=== PATIENT | male | born 1950 | race Caucasian/White ===

== ENCOUNTER 2019-10-08 07:34 | Outpatient (CLI) | payer OTHER, MEDICARE, SELFPAY ==
--- NOTE | 2019-10-08 08:00 | NM_ITS ---
WS: [id number] NUCLEAR MEDICINE OCTREOTIDE SCAN HISTORY: ABDOMINAL MASS COMPARISON: CT abdomen 08/20/2019 Patient is injected with 6.5 mCi of indium-111 Pentetreotide. Anterior and posterior whole-body imaging is obtained at 4 and 24 hours. Abnormal uptake in the soft tissues of the mid abdomen. Just to the RIGHT of midline at the level of the lower pole RIGHT kidney is an area of intense uptake which persists on 4 and 24 hours imaging. Th is corresponds to the mass seen by CT in the central mesentery. There are additional persistent soft tissue foci of increased uptake. In the RIGHT axilla, RIGHT paraspinal region just above the liver wh ich may be infrahilar. Also just superior to the spleen. Suspect metastatic deposits. NM/NM octreoscan body >2d [id number] IMPRESSION: 1. Octreotide scan is positive for uptake in the mesenteric mass seen on recen t CT. 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 2. Additional foci of increased uptake are probably metastatic deposits in the RIGHT axilla, RIGHT paraspinal, just above the diaphragm and LEFT lower thora x, just above the spleen. These may be metastatic lesions in the lungs or lymph nodes. Recommend follow-up chest CT with IV contrast to further evaluate. No a bnormality was noted on the recent CT.
== END 2019-10-08 07:35 | disposition home or self-care (01) ==
LOC: RAD 07:39
PROVIDERS: Family Provider Family Medicine; PCP Family Medicine; Visit Provider Surgery
DX: R19.00 Intra-abdominal and pelvic swelling, mass and lump, unspecified site (principal)
CPT/HCPCS: 78804; A9570

== ENCOUNTER 2019-10-31 10:38 | Outpatient (CLI) | payer OTHER, SELFPAY ==
--- NOTE | 2019-10-31 11:34 | CT_ITS ---
WS: [id number] CT CHEST WITH INTRAVENOUS CONTRAST HISTORY: MESENTERIC MASS TECHNIQUE: Contiguous 5 mm axial imaging performed on the thorax. Coronal and sagittal reformats are submitted. All CT scans at [facility] use at least one of these dose optimization techniq ues: automated exposure control; mA and/or kV adjustment per patient size (includes targeted exams wh ere dose is matched to clinical indication); or iterative reconstruction. CONTRAST: Omnipaque 300; 95 mL IV. DLP: 941.91 mGycm COMPARISON: Octreotide scan 10/08/2019. Lungs and central airway: No pulmonary mass or nodule. There are a few tiny micronodules scattered th roughout the lungs and a few granulomata. No suspicious mass. No pneumonia. Linear scar or atelectasi s at the RIGHT lung base. Pleura: Normal. No pleural effusion. Heart and pericardium: Prior CABG. Mild enlargement of the LEFT heart chambers. [place] coronary artery calcifications. Mediastinum and stephanie: Small benign-appearing lymph nodes. Vessels: Mild atherosclerosis aorta. Pulmonary artery size is slightly enlarged. Chest wall and lower neck: There are a few small axillary lymph nodes. There is no corresponding abno rmality in the RIGHT axilla to suggest a metastatic lesion. Upper abdomen: Prior cholecystectomy. There are very vague nodules in the RIGHT lobe of liver of incr eased attenuation. The largest measuring 2.4 cm in the RIGHT lobe. Possible metastatic site or alice iomas. RIGHT adrenal nodule measures 1.9 cm. LEFT adrenal nodule measures 1.2 cm. There is an additio nal soft tissue nodule measuring 1.2 cm adjacent to the LEFT adrenal gland. This could be an addition al adrenal lesion or lymph node. Osseous structures: Increase in thoracic kyphosis. No osteoblastic or osteolytic bone disease. Healed rib fracture in the lateral RIGHT thorax. CT/CT chest w con* [id number] IMPRESSION: 1. No mass identified in the RIGHT axilla to correspond to the findings on the recent octreotide scan. 2. Bilateral adrenal nodules. Metastatic sites versus adenoma. 3. Very subtle hyperdense nodules in the RIGHT lobe of the liver. Poorly visua lized and not amenable for biopsy. 4. Prior cholecystectomy. 5. Prior CABG.
[2019-10-31 12:05] LABS: Blood Urea Nitrogen 12 mg/dL (8-23)
[2019-10-31] MEDS: iohexol 300 mg/mL 100 mL Btl IV (12:08)
== END 2019-10-31 10:39 | disposition home or self-care (01) ==
LOC: RADWPI 10:43
PROVIDERS: Family Provider Family Medicine; PCP Family Medicine; Visit Provider Surgery
DX: R19.00 Intra-abdominal and pelvic swelling, mass and lump, unspecified site (principal); K63.89 Other specified diseases of intestine; Z95.1 Presence of aortocoronary bypass graft
CPT/HCPCS: 71260; 82565; 84520; Q9967

== ENCOUNTER 2019-11-05 09:49 | Outpatient (CLI) | payer OTHER, SELFPAY ==
[2019-11-05 10:17] LABS: Basophils % 0.3 %; Eosinophils # 0.2 10^3/uL (0.0-0.8); Eosinophils % 2.7 %; Hematocrit 47.1 % (42.0-52.0); Hemoglobin 14.8 g/dL (11.7-16.6); Lymphocytes # 1.9 10^3/uL (0.8-4.8); Lymphocytes % 32.6 %; Mean Corpuscular HGB Conc 31.4 g/dL (30.0-36.0); Mean Corpuscular Hemoglobin 25.8 pg (28.0-34.0); Mean Corpuscular Volume 82.2 fL (80-94); Monocytes # 0.5 10^3/uL (0.2-0.9); Monocytes % 8.1 %; Neutrophils # 3.4 10^3/uL (1.8-7.7); Neutrophils % 56.1 %; Nucleated Red Blood Cells % 0 %; Platelet Count 146 10^3/cmm (130-400); Red Blood Count 5.73 10^6/uL (4.1-5.3); Red Cell Distribution Width 14.5 % (12.1-15.1)
[2019-11-05 10:30] LABS: Alanine Aminotransferase 33 U/L (0-41); Albumin Level 5.1 g/dL (3.5-5.2); Alkaline Phosphatase 105 IU/L (40-130); Anion Gap 16.7 (5-19); Aspartate Amino Transferase 26 U/L (0-40); Blood Urea Nitrogen 13 mg/dL (8-23); C Reactive Protein 0.3 mg/L (0.0-4.9); Calcium 10.6 mg/dL (8.5-10.5); Carbon Dioxide 27 mmol/L (22-29); Chloride 101 mmol/L (98-107); Globulin 2.7 g/dL (1.3-4.6); Glomerular Filtration Rate 95.8 mL/min (90-130); Glucose 96 mg/dL (65-115); Potassium 4.7 mmol/L (3.5-5.1); Sodium 140 mmol/L (136-145); Total Bilirubin 0.4 mg/dL (0.15-1.2); Total Protein 7.8 g/dL (6.6-8.7)
[2019-11-05 11:08] LABS: Erythrocyte Sedimentation Rate 8 mm/hr (0-10)
[2019-11-07 17:20] LABS: Chromogranin A 401 ng/mL (25-140)
== END 2019-11-05 09:50 | disposition home or self-care (01) ==
PROVIDERS: Family Provider Family Medicine; PCP Family Medicine; Visit Provider Surgery
DX: K63.89 Other specified diseases of intestine (principal); R19.00 Intra-abdominal and pelvic swelling, mass and lump, unspecified site
CPT/HCPCS: 36415; 80053; 83497; 85025; 85651; 86140; 86316

== ENCOUNTER 2019-11-06 14:11 | Inpatient (IN) | payer OTHER, SELFPAY ==
[2019-11-05 10:33] VITALS: BMI 25.0
[2019-11-06] VITALS (20 sets, daily range): BP systolic 104–161; BP diastolic 58–83; PULSE 54–75; RESP 16–27; TEMP 36.3–36.8; O2SAT 83–99
[2019-11-06] MEDS: heparin 5,000 unit/mL INJ 1 mL 2000 UNIT SUBCUT (09:52)
[2019-11-06] MEDS: sodium chloride 0.9% 1,000 ML 30 ML IV (09:54)
--- NOTE | 2019-11-06 10:15 | P.ANESASSM_ITS ---
Pre-Anesthetic Assessment Pre-Anesthetic Assessment: Height/Weight: Height 1.83 m Weight 83.915 kg Temp Pulse Resp BP Pulse Ox 97.7 F 60 18 130/78 96 11/06/19 09:36 11/06/19 09:36 11/06/19 09:36 11/06/19 09:36 11/06/19 09:36 Preop Diagnosis: Abdominal mass Proposed Procedure: Operation Date: 11/06/19 11:10 Proposed Procedures p Laparoscopy Diagnostic poss Laparotomy [id number] K63.89(Not Applicable) - Tito Bañuelos MD s Laparoscopic Colon Resection(Not Applicable) - Tito Bañuelos MD s poss Exploratory Laparotomy(Not Applicable) - Tito Bañuelos MD Familial anesthetic complications: Non trouble Was Beta Gautam taken within 24 hours: Yes Last intake: Intake Last Liquid Date 11/05/19 Last Liquid Time 17:00 Last Solid Date 11/05/19 Last Solid Time 17:00 Social: Social History: No alcohol and No tobacco Exam: Pre-Anes Outpt Exam: alert, oriented x 3, clear to auscultation bilaterally and regular rate & rhythm Airway: Cervical ROM: WNL MP: 3 Dentition: False Pulmonary: Pulmonary: None reported CV/HEM: CV/HEM: CAD and HTN Comments: CABG X4 - may 1998 stents 5 years ago : : None reported Hepatic: Hepatic: None reported GI: GI: None reported Metabolic: Metabolic: None reported Musc/skel: Musc/skel: None reported Neuropsych: Neuropsych: None reported Anesthetic Plan: ASA status: 3 Anesthesia: General Other: last took plavix on 10th Risk of > 500 ml blood loss (7ml/kg in children): Yes, adequate IV access and fluids planned Meds/Allergies Current Medications: Current Medications Generic Name Dose Route Start Last Admin Trade Name Freq PRN Reason Stop Dose Admin Sodium Chloride 1,000 mls @ 30 ml s/hr 11/06/19 09:30 11/06/19 09:54 Sodium Chloride 0.9% IV 11/07/19 09:29 30 mls/hr .Q24H POLLY Administration PFSH Anesthesia PFSH: Social History Smoking and tobacco status: never smoked Second hand smoke exposure: Yes Alcohol intake: never Desire information about alcohol rehabilitation?: No Adopted: No Caregiver/support person: Yes Lives independently: No Household members: spouse Housing: House Marital status: service: Yes status details: 2 years Current occupational status: retired Current occupational exposures/hazards: No Pets and animals: No History of recent travel: No Sexually active: No Current gender identity: Male Jackelyn/Shinto: Restoration Special jackelyn needs: No Agree to transfusion: No Financial difficulty paying for basics: Decline to Answer Data Anesthesia Cardiac Studies: No Data to Display
--- NOTE | 2019-11-06 11:08 | W.PM.OPSUD ---
Surgery/Procedure H&P Update DATE OF PROCEDURE: November 06, 2019 DATE H&P PERFORMED: 11/05/19 H&P UPDATE INFORMATION: I have reviewed H&P completed within last 30 days, I have examined patient prior to procedure and No changes to prior documentation PREOP DIAGNOSIS: Abdominal mass PRIMARY INDICATION FOR PROCEDURE: The same. PLANNED PROCEDURE: Operation Date: 11/06/19 11:10 Proposed Procedures p Laparoscopy Diagnostic poss Laparotomy [id number] K63.89(Not Applicable) - Tito Bañuelos MD s Laparoscopic Colon Resection(Not Applicable) - Tito Bañuelos MD s poss Exploratory Laparotomy(Not Applicable) - Tito Bañuelos MD
[2019-11-06] MEDS: lidocaine 2% INJ 20 mL INJECTION (12:02)
--- NOTE | 2019-11-06 13:11 | SUR.OPER ---
1230 - Pt's Gena updated on surgery progress and pt status via her cell phone. 1310 - Gena updated on surgery progress and pt status via her cell phone.
--- NOTE | 2019-11-06 14:17 | SUR.OPER ---
141Ignacia Avery updated on surgery progress and pt status via her cell phone.
--- NOTE | 2019-11-06 14:40 | PM.OP ---
Operative Report Date of procedure: November 06, 2019 Pre-op Diagnosis: Abdominal mass Post-op diagnosis: other (Retroperitoneal mesenteric mass fixated and irresectable, small bowel mass tethered to the mesenteric mass about a foot long and a foot from the ileocecal junction with sutures haleigh proximal) Post-op Findings: Small bowel mass with mesenteric lymphadenopathy fixated to the retroperitoneal region Procedure Done: Diagnostic laparoscopy converted to exploratory laparotomy Small bowel resection Peritoneal lavage Specimens removed/disposition: Small bowel segment resection about foot long including nearly obstructing small bowel mass Additional small bowel segment resected distal to the resected segment above. Staple line after resection anastomosis Multiple Bartolo-Cut needle biopsies 18-gauge from the mesenteric mass sent for permanent Surgeon: Tito Bañuelos Heater Tender: Surgical techGonzales Bradley Britney and Leta Circulating nurses Dana and Isabel Young Anesthesia: General (ramp and cargo supervisor is Christal and Blanquita) Estimated blood loss (mL): 100 IV fluids (mL): 2,600 Urine output (mL): 400 Complications: No immediate complications Condition: stable Disposition: observation Brief History: This is a pleasant 69 years old gentleman with history of chronic diarrhea, regional CT scan was done per [place] back in April 2019 that showed omental caking, followed by that the small bowel follow-through that was done showed normal findings in the repeat CT scan that was done in August 2019 showed no changes in the mesenteric mass, yet the patient continued to have symptoms and thus tumor markers were sent were normal, followed by that the case was discussed at the tumor board and octreotide scan was done that showed suspicious of right axillary lymphadenopathy and diaphragmatic nodules as well, that prompted the recommendation of CT scan of the chest that came back negative, at this point no biopsies were taken and still the diagnosis was unrevealing, knowing that the [place] CAT scan was suspicious for carcinoid versus desmoid versus fibrosis of the wall bowel mesentery. After thorough history physical examination and reviewing the chart and images with my personal interpretation and further discussions with Dr. Amos medical oncologist, I counseled the patient for diagnostic laparoscopy possible laparotomy and possible small bowel resection. Patient agreed to proceed and informed consent per chart Procedure: After identifying the patient in the holding area, was taken to the operating room, placed in supine position, intubated by anesthesia, prophylactic IV antibiotics were given per protocol. Hutson catheter was inserted by the circulating nurse revealing clear urine,time-out was done verifying the patient's name/date of /planned procedure and destination after the procedure, all were in agreement. Patient was appropriately secured to the table, all pressure points were padded Prep and drape of the abdomen was done under the usual sterile technique, a Yen trocar technique was used through an supra umbilical skin incision, two stay sutures were applied to the fascia, and safe entrance to the abdominal cavity was achieved, low flow followed by high flow of CO2 gas, started by 0 scope 10 mm, no injuries were detected, followed by that a 30? millimeter scope was inserted. A 5 mm trocar was inserted under direct vision in the right upper quadrant, followed by a right lower quadrant, and another two 5 mm trocars were inserted as a mirror image from the first 2 but on the left side, to enable running the small bowel, from each side of the operating table. Position of the patient was done in T Crain and reversed T Crain so I was able to inspect the whole abdominal cavity safely, intra-abdominal adhesions were appreciated towards the right side of the abdomen. There was no evidence of intra-abdominal ascites or peritoneal deposits or carcinomatosis or liver involvment, the rest of the bowel looked normal. First the patient was placed in T Crain, the omentum was lifted up, ligament of Treitz was identified, I was standing at the right side table, the bowel was then all the way to the proximal ileal loops, then I switched it and went to the other side of the table, the remaining of the bowel were again to the ileocecal junction, about a foot from the latter junction a small bowel segment looked congested and tethered to the mesentery and inadvertent enterotomy was created and I had to repair it by laparoscopic figure of eight 2-0 silk sutures, at this point since I found that the bowel is so tethered and I am not able to appreciate the mesenteric mass from the laparoscopic view I decided to convert the patient to open procedure, since I was not able to evaluate the mass appropriately to obtain biopsies.. Laparoscopic instruments were set aside, the midline laparotomy was done extended cephalad and caudad from the previously mentioned supraumbilical incision, incision extended all the way through the subcutaneous to the fascial layer and then the peritoneum there was no succus or bleeding, a self-retaining Magazine retractor was placed to assist in exposure. After conversion to open I was able to locate the tethered small bowel segment and the mesenteric mass was fixed to the retroperitoneal structures, at this point multiple Bartolo-Cut biopsies were obtained sent for permanent pathology, I was able to dissect about a foot long of the small bowel from the mesenteric mass, extensive desmoplastic reaction was appreciated at the root of the mesentery of that small bowel segment to the underlying mesenteric lymphadenopathy,some bleeding was appreciated from the raw area left behind which I managed to apply multiple [id number] sutures of silk to control the bleeding and a piece of Surgicel was applied. That bowel of loop mesentery was scarred down to the retroperitoneal mesenteric mass, the actual mesenteric mass was fixed to the retroperitoneum and It was Harvey[place] to attempt dissecting the mass for excision, so I elected to obtain the Bartolo-Cut biopsies and excised the segment of bowel being scarred down to the mass. I created windows in the mesentery, at least 5 cm of healthy segment of small bowel were taken as safety margin proximal and distal, a GI 55 mm blue load was fired ?2, healthy proximal and distal ends were obtained, the mesentery was taken down using LigaSure followed by 3-0 silk interrupted across mesenteric line for hemostasis without jeopardizing the blood supply. Additional segment distal to the resected part was removed as it looked dusky. At this point final look showed normal-looking viscera including the liver without evidence of metastatic disease or deposits or carcinomatosis or sub-diaphragmatic lesions. The healthy segments of the small bowel now were brought [id number], 3-0 silk stay sutures were applied at 2 points, proximal and distal, and enterotomies were created to allow the 2 limbs of BRENNON 55 blue load stapler to create a [id number]-[id number] functional anastomosis,enterotomy sites were were divided by using additional GI blue load,followed by closure of the mesenteric rent. Thorough irrigation was done with the normal warm saline, continued to have viable bowel, at this point closure was done with loop PDS and I elected to leave 3 sheets of Interceed to prevent potential adhesions, thorough irrigation was done of the skin and subcutaneous followed by skin alexis, and all the small incisions created for the laparoscopic procedure were closed as well by alexis as well. Count of instruments, needles and sponges were completed at the end of the procedure Patient was then extubated and transferred to the recovery area in stable condition I elected to leave the Hutson catheter postoperatively I was present for the whole entire procedure
[2019-11-06] MEDS: fentaNYL 50 mcg/mL INJ 2mL IVP ×2 (14:51→14:56)
[2019-11-06] MEDS: morphine 4 mg/mL SDV 1 mL 2 MG IVP ×5 (15:01→22:25)
--- NOTE | 2019-11-06 16:19 | SUR.PHASEI ---
1442 PT TO PACU SLEEPY BUT AWAKES AND MOANS, ORAL AIRWAY IN PLACE GOOD RESP NOTED 1450 ORAL AIRWAY OUT, SEE PAIN MEDS GIVEN PT RESTLESS, C/O OF ABD PAIN FACE SCALE USED 1530 PT SLEEPS IF NOT DISTURBED FAMILY UPDATED AND WILL WALK UP WITH PT, REPORT CALLED SEE EARLIER PAIN MEDS GIVEN, ABD SOFT WITH 5 SITES WITH TEGADER D/I NO BLEEDING NOTED TO DRESSING , SALAS TO DD YELLOW URINE NOTED STATLOCK TO LT THIGH.PT TO FLOOR PER CART 1545 PT MOVED TO BED WITH ASSIST OF 4 NURSES, WITH SLIDE BOARD, BP 104/60, HR 54, RESP 20 ON 3LNC, SATS 98%
[2019-11-06] MEDS: famotidine 20 mg/2 mL INJ IVP (16:26)
[2019-11-06] MEDS: lactated ringers 1,000 ML 100 ML IV (16:26)
--- NOTE | 2019-11-06 17:09 | PM.CONSULT ---
Providers/Reason For Consult Consulting Physican/Specialty*: Surgery Reason for Consult*: Medical management Attending Physician: Tito Bañuelos MD Primary Care Provider: Abdulaziz Catherine History of Present Illness History of Present Illness Manuel Rodriguez is a 69 year old male with a past medical history of CABG x3, CAD status post stenting x3, hypertension, GERD, history of pulmonary embolism, chronic diarrhea for which he was found to have omental caking on CT scan and a mesenteric mass status post small bowel resection by Dr. Bañuelos for a retroperitoneal mesenteric mass fixating in a resectable, small bowel mass tethered to mesenteric mass about a foot long and a foot from the ileocecal junction. Hospitalist team was consulted for medical management of patient's chronic medical problems. Currently patient was examined postoperatively, complaining of nausea and abdominal pain, patient was having a lot of pain while speaking, so most of the history was obtained from his . Patient's states that he has a history of CABG x3, CAD status post stenting x3, he held his Plavix 2 to 3 weeks prior to planned surgery, his blood pressures are well controlled as outpatient, no history of diabetes, no history of hyperlipidemia, no history of lung disease, no history of smoking. Patient's does state that many years ago he did have a pulmonary embolism status post embolectomy, she is not sure if he was put on blood thinners. No recent illness, no recent ER visits, no recent hospitalizations. In terms of work-up for the mesenteric mass, patient has had an octreotide scan that showed right axillary lymphadenopathy and diaphragmatic nodules, that prompted a CT of the chest which came back unremarkable. Patient has had tumor markers which have been unremarkable. Review of Systems Const: Denies: fever Card: Denies: chest pain Resp: Denies: shortness of breath GI: Reports: abdominal pain and nausea : Denies: flank pain Musc: Denies: neck pain or back pain Skin/Breast: Denies: rash Neuro: Denies: headache Endo: Reports: excessive thirst; Denies: excessive urination Meds/Allergies Home Medications and Allergies Home Medications Medication Instructions Recorded Confirmed Type amlodipine 10 mg tablet 10 mg PO DAILY 10/17/19 11/06/19 History atenolol 25 mg tablet 25 mg PO DAILY 10/17/19 11/06/19 History cholecalciferol (vitamin D3) 10,000 unit PO DAILY 10/17/19 11/06/19 History 10,000 unit capsule clopidogrel 75 mg tablet 75 mg PO DAILY 10/17/19 11/05/19 History garlic 1 mg capsule 1 mg PO DAILY 10/17/19 11/06/19 History lisinopril 40 mg tablet 20 mg PO DAILY 10/17/19 11/06/19 History omega-3 fatty acids 1,000 mg 1,000 mg PO DAILY 10/17/19 11/06/19 History capsule omeprazole 20 mg capsule,delayed 20 mg PO DAILY 10/17/19 11/06/19 History release Allergies Allergy/AdvReac Type Severity Reaction Status Date / Time Stwkkup-Rvc-Bma Reductase Allergy Unknown Verified 11/06/19 09:32 Inhibitor Current Medications Current Medications Generic Name Dose Route Start Last Admin Trade Name Freq PRN Reason Stop Dose Admin Famotidine 20 mg 11/06/19 15:56 11/06/19 16:26 Pepcid Inj IVP 20 mg Q12H POLLY Administration Lactated Ringer's 1,000 mls @ 100 mls/hr 11/06/19 15:56 11/06/19 16:26 Lactated Ringers IV 100 mls/hr .Q10H POLLY Administration Acetaminophen 1,000 mg in 100 mls @ 400 mls/hr 11/06/19 16:10 11/06/19 16:29 Ofirmev IV 400 mls/hr Q8H PRN Administration NEEDED FOR FEVER OR PAIN PFSH Acute PFSH: Social History Smoking and tobacco status: never smoked Second hand smoke exposure: Yes Alcohol intake: never Desire information about alcohol rehabilitation?: No Adopted: No Caregiver/support person: Yes Lives independently: No Household members: spouse Housing: House Marital status: service: Yes status details: 2 years Current occupational status: retired Current occupational exposures/hazards: No Pets and animals: No History of recent travel: No Sexually active: No Current gender identity: Male Jackelyn/Gnosticist: Latter Day Special jackelyn needs: No Agree to transfusion: No Financial difficulty paying for basics: Decline to Answer Vitals/I&O/Wt Last Vital Signs Temp 97.5 F L 11/06/19 15:54 Pulse 54 L 02/25/20 15:54 Resp 20 H 11/06/19 15:54 BP 104/60 11/06/19 15:54 Pulse Ox 98 11/06/19 15:54 11/06/19 11/06/19 11/06/19 06:59 14:59 22:59 Intake Total 1500 / 1500 250 / 1750 Output Total 1000 / 1000 Balance 500 / 500 250 / 750 Weight last 48 hrs Weight 83.915 kg Physical Exam Const: COMMON NORMALS: no apparent distress and oriented x3 GENERAL APPEARANCE: cooperative and comfortable HENMT: COMMON NORMALS: normocephalic HEAD & SCALP: normocephalic Eye: COMMON NORMALS: PERRL and EOMs intact bilaterally GENERAL EYE: normal appearance of both eyes PUPIL: Yes PERRL Neck/C-Spine: COMMON NORMALS: full ROM, no lymphadenopathy, no JVD and thyroid normal THYROID: thyroid normal Lymph: LYMPHATIC: no lymphadenopathy noted Resp: COMMON NORMALS: normal respiratory effort, no retractions, no use of accessory muscles and clear to auscultation bilaterally AUSCULTATION: clear to auscultation bilaterally Cardio: COMMON NORMALS: no JVD, regular rate, regular rhythm, S1 normal heart sound, S2 normal heart sound, no gallops, no clicks and no murmurs RATE: regular rate RHYTHM: regular rhythm HEART SOUNDS: S1 normal and S2 normal GI: COMMON NORMALS: soft to palpation INSPECTION: Yes normal to inspection AUSCULTATION: Yes absent bowel sounds PALPATION: Yes soft, Yes tender, No guarding and No rigid Extremity: COMMON NORMALS: normal to inspection, full ROM and no pedal edema Neuro: COMMON NORMALS: oriented x3, moves all extremities and no focal motor deficits Psych: COMMON NORMALS: mental status grossly normal, thought process normal and cooperative THOUGHT PROCESS: normal thought process Urinary Catheter Management^: Hutson: Cath Placed During This Visit: yes Urethral Indwelling: Yes Reason for Continuing Indwelling Catheter: Other Urinary Catheter Date of Insertion: 11/06/19 Urinary Catheter Time of Insertion: 11:40 A&P Assessment and plan (1) Mesenteric mass: -Pain control with morphine -Nausea control Zofran -Currently n.p.o., receiving LR at 100 cc an hour -Currently having some bradycardia heart rates in the 40s, asymptomatic, normal sinus rhythm, likely secondary to pain medication, will continue to monitor Status: Acute Code(s): K63.89 - Other specified diseases of intestine (2) Hypertension: -Normotensive, hold all blood pressure medications Status: Acute Code(s): I10 - Essential (primary) hypertension (3) CAD (coronary artery disease): No active chest pain Status: Acute Code(s): I25.10 - Atherosclerotic heart disease of [place] coronary artery without angina pectoris Coding Level of Care Code Acute Registered Nurse Cardiac Telemetry for Chg Fwd Diagnoses Mesenteric mass K63.89 Hypertension I10 CAD (coronary artery disease) I25.10
[2019-11-06] MEDS: ondansetron 2 mg/ML SDV 2 mL 4 MG IVP (17:23)
[2019-11-07] VITALS (11 sets, daily range): BP systolic 145–177; BP diastolic 66–87; PULSE 70–84; RESP 14–24; TEMP 36.5–37; O2SAT 93–98; BMI 25.7
[2019-11-07] MEDS: famotidine 20 mg/2 mL INJ IVP ×2 (03:18→15:57)
[2019-11-07 03:55] LABS: Hematocrit 42.6 % (42.0-52.0); Hemoglobin 13.7 g/dL (11.7-16.6)
[2019-11-07 04:14] LABS: Anion Gap 18.3 (5-19); Blood Urea Nitrogen 9 mg/dL (8-23); Calcium 9.4 mg/dL (8.5-10.5); Carbon Dioxide 21 mmol/L (22-29); Chloride 99 mmol/L (98-107); Glomerular Filtration Rate 133.6 mL/min (90-130); Glucose 156 mg/dL (65-115); Osmolality Calculated 277 mOsm/kg (285-295); Potassium 4.3 mmol/L (3.5-5.1); Sodium 134 mmol/L (136-145)
[2019-11-07 04:15] LABS: Magnesium 1.6 mg/dL (1.7-2.3)
[2019-11-07] MEDS: HYDROmorphone 1 mg/mL INJ 1 mL 0.2 MG IVP (04:51)
[2019-11-07] MEDS: lactated ringers 1,000 ML 100 ML IV (05:31)
--- NOTE | 2019-11-07 06:02 | P.PN_ITS ---
Subjective Subjective: Interval history: Patient overall is doing well yet his pain is not yet appropriately controlled except when he received Dilaudid as he gets hallucinations with morphine IV Good urine output Vitals/I&O/Wt Last Vital Signs Temp 97.9 F 11/07/19 04:39 Pulse 72 11/07/19 04:39 Resp 16 11/07/19 04:51 BP 167/87 11/07/19 04:39 Pulse Ox 98 11/07/19 04:39 11/06/19 11/06/19 11/07/19 14:59 22:59 06:59 Intake Total 1500 / 1500 400 / 1900 1000 / 2900 Output Total 1000 / 1000 1900 / 2900 Balance 500 / 500 400 / 900 -900 / 0 Weight last 48 hrs Weight 197 lb 5 oz Weight 185 lb Physical Exam Const: COMMON NORMALS: no apparent distress and oriented x3 GENERAL APPEARANCE: cooperative ORIENTATION/CONSCIOUSNESS: Yes awake, Yes oriented to person, Yes oriented to place and Yes oriented to time HENMT: COMMON NORMALS: normocephalic HEAD & SCALP: normocephalic Eye: COMMON NORMALS: PERRL and no scleral icterus PUPIL: Yes PERRL Lymph: LYMPHATIC: no lymphadenopathy noted Chest: COMMONS NORMALS: inspection of chest normal Resp: COMMON NORMALS: normal respiratory effort and clear to auscultation bilaterally AUSCULTATION: clear to auscultation bilaterally Cardio: COMMON NORMALS: S1 normal heart sound and S2 normal heart sound; negative for no murmurs HEART SOUNDS: S1 normal and S2 normal GI: COMMON NORMALS: soft to palpation; negative for no hepatosplenomegaly INSPECTION: Yes normal to inspection PALPATION: Yes soft, No firm, Yes tender (Except at the midline incision site), No guarding, No rigid and No no hepatosplenomegaly Neuro: COMMON NORMALS: oriented x3 SENSORIUM/ORIENTATION: Yes oriented to person, Yes oriented to place and Yes oriented to time Urinary Catheter Management^: Hutson: Cath Placed During This Visit: yes Urethral Indwelling: Yes Reason for Continuing Indwelling Catheter: Other Urinary Catheter Date of Insertion: 11/06/19 Urinary Catheter Time of Insertion: 11:40 Data : 11/07/19 02:55 11/07/19 02:55 A&P Assessment and plan (1) Status post laparotomy: We will continue n.p.o. till patient starts passing gas once that happens we will start the patient on clear liquid diet and switch to p.o. pain medication. Encourage ambulation Incentive spirometer every hour Continue SCDs Follow on final pathology We will switch to Dilaudid 0.5 mg IV every 2 hours as needed and DC morphine Continue IV for pain control DC Hutson catheter Repeat Labs in [place] AM I appreciate Dr. Franklin's input with regard to medical management of patient's medical comorbidities Status: Acute Code(s): Z98.890 - Other specified postprocedural states Attestations Medical Necessity Statement*: Observation status Time Spent in Patient Care: 16 - 35 minutes (>than 50% of time spent in counselling and/or direct pt care on unit) . Coding Level of Care Code Acute Certified Personal Trainer for Chg Fwd Exam Comprehensive Diagnoses Status post laparotomy Z98.890
--- NOTE | 2019-11-07 06:47 | PC.NURSE ---
Pt up this morning to ambulate - patient did very well with moderate pain getting up. Total distance 150ft around nurse station. Pain was rated an 8 after ambulation. currently no audible bowel sounds nor has the patient passed gas.
[2019-11-07] MEDS: HYDROmorphone 1 mg/mL INJ 1 mL 0.5 MG IVP ×3 (08:05→15:57)
[2019-11-07] MEDS: amlodipine 10 mg Tablet PO (09:43)
[2019-11-07] MEDS: atenolol 50 mg Tablet 25 MG PO (09:43)
[2019-11-07] MEDS: lisinopril 20 mg Tablet PO (09:43)
--- NOTE | 2019-11-07 11:13 | P.PN_ITS ---
Subjective Subjective: Interval history: Denies fevers, chills, nausea, vomiting, continues to have abdominal pain, Hutson catheter has been removed has not urinated since, not passing gas, has not stooled yet, continues to be n.p.o., did get up and walk around the nurses station Vitals/I&O/Wt Last Vital Signs Temp 98.2 F 11/07/19 11:06 Pulse 70 11/07/19 11:06 Resp 14 11/07/19 11:06 BP 177/85 11/07/19 11:06 Pulse Ox 93 11/07/19 11:06 11/06/19 11/07/19 11/07/19 22:59 06:59 14:59 Intake Total 400 / 1900 1100 / 3000 Output Total 1900 / 2900 Balance 400 / 900 -800 / 100 Weight last 48 hrs Weight 86.137 kg Weight 89.499 kg Physical Exam Const: COMMON NORMALS: no apparent distress and oriented x3 HENMT: COMMON NORMALS: normocephalic HEAD & SCALP: normocephalic Neck/C-Spine: COMMON NORMALS: no JVD Resp: COMMON NORMALS: normal respiratory effort, no retractions, no use of accessory muscles and clear to auscultation bilaterally AUSCULTATION: clear to auscultation bilaterally Cardio: COMMON NORMALS: no JVD, regular rate, regular rhythm, S1 normal heart sound and S2 normal heart sound RATE: regular rate RHYTHM: regular rhythm HEART SOUNDS: S1 normal and S2 normal GI: COMMON NORMALS: soft to palpation INSPECTION: Yes normal to inspection and Yes incision (Gauze in place) AUSCULTATION: Yes hypoactive bowel sounds PALPATION: Yes soft, Yes tender, No guarding and No rigid Extremity: COMMON NORMALS: normal capillary refill, no clubbing, cyanosis or edema, no calf tenderness and no pedal edema Neuro: COMMON NORMALS: oriented x3 Psych: COMMON NORMALS: mental status grossly normal Urinary Catheter Management^: Hutson: Cath Placed During This Visit: yes, but has since been removed by the nurse Urethral Indwelling: Yes Reason for Continuing Indwelling Catheter: Other Urinary Catheter Date of Insertion: 11/06/19 Urinary Catheter Time of Insertion: 11:40 Date Urinary Catheter Removed: 11/07/19 Time Urinary Catheter Discontinued: 06:00 Data : 11/07/19 02:55 11/07/19 02:55 A&P Assessment and plan (1) Mesenteric mass: -Pain control with morphine -Nausea control Zofran -Currently n.p.o., receiving LR at 100 cc an hour -Currently having some bradycardia heart rates in the 40s, asymptomatic, normal sinus rhythm, likely secondary to pain medication, will continue to monitor Status: Acute Code(s): K63.89 - Other specified diseases of intestine (2) Hypertension: -Continue home medications, labetalol as needed Status: Acute Code(s): I10 - Essential (primary) hypertension (3) CAD (coronary artery disease): No active chest pain Status: Acute Code(s): I25.10 - Atherosclerotic heart disease of [place] coronary artery without angina pectoris Attestations Medical Necessity Statement*: Patient requires continued hospitalization status post surgery Coding Level of Care Code Acute Analytic Programmer for [place] Fwd Diagnoses Mesenteric mass K63.89 Hypertension I10 CAD (coronary artery disease) I25.10
--- NOTE | 2019-11-07 12:38 | PC.CHAP ---
Pastoral Care Encounter/Spiritual Assessment Type of Contact [] Declined spinning mule tender visit [] Patient/Family/Request visit [] Outpatient visit [] Follow-up visit [] Physician referral [] Code/Alert [x] Routine visit [] Staff referral [] Actively dying [] Patient sleeping [] Family support [] [] Out of room [] Palliative care [] [] Receiving care in room [] Pre-surgical visit [] Trauma [] Long length of stay [] ICU visit [] Other: Relational/Emotional Strength [x] Patient feels connected with others/family/visitors/staff [] Distress [] Loneliness/isolation [] Abandonment Spirituality of Patient [x] Person of Jackelyn [x] Attends Pentecostalism of their Jackelyn [x] Believes in Prayer [x] Reads Bible or Zoroastrian materials [] There are Spiritual issues to be addressed Petroleum Products Sales Representative Interventions [x] Prayer [x] Active listening [x] Non-anxious presence [x] Spiritual/emotional support [] Crisis/trauma care [] Spiritual counseling [] Bereavement support [] Provided bereavement packet [] Provided Bible/devotional materials [] Provided toy/stuffed animal, coloring book to patient or family member [] Provided Communion [] Anointing/[place] [] Salvation [x] Completed spiritual assessment [] Other: Impact on Illness or Injury [] Angry [] Fearful [] Anxious [] Often cries [] Exhaustion [] Unable to work [] Unable to attend amish [] Unable to walk/stand [] Unable to read [] Unable to drive [] Unable to eat/drink [] Unable to sleep [] Unable to be with family [] Patient intubated [] Other: Summary patient has great attude Time spent with patient 2 visitors 2 visitors
[2019-11-07] MEDS: lactated ringers 1,000 ML 125 ML IV (17:47)
[2019-11-07] MEDS: HYDROmorphone 1 mg/mL INJ 1 mL 0.75 MG IVP (20:36)
--- NOTE | 2019-11-07 22:04 | PC.NURSE ---
no bowel sounds heard at this time yet. incision dressing has upper and lower drainage but appears dry and stiff at this time. Dr. Conn hadnt come down today I wa told to change his dressing for the first time yet.
[2019-11-08] VITALS (11 sets, daily range): BP systolic 122–165; BP diastolic 74–90; PULSE 69–74; RESP 16–21; TEMP 36.6–37.1; O2SAT 92–95
[2019-11-08] MEDS: HYDROmorphone 1 mg/mL INJ 1 mL 0.75 MG IVP ×4 (00:24→17:46)
--- NOTE | 2019-11-08 00:58 | PC.NURSE ---
hypoactive bowel sounds more on the right side. no gas passed at this time.
[2019-11-08] MEDS: lactated ringers 1,000 ML 125 ML IV ×3 (02:55→20:20)
[2019-11-08 03:54] LABS: Hematocrit 40.9 % (42.0-52.0); Hemoglobin 13.3 g/dL (11.7-16.6)
[2019-11-08 04:10] LABS: Magnesium 1.8 mg/dL (1.7-2.3); Phosphorus 2.4 mg/dL (2.5-4.5)
[2019-11-08 04:11] LABS: Anion Gap 13.4 (5-19); Blood Urea Nitrogen 9 mg/dL (8-23); Carbon Dioxide 29 mmol/L (22-29); Chloride 100 mmol/L (98-107); Glomerular Filtration Rate 111.8 mL/min (90-130); Glucose 117 mg/dL (65-115); Osmolality Calculated 283 mOsm/kg (285-295); Potassium 4.4 mmol/L (3.5-5.1); Sodium 138 mmol/L (136-145)
[2019-11-08] MEDS: famotidine 20 mg/2 mL INJ IVP ×2 (04:47→15:21)
--- NOTE | 2019-11-08 06:26 | PM.PN ---
Subjective Subjective: Interval history: Patient's pain is better under control Good urine output No acute events overnight and still did not pass gas but bowel sounds are active Vitals/I&O/Wt Last Vital Signs Temp 97.9 F 11/08/19 04:00 Pulse 73 11/08/19 04:00 Resp 17 11/08/19 04:47 BP 165/90 11/08/19 04:00 Pulse Ox 94 11/08/19 04:47 11/07/19 11/07/19 11/08/19 14:59 22:59 06:59 Intake Total 1200 / 1200 1000 / 2200 Output Total 1560 / 1560 1685 / 3245 Balance -360 / -360 -685 / -1045 Weight last 48 hrs Weight 194 lb Weight 189 lb 14.4 oz Weight 197 lb 5 oz Physical Exam Narrative: EXAM NARRATIVE: Patient is conscious alert oriented X3 BMI 26 Head and neck examination PERRLA no masses no cervical lymphadenopathy no jaundice Cardiac examination audible S1-S2 no murmurs no gallops no arrhythmias Chest is clear bilateral,abscence of Rhonchi or wheezes,no surgical emphysema Abdomen nontender except mildly at the incision site nondistended soft no organomegaly guarding or rigidity/no signs of peritonitis. Dressings taken off and skin alexis in place Extremities no cyanosis no clubbing no edema Urinary Catheter Management^: Hutson: Cath Placed During This Visit: yes, but has since been removed by the nurse Urethral Indwelling: Yes Reason for Continuing Indwelling Catheter: Other Urinary Catheter Date of Insertion: 11/06/19 Urinary Catheter Time of Insertion: 11:40 Date Urinary Catheter Removed: 11/07/19 Time Urinary Catheter Discontinued: 06:00 Data : 11/08/19 03:40 11/08/19 03:40 A&P Assessment and plan (1) Status post laparotomy: We will continue n.p.o. till patient starts passing gas once that happens we will start the patient on clear liquid diet and switch to p.o. pain medication. Encourage ambulation Incentive spirometer every hour Continue SCDs Follow on final pathology We will switch to Dilaudid 0.5 mg IV every 2 hours as needed and DC morphine Continue IV for pain control Stable H&H from my and we can start pharmacologic DVT prophylaxis in the form of heparin subcu I appreciate Dr. Franklin's input with regard to medical management of patient's medical comorbidities Status: Acute Code(s): Z98.890 - Other specified postprocedural states Attestations Medical Necessity Statement*: Medical necessity care is expected to cross 2 midnights Time Spent in Patient Care: 16 - 35 minutes (>than 50% of time spent in counselling and/or direct pt care on unit). Coding Level of Care Code Acute Frame And Scrap Crusher for Chg Fwd Diagnoses Status post laparotomy Z98.890
[2019-11-08] MEDS: heparin 5,000 unit/mL INJ 1 mL 5000 UNIT SUBCUT ×3 (09:31→22:28)
[2019-11-08] MEDS: atenolol 50 mg Tablet 25 MG PO (09:33)
[2019-11-08] MEDS: amlodipine 10 mg Tablet PO (09:33)
[2019-11-08] MEDS: lisinopril 20 mg Tablet PO ×2 (09:33→17:43)
--- NOTE | 2019-11-08 13:38 | P.PN_ITS ---
Subjective Subjective: Interval history: Patient states that he has not had a bowel movement, not passing gas, Hutson catheter was removed, is urinating, no fevers, no chills, no abdominal pain, patient did not get up out of bed and ambulate Vitals/I&O/Wt Last Vital Signs Temp 97.9 F 11/08/19 11:11 Pulse 74 11/08/19 11:11 Resp 18 11/08/19 11:11 BP 150/78 11/08/19 11:11 Pulse Ox 94 11/08/19 11:11 11/07/19 11/08/19 11/08/19 22:59 06:59 14:59 Intake Total 1200 / 1200 1000 / 2200 1000 / 1000 Output Total 1560 / 1560 1685 / 3245 600 / 600 Balance -360 / -360 -685 / -1045 400 / 400 Weight last 48 hrs Weight 87.997 kg Weight 86.137 kg Weight 89.499 kg Physical Exam Const: COMMON NORMALS: no apparent distress and oriented x3 GENERAL APPEARANCE: cooperative and comfortable HENMT: COMMON NORMALS: normocephalic HEAD & SCALP: normocephalic Neck/C-Spine: COMMON NORMALS: no JVD Lymph: LYMPHATIC: no lymphadenopathy noted Resp: COMMON NORMALS: normal respiratory effort, no retractions, no use of accessory muscles and clear to auscultation bilaterally AUSCULTATION: clear to auscultation bilaterally Cardio: COMMON NORMALS: no JVD, regular rate, regular rhythm, S1 normal heart sound, S2 normal heart sound, no gallops, no clicks and no murmurs RATE: regular rate RHYTHM: regular rhythm HEART SOUNDS: S1 normal and S2 normal GI: COMMON NORMALS: soft to palpation AUSCULTATION: Yes hypoactive bowel sounds and Yes absent bowel sounds PALPATION: Yes soft, Yes tender, No guarding and No rigid Neuro: COMMON NORMALS: oriented x3 Urinary Catheter Management^: Hutson: Cath Placed During This Visit: yes, but has since been removed by the nurse Urethral Indwelling: Yes Reason for Continuing Indwelling Catheter: Other Urinary Catheter Date of Insertion: 11/06/19 Urinary Catheter Time of Insertion: 11:40 Date Urinary Catheter Removed: 11/07/19 Time Urinary Catheter Discontinued: 06:00 Data : 11/08/19 03:40 11/08/19 03:40 A&P Assessment and plan (1) Mesenteric mass: -Pain control with morphine -Nausea control Zofran -Currently n.p.o., receiving LR at 100 cc an hour -Blood pressure medications were restarted due to hypertensive episodes Status: Acute Code(s): K63.89 - Other specified diseases of intestine (2) Hypertension: -Continue home medications, labetalol as needed Status: Acute Code(s): I10 - Essential (primary) hypertension (3) CAD (coronary artery disease): No active chest pain Status: Acute Code(s): I25.10 - Atherosclerotic heart disease of [place] coronary artery without angina pectoris Attestations Medical Necessity Statement*: She requires continued hospitalization postoperative Coding Level of Care Code Acute Battery Vent Plug Inserter for Brionna Cueva Diagnoses Mesenteric mass K63.89 Hypertension I10 CAD (coronary artery disease) I25.10
[2019-11-09] VITALS (8 sets, daily range): BP systolic 106–140; BP diastolic 65–85; PULSE 65–83; RESP 14–18; TEMP 36.6–36.9; O2SAT 91–97
[2019-11-09] MEDS: HYDROmorphone 1 mg/mL INJ 1 mL 0.75 MG IVP ×2 (02:58→15:12)
[2019-11-09] MEDS: famotidine 20 mg/2 mL INJ IVP ×2 (04:40→15:11)
--- NOTE | 2019-11-09 05:06 | PC.NURSE ---
pt tele running afib, pt reports he has a history of irr heart beat . Dr Jimenes made aware of change in tele no new orders.
[2019-11-09 06:15] LABS: Basophils % 0.4 %; Eosinophils # 0.1 10^3/uL (0.0-0.8); Hematocrit 40.1 % (42.0-52.0); Hemoglobin 12.9 g/dL (11.7-16.6); Lymphocytes % 21.6 %; Mean Corpuscular HGB Conc 32.2 g/dL (30.0-36.0); Mean Corpuscular Volume 84.1 fL (80-94); Mean Platelet Volume 12.6 fL (7.4-10.4); Monocytes # 0.9 10^3/uL (0.2-0.9); Monocytes % 9.8 %; Neutrophils # 6.1 10^3/uL (1.8-7.7); Neutrophils % 66.9 %; Nucleated Red Blood Cells % 0 %; Platelet Count 137 10^3/cmm (130-400); Red Blood Count 4.77 10^6/uL (4.1-5.3); Red Cell Distribution Width 14.1 % (12.1-15.1); White Blood Count 9.2 10^3/uL (4.0-10.0)
--- NOTE | 2019-11-09 06:29 | P.PN_ITS ---
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 pending final report Vitals/I&O/Wt Last Vital Signs Temp 98.5 F 11/09/19 03:19 Pulse 83 11/09/19 03:19 Resp 18 11/09/19 03:19 BP 129/75 11/09/19 03:19 Pulse Ox 91 11/09/19 03:19 11/08/19 11/08/19 11/09/19 14:59 22:59 06:59 Intake Total 1000 / 1000 995.833 / 1994.833 Output Total 1075 / 1075 400 / 1475 500 / 1974 Balance -75 / -75 595.833 / 520.833 -500 / .833 Weight last 48 hrs Weight 194 lb 5 oz Weight 194 lb Weight 194 lb Weight 189 lb 14.4 oz Physical Exam Narrative: EXAM NARRATIVE: Patient is conscious alert oriented X3 BMI 26.4 Head and neck examination PERRLA no masses no cervical lymphadenopathy no jaundice Cardiac examination audible S1-S2 no murmurs no gallops no arrhythmias Chest is clear bilateral,abscence of Rhonchi or wheezes,no surgical emphysema Abdomen nontender nondistended soft no organomegaly guarding or rigidity/no signs of peritonitis/incision is clean dry and intact and skin alexis in place Extremities no cyanosis no clubbing no edema Urinary Catheter Management^: Hutson: Cath Placed During This Visit: yes, but has since been removed by the nurse Urethral Indwelling: Yes Reason for Continuing Indwelling Catheter: Other Urinary Catheter Date of Insertion: 11/06/19 Urinary Catheter Time of Insertion: 11:40 Date Urinary Catheter Removed: 11/07/19 Time Urinary Catheter Discontinued: 06:00 Data : 11/09/19 05:30 11/08/19 03:40 A&P Assessment and plan (1) Status post laparotomy: We will continue n.p.o. till patient starts passing gas once that happens we will start the patient on clear liquid diet and switch to p.o. pain medication. Encourage ambulation Incentive spirometer every hour Continue SCDs Discussion with the patient about the preliminary results of the pathology and pending final report, will discuss further at the tumor board plan of care with regard to modes of treatment. Continue IV for pain control Stable H&H from my and we can start pharmacologic DVT prophylaxis in the form of heparin subcu I appreciate Dr. Franklin's input with regard to medical management of patient's medical comorbidities Status: Acute Code(s): Z98.890 - Other specified postprocedural states Attestations Medical Necessity Statement*: Medical necessity care is expected to cross 2 midnights Time Spent in Patient Care: 16 - 35 minutes (>than 50% of time spent in counselling and/or direct pt care on unit) . Coding Level of Care Code Acute Sustainability Project Coordinator for Chg Fwd Diagnoses Status post laparotomy Z98.890
[2019-11-09 06:37] LABS: Alanine Aminotransferase 12 U/L (0-41); Albumin Level 3.5 g/dL (3.5-5.2); Alkaline Phosphatase 64 IU/L (40-130); Anion Gap 15.5 (5-19); Aspartate Amino Transferase 13 U/L (0-40); Blood Urea Nitrogen 11 mg/dL (8-23); Calcium 9.6 mg/dL (8.5-10.5); Carbon Dioxide 26 mmol/L (22-29); Chloride 100 mmol/L (98-107); Globulin 3.1 g/dL (1.3-4.6); Glomerular Filtration Rate 133.6 mL/min (90-130); Glucose 91 mg/dL (65-115); Potassium 3.5 mmol/L (3.5-5.1); Sodium 138 mmol/L (136-145); Total Bilirubin 0.6 mg/dL (0.15-1.2); Total Protein 6.6 g/dL (6.6-8.7)
[2019-11-09 07:15] LABS: Magnesium 1.9 mg/dL (1.7-2.3)
--- NOTE | 2019-11-09 07:24 | ECG_ITS ---
Measurements Intervals [place] Rate: 69 P: 13 [place]: 212 QRS: 17 QRSD: 118 T: 73 QT: 399 QTc: 430 SINUS RHYTHM WITH FIRST DEGREE AV BLOCK MINIMAL VOLTAGE CRITERIA FOR LVH, CONSIDER NORMAL VARIANT [MEETS CRITERIA IN ONE OF: R(aVL), S(V1), R(V5), R(V5/V6)+S(V1)] INFERIOR MYOCARDIAL INFARCTION [40+ ms Q WAVE AND/OR ST/T ABNORMALITY IN II/aVF], OF INDETERMINATE AGE Compared to ECG 01/25/2017 11:53:31 Myocardial infarct finding now present Sinus bradycardia no longer present Electronically Signed On 11-09-2019 11:08:42 MIDDLE SCHOOL MATH TEACHER by Fabby Mancera M.D. [id number]
[2019-11-09] MEDS: atenolol 50 mg Tablet 25 MG PO (08:12)
[2019-11-09] MEDS: lisinopril 20 mg Tablet PO ×2 (08:12→17:36)
[2019-11-09] MEDS: heparin 5,000 unit/mL INJ 1 mL 5000 UNIT SUBCUT ×2 (08:12→15:11)
[2019-11-09] MEDS: amlodipine 10 mg Tablet PO (08:13)
[2019-11-09] MEDS: lactated ringers 1,000 ML 125 ML IV (08:16)
[2019-11-09 09:01] LABS: Troponin(5th) Baseline 24 ng/mL (0-15)
[2019-11-09 09:08] LABS: Thyroid Stimulating Hormone 1.21 uIU/mL (0.27-4.20)
--- NOTE | 2019-11-09 09:24 | ECG_ITS ---
Measurements Intervals [place] Rate: 70 P: 18 [place]: 214 QRS: 24 QRSD: 113 T: 67 QT: 402 QTc: 436 SINUS RHYTHM WITH FIRST DEGREE AV BLOCK INFERIOR MYOCARDIAL INFARCTION [40+ ms Q WAVE AND/OR ST/T ABNORMALITY IN II/aVF], OF INDETERMINATE AGE Compared to ECG 01/25/2017 11:53:31 Myocardial infarct finding now present Sinus bradycardia no longer present Electronically Signed On 11-09-2019 11:14:06 ENERGY MANAGER by Fabby Mancera M.D. [id number]
[2019-11-09] MEDS: D5-NS 0.45% + KCL 20 mEq 20 MEQ/1,000 ML BAG 100 MEQ IV (09:31)
[2019-11-09 10:00] LABS: Troponin 5 2HR 23.42 ng/mL (0-15)
[2019-11-09 10:08] LABS: Troponin 5 2HR Delta -0.58 ABS# (0-10)
--- NOTE | 2019-11-09 13:24 | ECG_ITS ---
Measurements Intervals [place] Rate: 68 P: 17 [place]: 235 QRS: 21 QRSD: 99 T: 73 QT: 384 QTc: 408 SINUS RHYTHM WITH FIRST DEGREE AV BLOCK NONSPECIFIC ST & T-WAVE ABNORMALITY Possible old inferior wall myocardial infarction Compared to ECG 11/09/2019 09:45:34 T-wave abnormality now present Myocardial infarct finding no longer present Electronically Signed On 11-10-2019 20:30:38 DESK MANAGER by Yvonne Goodwin M.D. [id number]
[2019-11-09 14:52] LABS: Troponin 5 6HR 22.16 ng/mL (0-15)
[2019-11-09 14:57] LABS: Troponin 5 6HR Delta -1.84 ng/L (0-12)
--- NOTE | 2019-11-09 16:17 | PM.PN ---
Subjective Subjective: Interval history: Patient has no significant complaints this morning, has not passed stool, has not passed flatus Overnight patien had 3 beats of V. tach, was asymptomatic, patient stated the last yesterday afternoon he had an episode of left-sided chest pain, sharp pain, stabbing, lasting a few seconds, associate with palpitations, no lightheadedness, no dizziness, no nausea, vomiting, no diaphoresis. Patient states that he has had intermittent episodes of chest flutter for the past year, especially associate with caffeine use. Patient's EKG shows deep T wave inversions inferior leads, concerning for old inferior wall infarct, patient is EKG in 2017 did not have these findings, this likely patient has had a silent OH in the last 2 years, no significant ST-T wave changes here, no significant troponin elevation, echocardiogram pending, monitor for chest pain Vitals/I&O/Wt Last Vital Signs Temp 98.2 F 11/09/19 11:44 Pulse 80 11/09/19 11:44 Resp 14 11/09/19 15:12 BP 130/72 11/09/19 11:44 Pulse Ox 94 11/09/19 11:44 11/09/19 11/09/19 11/09/19 06:59 14:59 22:59 Intake Total 1000 / 2995.833 162.5 / 162.5 Output Total 500 / 1975 100 / 100 Balance 500 / 1020.833 62.5 / 62.5 Weight last 48 hrs Weight 88.139 kg Weight 87.997 kg Weight 87.997 kg Physical Exam Const: COMMON NORMALS: no apparent distress and oriented x3 HENMT: COMMON NORMALS: normocephalic HEAD & SCALP: normocephalic Neck/C-Spine: COMMON NORMALS: no JVD Resp: COMMON NORMALS: normal respiratory effort, no retractions, no use of accessory muscles and clear to auscultation bilaterally AUSCULTATION: clear to auscultation bilaterally Cardio: COMMON NORMALS: no JVD, regular rate, regular rhythm, S1 normal heart sound and S2 normal heart sound RATE: regular rate RHYTHM: regular rhythm HEART SOUNDS: S1 normal and S2 normal GI: COMMON NORMALS: normal to inspection, nondistended, normoactive bowel sounds, soft to palpation, non-tender, no hepatosplenomegaly, no masses and no bruits PALPATION: Yes soft and Yes no hepatosplenomegaly Extremity: COMMON NORMALS: normal capillary refill, no clubbing, cyanosis or edema, no calf tenderness and no pedal edema Neuro: COMMON NORMALS: oriented x3 Psych: COMMON NORMALS: mental status grossly normal Urinary Catheter Management^: Hutson: Cath Placed During This Visit: yes, but has since been removed by the nurse Urethral Indwelling: Yes Reason for Continuing Indwelling Catheter: Other Urinary Catheter Date of Insertion: 11/06/19 Urinary Catheter Time of Insertion: 11:40 Date Urinary Catheter Removed: 11/07/19 Time Urinary Catheter Discontinued: 06:00 Data : 11/09/19 05:30 11/09/19 05:30 A&P Assessment and plan (1) Mesenteric mass: -Pain control with morphine -Nausea control Zofran -Currently n.p.o., receiving LR at 100 cc an hour -Blood pressure medications were restarted due to hypertensive episodes Status: Acute Code(s): K63.89 - Other specified diseases of intestine (2) Hypertension: -Continue home medications, labetalol as needed Status: Acute Code(s): I10 - Essential (primary) hypertension (3) CAD (coronary artery disease): -Status post CABG x3, CAD status post stenting x3, last stent in 2009 -EKG shows deep Q waves in inferior leads, not seen on EKG 2016, indicated of silent myocardial infarct in the last 2 years Plan: -I spoke to adelso Madison to continue Plavix although there is a risk of bleeding, patient advised of risk and benefits, agreed to proceed -Patient has an allergy to statin, advised to start low-dose statin, advised risk benefits, agreed to proceed -Continue lisinopril, add Coreg -Continue telemetry monitoring, monitor for chest pain -Ordered cardiac echocardiogram Status: Acute Code(s): I25.10 - Atherosclerotic heart disease of [place] coronary artery without angina pectoris Attestations Medical Necessity Statement*: Patient requires continued hospitalization postoperative Coding Level of Care Code Acute Research And Development Technician for Brionna Cueva Diagnoses Mesenteric mass K63.89 Hypertension I10 CAD (coronary artery disease) I25.10
--- NOTE | 2019-11-09 16:45 | USCV_ITS ---
Manuel Rodriguez Age: 69 Gender: M : 1950 Exam Date: 11/09/2019 17:37 Ordering Phys: Chilo Christensen MD Technologist: Samaria Mcarthur Exam Location[place] [facility] [place] Indication: AFIB AND VTACH BP: 129 / 75 HR: 67 Rhythm: Sinus Technical Quality: Adequate MEASUREMENTS (Male / Female) Normal Values 2D ECHO LV Diastolic Diameter PLAX 4.3 cm 4.2 - 5.9 / 3.9 - 5.3 cm LV Systolic Diameter PLAX 2.4 cm LV Chamber Size 3.4 cm IVS Diastolic Thickness 1.4 cm 0.6 - 1.0 / 0.6 - 0.9 cm IVS Systolic Thickness 1.9 cm LVPW Diastolic Thickness 1.3 cm 0.6 - 1.0 / 0.6 - 0.9 cm LVPW Systolic Thickness 1.3 cm RV Chamber Size 3.6 cm LVOT Diameter 2.0 cm LV Ejection Fraction 2D Teich 75.4 % LV Ejection Fraction MOD 2C 67.3 % LV Ejection Fraction 2C AL 68.3 % LA Diameter 4.5 cm LA Width 3.3 cm LA Height 4.1 cm RA Width 3.3 cm RA Height 5.0 cm Aorta at Sinotubular Diameter 3.4 cm M-MODE LV Diastolic Diameter MM 4.8 cm 4.2 - 5.9 / 3.9 - 5.3 cm LV Systolic Diameter MM 3.0 cm LV Ejection Fraction MM Teich 67.8 % IVS Diastolic Thickness MM 1.4 cm 0.6 - 1.0 / 0.6 - 0.9 cm IVS Systolic Thickness MM 1.4 cm LVPW Diastolic Thickness MM 1.2 cm 0.6 - 1.0 / 0.6 - 0.9 cm LVPW Systolic Thickness MM 1.8 cm RV Diastolic Diameter MM 2.0 cm Aortic Annulus Diameter 4.3 cm LA Ao Ratio MM 1.0 MV E Point Septal Separation 0.6 cm DOPPLER AV Peak Velocity 179.0 cm/s LVOT Peak Velocity 103.0 cm/s AV Area Cont Eq vti 2.0 cm squared AV Area Cont Eq pk 1.9 cm squared MV Area PHT 3.9 cm squared Mitral E to A Ratio 0.9 MV E' Velocity 8.0 cm/s Mitral E to MV E' Ratio 9.3 Mitral E to LV E' Lateral Ratio 8.4 Mitral E to LV E' Septal Ratio 10.4 TR Peak Velocity 258.5 cm/s TR Peak Gradient 26.7 mmHg TR Mean Velocity 157.1 cm/s TR Mean Gradient 12.9 mmHg TR Velocity Time Integral 50.4 cm TV Peak E Velocity 70.0 cm/s Right Atrial Pressure 3.0 mmHg Pulmonary Artery Systolic Pressu 29.7 mmHg PV Peak Velocity 101.0 cm/s RV Acceleration Time 0.2 s RV Ejection Time 0.3 s RV AcT/ET 0.5 FINDINGS Left Ventricle Normal left ventricular size and systolic function, EF 65 %. Mild left ventricular hypertrophy. No regional wall motion abnormalities. Grade I/IV diastolic dysfunction (abnormal relaxation filling pattern), normal to mildly elevated filling pressures. Right Ventricle The right ventricle is normal in size and function. Right Atrium The right atrium is normal in size. Left Atrium The left atrium is normal in size. Mitral Valve Mild mitral annular calcification. Mild mitral valve regurgitation. Aortic Valve Thickened aortic valve. Tricuspid Valve No gross abnormalities noted Pulmonic Valve Pulmonic valve not well visualized. Pericardium Normal pericardium without effusion. Aorta Normal ascending aorta dimension. CONCLUSIONS Normal left ventricular size and systolic function, EF 65 %. Mild left ventricular hypertrophy. No regional wall motion abnormalities. Grade I/IV diastolic dysfunction (abnormal relaxation filling pattern), normal to mildly elevated filling pressures. Mild mitral annular calcification. Mild mitral valve regurgitation. Thickened aortic valve. There is no pericardial effusion. There are no intracardiac masses. No previous study is available for comparison. Dr Yvonne Goodwin MD FACC (Electronically Signed) Final Date: 09 November 2019 21:59 S
[2019-11-09] MEDS: clopidogrel 75 mg Tablet PO (17:36)
[2019-11-09] MEDS: carvedilol 6.25 mg Tablet PO (17:37)
[2019-11-09] MEDS: D5-NS 0.45% + KCL 20 mEq 20 MEQ/1,000 ML BAG 50 MEQ IV (18:33)
[2019-11-09] MEDS: atorvastatin 40 mg Tablet 20 MG PO (21:12)
--- NOTE | 2019-11-09 21:40 | PC.NURSE ---
[id number] patient had a 3 beat run of V-tach at this time. In room to check on patient. Patient is in the bathroom having a bowel movement. Patient denies any chest pain or feeling any palpations. Patient at bedside.
--- NOTE | 2019-11-09 22:00 | PC.NURSE ---
Patient resting in bed. Patient states, I passed a lot of gas just then too and I feel so much better. It is like a weight has been lifted off my belly Patient is A&Ox3. Respirations even and non-labored on room air. No obvious distress noted. at bedside.
[2019-11-10] VITALS: BP 131/84; PULSE 65; RESP 18; TEMP 36.6; O2SAT 94
[2019-11-10] MEDS: famotidine 20 mg/2 mL INJ IVP (03:58)
[2019-11-10 04:00] VITALS: BP 152/87; PULSE 58; RESP 17; TEMP 36.4; O2SAT 94
[2019-11-10 05:40] LABS: Basophils % 0.3 %; Eosinophils # 0.2 10^3/uL (0.0-0.8); Eosinophils % 2.8 %; Hematocrit 36.9 % (42.0-52.0); Hemoglobin 11.8 g/dL (11.7-16.6); Lymphocytes # 1.7 10^3/uL (0.8-4.8); Lymphocytes % 21.6 %; Mean Corpuscular Hemoglobin 26.9 pg (28.0-34.0); Mean Corpuscular Volume 84.2 fL (80-94); Mean Platelet Volume 11.8 fL (7.4-10.4); Monocytes # 0.8 10^3/uL (0.2-0.9); Monocytes % 9.7 %; Neutrophils # 5.2 10^3/uL (1.8-7.7); Neutrophils % 65.3 %; Nucleated Red Blood Cells % 0 %; Platelet Count 151 10^3/cmm (130-400); Red Blood Count 4.38 10^6/uL (4.1-5.3); Red Cell Distribution Width 14.2 % (12.1-15.1); White Blood Count 7.9 10^3/uL (4.0-10.0)
[2019-11-10 06:13] LABS: Alanine Aminotransferase 11 U/L (0-41); Albumin Level 3.4 g/dL (3.5-5.2); Alkaline Phosphatase 64 IU/L (40-130); Anion Gap 13.8 (5-19); Aspartate Amino Transferase 13 U/L (0-40); Blood Urea Nitrogen 12 mg/dL (8-23); Calcium 9.7 mg/dL (8.5-10.5); Carbon Dioxide 27 mmol/L (22-29); Chloride 103 mmol/L (98-107); Globulin 2.6 g/dL (1.3-4.6); Glomerular Filtration Rate 95.8 mL/min (90-130); Glucose 110 mg/dL (65-115); Potassium 3.8 mmol/L (3.5-5.1); Sodium 140 mmol/L (136-145); Total Bilirubin 0.5 mg/dL (0.15-1.2)
--- NOTE | 2019-11-10 07:02 | PC.NURSE ---
AMBULATION UP IN [facility] AMBULATING WITHOUT DIFFICULTY - AT SIDE
[2019-11-10 07:46] VITALS: BP 138/80; PULSE 64; RESP 16; TEMP 36.4; O2SAT 94
--- NOTE | 2019-11-10 07:54 | PM.PN ---
Subjective Subjective: Interval history: Patient overall feels well, started passing gas and having bowel movements yesterday and tolerating well clear liquid diet. An echocardiogram was obtained and showed ejection fraction of 65% After discussion with Dr. Ronquillo we agreed to start the patient on Plavix 75 mg p.o. daily and hold on the heparin subcu. Vitals/I&O/Wt Last Vital Signs Temp 97.6 F 11/10/19 07:46 Pulse 64 11/10/19 07:46 Resp 16 11/10/19 07:46 BP 138/80 11/10/19 07:46 Pulse Ox 94 11/10/19 07:46 11/09/19 11/10/19 11/10/19 22:59 06:59 14:59 Intake Total 1336.667 / 1499.167 Output Total 200 / 300 375 / 675 Balance 1136.667 / 1199.167 -375 / 824.167 Weight last 48 hrs Weight 191 lb 1 oz Weight 194 lb 5 oz Weight 194 lb Physical Exam Const: COMMON NORMALS: no apparent distress and oriented x3 GENERAL APPEARANCE: cooperative ORIENTATION/CONSCIOUSNESS: Yes awake, Yes oriented to person, Yes oriented to place and Yes oriented to time Eye: COMMON NORMALS: PERRL and no scleral icterus PUPIL: Yes PERRL Chest: COMMONS NORMALS: inspection of chest normal Resp: COMMON NORMALS: normal respiratory effort and clear to auscultation bilaterally AUSCULTATION: clear to auscultation bilaterally Cardio: COMMON NORMALS: S1 normal heart sound and S2 normal heart sound; negative for no murmurs HEART SOUNDS: S1 normal and S2 normal GI: COMMON NORMALS: soft to palpation; negative for no hepatosplenomegaly INSPECTION: Yes normal to inspection PALPATION: Yes soft, No firm, No tender, No guarding, No rigid, No no hepatosplenomegaly and Yes other (Incision is clean dry and intact and skin alexis in place) Neuro: COMMON NORMALS: oriented x3 SENSORIUM/ORIENTATION: Yes oriented to person, Yes oriented to place and Yes oriented to time Psych: COMMON NORMALS: mental status grossly normal Urinary Catheter Management^: Hutson: Cath Placed During This Visit: yes, but has since been removed by the nurse Urethral Indwelling: Yes Reason for Continuing Indwelling Catheter: Other Urinary Catheter Date of Insertion: 11/06/19 Urinary Catheter Time of Insertion: 11:40 Date Urinary Catheter Removed: 11/07/19 Time Urinary Catheter Discontinued: 06:00 Data : 11/10/19 05:12 11/10/19 05:12 A&P Assessment and plan (1) Status post laparotomy: Will advance to full liquid diet Encourage ambulation Incentive spirometer every hour We will switch to p.o. pain medications and DC IV pain medication Slight drift noticed in H&H likely due to cumulative factor of heparin and Plavix yet risk-benefit because of the patient's history of coronary artery disease, the benefit of resuming Plavix outweighs the risk of bleeding at this point. We will plan to discharge patient home today from surgical standpoint of view unless there is a contraindication from hospitalist service, return to surgery office in 7 to [address] Franklin's input with regard to medical management of patient's medical comorbidities Status: Acute Code(s): Z98.890 - Other specified postprocedural states Attestations Medical Necessity Statement*: We will plan to discharge patient home today after clearance from hospitalist service Time Spent in Patient Care: 16 - 35 minutes (>than 50% of time spent in counselling and/or direct pt care on unit). Coding Level of Care Code Acute Sales Representative Printing Supplies for Chg Fwd Diagnoses Status post laparotomy Z98.890
[2019-11-10] MEDS: carvedilol 6.25 mg Tablet PO (07:59)
[2019-11-10] MEDS: lisinopril 20 mg Tablet PO (07:59)
[2019-11-10] MEDS: amlodipine 10 mg Tablet PO (07:59)
--- NOTE | 2019-11-10 08:02 | P.DS_ITS ---
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: Status: Resolved Problem details: Follow-up with oncology service to determine further lines of therapy Reason for Visit Reason for Visit: Reason For Visit: Mesentric Mass Hospital Course Discharge Summary: This is a pleasant 69 years old gentleman presented initially with history of diarrhea and incidental finding of omental caking on the CT scan was done back in April 2019, patient undergone an EGD and colonoscopy by me they were not of significance yet a small bowel follow-through was ordered to rule out small bowel pathology that was normal, that was followed by a repeat CT scan that showed stable mass of the mesentery of the small bowel without change that was done back in August 2019 concern for carcinoid tumor and thus an octreotide scan was done again a concern for carcinoid was on display consequently the patient was offered diagnostic laparoscopy possible laparotomy and possible bowel resection that showed a small bowel carcinoid. Patient status post laparotomy overall did well and pain was eventually had better control, patient started to pass gas and have bowel movement and tolerated well p.o. intake, hospital service was involved in patient's care with regard to his cardiac history and echo was obtained that showed ejection fraction of 65%. As patient meets criteria for discharge will plan to send him home today on oral pain medication with the plan to follow-up with me at surgery office in 7 to 10 days Physical Exam Narrative: EXAM NARRATIVE: Patient is conscious alert oriented X3 BMI 26 Head and neck examination PERRLA no masses no cervical lymphadenopathy no jaundice Cardiac examination audible S1-S2 no murmurs no gallops no arrhythmias Chest is clear bilateral,abscence of Rhonchi or wheezes,no surgical emphysema Abdomen nontender nondistended soft no organomegaly guarding or rigidity/no signs of peritonitis Incisions are clean dry and intact and skin alexis in place Extremities no cyanosis no clubbing no edema Urinary Catheter Management^: Hutson: Cath Placed During This Visit: yes, but has since been removed by the nurse Urethral Indwelling: Yes Reason for Continuing Indwelling Catheter: Other Urinary Catheter Date of Insertion: 11/06/19 Urinary Catheter Time of Insertion: 11:40 Date Urinary Catheter Removed: 11/07/19 Time Urinary Catheter Discontinued: 06:00 Discharge Data Data Completed and Pending: Completed Studies During Hospitalization Category Date Time Status CV echo complete* [id number] Stat Ultrasound 11/09/19 16:45 Completed Pending at discharge Category Date Time Status ES surgery / GI i mages Routine Exams 11/06/19 11:07 Taken Complete Blood Co unt w/Auto AM LABS Lab 11/11/19 04:00 Ordered Comprehensive Met abolic Panel AM LA BS Lab 11/11/19 04:00 Ordered Pathology: Surgic al [PTH] Routine Pth 11/06/19 14:26 Received Labs from last 24 hours 11/10/19 11/10/19 11/09/19 05:12 05:12 13:38 WBC 7.9 RBC 4.38 Hgb 11.8 Hct 36.9 L MCV 84.2 MCH 26.9 L MCHC 32.0 RDW 14.2 Plt Count 151 MPV 11.8 H Neut % (Auto) 65.3 Lymph % (Auto) 21.6 [place] % (Auto) 9.7 Eos % (Auto) 2.8 Baso % (Auto) 0.3 Neut # (Auto) 5.2 Lymph # (Auto) 1.7 [place] # (Auto) 0.8 Eos # (Auto) 0.2 Baso # (Auto) 0.0 Nucleated RBC % (a uto) 0 Nucleated RBCs # 0.0 Sodium 140 Potassium 3.8 Chloride 103 Carbon Dioxide 27 Anion Gap 13.8 BUN 12 Creatinine 0.8 GFR Calculation 95.8 Glucose 110 Calcium 9.7 Total Bilirubin 0.5 AST 13 ALT 11 Alkaline Phosphata se 64 Troponin I 6 Hour 22.16 H Troponin I Hi Sens Del -1.84 L Troponin T Baselin e Troponin T 120 Min [place] Delta Troponin T Total Protein 6.0 L Albumin 3.4 L Globulin 2.6 TSH 11/09/19 11/09/19 11/09/19 09:14 07:52 07:52 WBC RBC Hgb Hct MCV MCH MCHC RDW Plt Count MPV Neut % (Auto) Lymph % (Auto) [place] % (Auto) Eos % (Auto) Baso % (Auto) Neut # (Auto) Lymph # (Auto) [place] # (Auto) Eos # (Auto) Baso # (Auto) Nucleated RBC % (a uto) Nucleated RBCs # Sodium Potassium Chloride Carbon Dioxide Anion Gap BUN Creatinine GFR Calculation Glucose Calcium Total Bilirubin AST ALT Alkaline Phosphata se Troponin I 6 Hour Troponin I Hi Sens Del Troponin T Baselin e 24 H Troponin T 120 Min [place] 23.42 H Delta Troponin T -0.58 L Total Protein Albumin Globulin TSH 1.21 Vitals: Last Vital Signs Temp 97.6 F 11/10/19 07:46 Pulse 64 11/10/19 07:46 Resp 16 11/10/19 07:46 BP 138/80 11/10/19 07:46 Pulse Ox 94 11/10/19 07:46 Discharge Plan Discharge Patient Disposition: Home, Self-Care Condition: Stable Prescriptions: [place] 5-325 mg tablet 1 tab PO Q6H PRN (Reason: pain) Qty: 28 RF: 0 Continued omeprazole 20 mg capsule,delayed release(DR/EC) 20 mg PO DAILY RF: 0 amlodipine 10 mg tablet 10 mg PO DAILY RF: 0 atenolol 25 mg tablet 25 mg PO DAILY RF: 0 cholecalciferol (vitamin D3) 10,000 unit capsule 10,000 unit PO DAILY RF: 0 clopidogrel [Plavix] 75 mg tablet 75 mg PO DAILY RF: 0 lisinopril 40 mg tablet 20 mg PO DAILY RF: 0 omega-3 fatty acids [Fish Oil Concentrate] 1,000 mg capsule 1,000 mg PO DAILY RF: 0 garlic 1 mg capsule 1 mg PO DAILY RF: 0 Discharge Orders: Discharge Order (Routine); Ordered 11/10/19 Ordered By: Tito Bañuelos Referrals: Tito Bañuelos MD [Physician] - (Return to surgery office in 7 to 10 days) Brianna Amos MD [Staff Physician] - (Follow-up appointment with Dr. Amos first available) Discharge Diet: Full LIquid Activity Restrictions/Additional Instructions: 1. Patient can shower after 48 hours from surgery 2. Full liquid diet for 48 hours then advance diet as tolerated 3. Up and walking as tolerated 4. Do lift more than 5 pounds first 2 weeks after surgery and not more than 25 pounds 6 to 8 weeks after surgery. 5. Do not operate heavy machinery or drive while using pain medications. 6.Contact the office or return to the ER for worsening nausea vomiting fevers or chills, or noticing any redness around incision sites or discharge. 6. Advised to return to ER or contact my office if there are any signs of infection like, increasing pain, fevers, chills, redness or drainage of pus. 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
[2019-11-10] MEDS: HYDROcodone-acetaminophen 5-325 mg Tablet 1 TAB PO (09:51)
[2019-11-10 11:29] VITALS: BP 122/78; PULSE 73; RESP 14; TEMP 36.4; O2SAT 95
--- NOTE | 2019-11-10 13:32 | PC.NURSE ---
DISCHARGE INSTRUCTIONS DISCHARGE INSTRUCTIONS WELL PT HARD SCRIPTS GIVEN TO PT VIA THIS NURSE - VERBALIZES UNDERSTANDING
[2019-11-10 13:34] VITALS: BP 122/78; PULSE 73; RESP 14; TEMP 36.4; O2SAT 95
--- NOTE | 2019-11-10 17:20 | PM.DCS ---
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 Hospitalist team was consulted for medical management. During patient's inpatient stay, he had 3 beats of V. tach seen on telemetry, and one episode of chest pain. Patient had a cardiac work-up that showed an deep Q waves in the inferior leads, not seen on previous EKG since 2017, likely patient had a silent GA in the last 2 years. Patient does have a history of CABG x3, CAD status post stenting x3, LAD stent in 2009. Patient was on Plavix, which was held for surgery. He was not on any Plavix due to statin intolerance. Patient reported intermittent episodes of chest pain and fluttering of his chest for the last year, did not seek medical intervention. Patient's echocardiogram showed an ejection fraction of 65%, no significant wall motion abnormalities, mild LVH, grade 1 out of 4 diastolic dysfunction. After discussion with general surgery, and with patient, agreed to reinstitute Plavix 75 mg once daily, advised risk and benefits, agreed to proceed. Patient was discharged on Plavix 75 mg once daily , with pitavastatin 1 mg once daily, lisinopril, Coreg, with repeat blood work in 1 week. Patient needs a chocolate refining roller, here in town, will need an appointment within 1 to 2 weeks. When patient follows up with cardiology, patient will likely require a outpatient stress test within a a month to evaluate for obstructive CAD. In addition given his episodes of V. tach, patient was discharged with instructions to have a event monitor placed on Tuesday. Patient was advised that at any time if he were to have chest pain or chest flutter come back to the emergency room. Physical Exam Const: COMMON NORMALS: no apparent distress and oriented x3 GENERAL APPEARANCE: cooperative and comfortable HENMT: COMMON NORMALS: normocephalic HEAD & SCALP: normocephalic Eye: COMMON NORMALS: PERRL GENERAL EYE: normal appearance of both eyes PUPIL: Yes PERRL Neck/C-Spine: COMMON NORMALS: full ROM, no lymphadenopathy, no JVD and thyroid normal THYROID: thyroid normal Lymph: LYMPHATIC: no lymphadenopathy noted Resp: COMMON NORMALS: normal respiratory effort, no retractions, no use of accessory muscles and clear to auscultation bilaterally AUSCULTATION: clear to auscultation bilaterally Cardio: COMMON NORMALS: no JVD, regular rate, regular rhythm, S1 normal heart sound, S2 normal heart sound, no gallops, no clicks and no murmurs RATE: regular rate RHYTHM: regular rhythm HEART SOUNDS: S1 normal and S2 normal GI: COMMON NORMALS: normal to inspection, nondistended, normoactive bowel sounds and non-tender Extremity: COMMON NORMALS: normal to inspection, full ROM and no pedal edema Neuro: COMMON NORMALS: oriented x3, CN's II-XII intact bilaterally, moves all extremities and no focal motor deficits Psych: COMMON NORMALS: mental status grossly normal, thought process normal and cooperative THOUGHT PROCESS: normal thought process Urinary Catheter Management^: Hutson: Cath Placed During This Visit: yes, but has since been removed by the nurse Urethral Indwelling: Yes Reason for Continuing Indwelling Catheter: Other Urinary Catheter Date of Insertion: 11/06/19 Urinary Catheter Time of Insertion: 11:40 Date Urinary Catheter Removed: 11/07/19 Time Urinary Catheter Discontinued: 06:00 Discharge Data Data Completed and Pending: Completed Studies During Hospitalization Category Date Time Status CV echo complete* [id number] Stat Ultrasound 11/09/19 16:45 Completed Pending at discharge Category Date Time Status ES surgery / GI i mages Routine Exams 11/06/19 11:07 Taken Pathology: Surgic al [PTH] Routine Pth 11/06/19 14:26 Received Labs from last 24 hours 11/10/19 11/10/19 05:12 05:12 WBC 7.9 RBC 4.38 Hgb 11.8 Hct 36.9 L MCV 84.2 MCH 26.9 L MCHC 32.0 RDW 14.2 Plt Count 151 MPV 11.8 H Neut % (Auto) 65.3 Lymph % (Auto) 21.6 [place] % (Auto) 9.7 Eos % (Auto) 2.8 Baso % (Auto) 0.3 Neut # (Auto) 5.2 Lymph # (Auto) 1.7 Nelson # (Auto) 0.8 Eos # (Auto) 0.2 Baso # (Auto) 0.0 Nucleated RBC % (a uto) 0 Nucleated RBCs # 0.0 Sodium 140 Potassium 3.8 Chloride 103 Carbon Dioxide 27 Anion Gap 13.8 BUN 12 Creatinine 0.8 GFR Calculation 95.8 Glucose 110 Calcium 9.7 Total Bilirubin 0.5 AST 13 ALT 11 Alkaline Phosphata se 64 Total Protein 6.0 L Albumin 3.4 L Globulin 2.6 Vitals: Last Vital Signs Temp 97.5 F L 11/10/19 13:34 Pulse 73 11/10/19 13:34 Resp 14 11/10/19 13:34 BP 122/78 11/10/19 13:34 Pulse Ox 95 11/10/19 13:34 Discharge Plan Discharge Patient Disposition: Home, Self-Care Condition: Stable Prescriptions: [place] 5-325 mg tablet 1 tab PO Q6H PRN (Reason: pain) Qty: 28 RF: 0 carvedilol 6.25 mg Tablet 6.25 mg PO BID 30 Days Qty: 60 RF: 0 pitavastatin calcium 1 mg tablet 1 mg PO DAILY 30 Days Qty: 30 RF: 0 Continued omeprazole 20 mg capsule,delayed release(DR/EC) 20 mg PO DAILY RF: 0 amlodipine 10 mg tablet 10 mg PO DAILY RF: 0 cholecalciferol (vitamin D3) 10,000 unit capsule 10,000 unit PO DAILY RF: 0 clopidogrel [Plavix] 75 mg tablet 75 mg PO DAILY RF: 0 lisinopril 40 mg tablet 20 mg PO DAILY RF: 0 omega-3 fatty acids [Fish Oil Concentrate] 1,000 mg capsule 1,000 mg PO DAILY RF: 0 garlic 1 mg capsule 1 mg PO DAILY RF: 0 Discontinued atenolol 25 mg tablet 25 mg PO DAILY RF: 0 Discharge Orders: Discharge Order (Routine); Ordered 11/10/19 Ordered By: Tito Bañuelos Other Ambulatory Orders: Creatine Phosphokinase (Routine) Timeframe: 1 Week Facility: [facility] - Location: Lab - Main Lab Ordered By: Chilo Christensen Comprehensive Metabolic Panel (Routine) Timeframe: 1 Week Facility: [facility] - Location: Lab - Main Lab Ordered By: Chilo BEEBE 30 day event monitor (Routine) Timeframe: 1 Week Facility: [facility] - Location: Cardiac Diagnostic Laboratory Ordered By: Chilo Christensen Referrals: Tito Bañuelos MD [Physician] - (Please call [facility] Tuesday to schedule an appointment 4-7 days from today.) Pricilla Murillo MD [Physician] - 1 week (referal for inerior wall mi, svt) Abdulaziz Catherine [Primary Care Provider] - 4-7 days (Please call Dr. Catherine office on Tuesday to make follow up appointment. ) Brianna Amos MD [Staff Physician] - (Please call [facility] Tuesday to schedule an appointment at the first opening they have.) Discharge Diet: Full LIquid Discharge Activity: Limit activity as instructed Patient Instructions: Hydrocodone/Acetaminophen (By mouth), Carvedilol (By mouth), Pitavastatin (By mouth), Laparoscopic Bowel Resection (DC) Activity Restrictions/Additional Instructions: 1. Patient can shower after 48 hours from surgery 2. Full liquid diet for 48 hours then advance diet as tolerated 3. Up and walking as tolerated 4. Do lift more than 5 pounds first 2 weeks after surgery and not more than 25 pounds 6 to 8 weeks after surgery. 5. Do not operate heavy machinery or drive while using pain medications. 6.Contact the office or return to the ER for worsening nausea vomiting fevers or chills, or noticing any redness around incision sites or discharge. 6. Advised to return to ER or contact my office if there are any signs of infection like, increasing pain, fevers, chills, redness or drainage of pus. 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
== END 2019-11-10 13:35 | disposition home or self-care (01) | DRG 331 ==
LOC: MEDSURG 14:12
PROVIDERS: Family Medicine; Admitting Provider Surgery; Family Provider Family Medicine; PCP Family Medicine; Visit Provider Surgery
PROC: (CPT 49320; principal; 2019-11-06 11:10)
PROC: (CPT 44120; 2019-11-06 11:10)
DX: D3A.019 Benign carcinoid tumor of the small intestine, unspecified portion (principal); K63.89 Other specified diseases of intestine; I25.10 Atherosclerotic heart disease of native coronary artery without angina pectoris; I10 Essential (primary) hypertension; I25.2 Old myocardial infarction; Z79.83 Long term (current) use of bisphosphonates; Z79.811 Long term (current) use of aromatase inhibitors; Z79.82 Long term (current) use of aspirin; Z95.1 Presence of aortocoronary bypass graft; Z95.820 Peripheral vascular angioplasty status with implants and grafts
CPT/HCPCS: 12345; 36415; 51702; 80048; 80053; 83735; 84100; 84443; 84484; 85014; 85018; 85025; 88305; 93005; 93306; 96365; 96372; 96375; C9290; G0378; J0131; J0690; J1170; J1644; J2001; J2270; J2405; J2704; J2710; J3010; J3490; J7030

== ENCOUNTER 2019-11-20 09:27 | Outpatient (CLI) | payer OTHER, SELFPAY ==
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
[2019-11-20 13:36] LABS: Basophils # 0.1 10^3/uL (0.0-0.1); Basophils % 0.7 %; Eosinophils # 0.6 10^3/uL (0.0-0.8); Hemoglobin 12.6 g/dL (11.7-16.6); Lymphocytes # 1.6 10^3/uL (0.8-4.8); Lymphocytes % 23.4 %; Mean Corpuscular HGB Conc 31.5 g/dL (30.0-36.0); Mean Corpuscular Hemoglobin 25.8 pg (28.0-34.0); Mean Platelet Volume 12.2 fL (7.4-10.4); Monocytes # 0.6 10^3/uL (0.2-0.9); Neutrophils # 4.2 10^3/uL (1.8-7.7); Neutrophils % 59.6 %; Nucleated Red Blood Cells % 0 %; Platelet Count 231 10^3/cmm (130-400); Red Blood Count 4.88 10^6/uL (4.1-5.3); Red Cell Distribution Width 14.3 % (12.1-15.1)
[2019-11-20 14:06] LABS: Alanine Aminotransferase 28 U/L (0-41); Albumin Level 3.8 g/dL (3.5-5.2); Alkaline Phosphatase 83 IU/L (40-130); Anion Gap 15.6 (5-19); Aspartate Amino Transferase 24 U/L (0-40); Blood Urea Nitrogen 10 mg/dL (8-23); Calcium 10.4 mg/dL (8.5-10.5); Carbon Dioxide 27 mmol/L (22-29); Chloride 102 mmol/L (98-107); Globulin 3.7 g/dL (1.3-4.6); Glomerular Filtration Rate 83.7 mL/min (90-130); Glucose 93 mg/dL (65-115); Magnesium 2.1 mg/dL (1.7-2.3); Osmolality Calculated 286 mOsm/kg (285-295); Potassium 4.6 mmol/L (3.5-5.1); Sodium 140 mmol/L (136-145); Total Bilirubin 0.3 mg/dL (0.15-1.2); Total Protein 7.5 g/dL (6.6-8.7)
[2019-11-22 17:42] LABS: Chromogranin A 804 ng/mL (25-140)
[2019-11-28 16:01] LABS: Serotonin Whole Blood 1515 ng/mL (56-244)
== END 2019-11-20 09:28 | disposition home or self-care (01) ==
PROVIDERS: Family Provider Family Medicine; PCP Family Medicine; Referring Provider Family Medicine; Visit Provider Internal Medicine Hematology & Oncology
DX: C7A.8 Other malignant neuroendocrine tumors (principal); K21.9 Gastro-esophageal reflux disease without esophagitis; E78.5 Hyperlipidemia, unspecified; I10 Essential (primary) hypertension; M19.90 Unspecified osteoarthritis, unspecified site; K52.9 Noninfective gastroenteritis and colitis, unspecified; G89.3 Neoplasm related pain (acute) (chronic); Z79.02 Long term (current) use of antithrombotics/antiplatelets; Z95.5 Presence of coronary angioplasty implant and graft; Z95.1 Presence of aortocoronary bypass graft; Z86.711 Personal history of pulmonary embolism
CPT/HCPCS: 80053; 82941; 83735; 84260; 85025; 86316; 99205

== ENCOUNTER → 2019-11-22 08:29 | Outpatient (BNVA) | payer OTHER, SELFPAY | DX: D3A.019 Benign carcinoid tumor of the small intestine, unspecified portion (principal) | CPT/HCPCS: 83497 ==

== ENCOUNTER 2019-12-06 14:37 | Outpatient (CLI) | payer OTHER, SELFPAY ==
[2019-12-06] MEDS: octreotide LAR depot 30 mg Kit IM (14:45)
== END 2019-12-06 14:38 | disposition home or self-care (01) ==
LOC: ONCMED 14:39
PROVIDERS: Family Provider Family Medicine; PCP Family Medicine; Visit Provider Internal Medicine Hematology & Oncology
DX: C7A.8 Other malignant neuroendocrine tumors (principal)
CPT/HCPCS: 96372; J2353

== ENCOUNTER 2020-01-09 12:35 | Outpatient (CLI) | payer OTHER, SELFPAY ==
[2020-01-09 20:07] LABS: Basophils % 0.6 %; Eosinophils # 0.3 10^3/uL (0.0-0.8); Eosinophils % 4.8 %; Hematocrit 42.7 % (42.0-52.0); Hemoglobin 13.2 g/dL (11.7-16.6); Lymphocytes # 2.6 10^3/uL (0.8-4.8); Lymphocytes % 37.9 %; Mean Corpuscular HGB Conc 30.9 g/dL (30.0-36.0); Mean Corpuscular Hemoglobin 26.8 pg (28.0-34.0); Mean Corpuscular Volume 86.8 fL (80-94); Monocytes # 0.5 10^3/uL (0.2-0.9); Monocytes % 7.1 %; Neutrophils # 3.4 10^3/uL (1.8-7.7); Neutrophils % 49.5 %; Nucleated Red Blood Cells % 0 %; Platelet Count 148 10^3/cmm (130-400); Red Blood Count 4.92 10^6/uL (4.1-5.3); Red Cell Distribution Width 14.9 % (12.1-15.1); White Blood Count 6.9 10^3/uL (4.0-10.0)
[2020-01-09 21:20] LABS: Alanine Aminotransferase 39 U/L (0-41); Albumin Level 4.5 g/dL (3.5-5.2); Alkaline Phosphatase 80 IU/L (40-130); Anion Gap 19.2 (5-19); Aspartate Amino Transferase 30 U/L (0-40); Blood Urea Nitrogen 10 mg/dL (8-23); Calcium 9.8 mg/dL (8.5-10.5); Carbon Dioxide 25 mmol/L (22-29); Chloride 99 mmol/L (98-107); Globulin 2.7 g/dL (1.3-4.6); Glomerular Filtration Rate 95.8 mL/min (90-130); Glucose 122 mg/dL (65-115); Osmolality Calculated 285 mOsm/kg (285-295); Potassium 4.2 mmol/L (3.5-5.1); Sodium 139 mmol/L (136-145); Total Bilirubin 0.3 mg/dL (0.15-1.2); Total Protein 7.2 g/dL (6.6-8.7)
== END 2020-01-09 12:36 | disposition home or self-care (01) ==
LOC: ONCMED 16:20
PROVIDERS: Family Provider Family Medicine; PCP Family Medicine; Visit Provider Internal Medicine Hematology & Oncology
DX: C7A.8 Other malignant neuroendocrine tumors (principal)
CPT/HCPCS: 36415; 80053; 85025

== ENCOUNTER 2020-01-11 09:26 | Outpatient (CLI) | payer OTHER, SELFPAY ==
[2020-01-11] MEDS: octreotide LAR depot 30 mg Kit IM (10:36)
--- NOTE | 2020-01-11 13:54 | ONC FU_ITS ---
Dr. Amos follow up note Patient: Manuel Rodriguez Unit #: [id number]: 1950 Dicatated By: Brianna Amos M.D.Date of Visit:January 11, 2020 Onc Med Follow-up/Prog Note History of Present Illness: Mr. Manuel Rodriguez, is a 69-year-old gentleman with history of chronic diarrhea for the last 7-8 years, as per patient about 8 years ago he underwent gallbladder surgery and subsequently developed diarrhea initially he thought he was due to gallbladder surgery but diarrhea persisted, it was watery, 5-6 times a day, no mucus or blood seen . Patient said he got used to chronic diarrhea until in June 2019 when he started having progressive abdominal pain at that time he told his primary care physician at [facility] about chronic diarrhea and now progressive abdominal pain and CT scan of abdomen was ordered which showed mesenteric mass and was referred to Dr. carter. 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 Additional foci of increase uptake are probably metastatic deposit in the right axilla, right paraspinal, just above the diaphragm and left lower thorax just above the spleen. There may be metastatic lesions in the lungs or lymph nodes. Patient underwent exploration on 11/06/2019 and Bartolo-Cut needle biopsy of mesenteric mass showed no tumor seen and small bowel excision showed benign small bowel segment with no dysplasia or malignancy but bowel resection showed well-differentiated neuroendocrine tumor (carcinoid), tumor extends through muscularis propria with extensive involvement of mesenteric fat. Focal perineural invasion identified. Single discontinuous carcinoid tumor nodule formed and mesenteric fat. Lab workup done on 11/20/2019 showed gastrin level 103 normal being less than 100, considered and 1515, normal being less than 244, chromogranin A level 804, normal being 25-140 24-hour urine HIAA, 43, normal being less than 6. Patient denies any bronchial wheezing but one episode of facial flushing in the past. Denies smoking or alcohol use, Patient denies any fever or chills denies any uncontrolled hypertension or palpitation but patient is on beta blockers. Patient denies any abdominal pain with small meals usually large meals cause abdominal pain. Denies any fever or chills, denies any jaundice denies any headaches.but persistent diarrhea 5-6 bowel movements in 24 hours Started on Sandostatin LAR 30 mg every month, on 12/06/2019 Came for follow-up, denies any specific complaint except persistent diarrhea but has improved significantly now average 2-3 bowel movements in 24 hours compared to 5-6 prior to Sandostatin shot. Otherwise no fever or chills, no abdominal pain, no facial flushing, no bronchial wheezing., No melena or hematochezia, no nausea or vomiting, no jaundice. Tolerated first dose of Sandostatin LAR well Medications: amLODIPine Besylate 1 Tablet (of 10 mg) Oral daily, Atenolol 0.5 Tablet (of 25 mg) Oral daily, Cholecalciferol 1 Tablet (of 1000 mg) Oral daily, Clopidogrel Bisulfate 1 Tablet (of 75 mg) Oral daily, Fish Oil 1 Capsule (of 2000 mg) Oral daily, Garlic 1 Capsule (of 1000 mg) Oral daily, Lisinopril 1 Tablet (of 20 mg) Oral daily, PX Omeprazole 1 Tablet (of 20 mg) Tablet, enteric coated Oral daily Allergies: Statins Review of Systems: Constitutional - Appetite is diminished and weight is decreasing. No fever, chills, hot flashes, or night sweats. Energy level is poor, ENMT - No sinus congestion/drainage. No mouth sores. No sore throat or difficulty swallowing, Hematologic/Lymphatic - No abnormal bruising or bleeding, Respiratory - No shortness of breath. No cough. No pleuritic pain or hemoptysis, Cardiovascular - No angina pain. No palpitations, Gastrointestinal - No nausea or vomiting. Positive for heartburn and acid reflux. Positive for diarrhea, no constipation. No blood in the stool or black stools, Genitourinary (M) - No dysuria or hematuria. No urinary frequency. No urgency or incontinence, Musculoskeletal - No joint or bone pain, Neurologic - No headache or dizziness. No numbness/paresthesias or other focal neurologic symptoms, Psychiatric - No anxiety or depression. No insomnia. Vital Signs: Vitals are not available for this patient. Performance Status: 0 - Fully active, able to carry on all predisease activities without restrictions. (ECOG) Physical Examination: ENMT - no mouth sores, Respiratory - Lungs are clear, Cardiovascular - Regular rate and rhythm of heart, Abdomen - no abdominal pain, bowel sounds present, nontender, Extremities - no visible edema. Lab/Imaging: Test performed on Nov 20, 2019 11:50 Serotonin, Serum 1515 ng/mL Magnesium 2.1 mg/dL Sodium 140 mmol/L Potassium 4.6 mmol/L Chloride 102 mmol/L CO2 27 mmol/L Anion Gap 15.6 BUN 10 mg/dL Creatinine 0.9 mg/dL eGFR 83.7 mL/min Glucose 93 mg/dL Calcium 10.4 mg/dL Protein, Total 7.5 g/dL Albumin 3.8 g/dL Globulin 3.7 g/dL Bilirubin, Total 0.3 mg/dL ALT (SGPT) 28 U/L AST (SGOT) 24 U/L Alkaline Phosphatase 83 IU/L WBC 7.0 10 3/uL RBC 4.88 10 6/uL HGB 12.6 g/dL HCT 40.0 % MCV 82.0 fL MCH 25.8 pg MCHC 31.5 g/dL RDW 14.3 % Platelet Count 231 10 3/cmm MPV 12.2 fL Neutrophils 4.2 10 3/uL Lymphocytes 1.6 10 3/uL Monocytes 0.6 10 3/uL Eosinophils 0.6 10 3/uL Basophils 0.1 10 3/uL Neutrophil % 59.6 % Lymphocyte % 23.4 % Monocyte % 8.0 % Eosinophil % 8.0 % Basophils % 0.7 % Chromogranin A 804 ng/mL Impression: 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 Gastrin level 103 , normal being less than 100. Final pathology report showed well-differentiated neuroendocrine tumor, carcinoid, tumor extends to the muscularis propria with extensive involvement of mesenteric fat. Focal perineural invasion identified. Single discontinue his carcinoid tumor and nodule found in the mesenteric fat. Tumor cell are strongly and diffusely positive for synaptophysin and neuron specific enolase and weakly positive for chromogranin A. Also negative for CD 56. And Ki-67 proliferative index is less than 1%, consistent with carcinoid Octreotide scan done on 10/08/2019 showed positive for uptake in mesenteric mass. Additional foci of increase uptake are probably metastatic deposit in the right axilla, right paraspinal, just above diaphragm and left lower thorax, just above spleen. There may be a metastatic lesion in the lungs are lymph nodes. Chronic diarrhea for the last 7-8 years, probably due to carcinoid started on Sandostatin LAR 30 every month on 12/06/2019 Progressive abdominal pain since June 2019.especially with large meals, not with small mucous, patient is comfortable with 8-9 meals a day Plan: Discussed with patient regarding his labs white blood count 6.9 hemoglobin 13.2 crit 42.7 platelets 148,000 CMP within normal limits, and carcinoid related lab workup which include elevated serotonin, chromogranin A, 24-hour urine for 5 HIAA. Clinically, patient is feeling better, as far as diarrhea is concerned, has improved since started on Sandostatin LAR on 11/16/2019. Now, patient has 2-3 bowel movements in 24 hours compared to 5-6, prior to that. His follow-up lab workup shows electrolytes especially potassium and magnesium within normal range. Recent has no other symptoms, his carcinoid related lab workup has confirmed secretory type of carcinoid, We'll proceed with next dose of Sandostatin LAR today and then he will return to clinic in one month with CMP, serotonin level and chromogranin A level.Patient was advised to maintain good hydration. Signed By: Brianna Amos M.D. <<Signature on File>>
== END 2020-01-11 09:27 | disposition home or self-care (01) ==
LOC: ONCMED 09:28
PROVIDERS: Family Provider Family Medicine; PCP Family Medicine; Visit Provider Internal Medicine Hematology & Oncology
DX: C7A.8 Other malignant neuroendocrine tumors (principal); C7B.01 Secondary carcinoid tumors of distant lymph nodes; R19.7 Diarrhea, unspecified
CPT/HCPCS: 96372; 99214; J2353

== ENCOUNTER → 2020-01-25 11:31 | Outpatient (BNVA) | payer OTHER, SELFPAY | PROVIDERS: Family Provider Family Medicine; PCP Family Medicine; Visit Provider Internal Medicine Cardiovascular Disease | DX: I47.2 Ventricular tachycardia (principal); I49.9 Cardiac arrhythmia, unspecified | CPT/HCPCS: 80048; 83735 ==

== ENCOUNTER 2020-02-11 11:26 | Outpatient (CLI) | payer OTHER, MEDICARE, SELFPAY ==
[2020-02-11 11:56] LABS: Basophils # 0.1 10^3/uL (0.0-0.1); Basophils % 0.8 %; Eosinophils # 0.2 10^3/uL (0.0-0.8); Eosinophils % 3.4 %; Hematocrit 43.3 % (42.0-52.0); Hemoglobin 13.7 g/dL (11.7-16.6); Lymphocytes # 2.3 10^3/uL (0.8-4.8); Lymphocytes % 31.7 %; Mean Corpuscular HGB Conc 31.6 g/dL (30.0-36.0); Mean Corpuscular Hemoglobin 26.4 pg (28.0-34.0); Mean Corpuscular Volume 83.4 fL (80-94); Mean Platelet Volume 12.1 fL (7.4-10.4); Monocytes # 0.6 10^3/uL (0.2-0.9); Monocytes % 7.9 %; Neutrophils % 55.9 %; Nucleated Red Blood Cells % 0 %; Platelet Count 147 10^3/cmm (130-400); Red Blood Count 5.19 10^6/uL (4.1-5.3); Red Cell Distribution Width 14.3 % (12.1-15.1); White Blood Count 7.1 10^3/uL (4.0-10.0)
[2020-02-11 12:10] LABS: Alanine Aminotransferase 49 U/L (0-41); Albumin Level 4.7 g/dL (3.5-5.2); Alkaline Phosphatase 95 IU/L (40-130); Anion Gap 14.3 (5-19); Aspartate Amino Transferase 35 U/L (0-40); Blood Urea Nitrogen 11 mg/dL (8-23); Calcium 9.7 mg/dL (8.5-10.5); Carbon Dioxide 24 mmol/L (22-29); Chloride 103 mmol/L (98-107); Globulin 2.4 g/dL (1.3-4.6); Glomerular Filtration Rate 111.8 mL/min (90-130); Glucose 103 mg/dL (65-115); Osmolality Calculated 280 mOsm/kg (285-295); Potassium 4.3 mmol/L (3.5-5.1); Sodium 137 mmol/L (136-145); Total Bilirubin 0.3 mg/dL (0.15-1.2); Total Protein 7.1 g/dL (6.6-8.7)
[2020-02-14 19:46] LABS: Chromogranin A 157 ng/mL (25-140)
[2020-02-15 16:51] LABS: Serotonin Whole Blood 968 ng/mL (56-244)
== END 2020-02-11 11:27 | disposition home or self-care (01) ==
LOC: ONCMED 11:29
PROVIDERS: PCP Family Medicine; Visit Provider Internal Medicine Hematology & Oncology
DX: C7A.8 Other malignant neuroendocrine tumors (principal); K21.9 Gastro-esophageal reflux disease without esophagitis; E78.5 Hyperlipidemia, unspecified; I10 Essential (primary) hypertension; M19.90 Unspecified osteoarthritis, unspecified site; I25.10 Atherosclerotic heart disease of native coronary artery without angina pectoris
CPT/HCPCS: 80053; 85025

== ENCOUNTER 2020-02-12 15:16 | Outpatient (CLI) | payer OTHER, MEDICARE, SELFPAY ==
--- NOTE | 2020-02-12 15:56 | ONC FU_ITS ---
Dr. Amos follow up note Patient: Manuel Rodriguez Unit #: [id number]: 1950 Dicatated By: Brianna Amos M.D.Date of Visit:Feb 12, 2020 Onc Med Follow-up/Prog Note History of Present Illness: Mr. Manuel Rodriguez, is a 69-year-old gentleman with history of chronic diarrhea for the last 7-8 years, as per patient about 8 years ago he underwent gallbladder surgery and subsequently developed diarrhea initially he thought he was due to gallbladder surgery but diarrhea persisted, it was watery, 5-6 times a day, no mucus or blood seen . Patient said he got used to chronic diarrhea until in June 2019 when he started having progressive abdominal pain at that time he told his primary care physician at [facility] about chronic diarrhea and now progressive abdominal pain and CT scan of abdomen was ordered which showed mesenteric mass and was referred to Dr. carter. 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 Additional foci of increase uptake are probably metastatic deposit in the right axilla, right paraspinal, just above the diaphragm and left lower thorax just above the spleen. There may be metastatic lesions in the lungs or lymph nodes. Patient underwent exploration on 11/06/2019 and Bartolo-Cut needle biopsy of mesenteric mass showed no tumor seen and small bowel excision showed benign small bowel segment with no dysplasia or malignancy but bowel resection showed well-differentiated neuroendocrine tumor (carcinoid), tumor extends through muscularis propria with extensive involvement of mesenteric fat. Focal perineural invasion identified. Single discontinuous carcinoid tumor nodule formed and mesenteric fat. Lab workup done on 11/20/2019 showed gastrin level 103 normal being less than 100, considered and 1515, normal being less than 244, chromogranin A level 804, normal being 25-140 24-hour urine HIAA, 43, normal being less than 6. Patient denies any bronchial wheezing but one episode of facial flushing in the past. Denies smoking or alcohol use, Patient denies any fever or chills denies any uncontrolled hypertension or palpitation but patient is on beta blockers. Patient denies any abdominal pain with small meals usually large meals cause abdominal pain. Denies any fever or chills, denies any jaundice denies any headaches.but persistent diarrhea 5-6 bowel movements in 24 hours Started on Sandostatin LAR 30 mg every month, on 12/06/2019 Came for follow-up, denies any specific complaints, no facial flushing, no bronchial wheezing, and diarrhea is almost resolved now once a day bowel movement and sometimes twice a day at the most. No melena or hematochezia, no abdominal pain. Appetite is good, overall quality of life is improving. Tolerating Sandostatin well otherwise Medications: amLODIPine Besylate 1 Tablet (of 10 mg) Oral daily, Atenolol 0.5 Tablet (of 25 mg) Oral daily, Cholecalciferol 1 Tablet (of 1000 mg) Oral daily, Clopidogrel Bisulfate 1 Tablet (of 75 mg) Oral daily, Eliquis 1 Tablet (of 2.5 mg) Oral b.i.d., Fish Oil 1 Capsule (of 2000 mg) Oral daily, Garlic 1 Capsule (of 1000 mg) Oral daily, Lisinopril 1 Tablet (of 20 mg) Oral daily, PX Omeprazole 1 Tablet (of 20 mg) Tablet, enteric coated Oral daily Allergies: Statins Review of Systems: Review of Systems is not available for this patient. Vital Signs: Performed on Feb 12, 2020 15:23 Height - 72.00 in Weight - 194.6 lbs (HIGH) BSA - 2.11 sq.m BMI - 26.39 Temperature - 98.8 F Pulse - 64 /min Respiration - 18 /min BP - 125/81 mm(hg) O2 Sat - 98 % Pain - 0 Performance Status: 0 - Fully active, able to carry on all predisease activities without restrictions. (ECOG) Physical Examination: ENMT - no mouth sores, no thrush, Respiratory - Lungs are clear, Cardiovascular - Regular rate and rhythm of heart, Abdomen - soft, bowel sounds present, Extremities - no edema or rash. Lab/Imaging: Test performed on Jan 09, 2020 12:35 Sodium 139 mmol/L Potassium 4.2 mmol/L Chloride 99 mmol/L CO2 25 mmol/L Anion Gap 19.2 BUN 10 mg/dL Creatinine 0.8 mg/dL eGFR 95.8 mL/min Glucose 122 mg/dL Calcium 9.8 mg/dL Protein, Total 7.2 g/dL Albumin 4.5 g/dL Globulin 2.7 g/dL Bilirubin, Total 0.3 mg/dL ALT (SGPT) 39 U/L AST (SGOT) 30 U/L Alkaline Phosphatase 80 IU/L WBC 6.9 10 3/uL RBC 4.92 10 6/uL HGB 13.2 g/dL HCT 42.7 % MCV 86.8 fL MCH 26.8 pg MCHC 30.9 g/dL RDW 14.9 % Platelet Count 148 10 3/cmm MPV 13.0 fL Neutrophils 3.4 10 3/uL Lymphocytes 2.6 10 3/uL Monocytes 0.5 10 3/uL Eosinophils 0.3 10 3/uL Basophils 0.0 10 3/uL Neutrophil % 49.5 % Lymphocyte % 37.9 % Monocyte % 7.1 % Eosinophil % 4.8 % Basophils % 0.6 % Test performed on Nov 20, 2019 11:50 Serotonin, Serum 1515 ng/mL Magnesium 2.1 mg/dL Chromogranin A 804 ng/mL Impression: 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 Gastrin level 103 , normal being less than 100. Final pathology report showed well-differentiated neuroendocrine tumor, carcinoid, tumor extends to the muscularis propria with extensive involvement of mesenteric fat. Focal perineural invasion identified. Single discontinue his carcinoid tumor and nodule found in the mesenteric fat. Tumor cell are strongly and diffusely positive for synaptophysin and neuron specific enolase and weakly positive for chromogranin A. Also negative for CD 56. And Ki-67 proliferative index is less than 1%, consistent with carcinoid Octreotide scan done on 10/08/2019 showed positive for uptake in mesenteric mass. Additional foci of increase uptake are probably metastatic deposit in the right axilla, right paraspinal, just above diaphragm and left lower thorax, just above spleen. There may be a metastatic lesion in the lungs are lymph nodes. Chronic diarrhea for the last 7-8 years, probably due to carcinoid started on Sandostatin LAR 30 every month on 12/06/2019 Progressive abdominal pain since June 2019.especially with large meals, not with small mucous, patient is comfortable with 8-9 meals a day Plan: Discussed with patient regarding his labs white blood count 7.1 hemoglobin 13.7 crit 42.3 platelets 147,000 CMP within normal limits except ALT 49 . Chromogranin A level and serotonin level is pending Clinically, patient is doing well, tolerating Sandostatin LAR well, his diarrhea is improving and other almost resolved. Follow-up lab shows electrolytes within normal range. We will give him his schedule dose of Sandostatin LAR 30 mg daily and then he'll return to clinic in one month with CMP and magnesium level and by that time we'll have chromogranin A and serotonin reports back. Signed By: Brianna Amos M.D. <<Signature on File>>
[2020-02-12] MEDS: octreotide LAR depot 30 mg Kit IM (16:07)
== END 2020-02-12 15:17 | disposition home or self-care (01) ==
PROVIDERS: PCP Family Medicine; Visit Provider Internal Medicine Hematology & Oncology
DX: C7A.8 Other malignant neuroendocrine tumors (principal); I25.10 Atherosclerotic heart disease of native coronary artery without angina pectoris; K21.9 Gastro-esophageal reflux disease without esophagitis; E78.5 Hyperlipidemia, unspecified; I10 Essential (primary) hypertension; M19.90 Unspecified osteoarthritis, unspecified site; Z86.711 Personal history of pulmonary embolism; K40.90 Unilateral inguinal hernia, without obstruction or gangrene, not specified as recurrent
CPT/HCPCS: 96372; 99214; J2353

== ENCOUNTER 2020-03-18 09:48 | Outpatient (CLI) | payer OTHER, SELFPAY ==
[2020-03-18 10:58] LABS: Alanine Aminotransferase 58 U/L (0-41); Albumin Level 4.6 g/dL (3.5-5.2); Alkaline Phosphatase 86 IU/L (40-130); Anion Gap 13.2 (5-19); Aspartate Amino Transferase 40 U/L (0-40); Blood Urea Nitrogen 10 mg/dL (8-23); Carbon Dioxide 28 mmol/L (22-29); Chloride 101 mmol/L (98-107); Globulin 2.5 g/dL (1.3-4.6); Glomerular Filtration Rate 95.8 mL/min (90-130); Glucose 97 mg/dL (65-115); Magnesium 1.7 mg/dL (1.7-2.3); Osmolality Calculated 282 mOsm/kg (285-295); Potassium 4.2 mmol/L (3.5-5.1); Sodium 138 mmol/L (136-145); Total Bilirubin 0.4 mg/dL (0.15-1.2); Total Protein 7.1 g/dL (6.6-8.7)
== END 2020-03-18 09:49 | disposition home or self-care (01) ==
LOC: ONCMED 09:51
PROVIDERS: PCP Family Medicine; Visit Provider Internal Medicine Hematology & Oncology
DX: C7A.8 Other malignant neuroendocrine tumors (principal); E61.2 Magnesium deficiency; I25.10 Atherosclerotic heart disease of native coronary artery without angina pectoris; K21.9 Gastro-esophageal reflux disease without esophagitis; E78.5 Hyperlipidemia, unspecified; I10 Essential (primary) hypertension; K40.90 Unilateral inguinal hernia, without obstruction or gangrene, not specified as recurrent; M19.90 Unspecified osteoarthritis, unspecified site
CPT/HCPCS: 80053; 83735

== ENCOUNTER 2020-03-20 13:48 | Outpatient (CLI) | payer OTHER, SELFPAY ==
--- NOTE | 2020-03-20 14:36 | ONC FU_ITS ---
Dr. Amos follow up note Patient: Manuel Rodriguez Unit #: [id number]: 1950 Dicatated By: Brianna Amos M.D.Date of Visit:Mar 20, 2020 Onc Med Follow-up/Prog Note History of Present Illness: Mr. Manuel Rodriguez, is a 69-year-old gentleman with history of chronic diarrhea for the last 7-8 years, as per patient about 8 years ago he underwent gallbladder surgery and subsequently developed diarrhea initially he thought he was due to gallbladder surgery but diarrhea persisted, it was watery, 5-6 times a day, no mucus or blood seen . Patient said he got used to chronic diarrhea until in June 2019 when he started having progressive abdominal pain at that time he told his primary care physician at [facility] about chronic diarrhea and now progressive abdominal pain and CT scan of abdomen was ordered which showed mesenteric mass and was referred to Dr. carter. 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 Additional foci of increase uptake are probably metastatic deposit in the right axilla, right paraspinal, just above the diaphragm and left lower thorax just above the spleen. There may be metastatic lesions in the lungs or lymph nodes. Patient underwent exploration on 11/06/2019 and Bartolo-Cut needle biopsy of mesenteric mass showed no tumor seen and small bowel excision showed benign small bowel segment with no dysplasia or malignancy but bowel resection showed well-differentiated neuroendocrine tumor (carcinoid), tumor extends through muscularis propria with extensive involvement of mesenteric fat. Focal perineural invasion identified. Single discontinuous carcinoid tumor nodule formed and mesenteric fat. Lab workup done on 11/20/2019 showed gastrin level 103 normal being less than 100, considered and 1515, normal being less than 244, chromogranin A level 804, normal being 25-140 24-hour urine HIAA, 43, normal being less than 6. Patient denies any bronchial wheezing but one episode of facial flushing in the past. Denies smoking or alcohol use, Patient denies any fever or chills denies any uncontrolled hypertension or palpitation but patient is on beta blockers. Patient denies any abdominal pain with small meals usually large meals cause abdominal pain. Denies any fever or chills, denies any jaundice denies any headaches.but persistent diarrhea 5-6 bowel movements in 24 hours Started on Sandostatin LAR 30 mg every month, on 12/06/2019 Came for follow-up, denies any specific complaints except as per patient after last Sandostatin shot, he started having diarrhea which lasted for 2 weeks and then on its own it improved and now back to normal bowel pattern e.g. 1 BM in a day. Denies any melena or hematochezia denies any mucus in the stool denies any fever chills denies any abdominal pain denies any abdominal fullness denies any jaundice. Patient said appetite is good and he has gained about 30 pounds since diagnosis. He has history of fatty liver in the past as his liver enzyme used to be abnormal. But when he lost weight his liver function test become normal. Otherwise tolerating Sandostatin well. Denies any wheezing denies any skin rash denies any diarrhea for the last 2 weeks denies any abdominal pain. Medications: amLODIPine Besylate 1 Tablet (of 10 mg) Oral daily, Atenolol 0.5 Tablet (of 25 mg) Oral daily, Cholecalciferol 1 Tablet (of 1000 mg) Oral daily, Clopidogrel Bisulfate 1 Tablet (of 75 mg) Oral daily, Eliquis 1 Tablet (of 5 mg) Oral b.i.d., Fish Oil 1 Capsule (of 2000 mg) Oral daily, Garlic 1 Capsule (of 1000 mg) Oral daily, Lisinopril 1 Tablet (of 20 mg) Oral daily, PX Omeprazole 1 Tablet (of 20 mg) Tablet, enteric coated Oral daily Allergies: Statins Review of Systems: Constitutional - Appetite is diminished and weight is decreasing. No fever, chills, hot flashes, or night sweats. Energy level is poor, ENMT - No sinus congestion/drainage. No mouth sores. No sore throat or difficulty swallowing, Hematologic/Lymphatic - No abnormal bruising or bleeding, Respiratory - No shortness of breath. No cough. No pleuritic pain or hemoptysis, Cardiovascular - No angina pain. No palpitations, Gastrointestinal - No nausea or vomiting. Positive for heartburn and acid reflux. Positive for diarrhea, no constipation. No blood in the stool or black stools, Genitourinary (M) - No dysuria or hematuria. No urinary frequency. No urgency or incontinence, Musculoskeletal - No joint or bone pain, Neurologic - No headache or dizziness. No numbness/paresthesias or other focal neurologic symptoms, Psychiatric - No anxiety or depression. No insomnia. Vital Signs: Performed on Mar 20, 2020 14:12 Height - 72.00 in Weight - 200.2 lbs (HIGH) BSA - 2.13 sq.m BMI - 27.15 Temperature - 98.7 F Pulse - 60 /min Respiration - 18 /min BP - 142/84 mm(hg) (HIGH) O2 Sat - 97 % Pain - 0 Performance Status: 0 - Fully active, able to carry on all predisease activities without restrictions. (ECOG) Physical Examination: ENMT - No mouth sores, no thrush, no jaundice, Respiratory - Lungs are clear, Cardiovascular - Regular rate and rhythm of heart, Abdomen - Soft, bowel sounds present, Extremities - No visible edema or rash. Lab/Imaging: Test performed on Feb 11, 2020 11:45 Serotonin, Serum 968 ng/mL Sodium 137 mmol/L Potassium 4.3 mmol/L Chloride 103 mmol/L CO2 24 mmol/L Anion Gap 14.3 BUN 11 mg/dL Creatinine 0.7 mg/dL Cr Clearance (Est) 124.35 mL/min eGFR 111.8 mL/min Glucose 103 mg/dL Calcium 9.7 mg/dL Protein, Total 7.1 g/dL Albumin 4.7 g/dL Globulin 2.4 g/dL Bilirubin, Total 0.3 mg/dL ALT (SGPT) 49 U/L AST (SGOT) 35 U/L Alkaline Phosphatase 95 IU/L WBC 7.1 10 3/uL RBC 5.19 10 6/uL HGB 13.7 g/dL HCT 43.3 % MCV 83.4 fL MCH 26.4 pg MCHC 31.6 g/dL RDW 14.3 % Platelet Count 147 10 3/cmm MPV 12.1 fL Neutrophils 4.0 10 3/uL Lymphocytes 2.3 10 3/uL Monocytes 0.6 10 3/uL Eosinophils 0.2 10 3/uL Basophils 0.1 10 3/uL Neutrophil % 55.9 % Lymphocyte % 31.7 % Monocyte % 7.9 % Eosinophil % 3.4 % Basophils % 0.8 % Chromogranin A 157 ng/mL Test performed on Nov 20, 2019 11:50 Magnesium 2.1 mg/dL Impression: 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 Gastrin level 103 , normal being less than 100. Final pathology report showed well-differentiated neuroendocrine tumor, carcinoid, tumor extends to the muscularis propria with extensive involvement of mesenteric fat. Focal perineural invasion identified. Single discontinue his carcinoid tumor and nodule found in the mesenteric fat. Tumor cell are strongly and diffusely positive for synaptophysin and neuron specific enolase and weakly positive for chromogranin A. Also negative for CD 56. And Ki-67 proliferative index is less than 1%, consistent with carcinoid Octreotide scan done on 10/08/2019 showed positive for uptake in mesenteric mass. Additional foci of increase uptake are probably metastatic deposit in the right axilla, right paraspinal, just above diaphragm and left lower thorax, just above spleen. There may be a metastatic lesion in the lungs are lymph nodes. Chronic diarrhea for the last 7-8 years, probably due to carcinoid started on Sandostatin LAR 30 every month on 12/06/2019 Progressive abdominal pain since June 2019.especially with large meals, not with small mucous, patient is comfortable with 8-9 meals a day Plan: Discussed with patient regarding his labs CMP within normal limits except ALT 58 AST 40 compared to on November 20, 2019. Magnesium 1.7 Clinically, patient is doing well with no signs symptom suggestive of disease progression his follow-up lab work-up showed serotonin level has gone down to 968 from 1515 prior to initiation of Sandostatin as well as chromogranin A level has dropped 257 from 804 prior to the treatment, moreover symptoms like chronic diarrhea now has almost resolved. And patient is very pleased with the response to the treatment.lAs far as mildly elevated transaminases concerned, probably due to fatty liver as patient has gained about 30 pounds since started on Sandostatin and with good control over chronic diarrhea, moreover patient said he has history of fatty liver with abnormal LFTs in the past., Will continue to monitor. We will proceed with his next monthly dose of Sandostatin LAR 30 mg and then he will return to clinic in 1 month with CMP and magnesium level. Patient was advised in case he has episode of severe diarrhea abdominal cramps or any other symptoms he need to call us otherwise we will see him back in 1 month. Signed By: Brianna Amos M.D. <<Signature on File>>
[2020-03-20] MEDS: octreotide LAR depot 30 mg Kit IM (14:44)
== END 2020-03-20 13:49 | disposition home or self-care (01) ==
LOC: ONCMED 13:50
PROVIDERS: PCP Family Medicine; Visit Provider Internal Medicine Hematology & Oncology
DX: C7A.019 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, unspecified portion (principal); Z79.899 Other long term (current) drug therapy; Z79.02 Long term (current) use of antithrombotics/antiplatelets; Z79.01 Long term (current) use of anticoagulants; K52.9 Noninfective gastroenteritis and colitis, unspecified; K76.0 Fatty (change of) liver, not elsewhere classified
CPT/HCPCS: 96372; 99214; J2353

== ENCOUNTER 2020-03-26 15:21 | Outpatient (CLI) | payer OTHER, SELFPAY ==
--- NOTE | 2020-03-26 15:42 | USCV_ITS ---
Manuel Rodriguez Age: 69 Gender: M : 1950 Exam Date: 03/26/2020 15:47 Ordering Phys: Rogers Moreno MD Technologist: Samaria Mcarthur [place] [facility] [place]: ISCHEMIA HEART DISEASE BP: / HR: 57 Rhythm: Sinus Technical Quality: Adequate MEASUREMENTS (Male / Female) Normal Values 2D ECHO LV Diastolic Diameter PLAX 4.9 cm 4.2 - 5.9 / 3.9 - 5.3 cm LV Systolic Diameter PLAX 4.0 cm LV Chamber Size 3.5 cm IVS Diastolic Thickness 1.4 cm 0.6 - 1.0 / 0.6 - 0.9 cm IVS Systolic Thickness 1.8 cm LVPW Diastolic Thickness 1.5 cm 0.6 - 1.0 / 0.6 - 0.9 cm LVPW Systolic Thickness 1.7 cm RV Chamber Size 3.4 cm LVOT Diameter 2.0 cm LV Ejection Fraction 2D Teich 37.1 % LV Ejection Fraction MOD 2C 56.9 % LV Ejection Fraction 2C AL 54.9 % LA Diameter 5.1 cm LA Width 4.3 cm LA Height 5.5 cm RA Width 4.1 cm RA Height 4.1 cm Aorta at Sinotubular Diameter 3.0 cm M-MODE LV Diastolic Diameter MM 4.5 cm 4.2 - 5.9 / 3.9 - 5.3 cm LV Systolic Diameter MM 2.5 cm LV Ejection Fraction MM Teich 77.1 % IVS Diastolic Thickness MM 1.1 cm 0.6 - 1.0 / 0.6 - 0.9 cm IVS Systolic Thickness MM 2.0 cm LVPW Diastolic Thickness MM 1.5 cm 0.6 - 1.0 / 0.6 - 0.9 cm LVPW Systolic Thickness MM 2.0 cm RV Diastolic Diameter MM 1.0 cm Aortic Annulus Diameter 4.1 cm LA Ao Ratio MM 1.3 MV E Point Septal Separation 0.6 cm DOPPLER AV Peak Velocity 209.0 cm/s LVOT Peak Velocity 92.0 cm/s AV Area Cont Eq vti 1.5 cm squared AV Area Cont Eq pk 1.4 cm squared MV Area PHT 3.1 cm squared Mitral E to A Ratio 1.0 MV E' Velocity 9.0 cm/s Mitral E to MV E' Ratio 8.1 Mitral E to LV E' Lateral Ratio 6.7 Mitral E to LV E' Septal Ratio 10.2 TR Peak Velocity 249.0 cm/s TR Peak Gradient 24.8 mmHg TR Mean Velocity 191.3 cm/s TR Mean Gradient 15.8 mmHg TR Velocity Time Integral 71.7 cm TV Peak E Velocity 78.0 cm/s Right Atrial Pressure 3.0 mmHg Pulmonary Artery Systolic Pressu 27.8 mmHg PV Peak Velocity 79.0 cm/s RV Acceleration Time 0.2 s RV Ejection Time 0.3 s RV AcT/ET 0.5 FINDINGS Left Ventricle Normal LV size with diminished ejection fraction of around 50%. Diffuse hypokinesia of the septum and anteroseptal segments.Grade I/IV diastolic dysfunction (abnormal relaxation filling pattern), normal to mildly elevated filling pressures. Right Ventricle Normal right ventricular size and systolic function. Right Atrium The right atrium is normal in size. Left Atrium Mildly increased left atrial size. Mitral Valve Thickened mitral valve. Trace mitral valve regurgitation. Aortic Valve Thickened aortic valve with moderate calcification. Trace to mild aortic valve regurgitation. Aortic valve sclerosis. Tricuspid Valve Mild tricuspid valve regurgitation. Pulmonic Valve Structurally normal pulmonic valve without significant stenosis. There is no pulmonic regurgitation. Pericardium No pericardial effusion. Aorta Moderate to heavy plaques in the ascending aorta CONCLUSIONS Normal LV size with diminished ejection fraction of around 50%. Diffuse hypokinesia of the septum and anteroseptal segments.Grade I/IV diastolic dysfunction (abnormal relaxation filling pattern), normal to mildly elevated filling pressures. Mildly increased left atrial size. Thickened mitral valve. Trace mitral valve regurgitation. Thickened aortic valve with moderate calcification. Features of aortic valve sclerosis Mild tricuspid valve regurgitation. Severe pulmonary artery peak systolic pressure of 28 mmHg Mild tricuspid valve regurgitation. There is no pericardial effusion. There are no intracardiac masses. Compared to the study from 11/09/2019, there is a drop in the LV ejection fraction Dr Yvonne Goodwin MD [facility] (Electronically Signed) Final Date: 27 March 2020 09:29 S
== END 2020-03-26 15:22 | disposition home or self-care (01) ==
LOC: RAD 15:28
PROVIDERS: PCP Family Medicine; Visit Provider Orthopaedic Surgery
DX: I25.9 Chronic ischemic heart disease, unspecified (principal); I08.3 Combined rheumatic disorders of mitral, aortic and tricuspid valves
CPT/HCPCS: 93306

== ENCOUNTER 2020-04-14 08:50 | Outpatient (CLI) | payer OTHER, SELFPAY ==
--- NOTE | 2020-04-14 09:12 | ECG_ITS ---
[facility] Test Date: 2020-04-14 Pat Name: Manuel Rodriguez Department: Room: Gender: Male National Account Representative: : 1950 Requested By: Yvonne Goodwin Order Number: [id number] Leon MD: Yvonne Goodwin M.D. Interpretive Statements NAME OF STUDY: LEXISCAN SESTAMIBI STRESS TEST INDICATION: Chest Pain PROCEDURE: At the baseline, the EKG revealed sinus bradycardia with a first-degree AV block. Early repolarization changes in the inferior leads.. The baseline blood pressure was 148/89 mm Hg with a heart rate of 59 beats/min. Lexiscan was infused over a period of 20 seconds. A total of 0.4 milligrams of Lexiscan was infused. The stress phase was continued for a total of 5 minutes. Heart rate at the end of the stress phase was 72 with a blood pressure 122/66. The EKG at the peak infusion revealed no significant changes. Sestamibi was injected 20 seconds after the Lexiscan infusion. Blood pressure at the end of the recovery phase was 126/66 with a heart rate of 69 per minute. CONCLUSION: 1. No significant EKG changes with the LexiScan infusion 2. No LexiScan induced chest pain or cardiac arrhythmia 3. Normal blood pressure and heart rate response 4. Sestamibi/sestamibi perfusion scan pending; see separate report. Electronically Signed On 04-18-2020 10:44:10 CDT by Yvonne Goodwin M.D. [id number]
--- NOTE | 2020-04-14 09:13 | NMCV_ITS ---
NM brook perf SPECT r/s* [id number] Manuel Rodriguez Age: 69 Gender: M : 1950 Exam Date: 04/14/2020 09:47 Ordering Phys: Yvonne Goodwin MD ([email or web address]) Technologist: ARELY Lu Exam Location: [facility] Indications: ATHEROSCLEROSIS HEART DISEASE OF [place] CORONARY ARTERY STRESS TEST [facility] IMAGE PROTOCOL Rest/Stress 1 Lexiscan Day Radiopharmaceutical Dose (mCi) Administration Site Administered by Rest: Tc-99m 10.9 IV ARELY Clarke Sestamibi Stress:Tc-99m 32.4 IV ARELY Lu Sestamimajor Rest: 14-Apr-2020 60 Discovery 630 Stress: 14-Apr-2020 30 Discovery 630 0.4mg Lexiscan. Images obtained in supine and prone position. SPECT RESULTS Technical Quality: Good Raw Data Analysis: Normal Image Corrections: No attenuation or motion correction applied Summed Stress Score: 9 Summed Rest Score: 11 Summed Difference Score: 1 PERFUSION FINDINGS Small to moderate area of decreased tracer uptake in the mid and apical anterior, basal mid and apical inferior, apical lateral and LV apex. Subtle area of reversibility was noted in the basal inferior region, with respect to the prone imaging. However with the supine imaging, there was no significant reversible defects. Increased tracer uptake were noted in the right ventricular free wall. FUNCTIONAL RESULTS (calculated via Gated SPECT) Stress Image LV EF (%): 55 Stress EDV (mL):119 TID: 1 Stress ESV (mL):54 FUNCTIONAL FINDINGS: Segmental wall motion analysis revealed moderate hypokinesis of the apical anterior and septal regions IMPRESSIONS 1. Myocardial perfusion imaging revealing an area of persistent decreases uptake in the inferior, anterior and apical regions with a an area of inconsistent reversible defect in the basal inferior region, may suggest ischemia in the distribution of the right coronary artery. However because of the inconsistency, most likely this is artifactual. 2. Normal LV ejection fraction 55%. 3. LV wall motion analysis revealing diffuse hypokinesia of the septum and the apical anterior region. 4. Slightly elevated LV cavity with an end systolic volume of 54 mm No similar previous studies are available for comparison Dr Yvonne Goodwin MD [facility] (Electronically Signed) Final Date: 14 April 2020 19:41 S
[2020-04-14 09:17] VITALS: BMI 25.7
--- NOTE | 2020-04-14 10:34 | SUR.PREOP ---
Patient reports no pain or discomfort prior to the start of the procedure.
[2020-04-14] MEDS: regadenoson 0.4 Mg/5 ml Syringe IVP (10:41)
[2020-04-14 11:09] VITALS: BP 150/78; PULSE 58
== END 2020-04-14 08:51 | disposition home or self-care (01) ==
LOC: RAD 08:51
PROVIDERS: PCP Family Medicine; Visit Provider Internal Medicine Cardiovascular Disease
DX: I25.10 Atherosclerotic heart disease of native coronary artery without angina pectoris (principal); R06.02 Shortness of breath
CPT/HCPCS: 78452; 93017; A9500; J2785

== ENCOUNTER 2020-04-17 09:53 | Outpatient (CLI) | payer OTHER, SELFPAY ==
[2020-04-17 11:05] LABS: Alanine Aminotransferase 75 U/L (0-41); Albumin Level 4.7 g/dL (3.5-5.2); Alkaline Phosphatase 79 IU/L (40-130); Anion Gap 11.2 (5-19); Aspartate Amino Transferase 46 U/L (0-40); Blood Urea Nitrogen 11 mg/dL (8-23); Calcium 9.5 mg/dL (8.5-10.5); Carbon Dioxide 27 mmol/L (22-29); Chloride 105 mmol/L (98-107); Globulin 2.8 g/dL (1.3-4.6); Glomerular Filtration Rate 83.7 mL/min (90-130); Glucose 95 mg/dL (65-115); Magnesium 1.8 mg/dL (1.7-2.3); Osmolality Calculated 284 mOsm/kg (285-295); Potassium 4.2 mmol/L (3.5-5.1); Sodium 139 mmol/L (136-145); Total Bilirubin 0.4 mg/dL (0.15-1.2); Total Protein 7.5 g/dL (6.6-8.7)
== END 2020-04-17 09:54 | disposition home or self-care (01) ==
LOC: ONCMED 09:55
PROVIDERS: PCP Family Medicine; Visit Provider Internal Medicine Hematology & Oncology
DX: C7A.8 Other malignant neuroendocrine tumors (principal)
CPT/HCPCS: 36415; 80053; 83735

== ENCOUNTER 2020-04-21 08:53 | Outpatient (CLI) | payer OTHER, SELFPAY ==
--- NOTE | 2020-04-21 17:18 | ONC FU_ITS ---
Dr. Amos follow up note Patient: Manuel Rodriguez Unit #: [id number]: 1950 Dicatated By: Brianna Amos M.D.Date of Visit:Apr 21, 2020 Onc Med Follow-up/Prog Note History of Present Illness: Mr. Manuel Rodriguez, is a 69-year-old gentleman with history of chronic diarrhea for the last 7-8 years, as per patient about 8 years ago he underwent gallbladder surgery and subsequently developed diarrhea initially he thought he was due to gallbladder surgery but diarrhea persisted, it was watery, 5-6 times a day, no mucus or blood seen . Patient said he got used to chronic diarrhea until in June 2019 when he started having progressive abdominal pain at that time he told his primary care physician at [facility] about chronic diarrhea and now progressive abdominal pain and CT scan of abdomen was ordered which showed mesenteric mass and was referred to Dr. carter. 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 Additional foci of increase uptake are probably metastatic deposit in the right axilla, right paraspinal, just above the diaphragm and left lower thorax just above the spleen. There may be metastatic lesions in the lungs or lymph nodes. Patient underwent exploration on 11/06/2019 and Bartolo-Cut needle biopsy of mesenteric mass showed no tumor seen and small bowel excision showed benign small bowel segment with no dysplasia or malignancy but bowel resection showed well-differentiated neuroendocrine tumor (carcinoid), tumor extends through muscularis propria with extensive involvement of mesenteric fat. Focal perineural invasion identified. Single discontinuous carcinoid tumor nodule formed and mesenteric fat. Lab workup done on 11/20/2019 showed gastrin level 103 normal being less than 100, considered and 1515, normal being less than 244, chromogranin A level 804, normal being 25-140 24-hour urine HIAA, 43, normal being less than 6. Patient denies any bronchial wheezing but one episode of facial flushing in the past. Denies smoking or alcohol use,But history of fatty liver with abnormal LFTs in the past Patient denies any fever or chills denies any uncontrolled hypertension or palpitation but patient is on beta blockers. Patient denies any abdominal pain with small meals usually large meals cause abdominal pain. Denies any fever or chills, denies any jaundice denies any headaches.but persistent diarrhea 5-6 bowel movements in 24 hours Started on Sandostatin LAR 30 mg every month, on 12/06/2019 Came for follow-up, denies any specific complaints except off and on loose bowel movement e.g. 1-2 a day. As per patient he had couple of dark-colored stools about a week ago but then resolved on its own. No melena or hematochezia, no hematuria or dysuria, no jaundice, no heartburn indigestion, no palpitation no shortness of breath., No abdominal pain. Tolerating Sandostatin well otherwise Medications: amLODIPine Besylate 1 Tablet (of 10 mg) Oral daily, Atenolol 0.5 Tablet (of 25 mg) Oral daily, Cholecalciferol 1 Tablet (of 1000 mg) Oral daily, Clopidogrel Bisulfate 1 Tablet (of 75 mg) Oral daily, Eliquis 1 Tablet (of 5 mg) Oral b.i.d., Fish Oil 1 Capsule (of 2000 mg) Oral daily, Garlic 1 Capsule (of 1000 mg) Oral daily, Lisinopril 1 Tablet (of 20 mg) Oral daily, PX Omeprazole 1 Tablet (of 20 mg) Tablet, enteric coated Oral daily Allergies: Statins Review of Systems: Constitutional - Appetite is fair and weight is stable. No fever, chills, hot flashes, or night sweats. Energy level is [id number], ENMT - No sinus congestion/drainage. No mouth sores. No sore throat or difficulty swallowing, Hematologic/Lymphatic - No abnormal bruising or bleeding, Respiratory - No shortness of breath. No cough. No pleuritic pain or hemoptysis, Cardiovascular - No angina pain. No palpitations, Gastrointestinal - No nausea or vomiting. Positive for heartburn and acid reflux. Positive for diarrhea, no constipation. No blood in the stool or black stools, Genitourinary (M) - No dysuria or hematuria. No urinary frequency. No urgency or incontinence, Musculoskeletal - No joint or bone pain, Neurologic - No headache or dizziness. No numbness/paresthesias or other focal neurologic symptoms, Psychiatric - No anxiety or depression. No insomnia. Vital Signs: Performed on Apr 21, 2020 09:20 Height - 72.00 in Weight - 200.0 lbs (LOW) BSA - 2.13 sq.m BMI - 27.13 Temperature - 98.1 F (LOW) Pulse - 65 /min Respiration - 22 /min BP - 135/73 mm(hg) O2 Sat - 97 % Pain - 0 Performance Status: 0 - Fully active, able to carry on all predisease activities without restrictions. (ECOG) Physical Examination: ENMT - No mouth sores, no thrush, no jaundice, Respiratory - Lungs are clear, Cardiovascular - Regular rate and rhythm of heart, Abdomen - Soft, bowel Sounds present, Extremities - No visible edema or rash. Lab/Imaging: Test performed on Mar 18, 2020 10:05 Magnesium 1.7 mg/dL Sodium 138 mmol/L Potassium 4.2 mmol/L Chloride 101 mmol/L CO2 28 mmol/L Anion Gap 13.2 BUN 10 mg/dL Creatinine 0.8 mg/dL Cr Clearance (Est) 111.94 mL/min eGFR 95.8 mL/min Glucose 97 mg/dL Calcium 10.0 mg/dL Protein, Total 7.1 g/dL Albumin 4.6 g/dL Globulin 2.5 g/dL Bilirubin, Total 0.4 mg/dL ALT (SGPT) 58 U/L AST (SGOT) 40 U/L Alkaline Phosphatase 86 IU/L Test performed on Feb 11, 2020 11:45 Serotonin, Serum 968 ng/mL WBC 7.1 10 3/uL RBC 5.19 10 6/uL HGB 13.7 g/dL HCT 43.3 % MCV 83.4 fL MCH 26.4 pg MCHC 31.6 g/dL RDW 14.3 % Platelet Count 147 10 3/cmm MPV 12.1 fL Neutrophils 4.0 10 3/uL Lymphocytes 2.3 10 3/uL Monocytes 0.6 10 3/uL Eosinophils 0.2 10 3/uL Basophils 0.1 10 3/uL Neutrophil % 55.9 % Lymphocyte % 31.7 % Monocyte % 7.9 % Eosinophil % 3.4 % Basophils % 0.8 % Chromogranin A 157 ng/mL Impression: 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 Gastrin level 103 , normal being less than 100. Final pathology report showed well-differentiated neuroendocrine tumor, carcinoid, tumor extends to the muscularis propria with extensive involvement of mesenteric fat. Focal perineural invasion identified. Single discontinue his carcinoid tumor and nodule found in the mesenteric fat. Tumor cell are strongly and diffusely positive for synaptophysin and neuron specific enolase and weakly positive for chromogranin A. Also negative for CD 56. And Ki-67 proliferative index is less than 1%, consistent with carcinoid Octreotide scan done on 10/08/2019 showed positive for uptake in mesenteric mass. Additional foci of increase uptake are probably metastatic deposit in the right axilla, right paraspinal, just above diaphragm and left lower thorax, just above spleen. There may be a metastatic lesion in the lungs are lymph nodes. Chronic diarrhea for the last 7-8 years, probably due to carcinoid started on Sandostatin LAR 30 every month on 12/06/2019 Progressive abdominal pain since June 2019.especially with large meals, not with small mucous, patient is comfortable with 8-9 meals a day Plan: Discussed with patient regarding his labs CMP within normal limit except LFTs, ALT 75 compared to 58 on March 18, 2020 and 28 on November 20, 2019 prior to Sandostatin. And AST 46, compared to 40 on March 18, 2020 and 24 on November 20, 2019. Bilirubin and alk phos within normal limits, magnesium 1.8 Clinically, patient is doing well with no new signs symptoms, tolerating Sandostatin LAR well, with good control over his diarrhea e.g. 1-2 loose bowel movement in a day but his follow-up CMP shows progressive abnormal LFTs, patient has history of fatty liver his LFTs improved with weight loss due to chronic diarrhea, now with no significant weight change in the last few month but now with progressive abnormal LFTs which could be due to Sandostatin LAR although a rare toxicity. At this point, we will hold his Sandostatin therapy and he will return to clinic in 1 month with CBC and CMP and if LFTs improved, then plan may consider reduced dose Sandostatin e.g. 20 mg otherwise we will consider CT scan or MRI scan of the liver. Signed By: Brianna Amos M.D. <<Signature on File>>
== END 2020-04-21 08:54 | disposition home or self-care (01) ==
LOC: ONCMED 08:55
PROVIDERS: PCP Family Medicine; Visit Provider Internal Medicine Hematology & Oncology
DX: C7A.8 Other malignant neuroendocrine tumors (principal); I25.10 Atherosclerotic heart disease of native coronary artery without angina pectoris; K21.9 Gastro-esophageal reflux disease without esophagitis; E78.5 Hyperlipidemia, unspecified; I10 Essential (primary) hypertension; M19.90 Unspecified osteoarthritis, unspecified site; Z86.711 Personal history of pulmonary embolism
CPT/HCPCS: 99214

== ENCOUNTER 2020-05-22 11:45 | Outpatient (CLI) | payer OTHER, SELFPAY ==
[2020-05-22 12:14] LABS: Basophils % 0.6 %; Eosinophils # 0.2 10^3/uL (0.0-0.8); Eosinophils % 2.1 %; Hemoglobin 13.7 g/dL (11.7-16.6); Lymphocytes # 2.5 10^3/uL (0.8-4.8); Lymphocytes % 34.5 %; Mean Corpuscular HGB Conc 31.9 g/dL (30.0-36.0); Mean Corpuscular Hemoglobin 27.1 pg (28.0-34.0); Mean Platelet Volume 12.4 fL (7.4-10.4); Monocytes # 0.7 10^3/uL (0.2-0.9); Monocytes % 9.5 %; Neutrophils # 3.85 10^3/uL (1.8-7.7); Neutrophils % 53.2 %; Nucleated Red Blood Cells % 0 %; Platelet Count 133 10^3/cmm (130-400); Red Blood Count 5.06 10^6/uL (4.1-5.3); Red Cell Distribution Width 14.5 % (12.1-15.1); White Blood Count 7.2 10^3/uL (4.0-10.0)
[2020-05-22 12:41] LABS: Alanine Aminotransferase 71 U/L (0-41); Albumin Level 4.8 g/dL (3.5-5.2); Alkaline Phosphatase 81 IU/L (40-130); Anion Gap 13.5 (5-19); Aspartate Amino Transferase 48 U/L (0-40); Blood Urea Nitrogen 12 mg/dL (8-23); Calcium 9.3 mg/dL (8.5-10.5); Carbon Dioxide 25 mmol/L (22-29); Chloride 103 mmol/L (98-107); Globulin 2.7 g/dL (1.3-4.6); Glomerular Filtration Rate 95.8 mL/min (90-130); Glucose 86 mg/dL (65-115); Osmolality Calculated 279 mOsm/kg (285-295); Potassium 4.5 mmol/L (3.5-5.1); Sodium 137 mmol/L (136-145); Total Bilirubin 0.4 mg/dL (0.15-1.2); Total Protein 7.5 g/dL (6.6-8.7)
[2020-05-22] MEDS: octreotide LAR depot 30 mg Kit IM (14:56)
--- NOTE | 2020-05-31 15:01 | ONC FU_ITS ---
[facility] Patient Note Patient: Manuel Rodriguez Unit #: [id number]: 1950 Dictated By: Dominga MontoyaDate of Visit: May 22, 2020 Onc MED Follow-Up/Prog Note Chief Complaint: metastatic small bowel carcinoid tumor History of Present Illness: Mr. Rodriguez is a 69-year-old gentleman with history of chronic diarrhea for the last 7-8 years, as per patient about 8 years ago he underwent gallbladder surgery and subsequently developed diarrhea initially he thought he was due to gallbladder surgery but diarrhea persisted, it was watery, 5-6 times a day, no mucus or blood seen . Patient said he got used to chronic diarrhea until in June 2019 when he started having progressive abdominal pain at that time he told his primary care physician at [facility] about chronic diarrhea and now progressive abdominal pain and CT scan of abdomen was ordered which showed mesenteric mass and was referred to Dr. carter. 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 Additional foci of increase uptake are probably metastatic deposit in the right axilla, right paraspinal, just above the diaphragm and left lower thorax just above the spleen. There may be metastatic lesions in the lungs or lymph nodes. Patient underwent exploration on 11/06/2019 and Bartolo-Cut needle biopsy of mesenteric mass showed no tumor seen and small bowel excision showed benign small bowel segment with no dysplasia or malignancy but bowel resection showed well-differentiated neuroendocrine tumor (carcinoid), tumor extends through muscularis propria with extensive involvement of mesenteric fat. Focal perineural invasion identified. Single discontinuous carcinoid tumor nodule formed and mesenteric fat. Lab workup done on 11/20/2019 showed gastrin level 103 normal being less than 100, considered and 1515, normal being less than 244, chromogranin A level 804, normal being 25-140 24-hour urine HIAA, 43, normal being less than 6. Patient denies any bronchial wheezing but one episode of facial flushing in the past. Denies smoking or alcohol use,But history of fatty liver with abnormal LFTs in the past Patient denies any fever or chills denies any uncontrolled hypertension or palpitation but patient is on beta blockers. Patient denies any abdominal pain with small meals usually large meals cause abdominal pain. Denies any fever or chills, denies any jaundice denies any headaches.but persistent diarrhea 5-6 bowel movements in 24 hours Started on Sandostatin LAR 30 mg every month, on 12/06/2019 Mr Rodrgiuez is here today for followup. He is also due for Sandostatin today. He states overall he is doing good. He has no new concerns today. He has had trouble tolerating oral iron in the past and that he give him mid epigastric abdominal pain and lot of heartburn. Once he stopped the oral iron supplement those symptoms resided. He is due for a follow[facility]. He states this is due to be done soon. He will call and let us know the exact date so we know to watch for the results as he has requested that it be done here [place] [facility]. He denies any shortness of breath or orthopnea. He denies any chest pain or palpitations. He states overall he feels pretty good. He states he remains active around the house doing chores. He is eating well. He denies any new diarrhea or constipation. He states he can tell when his time for the Sandostatin as the diarrhea does seem to increase somewhat but once he resumes the shot on time the diarrhea resolves again. He has had no fever or chills. He denies mouth sores, sore throat or difficulty swallowing. He again denies any new pain. He denies any lower extremity edema or neuropathy. His ECOG is 1. Past Medical History: Ashd Gastroesophageal reflux disease History of pulmonary embolism Hyperlipidemia Hypertension Inguinal hernia Osteoarthritis Past Surgical History: Coronary [id number] stents Coronary artery bypass Allergies: Statins Medications: amLODIPine Besylate 1 Tablet (of 10 mg) Oral daily Atenolol 0.5 Tablet (of 25 mg) Oral daily Cholecalciferol 1 Tablet (of 1000 mg) Oral daily Clopidogrel Bisulfate 1 Tablet (of 75 mg) Oral daily Eliquis 1 Tablet (of 5 mg) Oral b.i.d. Fish Oil 1 Capsule (of 2000 mg) Oral daily Garlic 1 Capsule (of 1000 mg) Oral daily Lisinopril 1 Tablet (of 20 mg) Oral daily PX Omeprazole 1 Tablet (of 20 mg) Tablet, enteric coated Oral daily Family History: Mr. Rodriguez's mother at age 82: cerebrovascular accident. Mr. Rodriguez's father at age 45: heart disease. Mr. Rodriguez has 1 brother who is : lymphoma. Social History: Mr. Rodriguez is and he is retired. Mr. Rodriguez quit smoking 34 years ago but had smoked 0.5 packs/day for 20 years. He has no history of drinking. Review Of Symptoms: Constitutional Denies fevers, chills, night sweats, excessive fatigue or weight loss. Allergic/Immunologic No reactions. Eyes Denies significant visual changes. No diplopia. No amaurosis. ENMT Denies changes in hearing, sore throat, mouth sores, difficulty or changes in swallowing ability, and/or sinus drainage. Endocrine No diabetes, thyroid disease or hormone replacement. Denies hot flashes or night sweats. Hematologic/Lymphatic Denies easy bruising or bleeding. The patient denies any tender or palpable lymph nodes. Respiratory Denies dyspnea on exertion, chest pain, cough or hemoptysis. Denies orthopnea. Cardiovascular Denies anginal chest pain, palpitations or orthopnea. Gastrointestinal Denies nausea, vomiting, diarrhea, GI bleeding, or constipation. Denies change in bowel habits and/or stool color, no heartburn or early satiety. Genitourinary (M) Denies hematuria, dysuria, increased frequency, urgency, hesitancy or incontinence. Musculoskeletal Denies joint pain, swelling or redness. No decreased range of motion. Integumentary Denies chronic rashes, inflammation, ulcerations or skin changes. Neurologic Denies headache, blurred vision, and no areas of focal weakness or numbness. Normal gait. No sensory problems. Psychiatric Denies insomnia, depression, ulises or mood swings. Vital Signs: Performed on May 22, 2020 13:44 Height - 72.00 in Weight - 198.6 lbs (LOW) BSA - 2.12 sq.m BMI - 26.94 Temperature - 98.0 F (LOW) Pulse - 62 /min Respiration - 16 /min BP - 136/83 mm(hg) O2 Sat - 97 % Pain - 4,0 - Fully active, able to carry on all predisease activities without restrictions. (ECOG) Physical Examination: Constitutional Alert, oriented, no acute distress. Skin pink, warm and dry. Head Normocephalic; atraumatic. Eyes Conjunctivae and sclerae are clear and without icterus. Pupils are reactive and equal. Neck Supple without masses or thyromegaly. No jugular venous distension. Hematologic/Lymphatic No petechiae or purpura. No tender or palpable lymph nodes in the cervical or supraclavicular areas. Respiratory Lungs are clear to auscultation without rhonchi or wheezing. Cardiovascular Regular rate and rhythm of heart without murmurs,clicks, gallops or rubs. Abdomen Non-tender, non-distended, no masses or ascites. Good bowel sounds noted in all quads. No guarding or rebound tenderness. No pulsatile masses. Back/Spine Non-tender to palpation. Extremities No visible deformities, no cyanosis, clubbing or edema. Musculoskeletal No tenderness or swelling, normal range of motion without obvious weakness. Integumentary No rashes or lesions. Neurologic No sensory or motor deficits, normal cerebellar function, normal gait. Psychiatric Alert and oriented times three. Coherent speech. Verbalizes understanding of our discussions today. Laboratory:Test performed on May 22, 2020 11:55 Sodium 137 mmol/L Potassium 4.5 mmol/L Chloride 103 mmol/L CO2 25 mmol/L Anion Gap 13.5 BUN 12 mg/dL Creatinine 0.8 mg/dL Cr Clearance (Est) 111.04 mL/min eGFR 95.8 mL/min Glucose 86 mg/dL Calcium 9.3 mg/dL Osmolality - Calculated 279 mOsm/kg Protein, Total 7.5 g/dL Albumin 4.8 g/dL Globulin 2.7 g/dL Bilirubin, Total 0.4 mg/dL ALT (SGPT) 71 U/L AST (SGOT) 48 U/L Alkaline Phosphatase 81 IU/L WBC 7.2 10 3/uL RBC 5.06 10 6/uL HGB 13.7 g/dL HCT 43.0 % MCV 85.0 fL MCH 27.1 pg MCHC 31.9 g/dL RDW 14.5 % Platelet Count 133 10 3/cmm MPV 12.4 fL Neutrophils 3.85 10 3/uL Lymphocytes 2.5 10 3/uL Monocytes 0.7 10 3/uL Eosinophils 0.2 10 3/uL Basophils 0.0 10 3/uL Neutrophil % 53.2 % Lymphocyte % 34.5 % Monocyte % 9.5 % Eosinophil % 2.1 % Basophils % 0.6 % NRBC % 0 % Test performed on Feb 11, 2020 11:45 Serotonin, Serum 968 ng/mL Chromogranin A 157 ng/mL Impression: 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 Gastrin level 103 , normal being less than 100. Final pathology report showed well-differentiated neuroendocrine tumor, carcinoid, tumor extends to the muscularis propria with extensive involvement of mesenteric fat. Focal perineural invasion identified. Single discontinue his carcinoid tumor and nodule found in the mesenteric fat. Tumor cell are strongly and diffusely positive for synaptophysin and neuron specific enolase and weakly positive for chromogranin A. Also negative for CD 56. And Ki-67 proliferative index is less than 1%, consistent with carcinoid Octreotide scan done on 10/08/2019 showed positive for uptake in mesenteric mass. Additional foci of increase uptake are probably metastatic deposit in the right axilla, right paraspinal, just above diaphragm and left lower thorax, just above spleen. There may be a metastatic lesion in the lungs are lymph nodes. Chronic diarrhea for the last 7-8 years, probably due to carcinoid started on Sandostatin LAR 30 every month on 12/06/2019 Clinically, patient is doing well with no new signs symptoms, tolerating Sandostatin LAR well, with good control over his diarrhea e.g. 1-2 loose bowel movement in a day but his follow-up CMP shows progressive abnormal LFTs, patient has history of fatty liver his LFTs improved with weight loss due to chronic diarrhea, now with no significant weight change in the last few month but now with progressive abnormal LFTs which could be due to Sandostatin LAR although a rare toxicity. At this point, we will hold his Sandostatin therapy and he will return to clinic in 1 month with CBC and CMP and if LFTs improved, then plan may consider reduced dose Sandostatin e.g. 20 mg otherwise we will consider CT scan or MRI scan of the liver. Mr. Rodriguez had slight elevation of his LFTs and his Sandostatin was held in April. He presented today and his LFTs are stable???they are still slightly elevated. After talking with Dr. Hopper will proceed with the Sandostatin injection today [facility] for further work-up of his elevated liver function. Plan: 1. Proceed with Sandostatin today as scheduled he is due for 30 mg. 2. Labs from May 22, 2020 were reviewed in detail discussed with Mr. Mrs. Andino and a copy was given to them. WBC 7.2, hemoglobin 13.7, platelets 133,000 ANC is 3850 potassium 4.3 creatinine 0.8 ALT 71 AST 48 alk phos is normal at 81 serotonin was pending at time of visit and chromogranin A was pending at time of visit. 3. Mr. Rodriguez is having scans set up by the PA and he will let us know when those are scheduled so we can help watch results as he did request that they be performed [place] [facility]. 4. We will plan to see him back in 1 month with CBC CMP, Grannan a and serotonin levels. 5. Mr. Rodriguez will contact us in the interim should questions or problems arise. 6. Mr. Rodriguez had a nuclear medicine octreotide scan on 10/08/2019 which was positive for uptake in the mesenteric mass. There was additional foci of increased uptake in the right axilla, right paraspinal just above the diaphragm and left lower thorax just above the spleen. We are now waiting further restaging imaging to be ordered by the PA. Signed By: Dominga Montoya-, AOCNP Brianna Amos MD <<Signature on File>>
== END 2020-05-22 11:46 | disposition home or self-care (01) ==
PROVIDERS: PCP Family Medicine; Visit Provider Nurse Practitioner
DX: C7A.019 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, unspecified portion (principal); Z79.899 Other long term (current) drug therapy; R94.8 Abnormal results of function studies of other organs and systems; Z79.02 Long term (current) use of antithrombotics/antiplatelets; Z79.01 Long term (current) use of anticoagulants; K52.9 Noninfective gastroenteritis and colitis, unspecified
CPT/HCPCS: 80053; 85025; 96372; 99214; J2353

== ENCOUNTER 2020-06-16 08:16 | Outpatient (CLI) | payer OTHER, SELFPAY ==
--- NOTE | 2020-06-16 08:25 | CT_ITS ---
WS: [id number] CT scan of the abdomen with and without IV contrast. Additional 5 minute delay images were obtained. Additional two-dimensional coronal and sagittal reconstruction was performed. 06/16/2020 Clinical Data: Elevated LFTs. Comparison: CT abdomen and pelvis, 08/20/2019. DLP: 2710.[address] scans at [facility] use at least one of these dose optimization techniques: automat ed exposure control; mA and/or kV adjustment per patient size (includes targeted exams where dose is matched to clinical indication); or iterative reconstruction. Findings: The lower lungs show no nodules, masses or effusions. Midline sternotomy sutures and coronary artery calcifications are present. The spleen, adrenal glands and pancreas show no change from before. Bilateral adrenal adenomas are pr esent. There are clips in the gallbladder fossa from a cholecystectomy. The noncontrast image of the liver shows fatty infiltration. The arterial and portal venous phases de monstrate normal arterial and portal venous flow. No liver cysts, masses or dilated intrahepatic duct s are seen. The 5 minute delay imaging of the liver is not remarkable. The kidneys show equal bilateral contrast excretion with no cyst or masses. The abdominal aorta is normal in size with calcification in the wall. The 4.8 cm central abdominal ma ss with central calcifications demonstrates no change. Again the differential diagnosis remains a car cinoid, lymphoma, sclerosing mesenteric or right us, desmoid tumor or rarely a metastatic lesion.. No appendicitis is seen. Minimal degenerative change of the lumbar vertebral bodies is present. CT/CT abdomen wo/w con [id number] Impression: 1. Fatty infiltration of liver but no dilated intrahepatic ducts or masses are seen. 2. No change in 4.8 cm central abdominal mass.
[2020-06-16] MEDS: iohexol 300 mg/mL 100 mL Btl IV (08:50)
== END 2020-06-16 08:17 | disposition home or self-care (01) ==
LOC: RADWPI 08:22
PROVIDERS: PCP Family Medicine; Visit Provider Emergency Medicine Emergency Medical Services
DX: R94.5 Abnormal results of liver function studies (principal); K76.0 Fatty (change of) liver, not elsewhere classified
CPT/HCPCS: 74170; Q9967

== ENCOUNTER 2020-06-20 08:50 | Outpatient (CLI) | payer OTHER, SELFPAY ==
[2020-06-20 09:29] LABS: Basophils % 0.4 %; Eosinophils # 0.1 10^3/uL (0.0-0.8); Eosinophils % 0.9 %; Hematocrit 40.6 % (42.0-52.0); Hemoglobin 13.1 g/dL (11.7-16.6); Lymphocytes # 1.9 10^3/uL (0.8-4.8); Lymphocytes % 28.8 %; Mean Corpuscular HGB Conc 32.3 g/dL (30.0-36.0); Mean Corpuscular Hemoglobin 26.8 pg (28.0-34.0); Mean Platelet Volume 12.3 fL (7.4-10.4); Monocytes # 0.7 10^3/uL (0.2-0.9); Monocytes % 10.7 %; Neutrophils # 3.95 10^3/uL (1.8-7.7); Neutrophils % 59.1 %; Nucleated Red Blood Cells % 0 %; Platelet Count 210 10^3/cmm (130-400); Red Blood Count 4.89 10^6/uL (4.1-5.3); Red Cell Distribution Width 14.1 % (12.1-15.1); White Blood Count 6.7 10^3/uL (4.0-10.0)
[2020-06-20 09:47] LABS: Alanine Aminotransferase 28 U/L (0-41); Albumin Level 4.3 g/dL (3.5-5.2); Alkaline Phosphatase 85 IU/L (40-130); Anion Gap 15.4 (5-19); Aspartate Amino Transferase 30 U/L (0-40); Blood Urea Nitrogen 9 mg/dL (8-23); Calcium 9.8 mg/dL (8.5-10.5); Carbon Dioxide 26 mmol/L (22-29); Chloride 101 mmol/L (98-107); Glomerular Filtration Rate 111.8 mL/min (90-130); Glucose 129 mg/dL (65-115); Osmolality Calculated 286 mOsm/kg (285-295); Potassium 4.4 mmol/L (3.5-5.1); Sodium 138 mmol/L (136-145); Total Bilirubin 0.5 mg/dL (0.15-1.2); Total Protein 7.3 g/dL (6.6-8.7)
[2020-06-24 18:08] LABS: Chromogranin A 164 ng/mL (25-140)
[2020-06-25 14:33] LABS: Serotonin Whole Blood 623 ng/mL (56-244)
== END 2020-06-20 08:51 | disposition home or self-care (01) ==
LOC: ONCMED 08:52
PROVIDERS: PCP Family Medicine; Visit Provider Nurse Practitioner
DX: C7A.8 Other malignant neuroendocrine tumors (principal); Z51.81 Encounter for therapeutic drug level monitoring; Z79.899 Other long term (current) drug therapy
CPT/HCPCS: 36415; 80053; 84260; 85025; 86316

== ENCOUNTER 2020-06-23 05:39 | Outpatient (CLI) | payer OTHER, SELFPAY ==
--- NOTE | 2020-06-23 15:51 | ONC FU_ITS ---
Dr. Amos follow up note Patient: Manuel Rodriguez Unit #: [id number]: 1950 Dicatated By: Brianna Amos M.D.Date of Visit:Jun 23, 2020 Onc Med Follow-up/Prog Note History of Present Illness: Mr. Rodriguez is a 69-year-old gentleman with history of chronic diarrhea for the last 7-8 years, as per patient about 8 years ago he underwent gallbladder surgery and subsequently developed diarrhea initially he thought he was due to gallbladder surgery but diarrhea persisted, it was watery, 5-6 times a day, no mucus or blood seen . Patient said he got used to chronic diarrhea until in June 2019 when he started having progressive abdominal pain at that time he told his primary care physician at [facility] about chronic diarrhea and now progressive abdominal pain and CT scan of abdomen was ordered which showed mesenteric mass and was referred to Dr. carter. 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 Additional foci of increase uptake are probably metastatic deposit in the right axilla, right paraspinal, just above the diaphragm and left lower thorax just above the spleen. There may be metastatic lesions in the lungs or lymph nodes. Patient underwent exploration on 11/06/2019 and Bartolo-Cut needle biopsy of mesenteric mass showed no tumor seen and small bowel excision showed benign small bowel segment with no dysplasia or malignancy but bowel resection showed well-differentiated neuroendocrine tumor (carcinoid), tumor extends through muscularis propria with extensive involvement of mesenteric fat. Focal perineural invasion identified. Single discontinuous carcinoid tumor nodule formed and mesenteric fat. Lab workup done on 11/20/2019 showed gastrin level 103 normal being less than 100, considered and 1515, normal being less than 244, chromogranin A level 804, normal being 25-140 24-hour urine HIAA, 43, normal being less than 6. Patient denies any bronchial wheezing but one episode of facial flushing in the past. Denies smoking or alcohol use,But history of fatty liver with abnormal LFTs in the past Patient denies any fever or chills denies any uncontrolled hypertension or palpitation but patient is on beta blockers. Patient denies any abdominal pain with small meals usually large meals cause abdominal pain. Denies any fever or chills, denies any jaundice denies any headaches.but persistent diarrhea 5-6 bowel movements in 24 hours Started on Sandostatin LAR 30 mg every month, on 12/06/2019 Follow-up CT scan of abdomen done on June 16, 2020 showed fatty infiltration of liver but no dilated intrahepatic ducts or masses seen. No change in 4.8 cm central abdominal mass. Came for follow-up, denies any specific complaints diarrhea is better, no melena or hematochezia, no abdominal cramps, no wheezing or shortness of breath, no abdominal pain, no jaundice. Medications: amLODIPine Besylate 1 Tablet (of 10 mg) Oral daily, Atenolol 0.5 Tablet (of 25 mg) Oral daily, Cholecalciferol 1 Tablet (of 1000 mg) Oral daily, Clopidogrel Bisulfate 1 Tablet (of 75 mg) Oral daily, Eliquis 1 Tablet (of 5 mg) Oral b.i.d., Fish Oil 1 Capsule (of 2000 mg) Oral daily, Garlic 1 Capsule (of 1000 mg) Oral daily, Lisinopril 1 Tablet (of 20 mg) Oral daily, PX Omeprazole 1 Tablet (of 20 mg) Tablet, enteric coated Oral daily Allergies: Statins Review of Systems: Review of Systems is not available for this patient. Vital Signs: Vitals are not available for this patient. Performance Status: 0 - Fully active, able to carry on all predisease activities without restrictions. (ECOG) Physical Examination: ENMT - No mouth sores, no thrush, no jaundice, Respiratory - Lungs are clear to auscultation, Cardiovascular - Regular rate and rhythm of heart, Abdomen - Soft, bowel sounds present, Extremities - No visible edema. Lab/Imaging: Test performed on May 22, 2020 11:55 Sodium 137 mmol/L Potassium 4.5 mmol/L Chloride 103 mmol/L CO2 25 mmol/L Anion Gap 13.5 BUN 12 mg/dL Creatinine 0.8 mg/dL Cr Clearance (Est) 111.04 mL/min eGFR 95.8 mL/min Glucose 86 mg/dL Calcium 9.3 mg/dL Osmolality - Calculated 279 mOsm/kg Protein, Total 7.5 g/dL Albumin 4.8 g/dL Globulin 2.7 g/dL Bilirubin, Total 0.4 mg/dL ALT (SGPT) 71 U/L AST (SGOT) 48 U/L Alkaline Phosphatase 81 IU/L WBC 7.2 10 3/uL RBC 5.06 10 6/uL HGB 13.7 g/dL HCT 43.0 % MCV 85.0 fL MCH 27.1 pg MCHC 31.9 g/dL RDW 14.5 % Platelet Count 133 10 3/cmm MPV 12.4 fL Neutrophils 3.85 10 3/uL Lymphocytes 2.5 10 3/uL Monocytes 0.7 10 3/uL Eosinophils 0.2 10 3/uL Basophils 0.0 10 3/uL Neutrophil % 53.2 % Lymphocyte % 34.5 % Monocyte % 9.5 % Eosinophil % 2.1 % Basophils % 0.6 % NRBC % 0 % Test performed on Mar 18, 2020 10:05 Magnesium 1.7 mg/dL Test performed on Feb 11, 2020 11:45 Serotonin, Serum 968 ng/mL Chromogranin A 157 ng/mL Impression: 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 Gastrin level 103 , normal being less than 100. Final pathology report showed well-differentiated neuroendocrine tumor, carcinoid, tumor extends to the muscularis propria with extensive involvement of mesenteric fat. Focal perineural invasion identified. Single discontinue his carcinoid tumor and nodule found in the mesenteric fat. Tumor cell are strongly and diffusely positive for synaptophysin and neuron specific enolase and weakly positive for chromogranin A. Also negative for CD 56. And Ki-67 proliferative index is less than 1%, consistent with carcinoid Octreotide scan done on 10/08/2019 showed positive for uptake in mesenteric mass. Additional foci of increase uptake are probably metastatic deposit in the right axilla, right paraspinal, just above diaphragm and left lower thorax, just above spleen. There may be a metastatic lesion in the lungs are lymph nodes. Chronic diarrhea for the last 7-8 years, probably due to carcinoid started on Sandostatin LAR 30 every month on 12/06/2019 Clinically, patient is doing well with no new signs symptoms, tolerating Sandostatin LAR well, with good control over his diarrhea e.g. 1-2 loose bowel movement in a day but his follow-up CMP shows progressive abnormal LFTs, patient has history of fatty liver his LFTs improved with weight loss due to chronic diarrhea, now with no significant weight change in the last few month but now with progressive abnormal LFTs which could be due to Sandostatin LAR although a rare toxicity. At this point, we will hold his Sandostatin therapy and he will return to clinic in 1 month with CBC and CMP and if LFTs improved, then plan may consider reduced dose Sandostatin e.g. 20 mg otherwise we will consider CT scan or MRI scan of the liver. Mr. Rodriguez had slight elevation of his LFTs and his Sandostatin was held in April. He presented today and his LFTs are stable???they are still slightly elevated. After talking with Dr. Hopper will proceed with the Sandostatin injection today [facility] for further work-up of his elevated liver function. Plan: Discussed with patient regarding his labs white blood count 6.7 hemoglobin 13.1 hematocrit 40.6 platelets 210,000 CMP within normal limits including transaminases level, today ALT is 28 AST is 30 compared to ALT 71 AST 48 on May 22, 2020 Clinically, patient is doing well, with excellent symptom control, diarrhea is under control, no other symptoms, tolerating Sandostatin LAR well but there was a concern about fluctuating transaminases level so, will reduce his Sandostatin LAR dose to 20 mg from 30 mg monthly and will proceed with Sandostatin LAR 20 mg daily in the return to clinic in 1 month with CBC CMP. His follow-up CT scan of abdomen pelvis done on June 16, 2020 showed no evidence of disease progression but persistent retroperitoneal mass biopsy-proven neuroendocrine tumor and fatty infiltration of liver. Signed By: Brianna Amos M.D. <<Signature on File>>
[2020-06-23] MEDS: octreotide LAR depot 20 mg Kit IM (15:53)
== END 2020-06-23 05:40 | disposition home or self-care (01) ==
LOC: ONCMED 05:39
PROVIDERS: PCP Family Medicine; Visit Provider Internal Medicine Hematology & Oncology
DX: C7A.019 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, unspecified portion (principal); C7B.04 Secondary carcinoid tumors of peritoneum; R79.89 Other specified abnormal findings of blood chemistry; K76.0 Fatty (change of) liver, not elsewhere classified; Z79.899 Other long term (current) drug therapy
CPT/HCPCS: 96372; 99214; J2353

== ENCOUNTER 2020-07-28 09:12 | Outpatient (CLI) | payer OTHER, SELFPAY ==
[2020-07-28 10:47] LABS: Basophils # 0.1 10^3/uL (0.0-0.1); Basophils % 0.6 %; Eosinophils # 0.1 10^3/uL (0.0-0.8); Eosinophils % 1.5 %; Hematocrit 44.1 % (42.0-52.0); Hemoglobin 13.8 g/dL (11.7-16.6); Lymphocytes # 2.7 10^3/uL (0.8-4.8); Mean Corpuscular HGB Conc 31.3 g/dL (30.0-36.0); Mean Corpuscular Hemoglobin 26.5 pg (28.0-34.0); Mean Corpuscular Volume 84.6 fL (80-94); Mean Platelet Volume 12.5 fL (7.4-10.4); Monocytes # 0.7 10^3/uL (0.2-0.9); Monocytes % 8.7 %; Neutrophils # 4.21 10^3/uL (1.8-7.7); Neutrophils % 53.8 %; Nucleated Red Blood Cells % 0 %; Platelet Count 156 10^3/cmm (130-400); Red Blood Count 5.21 10^6/uL (4.1-5.3); Red Cell Distribution Width 14.6 % (12.1-15.1); White Blood Count 7.8 10^3/uL (4.0-10.0)
[2020-07-28 11:05] LABS: Alanine Aminotransferase 61 U/L (0-41); Albumin Level 4.6 g/dL (3.5-5.2); Alkaline Phosphatase 79 IU/L (40-130); Anion Gap 13.6 (5-19); Aspartate Amino Transferase 44 U/L (0-40); Blood Urea Nitrogen 13 mg/dL (8-23); Calcium 9.9 mg/dL (8.5-10.5); Carbon Dioxide 27 mmol/L (22-29); Chloride 104 mmol/L (98-107); Globulin 2.7 g/dL (1.3-4.6); Glomerular Filtration Rate 95.8 mL/min (90-130); Glucose 107 mg/dL (65-115); Osmolality Calculated 291 mOsm/kg (285-295); Potassium 4.6 mmol/L (3.5-5.1); Sodium 140 mmol/L (136-145); Total Bilirubin 0.4 mg/dL (0.15-1.2); Total Protein 7.3 g/dL (6.6-8.7)
== END 2020-07-28 09:13 | disposition home or self-care (01) ==
LOC: ONCMED 09:13
PROVIDERS: PCP Family Medicine; Visit Provider Internal Medicine Hematology & Oncology
DX: C7A.8 Other malignant neuroendocrine tumors (principal)
CPT/HCPCS: 80053; 85025

== ENCOUNTER 2020-07-30 05:50 | Outpatient (CLI) | payer OTHER, SELFPAY ==
--- NOTE | 2020-07-30 14:00 | ONC FU_ITS ---
Dr. Amos follow up note Patient: Manuel Rodriguez Unit #: [id number]: 1950 Dicatated By: Brianna Amos M.D.Date of Visit:Jul 30, 2020 Onc Med Follow-up/Prog Note History of Present Illness: Mr. Rodriguez is a 69-year-old gentleman with history of chronic diarrhea for the last 7-8 years, as per patient about 8 years ago he underwent gallbladder surgery and subsequently developed diarrhea initially he thought he was due to gallbladder surgery but diarrhea persisted, it was watery, 5-6 times a day, no mucus or blood seen . Patient said he got used to chronic diarrhea until in June 2019 when he started having progressive abdominal pain at that time he told his primary care physician at [facility] about chronic diarrhea and now progressive abdominal pain and CT scan of abdomen was ordered which showed mesenteric mass and was referred to Dr. carter. 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 Additional foci of increase uptake are probably metastatic deposit in the right axilla, right paraspinal, just above the diaphragm and left lower thorax just above the spleen. There may be metastatic lesions in the lungs or lymph nodes. Patient underwent exploration on 11/06/2019 and Bartolo-Cut needle biopsy of mesenteric mass showed no tumor seen and small bowel excision showed benign small bowel segment with no dysplasia or malignancy but bowel resection showed well-differentiated neuroendocrine tumor (carcinoid), tumor extends through muscularis propria with extensive involvement of mesenteric fat. Focal perineural invasion identified. Single discontinuous carcinoid tumor nodule formed and mesenteric fat. Lab workup done on 11/20/2019 showed gastrin level 103 normal being less than 100, considered and 1515, normal being less than 244, chromogranin A level 804, normal being 25-140 24-hour urine HIAA, 43, normal being less than 6. Patient denies any bronchial wheezing but one episode of facial flushing in the past. Denies smoking or alcohol use,But history of fatty liver with abnormal LFTs in the past Patient denies any fever or chills denies any uncontrolled hypertension or palpitation but patient is on beta blockers. Patient denies any abdominal pain with small meals usually large meals cause abdominal pain. Denies any fever or chills, denies any jaundice denies any headaches.but persistent diarrhea 5-6 bowel movements in 24 hours Started on Sandostatin LAR 30 mg every month, on 12/06/2019, Dose was reduced to 20 mg every month on June 23, 2020 because of elevated transaminases Follow-up CT scan of abdomen done on June 16, 2020 showed fatty infiltration of liver but no dilated intrahepatic ducts or masses seen. No change in 4.8 cm central abdominal mass. Came for follow-up denies any specific complaint except persistent diarrhea, now with some improvement, now 3 times a day and somewhat better formed stool. No melena or hematochezia, no hemoptysis or hematemesis, no jaundice, no abdominal pain, no abdominal fullness, no facial flushing, no bronchial wheezing. Tolerating Sandostatin well Medications: amLODIPine Besylate 1 Tablet (of 10 mg) Oral daily, Atenolol 0.5 Tablet (of 25 mg) Oral daily, Cholecalciferol 1 Tablet (of 1000 mg) Oral daily, Clopidogrel Bisulfate 1 Tablet (of 75 mg) Oral daily, Eliquis 1 Tablet (of 5 mg) Oral b.i.d., Fish Oil 1 Capsule (of 2000 mg) Oral daily, Garlic 1 Capsule (of 1000 mg) Oral daily, Lisinopril 1 Tablet (of 20 mg) Oral daily, PX Omeprazole 1 Tablet (of 20 mg) Tablet, enteric coated Oral daily Allergies: Statins Review of Systems: Review of Systems is not available for this patient. Vital Signs: Performed on Jul 30, 2020 13:35 Height - 72.00 in Weight - 194.8 lbs (LOW) BSA - 2.11 sq.m BMI - 26.42 Temperature - 98.9 F (HIGH) Pulse - 52 /min (LOW) Respiration - 20 /min BP - 132/80 mm(hg) O2 Sat - 98 % Pain - 0 Performance Status: 0 - Fully active, able to carry on all predisease activities without restrictions. (ECOG) Physical Examination: ENMT - No mouth sores, no thrush, no jaundice, Respiratory - Lungs are clear to auscultation, Cardiovascular - Regular rate and rhythm of heart, Abdomen - Soft, bowel sounds present, Extremities - No visible edema. Lab/Imaging: Test performed on May 22, 2020 11:55 Sodium 137 mmol/L Potassium 4.5 mmol/L Chloride 103 mmol/L CO2 25 mmol/L Anion Gap 13.5 BUN 12 mg/dL Creatinine 0.8 mg/dL Cr Clearance (Est) 111.04 mL/min eGFR 95.8 mL/min Glucose 86 mg/dL Calcium 9.3 mg/dL Osmolality - Calculated 279 mOsm/kg Protein, Total 7.5 g/dL Albumin 4.8 g/dL Globulin 2.7 g/dL Bilirubin, Total 0.4 mg/dL ALT (SGPT) 71 U/L AST (SGOT) 48 U/L Alkaline Phosphatase 81 IU/L WBC 7.2 10 3/uL RBC 5.06 10 6/uL HGB 13.7 g/dL HCT 43.0 % MCV 85.0 fL MCH 27.1 pg MCHC 31.9 g/dL RDW 14.5 % Platelet Count 133 10 3/cmm MPV 12.4 fL Neutrophils 3.85 10 3/uL Lymphocytes 2.5 10 3/uL Monocytes 0.7 10 3/uL Eosinophils 0.2 10 3/uL Basophils 0.0 10 3/uL Neutrophil % 53.2 % Lymphocyte % 34.5 % Monocyte % 9.5 % Eosinophil % 2.1 % Basophils % 0.6 % NRBC % 0 % Test performed on Apr 17, 2020 10:00 Magnesium 1.8 mg/dL Test performed on Feb 11, 2020 11:45 Serotonin, Serum 968 ng/mL Chromogranin A 157 ng/mL Impression: 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 Gastrin level 103 , normal being less than 100. Final pathology report showed well-differentiated neuroendocrine tumor, carcinoid, tumor extends to the muscularis propria with extensive involvement of mesenteric fat. Focal perineural invasion identified. Single discontinue his carcinoid tumor and nodule found in the mesenteric fat. Tumor cell are strongly and diffusely positive for synaptophysin and neuron specific enolase and weakly positive for chromogranin A. Also negative for CD 56. And Ki-67 proliferative index is less than 1%, consistent with carcinoid Octreotide scan done on 10/08/2019 showed positive for uptake in mesenteric mass. Additional foci of increase uptake are probably metastatic deposit in the right axilla, right paraspinal, just above diaphragm and left lower thorax, just above spleen. There may be a metastatic lesion in the lungs are lymph nodes. Chronic diarrhea for the last 7-8 years, probably due to carcinoid started on Sandostatin LAR 30 every month on 12/06/2019 Clinically, patient is doing well with no new signs symptoms, tolerating Sandostatin LAR well, with good control over his diarrhea e.g. 1-2 loose bowel movement in a day but his follow-up CMP shows progressive abnormal LFTs, patient has history of fatty liver his LFTs improved with weight loss due to chronic diarrhea, now with no significant weight change in the last few month but now with progressive abnormal LFTs which could be due to Sandostatin LAR although a rare toxicity. At this point, we will hold his Sandostatin therapy and he will return to clinic in 1 month with CBC and CMP and if LFTs improved, then plan may consider reduced dose Sandostatin e.g. 20 mg otherwise we will consider CT scan or MRI scan of the liver. Mr. Rodriguez had slight elevation of his LFTs and his Sandostatin was held in April. He presented today and his LFTs are stable???they are still slightly elevated. After talking with Dr. Hopper will proceed with the Sandostatin injection today [facility] for further work-up of his elevated liver function. Plan: Discussed with patient regarding his labs white blood count 7.8 hemoglobin 13.8 hematocrit 44.1 platelets 156,000 CMP within normal limit except ALT 61 AST 44 compared to on June 20, 2020 Clinically, patient is doing well with no new signs symptom, his mild diarrhea is stable rather improving somewhat, tolerating Sandostatin LAR 20 mg monthly well but his follow-up labs shows his transaminases now again gone up from normal seen on June 20, 2020. We will hold his scheduled monthly Sandostatin LAR dose today and then he will return to clinic in 1 month with CMP and if it shows worsening of LFTs consider right upper quadrant sonogram and hepatitis profile. On the other hand if improves, will consider Sandostatin LAR every other month. Signed By: Brianna Amos M.D. <<Signature on File>>
== END 2020-07-30 05:51 | disposition home or self-care (01) ==
LOC: ONCMED 05:52
PROVIDERS: PCP Family Medicine; Visit Provider Internal Medicine Hematology & Oncology
DX: C7A.019 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, unspecified portion (principal); C7B.04 Secondary carcinoid tumors of peritoneum; R79.89 Other specified abnormal findings of blood chemistry; Z79.899 Other long term (current) drug therapy
CPT/HCPCS: 99214

== ENCOUNTER 2020-08-28 10:14 | Outpatient (CLI) | payer OTHER, SELFPAY ==
[2020-08-28 10:47] LABS: Basophils % 0.6 %; Eosinophils # 0.1 10^3/uL (0.0-0.8); Eosinophils % 1.7 %; Hematocrit 43.9 % (42.0-52.0); Hemoglobin 13.9 g/dL (11.7-16.6); Lymphocytes # 2.3 10^3/uL (0.8-4.8); Lymphocytes % 34.7 %; Mean Corpuscular HGB Conc 31.7 g/dL (30.0-36.0); Mean Corpuscular Hemoglobin 26.4 pg (28.0-34.0); Mean Corpuscular Volume 83.3 fL (80-94); Mean Platelet Volume 12.4 fL (7.4-10.4); Monocytes # 0.6 10^3/uL (0.2-0.9); Monocytes % 9.3 %; Neutrophils % 53.5 %; Nucleated Red Blood Cells % 0 %; Platelet Count 152 10^3/cmm (130-400); Red Blood Count 5.27 10^6/uL (4.1-5.3); Red Cell Distribution Width 14.6 % (12.1-15.1); White Blood Count 6.5 10^3/uL (4.0-10.0)
[2020-08-28 11:10] LABS: Alanine Aminotransferase 42 U/L (0-41); Albumin Level 4.5 g/dL (3.5-5.2); Alkaline Phosphatase 81 IU/L (40-130); Aspartate Amino Transferase 35 U/L (0-40); Blood Urea Nitrogen 10 mg/dL (8-23); Calcium 10.4 mg/dL (8.5-10.5); Carbon Dioxide 29 mmol/L (22-29); Chloride 101 mmol/L (98-107); Globulin 2.7 g/dL (1.3-4.6); Glomerular Filtration Rate 111.5 mL/min (90-130); Glucose 73 mg/dL (65-115); Osmolality Calculated 284 mOsm/kg (285-295); Sodium 138 mmol/L (136-145); Total Bilirubin 0.4 mg/dL (0.15-1.2); Total Protein 7.2 g/dL (6.6-8.7)
== END 2020-08-28 10:15 | disposition home or self-care (01) ==
LOC: ONCMED 10:16
PROVIDERS: PCP Family Medicine; Visit Provider Internal Medicine Hematology & Oncology
DX: C7A.8 Other malignant neuroendocrine tumors (principal)
CPT/HCPCS: 36415; 80053; 85025

== ENCOUNTER 2020-08-29 05:45 | Outpatient (CLI) | payer OTHER, SELFPAY ==
--- NOTE | 2020-08-29 10:04 | ONC FU_ITS ---
Dr. Amos follow up note Patient: Manuel Rodriguez Unit #: [id number]: 1950 Dicatated By: Brianna Amos M.D.Date of Visit:Aug 29, 2020 Onc Med Follow-up/Prog Note History of Present Illness: Mr. Rodriguez is a 69-year-old gentleman with history of chronic diarrhea for the last 7-8 years, as per patient about 8 years ago he underwent gallbladder surgery and subsequently developed diarrhea initially he thought he was due to gallbladder surgery but diarrhea persisted, it was watery, 5-6 times a day, no mucus or blood seen . Patient said he got used to chronic diarrhea until in June 2019 when he started having progressive abdominal pain at that time he told his primary care physician at [facility] about chronic diarrhea and now progressive abdominal pain and CT scan of abdomen was ordered which showed mesenteric mass and was referred to Dr. carter. 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 Additional foci of increase uptake are probably metastatic deposit in the right axilla, right paraspinal, just above the diaphragm and left lower thorax just above the spleen. There may be metastatic lesions in the lungs or lymph nodes. Patient underwent exploration on 11/06/2019 and Bartolo-Cut needle biopsy of mesenteric mass showed no tumor seen and small bowel excision showed benign small bowel segment with no dysplasia or malignancy but bowel resection showed well-differentiated neuroendocrine tumor (carcinoid), tumor extends through muscularis propria with extensive involvement of mesenteric fat. Focal perineural invasion identified. Single discontinuous carcinoid tumor nodule formed and mesenteric fat. Lab workup done on 11/20/2019 showed gastrin level 103 normal being less than 100, chromogranin A level 804, normal being 25-140 24-hour urine HIAA, 43, normal being less than 6. Patient denies any bronchial wheezing but one episode of facial flushing in the past. Denies smoking or alcohol use,But history of fatty liver with abnormal LFTs in the past Patient denies any fever or chills denies any uncontrolled hypertension or palpitation but patient is on beta blockers. Patient denies any abdominal pain with small meals usually large meals cause abdominal pain. Denies any fever or chills, denies any jaundice denies any headaches.but persistent diarrhea 5-6 bowel movements in 24 hours Started on Sandostatin LAR 30 mg every month, on 12/06/2019, Dose was reduced to 20 mg every month on June 23, 2020 because of elevated transaminases And follow-up labs done on July 28, 2020 showed worsening of transaminases ALT 61 AST 44 compared to on June 20, 2020. And is scheduled dose of Sandostatin LAR 20 was due on July 28, 2020 but was held and follow-up labs done on August 28, 2020 shows normalization of AST and improvement in ALT. Sandostatin LAR 20 was restarted on August 28, 2020 because of worsening of diarrhea. Follow-up CT scan of abdomen done on June 16, 2020 showed fatty infiltration of liver but no dilated intrahepatic ducts or masses seen. No change in 4.8 cm central abdominal mass. Came for follow-up, complaining of progressive diarrhea, has to get up at night, it is watery, yellow no mucus or blood, no abdominal pain, no shortness of breath or wheezing, no facial flushing, no headaches, no palpitation. No fever chills, no nausea or vomiting. Patient said when he was on Sandostatin his diarrhea was much better. Medications: amLODIPine Besylate 1 Tablet (of 10 mg) Oral daily, Atenolol 0.5 Tablet (of 25 mg) Oral daily, Cholecalciferol 1 Tablet (of 1000 mg) Oral daily, Clopidogrel Bisulfate 1 Tablet (of 75 mg) Oral daily, Eliquis 1 Tablet (of 5 mg) Oral b.i.d., Fish Oil 1 Capsule (of 2000 mg) Oral daily, Garlic 1 Capsule (of 1000 mg) Oral daily, Lisinopril 1 Tablet (of 20 mg) Oral daily, PX Omeprazole 1 Tablet (of 20 mg) Tablet, enteric coated Oral daily Allergies: Statins Review of Systems: Constitutional - Appetite is fair and weight is stable. No fever, chills, hot flashes, or night sweats. Energy level is [id number], ENMT - No sinus congestion/drainage. No mouth sores. No sore throat or difficulty swallowing, Hematologic/Lymphatic - No abnormal bruising or bleeding, Respiratory - No shortness of breath. No cough. No pleuritic pain or hemoptysis, Cardiovascular - No angina pain. No palpitations, Gastrointestinal - No nausea or vomiting. Positive for heartburn and acid reflux. Positive for diarrhea, no constipation. No blood in the stool or black stools, Genitourinary (M) - No dysuria or hematuria. No urinary frequency. No urgency or incontinence, Musculoskeletal - No joint or bone pain, Neurologic - No headache or dizziness. No numbness/paresthesias or other focal neurologic symptoms, Psychiatric - No anxiety or depression. No insomnia. Vital Signs: Performed on Aug 29, 2020 09:28 Height - 72.00 in Weight - 198.0 lbs (HIGH) BSA - 2.12 sq.m BMI - 26.85 Temperature - 97.8 F (LOW) Pulse - 54 /min (LOW) Respiration - 18 /min BP - 132/78 mm(hg) O2 Sat - 97 % Pain - 0 Performance Status: 0 - Fully active, able to carry on all predisease activities without restrictions. (ECOG) Physical Examination: ENMT - No mouth sores, no thrush, no jaundice, Respiratory - Lungs are clear to auscultation, Cardiovascular - Regular rate and rhythm of heart, Abdomen - Soft, bowel sounds present, nontender, Extremities - No visible edema or rash. Lab/Imaging: Test performed on Aug 28, 2020 10:24 Sodium 138 mmol/L Potassium 4.0 mmol/L Chloride 101 mmol/L CO2 29 mmol/L Anion Gap 12.0 BUN 10 mg/dL Creatinine 0.7 mg/dL Cr Clearance (Est) 122.7200 mL/min eGFR 111.5 mL/min Glucose 73 mg/dL Osmolality - Calculated 284 mOsm/kg Calcium 10.4 mg/dL Protein, Total 7.2 g/dL Albumin 4.5 g/dL Globulin 2.7 g/dL Bilirubin, Total 0.4 mg/dL ALT (SGPT) 42 U/L AST (SGOT) 35 U/L Alkaline Phosphatase 81 IU/L WBC 6.5 10 3/uL RBC 5.27 10 6/uL HGB 13.9 g/dL HCT 43.9 % MCV 83.3 fL MCH 26.4 pg MCHC 31.7 g/dL RDW 14.6 % Platelet Count 152 10 3/cmm MPV 12.4 fL Neutrophils 3.50 10 3/uL Lymphocytes 2.3 10 3/uL Monocytes 0.6 10 3/uL Eosinophils 0.1 10 3/uL Basophils 0.0 10 3/uL Neutrophil % 53.5 % Lymphocyte % 34.7 % Monocyte % 9.3 % Eosinophil % 1.7 % Basophils % 0.6 % NRBC % 0 % Test performed on Apr 17, 2020 10:00 Magnesium 1.8 mg/dL Impression: 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 Gastrin level 103 , normal being less than 100. Final pathology report showed well-differentiated neuroendocrine tumor, carcinoid, tumor extends to the muscularis propria with extensive involvement of mesenteric fat. Focal perineural invasion identified. Single discontinue his carcinoid tumor and nodule found in the mesenteric fat. Tumor cell are strongly and diffusely positive for synaptophysin and neuron specific enolase and weakly positive for chromogranin A. Also negative for CD 56. And Ki-67 proliferative index is less than 1%, consistent with carcinoid Octreotide scan done on 10/08/2019 showed positive for uptake in mesenteric mass. Additional foci of increase uptake are probably metastatic deposit in the right axilla, right paraspinal, just above diaphragm and left lower thorax, just above spleen. There may be a metastatic lesion in the lungs are lymph nodes. Chronic diarrhea for the last 7-8 years, probably due to carcinoid started on Sandostatin LAR 30 every month on 12/06/2019 Clinically, patient is doing well with no new signs symptoms, tolerating Sandostatin LAR well, with good control over his diarrhea e.g. 1-2 loose bowel movement in a day but his follow-up CMP shows progressive abnormal LFTs, patient has history of fatty liver his LFTs improved with weight loss due to chronic diarrhea, now with no significant weight change in the last few month but now with progressive abnormal LFTs which could be due to Sandostatin LAR although a rare toxicity. At this point, we will hold his Sandostatin therapy and he will return to clinic in 1 month with CBC and CMP and if LFTs improved, then plan may consider reduced dose Sandostatin e.g. 20 mg otherwise we will consider CT scan or MRI scan of the liver. Plan: Discussed with patient regarding his labs white blood count 6.5 hemoglobin 13.9 hematocrit 43.9 platelets 152,000 CMP within normal limits except ALT 42 compared to 61 on July 28, 2020 Clinically, patient is doing reasonably well but now in mild to moderate distress due to progressive diarrhea, his follow-up CMP shows electrolytes within normal range, his monthly Sandostatin dose which was due in July was held because of worsening of transaminases and they did improve but also diarrhea. So at this point we will restart Sandostatin LAR 20 because of worsening of diarrhea and also repeat serum gastrin level/serotonin/chromogranin A level and also check 24-hour urine for 5-HIAA and then he will return to clinic in 1 month with CMP/CBC. And if there is a worsening of LFTs, then will consider Sandostatin every other month along with everolimus. Discussed with patient regarding for evaluation regarding clinical trial for neuroendocrine at neuro endocrine oncology clinic at [place] but patient declined. Return to clinic in 1 month with CBC CMP and serotonin/gastrin/chromogranin A level and 24-hour urine for 5-HIAA Signed By: Brianna mAos M.D. <<Signature on File>>
[2020-08-29] MEDS: octreotide LAR depot 20 mg Kit IM (10:25)
[2020-09-01 18:47] LABS: Chromogranin A 421 ng/mL (25-140)
[2020-09-04 16:38] LABS: Serotonin Whole Blood 1730 ng/mL (56-244)
== END 2020-08-29 05:46 | disposition home or self-care (01) ==
LOC: ONCMED 05:46
PROVIDERS: PCP Family Medicine; Visit Provider Internal Medicine Hematology & Oncology
DX: C7A.8 Other malignant neuroendocrine tumors (principal); K52.89 Other specified noninfective gastroenteritis and colitis; Z79.899 Other long term (current) drug therapy
CPT/HCPCS: 82941; 84260; 86316; 96372; 99214; J2353

== ENCOUNTER → 2020-09-01 08:49 | Outpatient (BNVA) | payer OTHER, SELFPAY | PROVIDERS: PCP Family Medicine; Visit Provider Internal Medicine Hematology & Oncology | DX: C7A.8 Other malignant neuroendocrine tumors (principal) | CPT/HCPCS: 83497 ==

== ENCOUNTER 2020-10-01 12:09 | Outpatient (CLI) | payer OTHER, SELFPAY ==
[2020-10-01 13:06] LABS: Basophils % 0.7 %; Eosinophils # 0.1 10^3/uL (0.0-0.8); Eosinophils % 2.4 %; Hematocrit 43.4 % (42.0-52.0); Hemoglobin 13.8 g/dL (11.7-16.6); Lymphocytes # 2.4 10^3/uL (0.8-4.8); Mean Corpuscular HGB Conc 31.8 g/dL (30.0-36.0); Mean Corpuscular Volume 81.7 fL (80-94); Mean Platelet Volume 12.9 fL (7.4-10.4); Monocytes # 0.4 10^3/uL (0.2-0.9); Monocytes % 6.2 %; Neutrophils # 2.88 10^3/uL (1.8-7.7); Neutrophils % 49.5 %; Nucleated Red Blood Cells % 0 %; Platelet Count 125 10^3/cmm (130-400); Red Blood Count 5.31 10^6/uL (4.1-5.3); Red Cell Distribution Width 14.4 % (12.1-15.1); White Blood Count 5.8 10^3/uL (4.0-10.0)
--- NOTE | 2020-10-01 15:04 | ONC FU_ITS ---
Dr. Amos follow up note Patient: Mnauel Rodriguez Unit #: [id number]: 1950 Dicatated By: Brianna Amos M.D.Date of Visit:Oct 01, 2020 Onc Med Follow-up/Prog Note History of Present Illness: Mr. Rodriguez is a 69-year-old gentleman with history of chronic diarrhea for the last 7-8 years, as per patient about 8 years ago he underwent gallbladder surgery and subsequently developed diarrhea initially he thought he was due to gallbladder surgery but diarrhea persisted, it was watery, 5-6 times a day, no mucus or blood seen . Patient said he got used to chronic diarrhea until in June 2019 when he started having progressive abdominal pain at that time he told his primary care physician at [facility] about chronic diarrhea and now progressive abdominal pain and CT scan of abdomen was ordered which showed mesenteric mass and was referred to Dr. carter. 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 Additional foci of increase uptake are probably metastatic deposit in the right axilla, right paraspinal, just above the diaphragm and left lower thorax just above the spleen. There may be metastatic lesions in the lungs or lymph nodes. Patient underwent exploration on 11/06/2019 and Bartolo-Cut needle biopsy of mesenteric mass showed no tumor seen and small bowel excision showed benign small bowel segment with no dysplasia or malignancy but bowel resection showed well-differentiated neuroendocrine tumor (carcinoid), tumor extends through muscularis propria with extensive involvement of mesenteric fat. Focal perineural invasion identified. Single discontinuous carcinoid tumor nodule formed and mesenteric fat. Lab workup done on 11/20/2019 showed gastrin level 103 normal being less than 100, chromogranin A level 804, normal being 25-140 24-hour urine HIAA, 43, normal being less than 6. Patient denies any bronchial wheezing but one episode of facial flushing in the past. Denies smoking or alcohol use,But history of fatty liver with abnormal LFTs in the past Patient denies any fever or chills denies any uncontrolled hypertension or palpitation but patient is on beta blockers. Patient denies any abdominal pain with small meals usually large meals cause abdominal pain. Denies any fever or chills, denies any jaundice denies any headaches.but persistent diarrhea 5-6 bowel movements in 24 hours Started on Sandostatin LAR 30 mg every month, on 12/06/2019, Dose was reduced to 20 mg every month on June 23, 2020 because of elevated transaminases And follow-up labs done on July 28, 2020 showed worsening of transaminases ALT 61 AST 44 compared to 28/ on June 20, 2020. And is scheduled dose of Sandostatin LAR 20 was due on July 28, 2020 but was held and follow-up labs done on August 28, 2020 shows normalization of AST and improvement in ALT. Sandostatin LAR 20 was restarted on August 28, 2020 because of worsening of diarrhea. Follow-up CT scan of abdomen done on June 16, 2020 showed fatty infiltration of liver but no dilated intrahepatic ducts or masses seen. No change in 4.8 cm central abdominal mass. Came for follow-up, denies any specific complaints, no fever chills, no nausea or vomiting, diarrhea is improving now twice a day loose BM along with off and on well formed stools. Denies any facial flushing denies any wheezing denies any headaches, denies any jaundice, denies any abdominal pain Medications: amLODIPine Besylate 1 Tablet (of 10 mg) Oral daily, Atenolol 0.5 Tablet (of 25 mg) Oral daily, Cholecalciferol 1 Tablet (of 1000 mg) Oral daily, Clopidogrel Bisulfate 1 Tablet (of 75 mg) Oral daily, Eliquis 1 Tablet (of 5 mg) Oral b.i.d., Fish Oil 1 Capsule (of 2000 mg) Oral daily, Garlic 1 Capsule (of 1000 mg) Oral daily, Lisinopril 1 Tablet (of 20 mg) Oral daily, PX Omeprazole 1 Tablet (of 20 mg) Tablet, enteric coated Oral daily Allergies: Statins Review of Systems: Constitutional - Appetite is fair and weight is stable. No fever, chills, hot flashes, or night sweats. Energy level is [id number], ENMT - No sinus congestion/drainage. No mouth sores. No sore throat or difficulty swallowing, Hematologic/Lymphatic - No abnormal bruising or bleeding, Respiratory - No shortness of breath. No cough. No pleuritic pain or hemoptysis, Cardiovascular - No angina pain. No palpitations, Gastrointestinal - No nausea or vomiting. Positive for heartburn and acid reflux. Positive for diarrhea, no constipation. No blood in the stool or black stools, Genitourinary (M) - No dysuria or hematuria. No urinary frequency. No urgency or incontinence, Musculoskeletal - No joint or bone pain, Neurologic - No headache or dizziness. No numbness/paresthesias or other focal neurologic symptoms, Psychiatric - No anxiety or depression. No insomnia. Vital Signs: Performed on Oct 01, 2020 14:39 Height - 72.00 in Weight - 196.6 lbs (LOW) BSA - 2.11 sq.m BMI - 26.66 Temperature - 97.4 F (LOW) Pulse - 63 /min Respiration - 18 /min BP - 134/79 mm(hg) O2 Sat - 96 % Pain - 0 Performance Status: 0 - Fully active, able to carry on all predisease activities without restrictions. (ECOG) Physical Examination: ENMT - No mouth sores, no thrush, no jaundice, Respiratory - Lungs are clear to auscultation, Cardiovascular - Regular rate and rhythm of heart, Abdomen - Soft, bowel sounds present, Extremities - No visible edema or rash. Lab/Imaging: Test performed on Aug 29, 2020 10:14 Serotonin, Serum 1730 ng/mL Chromogranin A 421 ng/mL Test performed on Aug 28, 2020 10:24 Sodium 138 mmol/L Potassium 4.0 mmol/L Chloride 101 mmol/L CO2 29 mmol/L Anion Gap 12.0 BUN 10 mg/dL Creatinine 0.7 mg/dL Cr Clearance (Est) 122.7200 mL/min eGFR 111.5 mL/min Glucose 73 mg/dL Osmolality - Calculated 284 mOsm/kg Calcium 10.4 mg/dL Protein, Total 7.2 g/dL Albumin 4.5 g/dL Globulin 2.7 g/dL Bilirubin, Total 0.4 mg/dL ALT (SGPT) 42 U/L AST (SGOT) 35 U/L Alkaline Phosphatase 81 IU/L WBC 6.5 10 3/uL RBC 5.27 10 6/uL HGB 13.9 g/dL HCT 43.9 % MCV 83.3 fL MCH 26.4 pg MCHC 31.7 g/dL RDW 14.6 % Platelet Count 152 10 3/cmm MPV 12.4 fL Neutrophils 3.50 10 3/uL Lymphocytes 2.3 10 3/uL Monocytes 0.6 10 3/uL Eosinophils 0.1 10 3/uL Basophils 0.0 10 3/uL Neutrophil % 53.5 % Lymphocyte % 34.7 % Monocyte % 9.3 % Eosinophil % 1.7 % Basophils % 0.6 % NRBC % 0 % Test performed on Apr 17, 2020 10:00 Magnesium 1.8 mg/dL Impression: 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 Gastrin level 103 , normal being less than 100. Final pathology report showed well-differentiated neuroendocrine tumor, carcinoid, tumor extends to the muscularis propria with extensive involvement of mesenteric fat. Focal perineural invasion identified. Single discontinue his carcinoid tumor and nodule found in the mesenteric fat. Tumor cell are strongly and diffusely positive for synaptophysin and neuron specific enolase and weakly positive for chromogranin A. Also negative for CD 56. And Ki-67 proliferative index is less than 1%, consistent with carcinoid Octreotide scan done on 10/08/2019 showed positive for uptake in mesenteric mass. Additional foci of increase uptake are probably metastatic deposit in the right axilla, right paraspinal, just above diaphragm and left lower thorax, just above spleen. There may be a metastatic lesion in the lungs are lymph nodes. Chronic diarrhea for the last 7-8 years, probably due to carcinoid started on Sandostatin LAR 30 every month on 12/06/2019 Clinically, patient is doing well with no new signs symptoms, tolerating Sandostatin LAR well, with good control over his diarrhea e.g. 1-2 loose bowel movement in a day but his follow-up CMP shows progressive abnormal LFTs, patient has history of fatty liver his LFTs improved with weight loss due to chronic diarrhea, now with no significant weight change in the last few month but now with progressive abnormal LFTs which could be due to Sandostatin LAR although a rare toxicity. At this point, we will hold his Sandostatin therapy and he will return to clinic in 1 month with CBC and CMP and if LFTs improved, then plan may consider reduced dose Sandostatin e.g. 20 mg otherwise we will consider CT scan or MRI scan of the liver. Plan: Discussed with patient regarding his labs white blood count 5.8 hemoglobin 13.8 hematocrit 43.4, platelets 125,000 CMP is pending, gastrin level 40 compared to 108 at the time of diagnosis, 24-hour urine 5-HIAA is 44.2 compared to 43 at the time of diagnosis serotonin 1730 compared to 623 on June 20, 2020, chromogranin A 421 compared to 164 on June 20, 2020 Clinically, patient is doing well with no new signs symptoms in fact his diarrhea is improving, has Sandostatin LAR was put on hold in July because of transaminitis and then again restarted in August 2020, tolerated well and today CMP is pending so we will follow especially transaminases level if elevated, may consider adding everolimus and changing Sandostatin to every other month His follow-up serotonin level and chromogranin A level and 24-hour urine for 5-HIAA showed progressive numbers e.g. disease progression versus rebound/hypersecretory biopsy-proven carcinoid due to skipping dose of Sandostatin LAR due to elevated transaminases as patient symptomatically is improving especially after last Sandostatin dose given in August 2020. At this point, we will proceed with next dose of Sandostatin LAR 20 mg and then follow-up with his CMP which was done today and then he will return to clinic in 1 month with CBC CMP and serotonin level and chromogranin A level, if it shows progression, will consider CT scan of abdomen to confirm the disease progression. Signed By: Brianna Amos M.D. <<Signature on File>>
[2020-10-01 15:10] LABS: Alanine Aminotransferase 44 U/L (0-41); Albumin Level 4.3 g/dL (3.5-5.2); Alkaline Phosphatase 92 IU/L (40-130); Anion Gap 16.6 (5-19); Aspartate Amino Transferase 37 U/L (0-40); Blood Urea Nitrogen 10 mg/dL (8-23); Calcium 9.5 mg/dL (8.5-10.5); Carbon Dioxide 24 mmol/L (22-29); Chloride 101 mmol/L (98-107); Globulin 2.6 g/dL (1.3-4.6); Glomerular Filtration Rate 95.6 mL/min (90-130); Glucose 174 mg/dL (65-115); Osmolality Calculated 289 mOsm/kg (285-295); Potassium 3.6 mmol/L (3.5-5.1); Sodium 138 mmol/L (136-145); Total Bilirubin 0.5 mg/dL (0.15-1.2); Total Protein 6.9 g/dL (6.6-8.7)
[2020-10-01] MEDS: octreotide LAR depot 20 mg Kit IM (15:25)
== END 2020-10-01 12:10 | disposition home or self-care (01) ==
LOC: ONCMED 12:12
PROVIDERS: PCP Family Medicine; Visit Provider Internal Medicine Hematology & Oncology
DX: C7A.8 Other malignant neuroendocrine tumors (principal); C7B.09 Secondary carcinoid tumors of other sites; R19.7 Diarrhea, unspecified; Z79.899 Other long term (current) drug therapy
CPT/HCPCS: 36415; 80053; 85025; 96372; 99214; J2353

== ENCOUNTER 2020-11-04 15:06 | Outpatient (CLI) | payer OTHER, SELFPAY ==
[2020-11-04 17:32] LABS: Basophils % 0.6 %; Eosinophils # 0.1 10^3/uL (0.0-0.8); Eosinophils % 1.5 %; Hematocrit 44.5 % (42.0-52.0); Hemoglobin 14.3 g/dL (11.7-16.6); Lymphocytes # 2.8 10^3/uL (0.8-4.8); Lymphocytes % 42.5 %; Mean Corpuscular HGB Conc 32.1 g/dL (30.0-36.0); Mean Corpuscular Hemoglobin 26.4 pg (28.0-34.0); Mean Corpuscular Volume 82.3 fL (80-94); Mean Platelet Volume 13.7 fL (7.4-10.4); Monocytes # 0.5 10^3/uL (0.2-0.9); Monocytes % 7.3 %; Neutrophils # 3.16 10^3/uL (1.8-7.7); Neutrophils % 47.9 %; Nucleated Red Blood Cells % 0 %; Platelet Count 134 10^3/cmm (130-400); Red Blood Count 5.41 10^6/uL (4.1-5.3); Red Cell Distribution Width 14.6 % (12.1-15.1); White Blood Count 6.6 10^3/uL (4.0-10.0)
[2020-11-04 17:40] LABS: Alanine Aminotransferase 41 U/L (0-41); Albumin Level 4.7 g/dL (3.5-5.2); Alkaline Phosphatase 95 IU/L (40-130); Anion Gap 14.8 (5-19); Aspartate Amino Transferase 31 U/L (0-40); Blood Urea Nitrogen 10 mg/dL (8-23); Calcium 9.6 mg/dL (8.5-10.5); Carbon Dioxide 28 mmol/L (22-29); Chloride 102 mmol/L (98-107); Globulin 2.8 g/dL (1.3-4.6); Glomerular Filtration Rate 83.4 mL/min (90-130); Glucose 94 mg/dL (65-115); Osmolality Calculated 291 mOsm/kg (285-295); Potassium 3.8 mmol/L (3.5-5.1); Sodium 141 mmol/L (136-145); Total Bilirubin 0.6 mg/dL (0.15-1.2); Total Protein 7.5 g/dL (6.6-8.7)
[2020-11-04 19:28] LABS: Slide Review Slide Review Perform
[2020-11-11 10:26] LABS: Serotonin Whole Blood 828 ng/mL (56-244)
[2020-11-11 18:12] LABS: Chromogranin A 185 ng/mL (25-140)
== END 2020-11-04 15:07 | disposition home or self-care (01) ==
LOC: ONCMED 15:07
PROVIDERS: PCP Family Medicine; Visit Provider Internal Medicine Hematology & Oncology
DX: C7A.8 Other malignant neuroendocrine tumors (principal)
CPT/HCPCS: 36415; 80053; 84260; 85025; 86316

== ENCOUNTER 2020-11-06 05:44 | Outpatient (CLI) | payer OTHER, MEDICARE, SELFPAY ==
--- NOTE | 2020-11-06 09:40 | ONC FU_ITS ---
Dr. Amos follow up note Patient: Manuel Rodriguez Unit #: [id number]: 1950 Dicatated By: Brianna Amos M.D.Date of Visit:Nov 06, 2020 Onc Med Follow-up/Prog Note History of Present Illness: Mr. Rodriguez is a 69-year-old gentleman with history of chronic diarrhea for the last 7-8 years, as per patient about 8 years ago he underwent gallbladder surgery and subsequently developed diarrhea initially he thought he was due to gallbladder surgery but diarrhea persisted, it was watery, 5-6 times a day, no mucus or blood seen . Patient said he got used to chronic diarrhea until in June 2019 when he started having progressive abdominal pain at that time he told his primary care physician at [facility] about chronic diarrhea and now progressive abdominal pain and CT scan of abdomen was ordered which showed mesenteric mass and was referred to Dr. carter. 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 Additional foci of increase uptake are probably metastatic deposit in the right axilla, right paraspinal, just above the diaphragm and left lower thorax just above the spleen. There may be metastatic lesions in the lungs or lymph nodes. Patient underwent exploration on 11/06/2019 and Bartolo-Cut needle biopsy of mesenteric mass showed no tumor seen and small bowel excision showed benign small bowel segment with no dysplasia or malignancy but bowel resection showed well-differentiated neuroendocrine tumor (carcinoid), tumor extends through muscularis propria with extensive involvement of mesenteric fat. Focal perineural invasion identified. Single discontinuous carcinoid tumor nodule formed and mesenteric fat. Lab workup done on 11/20/2019 showed gastrin level 103 normal being less than 100, chromogranin A level 804, normal being 25-140 24-hour urine HIAA, 43, normal being less than 6. Patient denies any bronchial wheezing but one episode of facial flushing in the past. Denies smoking or alcohol use,But history of fatty liver with abnormal LFTs in the past Patient denies any fever or chills denies any uncontrolled hypertension or palpitation but patient is on beta blockers. Patient denies any abdominal pain with small meals usually large meals cause abdominal pain. Denies any fever or chills, denies any jaundice denies any headaches.but persistent diarrhea 5-6 bowel movements in 24 hours Started on Sandostatin LAR 30 mg every month, on 12/06/2019, Dose was reduced to 20 mg every month on June 23, 2020 because of elevated transaminases And follow-up labs done on July 28, 2020 showed worsening of transaminases ALT 61 AST 44 compared to 28/ on June 20, 2020. And is scheduled dose of Sandostatin LAR 20 was due on July 28, 2020 but was held and follow-up labs done on August 28, 2020 shows normalization of AST and improvement in ALT. Sandostatin LAR 20 was restarted on August 28, 2020 because of worsening of diarrhea. Follow-up CT scan of abdomen done on June 16, 2020 showed fatty infiltration of liver but no dilated intrahepatic ducts or masses seen. No change in 4.8 cm central abdominal mass. ,Came for follow-up, Denies any specific complaint except persistent mild diarrhea as per patient usually twice a day, semiformed, no blood or mucus in the stool, no abdominal pain, no shortness of breath, no wheezing, no skin rash, no facial flushing, no jaundice, no fever or chills. Tolerating Sandostatin well otherwise Medications: amLODIPine Besylate 1 Tablet (of 10 mg) Oral daily, Atenolol 0.5 Tablet (of 25 mg) Oral daily, Cholecalciferol 1 Tablet (of 1000 mg) Oral daily, Clopidogrel Bisulfate 1 Tablet (of 75 mg) Oral daily, Eliquis 1 Tablet (of 5 mg) Oral b.i.d., Fish Oil 1 Capsule (of 2000 mg) Oral daily, Garlic 1 Capsule (of 1000 mg) Oral daily, Lisinopril 1 Tablet (of 20 mg) Oral daily, PX Omeprazole 1 Tablet (of 20 mg) Tablet, enteric coated Oral daily Allergies: Statins Review of Systems: Review of Systems is not available for this patient. Vital Signs: Vitals are not available for this patient. Performance Status: 0 - Fully active, able to carry on all predisease activities without restrictions. (ECOG) Physical Examination: ENMT - No mouth sores, No thrush, no jaundice, Respiratory - Lungs are clear to auscultation, Cardiovascular - Regular rate and rhythm of heart, Abdomen - Soft, bowel sounds present, Extremities - No visible edema. Lab/Imaging: Test performed on Oct 01, 2020 12:25 Sodium 138 mmol/L Potassium 3.6 mmol/L Chloride 101 mmol/L CO2 24 mmol/L Anion Gap 16.6 BUN 10 mg/dL Creatinine 0.8 mg/dL Cr Clearance (Est) 108.3800 mL/min eGFR 95.6 mL/min Glucose 174 mg/dL Osmolality - Calculated 289 mOsm/kg Calcium 9.5 mg/dL Protein, Total 6.9 g/dL Albumin 4.3 g/dL Globulin 2.6 g/dL Bilirubin, Total 0.5 mg/dL ALT (SGPT) 44 U/L AST (SGOT) 37 U/L Alkaline Phosphatase 92 IU/L WBC 5.8 10 3/uL RBC 5.31 10 6/uL HGB 13.8 g/dL HCT 43.4 % MCV 81.7 fL MCH 26.0 pg MCHC 31.8 g/dL RDW 14.4 % Platelet Count 125 10 3/cmm MPV 12.9 fL Neutrophils 2.88 10 3/uL Lymphocytes 2.4 10 3/uL Monocytes 0.4 10 3/uL Eosinophils 0.1 10 3/uL Basophils 0.0 10 3/uL Neutrophil % 49.5 % Lymphocyte % 41.0 % Monocyte % 6.2 % Eosinophil % 2.4 % Basophils % 0.7 % NRBC % 0 % Test performed on Aug 29, 2020 10:14 Serotonin, Serum 1730 ng/mL Chromogranin A 421 ng/mL Impression: 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 Gastrin level 103 , normal being less than 100. Final pathology report showed well-differentiated neuroendocrine tumor, carcinoid, tumor extends to the muscularis propria with extensive involvement of mesenteric fat. Focal perineural invasion identified. Single discontinue his carcinoid tumor and nodule found in the mesenteric fat. Tumor cell are strongly and diffusely positive for synaptophysin and neuron specific enolase and weakly positive for chromogranin A. Also negative for CD 56. And Ki-67 proliferative index is less than 1%, consistent with carcinoid Octreotide scan done on 10/08/2019 showed positive for uptake in mesenteric mass. Additional foci of increase uptake are probably metastatic deposit in the right axilla, right paraspinal, just above diaphragm and left lower thorax, just above spleen. There may be a metastatic lesion in the lungs are lymph nodes. Chronic diarrhea for the last 7-8 years, probably due to carcinoid started on Sandostatin LAR 30 every month on 12/06/2019 Clinically, patient is doing well with no new signs symptoms, tolerating Sandostatin LAR well, with good control over his diarrhea e.g. 1-2 loose bowel movement in a day but his follow-up CMP shows progressive abnormal LFTs, patient has history of fatty liver his LFTs improved with weight loss due to chronic diarrhea, now with no significant weight change in the last few month but now with progressive abnormal LFTs which could be due to Sandostatin LAR although a rare toxicity. At this point, we will hold his Sandostatin therapy and he will return to clinic in 1 month with CBC and CMP and if LFTs improved, then plan may consider reduced dose Sandostatin e.g. 20 mg otherwise we will consider CT scan or MRI scan of the liver. Plan: Discussed with patient regarding his labs white blood count 6.6 hemoglobin 14.3 hematocrit 44.5 platelets 134,000 compared to 125,000 previously CMP within normal limits and chromogranin A and serotonin level is pending Clinically, patient doing well with no new signs symptom suggestive of disease progression, will proceed with next monthly dose of Sandostatin LAR 20 today and then he will return to clinic in 1 month with CMP in the meantime we will follow his serotonin/chromogranin A level if further increase, will consider octreotide scan to assess disease status/progression on the other hand if improvement, will continue with Sandostatin alone. As far as diarrhea is concerned, patient was advised to watch his diet and also consider probiotics on trial basis, may improve his diarrhea Signed By: Brianna Amos M.D. <<Signature on File>>
[2020-11-06] MEDS: octreotide LAR depot 20 mg Kit IM (10:54)
== END 2020-11-06 05:45 | disposition home or self-care (01) ==
LOC: ONCMED 05:46
PROVIDERS: PCP Family Medicine; Visit Provider Internal Medicine Hematology & Oncology
DX: C7A.8 Other malignant neuroendocrine tumors (principal); K52.9 Noninfective gastroenteritis and colitis, unspecified; K76.0 Fatty (change of) liver, not elsewhere classified; Z79.890 Hormone replacement therapy
CPT/HCPCS: 96372; 99214; J2353

== ENCOUNTER 2020-12-11 08:42 | Outpatient (CLI) | payer OTHER, MEDICARE, SELFPAY ==
[2020-12-11 09:42] LABS: Alanine Aminotransferase 42 U/L (0-41); Albumin Level 4.6 g/dL (3.5-5.2); Alkaline Phosphatase 86 IU/L (40-130); Anion Gap 12.9 (5-19); Aspartate Amino Transferase 33 U/L (0-40); Blood Urea Nitrogen 11 mg/dL (8-23); Calcium 9.4 mg/dL (8.5-10.5); Carbon Dioxide 27 mmol/L (22-29); Chloride 102 mmol/L (98-107); Globulin 2.6 g/dL (1.3-4.6); Glomerular Filtration Rate 111.5 mL/min (90-130); Glucose 115 mg/dL (65-115); Osmolality Calculated 286 mOsm/kg (285-295); Potassium 3.9 mmol/L (3.5-5.1); Sodium 138 mmol/L (136-145); Total Bilirubin 0.8 mg/dL (0.15-1.2); Total Protein 7.2 g/dL (6.6-8.7)
[2020-12-11] MEDS: octreotide LAR depot 20 mg Kit IM (11:45)
[2020-12-14 17:42] LABS: Chromogranin A 227 ng/mL (25-140)
[2020-12-17 17:38] LABS: Serotonin Whole Blood 1147 ng/mL (56-244)
--- NOTE | 2020-12-24 21:42 | ONC FU_ITS ---
[facility] Patient Note Patient: Manuel Rodriguez Unit #: [id number]: [id number] Dictated By: Dominga MontoyaDate of Visit: Dec 11, 2020 Onc MED Follow-Up/Prog Note Chief Complaint: metastatic small bowel carcinoid tumor History of Present Illness: Mr. Rodriguez is a 69-year-old gentleman with history of chronic diarrhea for the last 7-8 years, as per patient about 8 years ago he underwent gallbladder surgery and subsequently developed diarrhea initially he thought he was due to gallbladder surgery but diarrhea persisted, it was watery, 5-6 times a day, no mucus or blood seen . Patient said he got used to chronic diarrhea until in June 2019 when he started having progressive abdominal pain at that time he told his primary care physician at [facility] about chronic diarrhea and now progressive abdominal pain and CT scan of abdomen was ordered which showed mesenteric mass and was referred to Dr. carter. 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 Additional foci of increase uptake are probably metastatic deposit in the right axilla, right paraspinal, just above the diaphragm and left lower thorax just above the spleen. There may be metastatic lesions in the lungs or lymph nodes. Patient underwent exploration on 11/06/2019 and Bartolo-Cut needle biopsy of mesenteric mass showed no tumor seen and small bowel excision showed benign small bowel segment with no dysplasia or malignancy but bowel resection showed well-differentiated neuroendocrine tumor (carcinoid), tumor extends through muscularis propria with extensive involvement of mesenteric fat. Focal perineural invasion identified. Single discontinuous carcinoid tumor nodule formed and mesenteric fat. Lab workup done on 11/20/2019 showed gastrin level 103 normal being less than 100, chromogranin A level 804, normal being 25-140 24-hour urine HIAA, 43, normal being less than 6. Patient denies any bronchial wheezing but one episode of facial flushing in the past. Denies smoking or alcohol use,But history of fatty liver with abnormal LFTs in the past Mr Rodriguez started on Sandostatin LAR 30 mg every month, on 12/06/2019, Dose was reduced to 20 mg every month on June 23, 2020 because of elevated transaminases And follow-up labs done on July 28, 2020 showed worsening of transaminases ALT 61 AST 44 compared to on June 20, 2020. And is scheduled dose of Sandostatin LAR 20 was due on July 28, 2020 but was held and follow-up labs done on August 28, 2020 shows normalization of AST and improvement in ALT. Sandostatin LAR 20 was restarted on August 28, 2020 because of worsening of diarrhea. Follow-up CT scan of abdomen done on June 16, 2020 showed fatty infiltration of liver but no dilated intrahepatic ducts or masses seen. No change in 4.8 cm central abdominal mass. Mr Rodriguez continues to follow with Dr Amos. His last Sandostatin dose was on November 06, 2020. He is here today for follow-up. He is due for Sandostatin today as well. He states that he feels that he is doing pretty good overall. He states he does have some increased urination at night but this is not particularly new for him. He states is no worse than normal. He denies any dysuria symptoms. He just has increased frequency. He denies any headaches or vision changes such as new blurry vision or amaurosis. He states that he is also been told he has glaucoma on his last eye exam. He is trying to determine when that will need to be taken care of. He is consulting of course with his eye doctor for that. He [facility] He states his blood sugars been elevated off and on he states in last April his random glucose was 200. He states he has follow-up with Dr. Goodwin on December 20, 2020. He states he has a history of cardiac stents. He states he is had some sharp stabbing chest pain and this worries him somewhat as he does have a history of quadruple bypass. He does not have any Nitrostat available on hand. He states he will talk with Dr. Goodwin about that. He denies any new shortness of breath orthopnea. He denies any palpitations. He has not had any lower extremity edema. He states his appetite is good. He is not having any abdominal pain with eating unless he overeats or eats excessively large meals . He denies any gastritis symptoms.He states his bowels are normal for him. He states closer to the time of the Sandostatin he does tend to have a little bit more diarrhea but for the most part it is well controlled. He denies any other concerns of pain. His ECOG remains at 0. Past Medical History: Ashd Gastroesophageal reflux disease History of pulmonary embolism Hyperlipidemia Hypertension Inguinal hernia Osteoarthritis Past Surgical History: Coronary [id number] stents Coronary artery bypass Allergies: Statins Medications: amLODIPine Besylate 1 Tablet (of 10 mg) Oral daily Atenolol 0.5 Tablet (of 25 mg) Oral daily Cholecalciferol 1 Tablet (of 1000 mg) Oral daily Clopidogrel Bisulfate 1 Tablet (of 75 mg) Oral daily Eliquis 1 Tablet (of 5 mg) Oral b.i.d. Fish Oil 1 Capsule (of 2000 mg) Oral daily Garlic 1 Capsule (of 1000 mg) Oral daily Lisinopril 1 Tablet (of 20 mg) Oral daily PX Omeprazole 1 Tablet (of 20 mg) Tablet, enteric coated Oral daily Family History: Mr. Rodriguez's mother at age 82: cerebrovascular accident. Mr. Rodriguez's father at age 45: heart disease. Mr. Rodriguez has 1 brother who is : lymphoma. Social History: Mr. Rodriguez is and he is retired. Mr. Rodriguez quit smoking 35 years ago but had smoked 0.5 packs/day for 20 years. He has no history of drinking. Review Of Symptoms: see above Vital Signs: Performed on Dec 11, 2020 09:12 Height - 72.00 in Weight - 197 lbs (HIGH) BSA - 2.12 sq.m BMI - 26.72 Temperature - 98.0 F (LOW) Pulse - 69 /min Respiration - 18 /min BP - 145/81 mm(hg) (HIGH) O2 Sat - 97 % Pain - 0,0 - Fully active, able to carry on all predisease activities without restrictions. (ECOG) Physical Examination: Constitutional Alert, oriented, no acute distress. Skin pink, warm and dry. Head Normocephalic; atraumatic. Eyes Conjunctivae and sclerae are clear and without icterus. Pupils are reactive and equal. Neck Supple without masses or thyromegaly. No jugular venous distension. Hematologic/Lymphatic No petechiae or purpura. No tender or palpable lymph nodes in the cervical or supraclavicular areas. Respiratory Lungs are clear to auscultation without rhonchi or wheezing. Cardiovascular Regular rate and rhythm of heart without murmurs,clicks, gallops or rubs. Abdomen Non-tender, non-distended, no masses or ascites. Good bowel sounds noted in all quads. No guarding or rebound tenderness. No pulsatile masses. Back/Spine Non-tender to palpation. Extremities No visible deformities, no cyanosis, clubbing or edema. Musculoskeletal No tenderness or swelling, normal range of motion without obvious weakness. Integumentary No rashes or lesions. Neurologic No sensory or motor deficits, normal cerebellar function, normal gait. Psychiatric Alert and oriented times three. Coherent speech. Verbalizes understanding of our discussions today. Laboratory:Test performed on Dec 11, 2020 11:50 Serotonin, Serum 1147 ng/mL Chromogranin A 227 ng/mL Test performed on Dec 11, 2020 09:00 Sodium 138 mmol/L Potassium 3.9 mmol/L Chloride 102 mmol/L CO2 27 mmol/L Anion Gap 12.9 BUN 11 mg/dL Creatinine 0.7 mg/dL Cr Clearance (Est) 124.11 mL/min eGFR 111.5 mL/min Glucose 115 mg/dL Osmolality - Calculated 286 mOsm/kg Calcium 9.4 mg/dL Protein, Total 7.2 g/dL Albumin 4.6 g/dL Globulin 2.6 g/dL Bilirubin, Total 0.8 mg/dL ALT (SGPT) 42 U/L AST (SGOT) 33 U/L Alkaline Phosphatase 86 IU/L Test performed on Oct 01, 2020 12:25 WBC 5.8 10 3/uL RBC 5.31 10 6/uL HGB 13.8 g/dL HCT 43.4 % MCV 81.7 fL MCH 26.0 pg MCHC 31.8 g/dL RDW 14.4 % Platelet Count 125 10 3/cmm MPV 12.9 fL Neutrophils 2.88 10 3/uL Lymphocytes 2.4 10 3/uL Monocytes 0.4 10 3/uL Eosinophils 0.1 10 3/uL Basophils 0.0 10 3/uL Neutrophil % 49.5 % Lymphocyte % 41.0 % Monocyte % 6.2 % Eosinophil % 2.4 % Basophils % 0.7 % NRBC % 0 % Impression: 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 Gastrin level 103 , normal being less than 100. Final pathology report showed well-differentiated neuroendocrine tumor, carcinoid, tumor extends to the muscularis propria with extensive involvement of mesenteric fat. Focal perineural invasion identified. Single discontinue his carcinoid tumor and nodule found in the mesenteric fat. Tumor cell are strongly and diffusely positive for synaptophysin and neuron specific enolase and weakly positive for chromogranin A. Also negative for CD 56. And Ki-67 proliferative index is less than 1%, consistent with carcinoid Octreotide scan done on 10/08/2019 showed positive for uptake in mesenteric mass. Additional foci of increase uptake are probably metastatic deposit in the right axilla, right paraspinal, just above diaphragm and left lower thorax, just above spleen. There may be a metastatic lesion in the lungs are lymph nodes. Chronic diarrhea for the last 7-8 years, probably due to carcinoid started on Sandostatin LAR 30 every month on 12/06/2019 Clinically, patient is doing well with no new signs symptoms, tolerating Sandostatin LAR well, with good control over his diarrhea e.g. 1-2 loose bowel movement in a day but his follow-up CMP shows progressive abnormal LFTs, patient has history of fatty liver his LFTs improved with weight loss due to chronic diarrhea, now with no significant weight change in the last few month but now with progressive abnormal LFTs which could be due to Sandostatin LAR although a rare toxicity. At this point, we will hold his Sandostatin therapy and he will return to clinic in 1 month with CBC and CMP and if LFTs improved, then plan may consider reduced dose Sandostatin e.g. 20 mg otherwise we will consider CT scan or MRI scan of the liver. Plan: PROBLEMS ADDRESSED TODAY Metastatic carcinoid tumor of the small bowel 1. He will proceed with Sandostatin LAR 20 mg monthly. 2. We did review his labs today which included a chemistry. His potassium was 3.9 random glucose 115 creatinine 0.7 his ALT is 42 which is stable. His serotonin in November 04, 2020 was 828 and his chromogranin A at that time was 185, which was actually improved from August 29, 2020 at which time was 421. His chromogranin today is 227. His serotonin level is 1147-his result in August 2020 was 1730. It is noted that his last Sandostatin was November 06, 2020. 3. We will plan to have him follow-up with Dr. Amos in 1 month with CBC, CMP, serotonin and chromogranin A. 4. Mr. Knutson was instructed to contact us in interim should questions or problems arise. 5. He was encouraged to keep his follow-up appoint with Dr. Goodwin on December 20 for cardiac evaluation as he is having some concerning chest discomfort. He was encouraged to call Dr. Goodwin or present to the emergency room prior to his appointment if his symptoms worsen. Signed By: Dominga Montoya-, AOCNP Brianna Amos MD <<Signature on File>>
== END 2020-12-11 08:43 | disposition home or self-care (01) ==
PROVIDERS: PCP Family Medicine; Visit Provider Nurse Practitioner
DX: C7A.019 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, unspecified portion (principal); C7B.04 Secondary carcinoid tumors of peritoneum; K52.9 Noninfective gastroenteritis and colitis, unspecified; R94.5 Abnormal results of liver function studies; Z79.899 Other long term (current) drug therapy
CPT/HCPCS: 36415; 80053; 84260; 86316; 96372; 99214; J2353

== ENCOUNTER 2020-12-12 05:40 | Outpatient (CLI) | payer OTHER, MEDICARE, SELFPAY ==
[2020-12-12 08:46] LABS: Estmated Average Glucose 114; Hemoglobin A1C 5.6 % (4.0-6.0)
== END 2020-12-12 05:41 | disposition home or self-care (01) ==
LOC: ONCMED 05:42
PROVIDERS: PCP Family Medicine; Visit Provider Internal Medicine Hematology & Oncology
DX: C7A.8 Other malignant neuroendocrine tumors (principal); R35.0 Frequency of micturition; R73.9 Hyperglycemia, unspecified
CPT/HCPCS: 36415; 83036

== ENCOUNTER 2021-01-13 10:47 | Outpatient (CLI) | payer OTHER, MEDICARE, SELFPAY ==
[2021-01-13 12:10] LABS: Basophils # 0.1 10^3/uL (0.0-0.1); Basophils % 0.8 %; Eosinophils # 0.1 10^3/uL (0.0-0.8); Hematocrit 42.7 % (42.0-52.0); Hemoglobin 13.7 g/dL (11.7-16.6); Lymphocytes # 2.3 10^3/uL (0.8-4.8); Lymphocytes % 35.7 %; Mean Corpuscular HGB Conc 32.1 g/dL (30.0-36.0); Mean Corpuscular Hemoglobin 26.6 pg (28.0-34.0); Mean Corpuscular Volume 82.8 fL (80-94); Mean Platelet Volume 12.7 fL (7.4-10.4); Monocytes # 0.5 10^3/uL (0.2-0.9); Monocytes % 7.2 %; Neutrophils # 3.47 10^3/uL (1.8-7.7); Neutrophils % 54.1 %; Nucleated Red Blood Cells % 0 %; Platelet Count 137 10^3/cmm (130-400); Red Blood Count 5.16 10^6/uL (4.1-5.3); Red Cell Distribution Width 14.4 % (12.1-15.1); White Blood Count 6.4 10^3/uL (4.0-10.0)
[2021-01-13 12:34] LABS: Alanine Aminotransferase 47 U/L (0-41); Albumin Level 4.5 g/dL (3.5-5.2); Alkaline Phosphatase 91 IU/L (40-130); Anion Gap 14.7 (5-19); Aspartate Amino Transferase 38 U/L (0-40); Blood Urea Nitrogen 10 mg/dL (8-23); Calcium 8.9 mg/dL (8.5-10.5); Carbon Dioxide 25 mmol/L (22-29); Chloride 102 mmol/L (98-107); Globulin 2.3 g/dL (1.3-4.6); Glomerular Filtration Rate 95.6 mL/min (90-130); Glucose 129 mg/dL (65-115); Osmolality Calculated 287 mOsm/kg (285-295); Potassium 3.7 mmol/L (3.5-5.1); Sodium 138 mmol/L (136-145); Total Bilirubin 0.4 mg/dL (0.15-1.2); Total Protein 6.8 g/dL (6.6-8.7)
[2021-01-13] MEDS: octreotide LAR depot 20 mg Kit IM (13:27)
--- NOTE | 2021-01-13 16:56 | ONC FU_ITS ---
Dr. Amos follow up note Patient: Manuel Rodriguez Unit #: [id number]: 1950 Dicatated By: Brianna Amos M.D.Date of Visit:January 13, 2021 Onc Med Follow-up/Prog Note History of Present Illness: Mr. Rodriguez is a 70 -year-old gentleman with history of chronic diarrhea for the last 7-8 years, as per patient about 8 years ago he underwent gallbladder surgery and subsequently developed diarrhea initially he thought he was due to gallbladder surgery but diarrhea persisted, it was watery, 5-6 times a day, no mucus or blood seen . Patient said he got used to chronic diarrhea until in June 2019 when he started having progressive abdominal pain at that time he told his primary care physician at [facility] about chronic diarrhea and now progressive abdominal pain and CT scan of abdomen was ordered which showed mesenteric mass and was referred to Dr. carter. 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 Additional foci of increase uptake are probably metastatic deposit in the right axilla, right paraspinal, just above the diaphragm and left lower thorax just above the spleen. There may be metastatic lesions in the lungs or lymph nodes. Patient underwent exploration on 11/06/2019 and Bartolo-Cut needle biopsy of mesenteric mass showed no tumor seen and small bowel excision showed benign small bowel segment with no dysplasia or malignancy but bowel resection showed well-differentiated neuroendocrine tumor (carcinoid), tumor extends through muscularis propria with extensive involvement of mesenteric fat. Focal perineural invasion identified. Single discontinuous carcinoid tumor nodule formed and mesenteric fat. Lab workup done on 11/20/2019 showed gastrin level 103 normal being less than 100, chromogranin A level 804, normal being 25-140 24-hour urine HIAA, 43, normal being less than 6. Patient denies any bronchial wheezing but one episode of facial flushing in the past. Denies smoking or alcohol use,But history of fatty liver with abnormal LFTs in the past Mr Rodriguez started on Sandostatin LAR 30 mg every month, on 12/06/2019, Dose was reduced to 20 mg every month on June 23, 2020 because of elevated transaminases And follow-up labs done on July 28, 2020 showed worsening of transaminases ALT 61 AST 44 compared to on June 20, 2020. And is scheduled dose of Sandostatin LAR 20 was due on July 28, 2020 but was held and follow-up labs done on August 28, 2020 shows normalization of AST and improvement in ALT. Sandostatin LAR 20 was restarted on August 28, 2020 because of worsening of diarrhea. Follow-up CT scan of abdomen done on June 16, 2020 showed fatty infiltration of liver but no dilated intrahepatic ducts or masses seen. No change in 4.8 cm central abdominal mass. Came for follow-up, complaining of persistent diarrhea 4-6 times a day and also off and on excessive urination at night patient denies any diuretic use denies any recent increase in salt intake denies any excessive hydration denies any uncontrolled hyperglycemia in fact his HbA1c was checked it was within normal range. 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 Patient denies any facial flushing, denies any wheezing he denies any abdominal pain, denies any hematochezia or melena denies any mucus in his stool denies any abdominal fullness denies any blurred vision or double vision tolerating monthly Sandostatin well otherwise Medications: amLODIPine Besylate 1 Tablet (of 10 mg) Oral daily, Atenolol 0.5 Tablet (of 25 mg) Oral daily, Cholecalciferol 1 Tablet (of 1000 mg) Oral daily, Clopidogrel Bisulfate 1 Tablet (of 75 mg) Oral daily, Eliquis 1 Tablet (of 5 mg) Oral b.i.d., Fish Oil 1 Capsule (of 2000 mg) Oral daily, Garlic 1 Capsule (of 1000 mg) Oral daily, Lisinopril 1 Tablet (of 20 mg) Oral daily, PX Omeprazole 1 Tablet (of 20 mg) Tablet, enteric coated Oral daily Allergies: Statins Review of Systems: Review of Systems is not available for this patient. Vital Signs: Performed on January 13, 2021 12:23 Height - 72.00 in Weight - 196 lbs (LOW) BSA - 2.11 sq.m BMI - 26.58 Temperature - 98.0 F (LOW) Pulse - 78 /min Respiration - 18 /min BP - 143/89 mm(hg) (HIGH) O2 Sat - 98 % Pain - 0 Fatigue - 0 Performance Status: 0 - Fully active, able to carry on all predisease activities without restrictions. (ECOG) Physical Examination: ENMT - No mouth sores, no thrush, no jaundice, Respiratory - Lungs are clear to auscultation, Cardiovascular - Regular rate and rhythm of heart, Abdomen - Soft, bowel sounds present, Extremities - No visible edema. Lab/Imaging: Test performed on Dec 11, 2020 11:50 Serotonin, Serum 1147 ng/mL Chromogranin A 227 ng/mL Test performed on Dec 11, 2020 09:00 Sodium 138 mmol/L Potassium 3.9 mmol/L Chloride 102 mmol/L CO2 27 mmol/L Anion Gap 12.9 BUN 11 mg/dL Creatinine 0.7 mg/dL Cr Clearance (Est) 124.11 mL/min eGFR 111.5 mL/min Glucose 115 mg/dL Osmolality - Calculated 286 mOsm/kg Calcium 9.4 mg/dL Protein, Total 7.2 g/dL Albumin 4.6 g/dL Globulin 2.6 g/dL Bilirubin, Total 0.8 mg/dL ALT (SGPT) 42 U/L AST (SGOT) 33 U/L Alkaline Phosphatase 86 IU/L Test performed on Oct 01, 2020 12:25 WBC 5.8 10 3/uL RBC 5.31 10 6/uL HGB 13.8 g/dL HCT 43.4 % MCV 81.7 fL MCH 26.0 pg MCHC 31.8 g/dL RDW 14.4 % Platelet Count 125 10 3/cmm MPV 12.9 fL Neutrophils 2.88 10 3/uL Lymphocytes 2.4 10 3/uL Monocytes 0.4 10 3/uL Eosinophils 0.1 10 3/uL Basophils 0.0 10 3/uL Neutrophil % 49.5 % Lymphocyte % 41.0 % Monocyte % 6.2 % Eosinophil % 2.4 % Basophils % 0.7 % NRBC % 0 % Impression: 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 Gastrin level 103 , normal being less than 100. Final pathology report showed well-differentiated neuroendocrine tumor, carcinoid, tumor extends to the muscularis propria with extensive involvement of mesenteric fat. Focal perineural invasion identified. Single discontinue his carcinoid tumor and nodule found in the mesenteric fat. Tumor cell are strongly and diffusely positive for synaptophysin and neuron specific enolase and weakly positive for chromogranin A. Also negative for CD 56. And Ki-67 proliferative index is less than 1%, consistent with carcinoid Octreotide scan done on 10/08/2019 showed positive for uptake in mesenteric mass. Additional foci of increase uptake are probably metastatic deposit in the right axilla, right paraspinal, just above diaphragm and left lower thorax, just above spleen. There may be a metastatic lesion in the lungs are lymph nodes. Chronic diarrhea for the last 7-8 years, probably due to carcinoid started on Sandostatin LAR 30 every month on 12/06/2019 Clinically, patient is doing well with no new signs symptoms, tolerating Sandostatin LAR well, with good control over his diarrhea e.g. 1-2 loose bowel movement in a day but his follow-up CMP shows progressive abnormal LFTs, patient has history of fatty liver his LFTs improved with weight loss due to chronic diarrhea, now with no significant weight change in the last few month but now with progressive abnormal LFTs which could be due to Sandostatin LAR although a rare toxicity. At this point, we will hold his Sandostatin therapy and he will return to clinic in 1 month with CBC and CMP and if LFTs improved, then plan may consider reduced dose Sandostatin e.g. 20 mg otherwise we will consider CT scan or MRI scan of the liver. Sandostatin was restarted, patient continued to have chronic diarrhea and follow-up labs including serotonin and chromogranin A levels were checked on December 11, 2020 and both were elevated, shortening was 1147 compared to 828 previously and chromogranin A was 227 compared to 185 previously, he was decided to increase his Sandostatin LAR dose to 30 mg and then monitor him with biochemical testing as well as symptom severino, if there is no improvement, may consider adding everolimus Plan: Discussed with patient regarding his labs white blood count 6.4 hemoglobin 13.7 hematocrit 42.7 platelets 137,000 and serotonin level 1147 compared to 828 on November 04, 2020 and chromogranin A 227 compared to 185 previously Clinically, patient doing reasonably well with persistent diarrhea but no other signs symptom like bronchial wheezing or facial flushing or abdominal pain and his follow-up lab work-up including serotonin/chromogranin A shows further progression, at this point will increase his Sandostatin LAR dose to 30 mg monthly, if his symptoms especially diarrhea do not resolve or his serotonin/chromogranin A level continues to go up, then will consider octreotide scan to check disease status and may consider adding everolimus to Sandostatin for better disease control. Proceed with Sandostatin LAR 20 mg today and then will obtain approval from his insurance and next time We will increase dose to Sandostatin LAR 30 mg monthly Signed By: Brianna Amos M.D. <<Signature on File>>
[2021-01-17 17:18] LABS: Serotonin Whole Blood 883 ng/mL (56-244)
[2021-01-21 12:47] LABS: Chromogranin A LC/MS/MS 1454 ng/mL (ADULTS: <311)
== END 2021-01-13 10:48 | disposition home or self-care (01) ==
PROVIDERS: PCP Family Medicine; Visit Provider Internal Medicine Hematology & Oncology
DX: C7A.019 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, unspecified portion (principal); C7B.04 Secondary carcinoid tumors of peritoneum; C7B.01 Secondary carcinoid tumors of distant lymph nodes; C7B.09 Secondary carcinoid tumors of other sites; K52.9 Noninfective gastroenteritis and colitis, unspecified; Z79.818 Long term (current) use of other agents affecting estrogen receptors and estrogen levels
CPT/HCPCS: 36415; 80053; 84260; 85025; 86316; 96372; 99215; J2353

== ENCOUNTER 2021-02-17 07:59 | Outpatient (CLI) | payer OTHER, MEDICARE, SELFPAY ==
[2021-02-17 08:39] LABS: Basophils % 0.8 %; Eosinophils # 0.1 10^3/uL (0.0-0.8); Eosinophils % 2.5 %; Hematocrit 42.9 % (42.0-52.0); Hemoglobin 13.9 g/dL (11.7-16.6); Lymphocytes # 2.2 10^3/uL (0.8-4.8); Lymphocytes % 41.3 %; Mean Corpuscular HGB Conc 32.4 g/dL (30.0-36.0); Mean Corpuscular Hemoglobin 26.8 pg (28.0-34.0); Mean Corpuscular Volume 82.7 fL (80-94); Mean Platelet Volume 13.4 fL (7.4-10.4); Monocytes # 0.4 10^3/uL (0.2-0.9); Monocytes % 7.4 %; Neutrophils # 2.53 10^3/uL (1.8-7.7); Neutrophils % 47.8 %; Nucleated Red Blood Cells % 0 %; Platelet Count 128 10^3/cmm (130-400); Red Blood Count 5.19 10^6/uL (4.1-5.3); Red Cell Distribution Width 14.5 % (12.1-15.1); White Blood Count 5.3 10^3/uL (4.0-10.0)
[2021-02-17 09:03] LABS: Alanine Aminotransferase 33 U/L (0-41); Albumin Level 4.7 g/dL (3.5-5.2); Alkaline Phosphatase 93 IU/L (40-130); Anion Gap 16.2 (5-19); Aspartate Amino Transferase 23 U/L (0-40); Blood Urea Nitrogen 8 mg/dL (8-23); Calcium 9.2 mg/dL (8.5-10.5); Carbon Dioxide 24 mmol/L (22-29); Chloride 104 mmol/L (98-107); Globulin 2.2 g/dL (1.3-4.6); Glomerular Filtration Rate 95.6 mL/min (90-130); Glucose 104 mg/dL (65-115); Osmolality Calculated 289 mOsm/kg (285-295); Potassium 4.2 mmol/L (3.5-5.1); Sodium 140 mmol/L (136-145); Total Bilirubin 0.7 mg/dL (0.15-1.2); Total Protein 6.9 g/dL (6.6-8.7)
[2021-02-17 09:07] LABS: Slide Review Slide Review Perform
[2021-02-17] MEDS: octreotide LAR depot 20 mg Kit IM (11:00)
--- NOTE | 2021-02-24 08:53 | ONC FU_ITS ---
Dr. Amos follow up note Patient: Manuel Rodriguez Unit #: [id number]: 1950 Dicatated By: Brianna Amos M.D.Date of Visit:Feb 17, 2021 Onc Med Follow-up/Prog Note History of Present Illness: Mr. Rodriguez is a 70 -year-old gentleman with history of chronic diarrhea for the last 7-8 years, as per patient about 8 years ago he underwent gallbladder surgery and subsequently developed diarrhea initially he thought he was due to gallbladder surgery but diarrhea persisted, it was watery, 5-6 times a day, no mucus or blood seen . Patient said he got used to chronic diarrhea until in June 2019 when he started having progressive abdominal pain at that time he told his primary care physician at [facility] about chronic diarrhea and now progressive abdominal pain and CT scan of abdomen was ordered which showed mesenteric mass and was referred to Dr. carter. 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 Additional foci of increase uptake are probably metastatic deposit in the right axilla, right paraspinal, just above the diaphragm and left lower thorax just above the spleen. There may be metastatic lesions in the lungs or lymph nodes. Patient underwent exploration on 11/06/2019 and Bartolo-Cut needle biopsy of mesenteric mass showed no tumor seen and small bowel excision showed benign small bowel segment with no dysplasia or malignancy but bowel resection showed well-differentiated neuroendocrine tumor (carcinoid), tumor extends through muscularis propria with extensive involvement of mesenteric fat. Focal perineural invasion identified. Single discontinuous carcinoid tumor nodule formed and mesenteric fat. Lab workup done on 11/20/2019 showed gastrin level 103 normal being less than 100, chromogranin A level 804, normal being 25-140 24-hour urine HIAA, 43, normal being less than 6. Patient denies any bronchial wheezing but one episode of facial flushing in the past. Denies smoking or alcohol use,But history of fatty liver with abnormal LFTs in the past Mr Rodriguez started on Sandostatin LAR 30 mg every month, on 12/06/2019, Dose was reduced to 20 mg every month on June 23, 2020 because of elevated transaminases And follow-up labs done on July 28, 2020 showed worsening of transaminases ALT 61 AST 44 compared to on June 20, 2020. And is scheduled dose of Sandostatin LAR 20 was due on July 28, 2020 but was held and follow-up labs done on August 28, 2020 shows normalization of AST and improvement in ALT. Sandostatin LAR 20 was restarted on August 28, 2020 because of worsening of diarrhea. Follow-up CT scan of abdomen done on June 16, 2020 showed fatty infiltration of liver but no dilated intrahepatic ducts or masses seen. No change in 4.8 cm central abdominal mass. Came for follow-up, denies any specific complaint except off and on mild diarrhea 3-4 times a day. No abdominal pain, no facial flushing, no bronchial wheezing, no skin rash, no jaundice, no fever or chills, no nausea or vomiting, tolerating monthly Sandostatin well otherwise Medications: amLODIPine Besylate 1 Tablet (of 10 mg) Oral daily, Atenolol 0.5 Tablet (of 25 mg) Oral daily, Cholecalciferol 1 Tablet (of 1000 mg) Oral daily, Clopidogrel Bisulfate 1 Tablet (of 75 mg) Oral daily, Eliquis 1 Tablet (of 5 mg) Oral b.i.d., Fish Oil 1 Capsule (of 2000 mg) Oral daily, Garlic 1 Capsule (of 1000 mg) Oral daily, Gemfibrozil (600 mg) Tablet Oral b.i.d., Lisinopril 1 Tablet (of 20 mg) Oral daily, PX Omeprazole 1 Tablet (of 20 mg) Tablet, enteric coated Oral daily, Tamsulosin HCl (0.4 mg) Capsule Oral daily Allergies: Statins Review of Systems: Review of Systems is not available for this patient. Vital Signs: Performed on Feb 17, 2021 12:42 Height - 72.00 in Weight - 190.4 lbs (LOW) BSA - 2.09 sq.m BMI - 25.82 Temperature - 97.3 F (LOW) Pulse - 50 /min (LOW) Respiration - 18 /min BP - 111/69 mm(hg) O2 Sat - 96 % Pain - 0 Fatigue - 0 Performance Status: 0 - Fully active, able to carry on all predisease activities without restrictions. (ECOG) Physical Examination: ENMT - No mouth sores, no thrush, no jaundice, Respiratory - Lungs are clear to auscultation, Cardiovascular - Regular rate and rhythm of heart, Abdomen - Soft, bowel sounds present, Extremities - No visible edema or rash. Lab/Imaging: Test performed on Dec 11, 2020 11:50 Serotonin, Serum 1147 ng/mL Chromogranin A 227 ng/mL Test performed on Dec 11, 2020 09:00 Sodium 138 mmol/L Potassium 3.9 mmol/L Chloride 102 mmol/L CO2 27 mmol/L Anion Gap 12.9 BUN 11 mg/dL Creatinine 0.7 mg/dL Cr Clearance (Est) 124.11 mL/min eGFR 111.5 mL/min Glucose 115 mg/dL Osmolality - Calculated 286 mOsm/kg Calcium 9.4 mg/dL Protein, Total 7.2 g/dL Albumin 4.6 g/dL Globulin 2.6 g/dL Bilirubin, Total 0.8 mg/dL ALT (SGPT) 42 U/L AST (SGOT) 33 U/L Alkaline Phosphatase 86 IU/L Test performed on Oct 01, 2020 12:25 WBC 5.8 10 3/uL RBC 5.31 10 6/uL HGB 13.8 g/dL HCT 43.4 % MCV 81.7 fL MCH 26.0 pg MCHC 31.8 g/dL RDW 14.4 % Platelet Count 125 10 3/cmm MPV 12.9 fL Neutrophils 2.88 10 3/uL Lymphocytes 2.4 10 3/uL Monocytes 0.4 10 3/uL Eosinophils 0.1 10 3/uL Basophils 0.0 10 3/uL Neutrophil % 49.5 % Lymphocyte % 41.0 % Monocyte % 6.2 % Eosinophil % 2.4 % Basophils % 0.7 % NRBC % 0 % Impression: 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 Gastrin level 103 , normal being less than 100. Final pathology report showed well-differentiated neuroendocrine tumor, carcinoid, tumor extends to the muscularis propria with extensive involvement of mesenteric fat. Focal perineural invasion identified. Single discontinue his carcinoid tumor and nodule found in the mesenteric fat. Tumor cell are strongly and diffusely positive for synaptophysin and neuron specific enolase and weakly positive for chromogranin A. Also negative for CD 56. And Ki-67 proliferative index is less than 1%, consistent with carcinoid Octreotide scan done on 10/08/2019 showed positive for uptake in mesenteric mass. Additional foci of increase uptake are probably metastatic deposit in the right axilla, right paraspinal, just above diaphragm and left lower thorax, just above spleen. There may be a metastatic lesion in the lungs are lymph nodes. Chronic diarrhea for the last 7-8 years, probably due to carcinoid started on Sandostatin LAR 30 every month on 12/06/2019 Clinically, patient is doing well with no new signs symptoms, tolerating Sandostatin LAR well, with good control over his diarrhea e.g. 1-2 loose bowel movement in a day but his follow-up CMP shows progressive abnormal LFTs, patient has history of fatty liver his LFTs improved with weight loss due to chronic diarrhea, now with no significant weight change in the last few month but now with progressive abnormal LFTs which could be due to Sandostatin LAR although a rare toxicity. At this point, we will hold his Sandostatin therapy and he will return to clinic in 1 month with CBC and CMP and if LFTs improved, then plan may consider reduced dose Sandostatin e.g. 20 mg otherwise we will consider CT scan or MRI scan of the liver. Sandostatin was restarted, patient continued to have chronic diarrhea and follow-up labs including serotonin and chromogranin A levels were checked on December 11, 2020 and both were elevated, shortening was 1147 compared to 828 previously and chromogranin A was 227 compared to 185 previously, he was decided to increase his Sandostatin LAR dose to 30 mg and then monitor him with biochemical testing as well as symptom severino, if there is no improvement, may consider adding everolimus Plan: Discussed with patient regarding his labs white blood count five-point hemoglobin 13.9 hematocrit 42.9 platelets 128,000 CMP within normal limits,, serotonin level checked on January 13, 2021 was 883, chromogranin A level 1454. Clinically, patient is doing reasonably well, tolerating monthly Sandostatin well, diarrhea is reasonably controlled now 3-4 times a day, no other associated symptoms. His follow-up labs shows persistent mild thrombocytopenia but normal hemoglobin and white blood cells. Serotonin level came down to 883 compared to 1147 on December 11, 2020 with monthly dose of Sandostatin LAR 20 mg but chromogranin A level has gone up to 1454 compared to 227 on December 11, 2020 but as per patient he has been consuming chocolate and beets, there is a possibility increasing chromogranin A level could be due to his diet. We will repeat his serotonin level and chromogranin A level, patient was advised to avoid certain food which can influence serotonin/chromogranin A levels, will request nursing teaching. And then patient return to clinic in 1 month with CBC CMP and a follow-up lab work-up shows no improvement in chromogranin A level or certain level, may increase Sandostatin LAR dose to 30 mg every month and may also consider octreotide scan to assess disease status. As with mild thrombocytopenia is concerned, etiology unclear, will continue monitor and if there is a progression, may consider intervention Signed By: Brianna Amos M.D. <<Signature on File>>
== END 2021-02-17 08:00 | disposition home or self-care (01) ==
LOC: ONCMED 08:01
PROVIDERS: PCP Family Medicine; Visit Provider Internal Medicine Hematology & Oncology
DX: C7A.019 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, unspecified portion (principal); C7A.8 Other malignant neuroendocrine tumors; K52.9 Noninfective gastroenteritis and colitis, unspecified; Z79.818 Long term (current) use of other agents affecting estrogen receptors and estrogen levels
CPT/HCPCS: 36415; 80053; 85025; 96372; 99215; J2353

== ENCOUNTER 2021-03-09 08:40 | Outpatient (CLI) | payer OTHER, MEDICARE, SELFPAY ==
[2021-03-13 16:57] LABS: Gastrin <15 pg/mL (< OR = 100)
[2021-03-14 17:31] LABS: Serotonin Whole Blood 1512 ng/mL (56-244)
[2021-03-19 09:22] LABS: Chromogranin A LC/MS/MS 1104 ng/mL (ADULTS: <311)
== END 2021-03-09 08:41 | disposition home or self-care (01) ==
LOC: ONCMED 08:41
PROVIDERS: PCP Family Medicine; Visit Provider Internal Medicine Hematology & Oncology
DX: C7A.8 Other malignant neuroendocrine tumors (principal)
CPT/HCPCS: 36415; 82941; 84260; 86316

== ENCOUNTER 2021-03-26 10:15 | Outpatient (CLI) | payer OTHER, MEDICARE, SELFPAY ==
[2021-03-26] MEDS: octreotide LAR depot 30 mg Kit IM (11:45)
--- NOTE | 2021-03-26 16:24 | ONC FU_ITS ---
Dr. Amos follow up note Patient: Manuel Rodriguez Unit #: [id number]: 1950 Dicatated By: Brianna Amos M.D.Date of Visit:Mar 26, 2021 Onc Med Follow-up/Prog Note History of Present Illness: Mr. Rodriguez is a 70 -year-old gentleman with history of chronic diarrhea for the last 7-8 years, as per patient about 8 years ago he underwent gallbladder surgery and subsequently developed diarrhea initially he thought he was due to gallbladder surgery but diarrhea persisted, it was watery, 5-6 times a day, no mucus or blood seen . Patient said he got used to chronic diarrhea until in June 2019 when he started having progressive abdominal pain at that time he told his primary care physician at [facility] about chronic diarrhea and now progressive abdominal pain and CT scan of abdomen was ordered which showed mesenteric mass and was referred to Dr. carter. 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 Additional foci of increase uptake are probably metastatic deposit in the right axilla, right paraspinal, just above the diaphragm and left lower thorax just above the spleen. There may be metastatic lesions in the lungs or lymph nodes. Patient underwent exploration on 11/06/2019 and Bartolo-Cut needle biopsy of mesenteric mass showed no tumor seen and small bowel excision showed benign small bowel segment with no dysplasia or malignancy but bowel resection showed well-differentiated neuroendocrine tumor (carcinoid), tumor extends through muscularis propria with extensive involvement of mesenteric fat. Focal perineural invasion identified. Single discontinuous carcinoid tumor nodule formed and mesenteric fat. Lab workup done on 11/20/2019 showed gastrin level 103 normal being less than 100, chromogranin A level 804, normal being 25-140 24-hour urine HIAA, 43, normal being less than 6. Patient denies any bronchial wheezing but one episode of facial flushing in the past. Denies smoking or alcohol use,But history of fatty liver with abnormal LFTs in the past Mr Rodriguez started on Sandostatin LAR 30 mg every month, on 12/06/2019, Dose was reduced to 20 mg every month on June 23, 2020 because of elevated transaminases And follow-up labs done on July 28, 2020 showed worsening of transaminases ALT 61 AST 44 compared to on June 20, 2020. And is scheduled dose of Sandostatin LAR 20 was due on July 28, 2020 but was held and follow-up labs done on August 28, 2020 shows normalization of AST and improvement in ALT. Sandostatin LAR 20 was restarted on August 28, 2020 because of worsening of diarrhea. Follow-up CT scan of abdomen done on June 16, 2020 showed fatty infiltration of liver but no dilated intrahepatic ducts or masses seen. No change in 4.8 cm central abdominal mass. Came for follow-up, denies any specific complaint except progressive diarrhea, now 6-8 times a day but no mucus no blood in the stool, no abdominal pain, no shortness of breath or wheezing, no facial flushing, no skin rash. No headaches vision or double vision, tolerating Sandostatin LAR 20 mg daily well otherwise Medications: amLODIPine Besylate 1 Tablet (of 10 mg) Oral daily, Atenolol 0.5 Tablet (of 25 mg) Oral daily, Cholecalciferol 1 Tablet (of 1000 mg) Oral daily, Clopidogrel Bisulfate 1 Tablet (of 75 mg) Oral daily, Eliquis 1 Tablet (of 5 mg) Oral b.i.d., Fish Oil 1 Capsule (of 2000 mg) Oral daily, Garlic 1 Capsule (of 1000 mg) Oral daily, Gemfibrozil (600 mg) Tablet Oral b.i.d., Lisinopril 1 Tablet (of 20 mg) Oral daily, PX Omeprazole 1 Tablet (of 20 mg) Tablet, enteric coated Oral daily, Tamsulosin HCl (0.4 mg) Capsule Oral daily Allergies: Statins Review of Systems: Review of Systems is not available for this patient. Vital Signs: Performed on Mar 26, 2021 11:20 Height - 72.00 in Weight - 185 lbs (LOW) BSA - 2.06 sq.m BMI - 25.09 Temperature - 97.9 F (LOW) Pulse - 57 /min (LOW) Respiration - 18 /min BP - 154/77 mm(hg) (HIGH) O2 Sat - 98 % Pain - 0 Fatigue - 5 Performance Status: 0 - Fully active, able to carry on all predisease activities without restrictions. (ECOG) Physical Examination: ENMT - No mouth sores, no thrush, no jaundice, Respiratory - Lungs are clear to auscultation, Cardiovascular - Regular rate and rhythm of heart, Abdomen - Soft, bowel sounds present, Extremities - No visible edema. Lab/Imaging: Test performed on Dec 11, 2020 11:50 Serotonin, Serum 1147 ng/mL Chromogranin A 227 ng/mL Test performed on Dec 11, 2020 09:00 Sodium 138 mmol/L Potassium 3.9 mmol/L Chloride 102 mmol/L CO2 27 mmol/L Anion Gap 12.9 BUN 11 mg/dL Creatinine 0.7 mg/dL Cr Clearance (Est) 124.11 mL/min eGFR 111.5 mL/min Glucose 115 mg/dL Osmolality - Calculated 286 mOsm/kg Calcium 9.4 mg/dL Protein, Total 7.2 g/dL Albumin 4.6 g/dL Globulin 2.6 g/dL Bilirubin, Total 0.8 mg/dL ALT (SGPT) 42 U/L AST (SGOT) 33 U/L Alkaline Phosphatase 86 IU/L Test performed on Oct 01, 2020 12:25 WBC 5.8 10 3/uL RBC 5.31 10 6/uL HGB 13.8 g/dL HCT 43.4 % MCV 81.7 fL MCH 26.0 pg MCHC 31.8 g/dL RDW 14.4 % Platelet Count 125 10 3/cmm MPV 12.9 fL Neutrophils 2.88 10 3/uL Lymphocytes 2.4 10 3/uL Monocytes 0.4 10 3/uL Eosinophils 0.1 10 3/uL Basophils 0.0 10 3/uL Neutrophil % 49.5 % Lymphocyte % 41.0 % Monocyte % 6.2 % Eosinophil % 2.4 % Basophils % 0.7 % NRBC % 0 % Impression: 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 Gastrin level 103 , normal being less than 100. Final pathology report showed well-differentiated neuroendocrine tumor, carcinoid, tumor extends to the muscularis propria with extensive involvement of mesenteric fat. Focal perineural invasion identified. Single discontinue his carcinoid tumor and nodule found in the mesenteric fat. Tumor cell are strongly and diffusely positive for synaptophysin and neuron specific enolase and weakly positive for chromogranin A. Also negative for CD 56. And Ki-67 proliferative index is less than 1%, consistent with carcinoid Octreotide scan done on 10/08/2019 showed positive for uptake in mesenteric mass. Additional foci of increase uptake are probably metastatic deposit in the right axilla, right paraspinal, just above diaphragm and left lower thorax, just above spleen. There may be a metastatic lesion in the lungs are lymph nodes. Chronic diarrhea for the last 7-8 years, probably due to carcinoid started on Sandostatin LAR 30 every month on 12/06/2019 Clinically, patient is doing well with no new signs symptoms, tolerating Sandostatin LAR well, with good control over his diarrhea e.g. 1-2 loose bowel movement in a day but his follow-up CMP shows progressive abnormal LFTs, patient has history of fatty liver his LFTs improved with weight loss due to chronic diarrhea, now with no significant weight change in the last few month but now with progressive abnormal LFTs which could be due to Sandostatin LAR although a rare toxicity. At this point, we will hold his Sandostatin therapy and he will return to clinic in 1 month with CBC and CMP and if LFTs improved, then plan may consider reduced dose Sandostatin e.g. 20 mg otherwise we will consider CT scan or MRI scan of the liver. Sandostatin was restarted, patient continued to have chronic diarrhea and follow-up labs including serotonin and chromogranin A levels were checked on December 11, 2020 and both were elevated, shortening was 1147 compared to 828 previously and chromogranin A was 227 compared to 185 previously, he was decided to increase his Sandostatin LAR dose to 30 mg and then monitor him with biochemical testing as well as symptom severino, if there is no improvement, may consider adding everolimus Plan: Discussed with patient regarding his labs including chromogranin A level which is 1104 compared to 227 on December 11, 2020, serotonin 1512 compared to 883 on January 13, 2021, gastrin less than 15 Clinically, patient doing reasonably well now with progressive symptoms like persistent but progressive diarrhea despite of Sandostatin LAR initially it was better controlled, now his lab work-up shows increasing chromogranin A level/serotonin level and with progressive diarrhea is concerned for disease progression, at this point we will consider decreasing Sandostatin LAR dose to 30 mg from 20 mg every month and monitor if there is a improvement in his symptoms and biochemical profile then will continue with Sandostatin LAR 30 mg every month on the other hand if he has persistent symptoms and further increasing chromogranin A/serotonin level, will consider octreotide scan. Signed By: Brianna Amos M.D. <<Signature on File>>
== END 2021-03-26 10:16 | disposition home or self-care (01) ==
LOC: ONCMED 10:17
PROVIDERS: PCP Family Medicine; Visit Provider Internal Medicine Hematology & Oncology
DX: C7A.019 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, unspecified portion (principal); C7B.01 Secondary carcinoid tumors of distant lymph nodes; C7B.04 Secondary carcinoid tumors of peritoneum; C7B.09 Secondary carcinoid tumors of other sites; K52.9 Noninfective gastroenteritis and colitis, unspecified; Z79.899 Other long term (current) drug therapy; Z92.21 Personal history of antineoplastic chemotherapy
CPT/HCPCS: 96372; 99215; J2353

== ENCOUNTER 2021-04-21 09:42 | Outpatient (CLI) | payer OTHER, MEDICARE, SELFPAY ==
[2021-04-21 10:09] LABS: Basophils # 0.1 10^3/uL (0.0-0.1); Basophils % 0.8 %; Eosinophils # 0.2 10^3/uL (0.0-0.8); Hematocrit 40.7 % (42.0-52.0); Hemoglobin 13.1 g/dL (11.7-16.6); Lymphocytes # 1.9 10^3/uL (0.8-4.8); Lymphocytes % 30.3 %; Mean Corpuscular HGB Conc 32.2 g/dL (30.0-36.0); Mean Corpuscular Hemoglobin 26.6 pg (28.0-34.0); Mean Corpuscular Volume 82.7 fL (80-94); Mean Platelet Volume 13.1 fL (7.4-10.4); Monocytes # 0.6 10^3/uL (0.2-0.9); Monocytes % 9.3 %; Neutrophils # 3.51 10^3/uL (1.8-7.7); Neutrophils % 56.3 %; Nucleated Red Blood Cells % 0 %; Platelet Count 127 10^3/cmm (130-400); Red Blood Count 4.92 10^6/uL (4.1-5.3); Red Cell Distribution Width 14.6 % (12.1-15.1); White Blood Count 6.2 10^3/uL (4.0-10.0)
[2021-04-21 10:40] LABS: Alanine Aminotransferase 20 U/L (0-41); Albumin Level 4.2 g/dL (3.5-5.2); Alkaline Phosphatase 139 IU/L (40-130); Anion Gap 14.9 (5-19); Aspartate Amino Transferase 22 U/L (0-40); Blood Urea Nitrogen 7 mg/dL (8-23); Calcium 9.1 mg/dL (8.5-10.5); Carbon Dioxide 23 mmol/L (22-29); Chloride 105 mmol/L (98-107); Globulin 2.6 g/dL (1.3-4.6); Glomerular Filtration Rate 111.5 mL/min (90-130); Glucose 130 mg/dL (65-115); Osmolality Calculated 288 mOsm/kg (285-295); Potassium 3.9 mmol/L (3.5-5.1); Sodium 139 mmol/L (136-145); Total Bilirubin 0.4 mg/dL (0.15-1.2); Total Protein 6.8 g/dL (6.6-8.7)
[2021-04-21 10:47] LABS: Slide Review Slide Review Perform
== END 2021-04-21 09:43 | disposition home or self-care (01) ==
LOC: ONCMED 09:43
PROVIDERS: PCP Family Medicine; Visit Provider Internal Medicine Hematology & Oncology
DX: C7A.8 Other malignant neuroendocrine tumors (principal)
CPT/HCPCS: 36415; 80053; 85025

== ENCOUNTER 2021-04-27 09:20 | Outpatient (CLI) | payer OTHER, MEDICARE, SELFPAY ==
--- NOTE | 2021-04-27 09:39 | US_ITS ---
WS: [id number] RIGHT UPPER QUADRANT ULTRASOUND HISTORY: ELEVATED LIVER ENZYMES COMPARISON: None available. Liver: 13.9 cm in length. Normal size liver. Very vague solid nodules with hypoechoic rims noted with in the LEFT lobe of the liver. The largest measures 2.2 x 2.7 x 2.5 cm. These may represent early met astatic lesions. No bile duct dilatation. Gallbladder: Status post cholecystectomy. CBD: 0.4 cm Pancreas: Body is normal. Head and tail are obscured by bowel gas. Right kidney: 9.7 cm in length. Normal size and echogenicity. No hydronephrosis or mass. Aorta and IVC: Unremarkable abdominal aorta and IVC. No ascites. US/US abdomen limited [id number] IMPRESSION: 1. Prior cholecystectomy. 2. Isoechoic lesions in the LEFT lobe of liver with hypoechoic rims need furth er evaluation. These were not definitely seen on prior CT of 06/16/2020. Recomme nd follow-up three-phase liver CT for further evaluation and exclude malignancy or benign lesions.
== END 2021-04-27 09:21 | disposition home or self-care (01) ==
PROVIDERS: PCP Family Medicine; Visit Provider Family Medicine
DX: R94.5 Abnormal results of liver function studies (principal); Z90.49 Acquired absence of other specified parts of digestive tract; K76.9 Liver disease, unspecified
CPT/HCPCS: 76705

== ENCOUNTER 2021-04-28 05:46 | Outpatient (CLI) | payer OTHER, MEDICARE, SELFPAY ==
[2021-04-28] MEDS: octreotide LAR depot 30 mg Kit IM (14:15)
--- NOTE | 2021-04-28 17:13 | ONC FU_ITS ---
Dr. Amos follow up note Patient: Manuel Rodriguez Unit #: [id number]: 1950 Dicatated By: Brianna Amos M.D.Date of Visit:Apr 28, 2021 Onc Med Follow-up/Prog Note History of Present Illness: Mr. Rodriguez is a 70 -year-old gentleman with history of chronic diarrhea for the last 7-8 years, as per patient about 8 years ago he underwent gallbladder surgery and subsequently developed diarrhea initially he thought he was due to gallbladder surgery but diarrhea persisted, it was watery, 5-6 times a day, no mucus or blood seen . Patient said he got used to chronic diarrhea until in June 2019 when he started having progressive abdominal pain at that time he told his primary care physician at [facility] about chronic diarrhea and now progressive abdominal pain and CT scan of abdomen was ordered which showed mesenteric mass and was referred to Dr. carter. 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 Additional foci of increase uptake are probably metastatic deposit in the right axilla, right paraspinal, just above the diaphragm and left lower thorax just above the spleen. There may be metastatic lesions in the lungs or lymph nodes. Patient underwent exploration on 11/06/2019 and Bartolo-Cut needle biopsy of mesenteric mass showed no tumor seen and small bowel excision showed benign small bowel segment with no dysplasia or malignancy but bowel resection showed well-differentiated neuroendocrine tumor (carcinoid), tumor extends through muscularis propria with extensive involvement of mesenteric fat. Focal perineural invasion identified. Single discontinuous carcinoid tumor nodule formed and mesenteric fat. Lab workup done on 11/20/2019 showed gastrin level 103 normal being less than 100, chromogranin A level 804, normal being 25-140 24-hour urine HIAA, 43, normal being less than 6. Patient denies any bronchial wheezing but one episode of facial flushing in the past. Denies smoking or alcohol use,But history of fatty liver with abnormal LFTs in the past Mr Rodriguez started on Sandostatin LAR 30 mg every month, on 12/06/2019, Dose was reduced to 20 mg every month on June 23, 2020 because of elevated transaminases And follow-up labs done on July 28, 2020 showed worsening of transaminases ALT 61 AST 44 compared to on June 20, 2020. And is scheduled dose of Sandostatin LAR 20 was due on July 28, 2020 but was held and follow-up labs done on August 28, 2020 shows normalization of AST and improvement in ALT. Sandostatin LAR 20 was restarted on August 28, 2020 because of worsening of diarrhea. Follow-up CT scan of abdomen done on June 16, 2020 showed fatty infiltration of liver but no dilated intrahepatic ducts or masses seen. No change in 4.8 cm central abdominal mass. Came for follow-up, denies any specific complaint except persistent diarrhea now about 6-7 watery stools per day but no mucus, no melena or hematochezia, no abdominal pain, no jaundice, no fever chills, no shortness of breath, no wheezing, no skin rash, tolerating Sandostatin well otherwise, as per patient he had right upper quadrant sonogram done recently, ordered by his PMD at [facility] Medications: amLODIPine Besylate 1 Tablet (of 10 mg) Oral daily, Atenolol 0.5 Tablet (of 25 mg) Oral daily, Cholecalciferol 1 Tablet (of 1000 mg) Oral daily, Clopidogrel Bisulfate 1 Tablet (of 75 mg) Oral daily, Eliquis 1 Tablet (of 5 mg) Oral b.i.d., Fish Oil 1 Capsule (of 2000 mg) Oral daily, Garlic 1 Capsule (of 1000 mg) Oral daily, Gemfibrozil (600 mg) Tablet Oral b.i.d., Lisinopril 1 Tablet (of 20 mg) Oral daily, PX Omeprazole 1 Tablet (of 20 mg) Tablet, enteric coated Oral daily, Tamsulosin HCl (0.4 mg) Capsule Oral daily Allergies: Statins Review of Systems: Review of Systems is not available for this patient. Vital Signs: Performed on Apr 28, 2021 13:30 Height - 72.00 in Weight - 179.8 lbs (LOW) BSA - 2.04 sq.m BMI - 24.39 Temperature - 98.3 F (LOW) Pulse - 71 /min Respiration - 17 /min BP - 123/78 mm(hg) O2 Sat - 98 % Pain - 0 Performance Status: 0 - Fully active, able to carry on all predisease activities without restrictions. (ECOG) Physical Examination: ENMT - No mouth sores, no thrush, no jaundice, Respiratory - Lungs are clear to auscultation, Cardiovascular - Regular rate and rhythm of heart, Abdomen - Soft, bowel sounds present, Extremities - No visible edema. 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 Gastrin level 103 , normal being less than 100. Final pathology report showed well-differentiated neuroendocrine tumor, carcinoid, tumor extends to the muscularis propria with extensive involvement of mesenteric fat. Focal perineural invasion identified. Single discontinue his carcinoid tumor and nodule found in the mesenteric fat. Tumor cell are strongly and diffusely positive for synaptophysin and neuron specific enolase and weakly positive for chromogranin A. Also negative for CD 56. And Ki-67 proliferative index is less than 1%, consistent with carcinoid Octreotide scan done on 10/08/2019 showed positive for uptake in mesenteric mass. Additional foci of increase uptake are probably metastatic deposit in the right axilla, right paraspinal, just above diaphragm and left lower thorax, just above spleen. There may be a metastatic lesion in the lungs are lymph nodes. Chronic diarrhea for the last 7-8 years, probably due to carcinoid started on Sandostatin LAR 30 every month on 12/06/2019 Clinically, patient is doing well with no new signs symptoms, tolerating Sandostatin LAR well, with good control over his diarrhea e.g. 1-2 loose bowel movement in a day but his follow-up CMP shows progressive abnormal LFTs, patient has history of fatty liver his LFTs improved with weight loss due to chronic diarrhea, now with no significant weight change in the last few month but now with progressive abnormal LFTs which could be due to Sandostatin LAR although a rare toxicity. At this point, we will hold his Sandostatin therapy and he will return to clinic in 1 month with CBC and CMP and if LFTs improved, then plan may consider reduced dose Sandostatin e.g. 20 mg otherwise we will consider CT scan or MRI scan of the liver. Sandostatin was restarted, patient continued to have chronic diarrhea and follow-up labs including serotonin and chromogranin A levels were checked on December 11, 2020 and both were elevated, shortening was 1147 compared to 828 previously and chromogranin A was 227 compared to 185 previously, he was decided to increase his Sandostatin LAR dose to 30 mg and then monitor him with biochemical testing as well as symptom severino, if there is no improvement, may consider adding everolimus Plan: Discussed with patient regarding his labs white blood count 6.1 hemoglobin 13.1 hematocrit 40.7 platelets 127,000 CMP within normal limits, including his transaminases level alkaline phosphatase 139, Clinically, patient doing well, with no new signs symptom suggestive of disease progression but persistent diarrhea, which could be due to metabolically active carcinoid or disease progression, at this point, will proceed with his next monthly dose of Sandostatin LAR 30 mg and then also consider Imodium 1 tablet twice a day and then adjust to reduce bowel movement to 1-2 a day. And if there is no improvement with continue Sandostatin and now addition of Imodium, then will consider octreotide scan to rule out disease progression causing this persistent/progressive diarrhea., Despite of his diarrhea his electrolytes especially potassium is within normal range, will continue to monitor Patient will return to clinic in 1 month with CBC CMP Signed By: Brianna Amos M.D. <<Signature on File>>
== END 2021-04-28 05:47 | disposition home or self-care (01) ==
LOC: ONCMED 05:48
PROVIDERS: PCP Family Medicine; Visit Provider Internal Medicine Hematology & Oncology
DX: C7A.012 Malignant carcinoid tumor of the ileum (principal); C7B.01 Secondary carcinoid tumors of distant lymph nodes; C7B.04 Secondary carcinoid tumors of peritoneum; C7B.09 Secondary carcinoid tumors of other sites; K52.9 Noninfective gastroenteritis and colitis, unspecified; Z79.899 Other long term (current) drug therapy
CPT/HCPCS: 96372; 99215; J2353

== ENCOUNTER 2021-05-29 09:41 | Outpatient (CLI) | payer OTHER, MEDICARE, SELFPAY ==
[2021-05-29 10:38] LABS: Basophils % 0.5 %; Eosinophils # 0.2 10^3/uL (0.0-0.8); Eosinophils % 3.6 %; Hematocrit 40.6 % (42.0-52.0); Hemoglobin 13.1 g/dL (11.7-16.6); Lymphocytes # 1.9 10^3/uL (0.8-4.8); Mean Corpuscular HGB Conc 32.3 g/dL (30.0-36.0); Mean Corpuscular Hemoglobin 26.8 pg (28.0-34.0); Mean Platelet Volume 13.8 fL (7.4-10.4); Monocytes # 0.5 10^3/uL (0.2-0.9); Monocytes % 6.8 %; Neutrophils # 3.98 10^3/uL (1.8-7.7); Neutrophils % 59.9 %; Nucleated Red Blood Cells % 0 %; Platelet Count 123 10^3/cmm (130-400); Red Blood Count 4.89 10^6/uL (4.1-5.3); Red Cell Distribution Width 14.7 % (12.1-15.1); White Blood Count 6.6 10^3/uL (4.0-10.0)
[2021-05-29 10:55] LABS: Alanine Aminotransferase 38 U/L (0-41); Albumin Level 4.4 g/dL (3.5-5.2); Alkaline Phosphatase 120 IU/L (40-130); Anion Gap 16.5 (5-19); Aspartate Amino Transferase 53 U/L (0-40); Blood Urea Nitrogen 10 mg/dL (8-23); Calcium 9.8 mg/dL (8.5-10.5); Carbon Dioxide 23 mmol/L (22-29); Chloride 105 mmol/L (98-107); Globulin 2.8 g/dL (1.3-4.6); Glomerular Filtration Rate 133.2 mL/min (90-130); Glucose 107 mg/dL (65-115); Osmolality Calculated 290 mOsm/kg (285-295); Potassium 4.5 mmol/L (3.5-5.1); Sodium 140 mmol/L (136-145); Total Bilirubin 0.3 mg/dL (0.15-1.2); Total Protein 7.2 g/dL (6.6-8.7)
== END 2021-05-29 09:42 | disposition home or self-care (01) ==
PROVIDERS: PCP Family Medicine; Visit Provider Internal Medicine Hematology & Oncology
DX: C7A.012 Malignant carcinoid tumor of the ileum (principal); C7B.01 Secondary carcinoid tumors of distant lymph nodes; C7B.04 Secondary carcinoid tumors of peritoneum; C7B.09 Secondary carcinoid tumors of other sites; Z79.899 Other long term (current) drug therapy
CPT/HCPCS: 36415; 80053; 85025

== ENCOUNTER 2021-06-01 05:52 | Outpatient (CLI) | payer OTHER, SELFPAY ==
--- NOTE | 2021-06-01 16:25 | ONC FU_ITS ---
Dr. Amos follow up note Patient: Manuel Rodriguez Unit #: [id number]: 1950 Dicatated By: Brianna Amos M.D.Date of Visit:Jun 01, 2021 Onc Med Follow-up/Prog Note History of Present Illness: Mr. Rodriguez is a 70 -year-old gentleman with history of chronic diarrhea for the last 7-8 years, as per patient about 8 years ago he underwent gallbladder surgery and subsequently developed diarrhea initially he thought he was due to gallbladder surgery but diarrhea persisted, it was watery, 5-6 times a day, no mucus or blood seen . Patient said he got used to chronic diarrhea until in June 2019 when he started having progressive abdominal pain at that time he told his primary care physician at [facility] about chronic diarrhea and now progressive abdominal pain and CT scan of abdomen was ordered which showed mesenteric mass and was referred to Dr. carter. 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 Additional foci of increase uptake are probably metastatic deposit in the right axilla, right paraspinal, just above the diaphragm and left lower thorax just above the spleen. There may be metastatic lesions in the lungs or lymph nodes. Patient underwent exploration on 11/06/2019 and Bartolo-Cut needle biopsy of mesenteric mass showed no tumor seen and small bowel excision showed benign small bowel segment with no dysplasia or malignancy but bowel resection showed well-differentiated neuroendocrine tumor (carcinoid), tumor extends through muscularis propria with extensive involvement of mesenteric fat. Focal perineural invasion identified. Single discontinuous carcinoid tumor nodule formed and mesenteric fat. Lab workup done on 11/20/2019 showed gastrin level 103 normal being less than 100, chromogranin A level 804, normal being 25-140 24-hour urine HIAA, 43, normal being less than 6. Patient denies any bronchial wheezing but one episode of facial flushing in the past. Denies smoking or alcohol use,But history of fatty liver with abnormal LFTs in the past Mr Rodriguez started on Sandostatin LAR 30 mg every month, on 12/06/2019, Dose was reduced to 20 mg every month on June 23, 2020 because of elevated transaminases And follow-up labs done on July 28, 2020 showed worsening of transaminases ALT 61 AST 44 compared to on June 20, 2020. And is scheduled dose of Sandostatin LAR 20 was due on July 28, 2020 but was held and follow-up labs done on August 28, 2020 shows normalization of AST and improvement in ALT. Sandostatin LAR 20 was restarted on August 28, 2020 because of worsening of diarrhea. Follow-up CT scan of abdomen done on June 16, 2020 showed fatty infiltration of liver but no dilated intrahepatic ducts or masses seen. No change in 4.8 cm central abdominal mass. Here for follow-up, denies any specific complaints except persistent but no progressive diarrhea, small amount but watery 8-10 times a day, patient said he has diarrhea problem for many years and during work-up for diarrhea he was diagnosed with a carcinoid tumor, not sure if any kind of food makes any difference. Patient has history of anxiety disorder, as per patient he used to get mild chest pain/discomfort and Dr. Goodwin, resource manager has evaluated him and as per patient it was concluded that his chest pain could be due to anxiety and since he learned how to handle anxiety his chest pain has resolved. No abdominal pain, no weight loss, no hemoptysis hematemesis, no jaundice, no melena or hematochezia tolerating Sandostatin well otherwise Medications: amLODIPine Besylate 1 Tablet (of 10 mg) Oral daily, Atenolol 0.5 Tablet (of 25 mg) Oral daily, Cholecalciferol 1 Tablet (of 1000 mg) Oral daily, Clopidogrel Bisulfate 1 Tablet (of 75 mg) Oral daily, Eliquis 1 Tablet (of 5 mg) Oral b.i.d., Fish Oil 1 Capsule (of 2000 mg) Oral daily, Garlic 1 Capsule (of 1000 mg) Oral daily, Gemfibrozil (600 mg) Tablet Oral b.i.d., Lisinopril 1 Tablet (of 20 mg) Oral daily, PX Omeprazole 1 Tablet (of 20 mg) Tablet, enteric coated Oral daily, Tamsulosin HCl (0.4 mg) Capsule Oral daily Allergies: Statins Review of Systems: Review of Systems is not available for this patient. Vital Signs: Vitals are not available for this patient. Performance Status: 0 - Fully active, able to carry on all predisease activities without restrictions. (ECOG) Physical Examination: ENMT - No mouth sores, no thrush, no jaundice, Respiratory - Lungs are clear to auscultation, Cardiovascular - Regular rate and rhythm of heart, Abdomen - Soft, bowel sounds present, Extremities - No visible edema. 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 Gastrin level 103 , normal being less than 100. Final pathology report showed well-differentiated neuroendocrine tumor, carcinoid, tumor extends to the muscularis propria with extensive involvement of mesenteric fat. Focal perineural invasion identified. Single discontinue his carcinoid tumor and nodule found in the mesenteric fat. Tumor cell are strongly and diffusely positive for synaptophysin and neuron specific enolase and weakly positive for chromogranin A. Also negative for CD 56. And Ki-67 proliferative index is less than 1%, consistent with carcinoid Octreotide scan done on 10/08/2019 showed positive for uptake in mesenteric mass. Additional foci of increase uptake are probably metastatic deposit in the right axilla, right paraspinal, just above diaphragm and left lower thorax, just above spleen. There may be a metastatic lesion in the lungs are lymph nodes. Chronic diarrhea for the last 7-8 years, probably due to carcinoid started on Sandostatin LAR 30 every month on 12/06/2019 Clinically, patient is doing well with no new signs symptoms, tolerating Sandostatin LAR well, with good control over his diarrhea e.g. 1-2 loose bowel movement in a day but his follow-up CMP shows progressive abnormal LFTs, patient has history of fatty liver his LFTs improved with weight loss due to chronic diarrhea, now with no significant weight change in the last few month but now with progressive abnormal LFTs which could be due to Sandostatin LAR although a rare toxicity. At this point, we will hold his Sandostatin therapy and he will return to clinic in 1 month with CBC and CMP and if LFTs improved, then plan may consider reduced dose Sandostatin e.g. 20 mg otherwise we will consider CT scan or MRI scan of the liver. Sandostatin was restarted, patient continued to have chronic diarrhea and follow-up labs including serotonin and chromogranin A levels were checked on December 11, 2020 and both were elevated, shortening was 1147 compared to 828 previously and chromogranin A was 227 compared to 185 previously, he was decided to increase his Sandostatin LAR dose to 30 mg and then monitor him with biochemical testing as well as symptom severino, if there is no improvement, may consider adding everolimus Plan: Discussed with patient regarding his labs white blood count 6.6 hemoglobin 13.1 hematocrit 40.6 platelets 123,000 CMP within normal limit except AST 53 compared to 22 previously Clinically, patient doing well with no signs symptom suggestive of disease progression except persistent/progressive diarrhea, which could be multifactorial including due to metabolically active carcinoid other possibility could be anxiety related, we will proceed with his next monthly dose of Sandostatin LAR 30 mg today and then he will return to clinic in 1 month and we will also try low-dose Xanax 0.25 mg 1 to 2 tablets 6 to 8-hour as needed, if anxiety is causing diarrhea it may improve otherwise if he has a persistent or progressive diarrhea may consider repeating octreotide scan to assess disease status. Return to clinic in 1 month with CBC CMP Signed By: Brianna Amos M.D. <<Signature on File>>
[2021-06-01] MEDS: octreotide LAR depot 30 mg Kit IM (16:37)
== END 2021-06-01 05:53 | disposition home or self-care (01) ==
LOC: ONCMED 05:53
PROVIDERS: PCP Family Medicine; Visit Provider Internal Medicine Hematology & Oncology
DX: C7A.012 Malignant carcinoid tumor of the ileum (principal); C7B.01 Secondary carcinoid tumors of distant lymph nodes; C7B.04 Secondary carcinoid tumors of peritoneum; C7B.09 Secondary carcinoid tumors of other sites; K52.9 Noninfective gastroenteritis and colitis, unspecified; F41.9 Anxiety disorder, unspecified; Z79.899 Other long term (current) drug therapy; Z92.21 Personal history of antineoplastic chemotherapy
CPT/HCPCS: 96372; 99215; J2353

== ENCOUNTER 2021-07-27 06:38 | Outpatient (CLI) | payer OTHER, SELFPAY ==
--- NOTE | 2021-07-27 | NM_ITS ---
WS: [id number] NUCLEAR MEDICINE OCTREOTIDE SCAN HISTORY: ABDOMINAL MASS COMPARISON: CT abdomen 08/20/2019 and prior Octreoscan October 08, 2019. Ultrasound April 27, 2021 TECHNIQUE: Whole-body imaging obtained after injection of 5.1 mCi of indium-111 octreotide. Anterior and posterior whole-body imaging is obtained at 4 and 24 hours. FINDINGS: Again seen is abnormal uptake in the soft tissues of the midabdomen just the right of midli ne which corresponds to the known mesenteric mass in the central mesentery. This is similar to the pr ior examination with more intense uptake today. NEW adjacent satellite deposit along the inferior mar gin in the lumbar paraspinal region. Additionally, multiple NEW hepatic lesions best visualized in th e right hepatic lobe and dome of the liver. Largest in the right hepatic lobe laterally. Again seen are stable punctate right axillary and right thoracic paraspinal or hilar metastatic depos its. Stable additional punctate focus of uptake just superior to the spleen in the lower left thorax. NM/NM octreoscan body >2d 43616 IMPRESSION: 1. Multiple new foci of uptake in the liver the largest in the right hepatic l obe laterally compatible with metastatic disease. This can be further evaluated with contrast-enhanced CT abdomen pelvis with triphasic liver protocol. 2. Mesenteric mass in the right lower central mesentery is similar in appearan ce but with more intense uptake today suspicious for progression. Additional ne w adjacent metastatic deposit along the lumbar paraspinal region. 3. Otherwise no new foci of uptake. 4. Three Previously described punctate deposits above the diaphragm are unchan ged.
== END 2021-07-27 06:39 | disposition home or self-care (01) ==
LOC: RAD 06:41
PROVIDERS: PCP Family Medicine; Visit Provider Internal Medicine Hematology & Oncology
DX: C7A.8 Other malignant neuroendocrine tumors (principal)
CPT/HCPCS: 78804; A9570

== ENCOUNTER 2021-08-03 10:44 | Outpatient (CLI) | payer OTHER, SELFPAY ==
[2021-08-03 11:58] LABS: Basophils % 0.6 %; Eosinophils # 0.1 10^3/uL (0.0-0.8); Hematocrit 41.8 % (42.0-52.0); Hemoglobin 13.7 g/dL (11.7-16.6); Lymphocytes # 2.4 10^3/uL (0.8-4.8); Lymphocytes % 33.8 %; Mean Corpuscular HGB Conc 32.8 g/dL (30.0-36.0); Mean Corpuscular Hemoglobin 27.6 pg (28.0-34.0); Mean Corpuscular Volume 84.3 fl (80-94); Mean Platelet Volume 13.9 fL (7.4-10.4); Monocytes # 0.6 10^3/uL (0.2-0.9); Monocytes % 8.4 %; Neutrophils # 3.84 10^3/uL (1.8-7.7); Neutrophils % 54.9 %; Nucleated Red Blood Cells % 0 %; Platelet Count 149 10^3/cmm (130-400); Red Blood Count 4.96 10^6/uL (4.1-5.3); Red Cell Distribution Width 14.1 % (12.1-15.1)
[2021-08-03 12:29] LABS: Alanine Aminotransferase 39 U/L (0-41); Albumin Level 4.9 g/dL (3.5-5.2); Alkaline Phosphatase 127 IU/L (40-130); Anion Gap 16.8 (5-19); Aspartate Amino Transferase 48 U/L (0-40); Blood Urea Nitrogen 16 mg/dL (8-23); Calcium 10.2 mg/dL (8.5-10.5); Carbon Dioxide 27 mmol/L (22-29); Chloride 102 mmol/L (98-107); Glomerular Filtration Rate 83.4 mL/min (90-130); Glucose 82 mg/dL (65-115); Osmolality Calculated 292 mOsm/kg (285-295); Potassium 4.8 mmol/L (3.5-5.1); Sodium 141 mmol/L (136-145); Total Bilirubin 0.6 mg/dL (0.15-1.2); Total Protein 7.9 g/dL (6.6-8.7)
[2021-08-03] MEDS: octreotide LAR depot 30 mg Kit IM (14:05)
--- NOTE | 2021-08-05 09:51 | ONC FU_ITS ---
Dr. Amos follow up note Patient: Manuel Rodriguez Unit #: [id number]: 1950 Dicatated By: Brianna Amos M.D.Date of Visit:Aug 03, 2021 Onc Med Follow-up/Prog Note History of Present Illness: Mr. Rodriguez is a 70 -year-old gentleman with history of chronic diarrhea for the last 7-8 years, as per patient about 8 years ago he underwent gallbladder surgery and subsequently developed diarrhea initially he thought he was due to gallbladder surgery but diarrhea persisted, it was watery, 5-6 times a day, no mucus or blood seen . Patient said he got used to chronic diarrhea until in June 2019 when he started having progressive abdominal pain at that time he told his primary care physician at [facility] about chronic diarrhea and now progressive abdominal pain and CT scan of abdomen was ordered which showed mesenteric mass and was referred to Dr. carter. 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 Additional foci of increase uptake are probably metastatic deposit in the right axilla, right paraspinal, just above the diaphragm and left lower thorax just above the spleen. There may be metastatic lesions in the lungs or lymph nodes. Patient underwent exploration on 11/06/2019 and Bartolo-Cut needle biopsy of mesenteric mass showed no tumor seen and small bowel excision showed benign small bowel segment with no dysplasia or malignancy but bowel resection showed well-differentiated neuroendocrine tumor (carcinoid), tumor extends through muscularis propria with extensive involvement of mesenteric fat. Focal perineural invasion identified. Single discontinuous carcinoid tumor nodule formed and mesenteric fat. Lab workup done on 11/20/2019 showed gastrin level 103 normal being less than 100, chromogranin A level 804, normal being 25-140 24-hour urine HIAA, 43, normal being less than 6. Patient denies any bronchial wheezing but one episode of facial flushing in the past. Denies smoking or alcohol use,But history of fatty liver with abnormal LFTs in the past Mr Rodriguez started on Sandostatin LAR 30 mg every month, on 12/06/2019, Dose was reduced to 20 mg every month on June 23, 2020 because of elevated transaminases And follow-up labs done on July 28, 2020 showed worsening of transaminases ALT 61 AST 44 compared to on June 20, 2020. And is scheduled dose of Sandostatin LAR 20 was due on July 28, 2020 but was held and follow-up labs done on August 28, 2020 shows normalization of AST and improvement in ALT. Sandostatin LAR 20 was restarted on August 28, 2020 because of worsening of diarrhea. Follow-up CT scan of abdomen done on June 16, 2020 showed fatty infiltration of liver but no dilated intrahepatic ducts or masses seen. No change in 4.8 cm central abdominal mass. Patient has history of anxiety disorder, as per patient he used to get mild chest pain/discomfort and Dr. Goodwin, lacrosse player has evaluated him and as per patient it was concluded that his chest pain could be due to anxiety and since he learned how to handle anxiety his chest pain has resolved. Follow-up octreotide scan done on July 27, 2021 showed multiple new foci of uptake in the liver the largest in the right hepatic lobe laterally compatible with metastatic disease. Mesenteric mass in the right lower central mesentery is similar in appearance but with more intense uptake, suspicious for progression. Additional new adjacent metastatic deposit along the lumbar paraspinal region. 3 previously described punctate deposits above the diaphragm are unchanged Came for follow-up, still complaining of chronic diarrhea, 4-5 BMs in a day, mostly watery but no mucus, no blood is seen. Denies any abdominal cramps but no recurrence of vague abdominal discomfort, denies any melena or hematochezia, denies any hematuria hemoptysis denies any abdominal fullness denies any facial flushing, denies any bronchial wheezing. Tolerating Sandostatin well otherwise Medications: amLODIPine Besylate 1 Tablet (of 10 mg) Oral daily, Atenolol 0.5 Tablet (of 25 mg) Oral daily, Cholecalciferol 1 Tablet (of 1000 mg) Oral daily, Clopidogrel Bisulfate 1 Tablet (of 75 mg) Oral daily, Eliquis 1 Tablet (of 5 mg) Oral b.i.d., Fish Oil 1 Capsule (of 2000 mg) Oral daily, Garlic 1 Capsule (of 1000 mg) Oral daily, Gemfibrozil (600 mg) Tablet Oral b.i.d., Lisinopril 1 Tablet (of 20 mg) Oral daily, PX Omeprazole 1 Tablet (of 20 mg) Tablet, enteric coated Oral daily, Tamsulosin HCl (0.4 mg) Capsule Oral daily Allergies: Statins Review of Systems: Review of Systems is not available for this patient. Vital Signs: Performed on Aug 03, 2021 13:21 Height - 72.00 in Weight - 179.8 lbs BSA - 2.04 sq.m BMI - 24.39 Temperature - 98.2 F (LOW) Pulse - 52 /min (LOW) Respiration - 18 /min BP - 112/76 mm(hg) O2 Sat - 98 % Pain - 0 Fatigue - 5 Performance Status: 0 - Fully active, able to carry on all predisease activities without restrictions. (ECOG) Physical Examination: ENMT - No mouth sores, no thrush, no jaundice, no cervical lymphadenopathy, Respiratory - Lungs are clear to auscultation, Cardiovascular - Regular rate and rhythm of heart, Abdomen - Soft, bowel sounds present, no focal tenderness, Extremities - No visible edema. Lab/Imaging: Most recent lab results are not available for this patient. 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 Gastrin level 103 , normal being less than 100. Final pathology report showed well-differentiated neuroendocrine tumor, carcinoid, tumor extends to the muscularis propria with extensive involvement of mesenteric fat. Focal perineural invasion identified. Single discontinue his carcinoid tumor and nodule found in the mesenteric fat. Tumor cell are strongly and diffusely positive for synaptophysin and neuron specific enolase and weakly positive for chromogranin A. Also negative for CD 56. And Ki-67 proliferative index is less than 1%, consistent with carcinoid Octreotide scan done on 10/08/2019 showed positive for uptake in mesenteric mass. Additional foci of increase uptake are probably metastatic deposit in the right axilla, right paraspinal, just above diaphragm and left lower thorax, just above spleen. There may be a metastatic lesion in the lungs are lymph nodes. Chronic diarrhea for the last 7-8 years, probably due to carcinoid started on Sandostatin LAR 30 every month on 12/06/2019 Clinically, patient is doing well with no new signs symptoms, tolerating Sandostatin LAR well, with good control over his diarrhea e.g. 1-2 loose bowel movement in a day but his follow-up CMP shows progressive abnormal LFTs, patient has history of fatty liver his LFTs improved with weight loss due to chronic diarrhea, now with no significant weight change in the last few month but now with progressive abnormal LFTs which could be due to Sandostatin LAR although a rare toxicity. At this point, we will hold his Sandostatin therapy and he will return to clinic in 1 month with CBC and CMP and if LFTs improved, then plan may consider reduced dose Sandostatin e.g. 20 mg otherwise we will consider CT scan or MRI scan of the liver. Sandostatin was restarted, patient continued to have chronic diarrhea and follow-up labs including serotonin and chromogranin A levels were checked on December 11, 2020 and both were elevated, shortening was 1147 compared to 828 previously and chromogranin A was 227 compared to 185 previously, he was decided to increase his Sandostatin LAR dose to 30 mg and then monitor him with biochemical testing as well as symptom severino, if there is no improvement, may consider adding everolimus Plan: Discussed with patient regarding his labs white blood count 7 hemoglobin 30.7 hematocrit 41.8 platelets 149,000 CMP within normal limits Octreotide scan done on July 27, 2021 shows disease progression Clinically, patient doing reasonably well but with persistent diarrhea and elevated serotonin level and now follow-up octreotide scan done showed evidence of disease progression while on Sandostatin LAR, at this point, we will refer him to neuroendocrine oncology clinic at [place] for evaluation for possible clinical trial if available, in the meantime we will continue with Sandostatin LAR 30 mg, will proceed with next dose today and return to clinic in 1 month with CMP, despite of patient's chronic diarrhea, apparently no evidence of electrolyte imbalance or dehydration, patient was advised to maintain hydration. Signed By: Brianna Amos M.D. <<Signature on File>>
== END 2021-08-03 10:45 | disposition home or self-care (01) ==
LOC: ONCMED 10:50
PROVIDERS: PCP Family Medicine; Visit Provider Internal Medicine Hematology & Oncology
DX: C7A.019 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, unspecified portion (principal); C7B.01 Secondary carcinoid tumors of distant lymph nodes; C7B.04 Secondary carcinoid tumors of peritoneum; K52.9 Noninfective gastroenteritis and colitis, unspecified; Z79.818 Long term (current) use of other agents affecting estrogen receptors and estrogen levels
CPT/HCPCS: 80053; 85025; 96372; 99214; J2353

== ENCOUNTER → 2021-08-21 08:45 | Outpatient (BNVA) | payer OTHER, SELFPAY | PROVIDERS: PCP Family Medicine; Visit Provider Internal Medicine Hematology & Oncology | DX: D3A.019 Benign carcinoid tumor of the small intestine, unspecified portion (principal) | CPT/HCPCS: 83497 ==

== ENCOUNTER 2021-09-02 14:02 | Outpatient (CLI) | payer OTHER, SELFPAY ==
[2021-09-02 14:44] LABS: Basophils % 0.4 %; Eosinophils # 0.2 10^3/uL (0.0-0.8); Eosinophils % 2.5 %; Hematocrit 38.8 % (42.0-52.0); Hemoglobin 12.5 g/dL (11.7-16.6); Lymphocytes # 2.1 10^3/uL (0.8-4.8); Lymphocytes % 30.6 %; Mean Corpuscular HGB Conc 32.2 g/dL (30.0-36.0); Mean Corpuscular Hemoglobin 27.5 pg (28.0-34.0); Mean Corpuscular Volume 85.5 fl (80-94); Mean Platelet Volume 13.6 fL (7.4-10.4); Monocytes # 0.4 10^3/uL (0.2-0.9); Monocytes % 6.3 %; Neutrophils # 4.11 10^3/uL (1.8-7.7); Neutrophils % 59.9 %; Nucleated Red Blood Cells % 0 %; Platelet Count 132 10^3/cmm (130-400); Red Blood Count 4.54 10^6/uL (4.1-5.3); Red Cell Distribution Width 13.7 % (12.1-15.1); White Blood Count 6.9 10^3/uL (4.0-10.0)
[2021-09-02 14:52] LABS: Alanine Aminotransferase 20 U/L (0-41); Albumin Level 4.3 g/dL (3.5-5.2); Alkaline Phosphatase 106 IU/L (40-130); Anion Gap 18.7 (5-19); Aspartate Amino Transferase 30 U/L (0-40); Blood Urea Nitrogen 9 mg/dL (8-23); Carbon Dioxide 20 mmol/L (22-29); Chloride 106 mmol/L (98-107); Globulin 2.8 g/dL (1.3-4.6); Glucose 155 mg/dL (65-115); Osmolality Calculated 292 mOsm/kg (285-295); Potassium 4.7 mmol/L (3.5-5.1); Sodium 140 mmol/L (136-145); Total Bilirubin 0.2 mg/dL (0.15-1.2); Total Protein 7.1 g/dL (6.6-8.7)
[2021-09-02 15:01] LABS: Slide Review Slide Review Perform
--- NOTE | 2021-09-02 16:42 | ONC FU_ITS ---
Dr. Amos follow up note Patient: Manuel Rodriguez Unit #: [id number]: 1950 Dicatated By: Brianna Amos M.D.Date of Visit:Sep 02, 2021 Onc Med Follow-up/Prog Note History of Present Illness: Mr. Rodriguez is a 71 -year-old gentleman with history of chronic diarrhea for the last 7-8 years, as per patient about 8 years ago he underwent gallbladder surgery and subsequently developed diarrhea initially he thought he was due to gallbladder surgery but diarrhea persisted, it was watery, 5-6 times a day, no mucus or blood seen . Patient said he got used to chronic diarrhea until in June 2019 when he started having progressive abdominal pain at that time he told his primary care physician at [facility] about chronic diarrhea and now progressive abdominal pain and CT scan of abdomen was ordered which showed mesenteric mass and was referred to Dr. carter. 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 Additional foci of increase uptake are probably metastatic deposit in the right axilla, right paraspinal, just above the diaphragm and left lower thorax just above the spleen. There may be metastatic lesions in the lungs or lymph nodes. Patient underwent exploration on 11/06/2019 and Bartolo-Cut needle biopsy of mesenteric mass showed no tumor seen and small bowel excision showed benign small bowel segment with no dysplasia or malignancy but bowel resection showed well-differentiated neuroendocrine tumor (carcinoid), tumor extends through muscularis propria with extensive involvement of mesenteric fat. Focal perineural invasion identified. Single discontinuous carcinoid tumor nodule formed and mesenteric fat. Lab workup done on 11/20/2019 showed gastrin level 103 normal being less than 100, chromogranin A level 804, normal being 25-140 24-hour urine HIAA, 43, normal being less than 6. Patient denies any bronchial wheezing but one episode of facial flushing in the past. Denies smoking or alcohol use,But history of fatty liver with abnormal LFTs in the past Mr Rodriguez started on Sandostatin LAR 30 mg every month, on 12/06/2019, Dose was reduced to 20 mg every month on June 23, 2020 because of elevated transaminases And follow-up labs done on July 28, 2020 showed worsening of transaminases ALT 61 AST 44 compared to on June 20, 2020. And is scheduled dose of Sandostatin LAR 20 was due on July 28, 2020 but was held and follow-up labs done on August 28, 2020 shows normalization of AST and improvement in ALT. Sandostatin LAR 20 was restarted on August 28, 2020 because of worsening of diarrhea. Follow-up CT scan of abdomen done on June 16, 2020 showed fatty infiltration of liver but no dilated intrahepatic ducts or masses seen. No change in 4.8 cm central abdominal mass. Patient has history of anxiety disorder, as per patient he used to get mild chest pain/discomfort and Dr. Goodwin, airport utility worker has evaluated him and as per patient it was concluded that his chest pain could be due to anxiety and since he learned how to handle anxiety his chest pain has resolved. Follow-up octreotide scan done on July 27, 2021 showed multiple new foci of uptake in the liver the largest in the right hepatic lobe laterally compatible with metastatic disease. Mesenteric mass in the right lower central mesentery is similar in appearance but with more intense uptake, suspicious for progression. Additional new adjacent metastatic deposit along the lumbar paraspinal region. 3 previously described punctate deposits above the diaphragm are unchanged Came for follow-up, complaining of persistent diarrhea 8-10 times a day and now off and on hot flashes, no shortness of breath, no wheezing, no abdominal pain. Patient was referred to [place] [facility] for evaluation for clinical trial. As per patient liver biopsy is under consideration to rule out transformation into more aggressive form or second primary. And also being considered for Lutathera therapy Medications: amLODIPine Besylate 1 Tablet (of 10 mg) Oral daily, Atenolol 0.5 Tablet (of 25 mg) Oral daily, Cholecalciferol 1 Tablet (of 1000 mg) Oral daily, Clopidogrel Bisulfate 1 Tablet (of 75 mg) Oral daily, Eliquis 1 Tablet (of 5 mg) Oral b.i.d., Fish Oil 1 Capsule (of 2000 mg) Oral daily, Garlic 1 Capsule (of 1000 mg) Oral daily, Gemfibrozil (600 mg) Tablet Oral b.i.d., Lisinopril 1 Tablet (of 20 mg) Oral daily, PX Omeprazole 1 Tablet (of 20 mg) Tablet, enteric coated Oral daily, Tamsulosin HCl (0.4 mg) Capsule Oral daily Allergies: Statins Review of Systems: Review of Systems is not available for this patient. Vital Signs: Performed on Sep 02, 2021 16:19 Height - 72.00 in Weight - 181.2 lbs (HIGH) BSA - 2.04 sq.m BMI - 24.58 Temperature - 96.3 F (LOW) Pulse - 82 /min Respiration - 16 /min BP - 124/84 mm(hg) O2 Sat - 97 % Pain - 0 Fatigue - 5 Performance Status: 0 - Fully active, able to carry on all predisease activities without restrictions. (ECOG) Physical Examination: ENMT - No mouth sores, no thrush, no jaundice, Respiratory - Lungs are clear to auscultation, Cardiovascular - Regular rate and rhythm of heart, Abdomen - Soft, bowel sounds, Extremities - No visible edema or rash. Lab/Imaging: Most recent lab results are not available for this patient. 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 Gastrin level 103 , normal being less than 100. Final pathology report showed well-differentiated neuroendocrine tumor, carcinoid, tumor extends to the muscularis propria with extensive involvement of mesenteric fat. Focal perineural invasion identified. Single discontinue his carcinoid tumor and nodule found in the mesenteric fat. Tumor cell are strongly and diffusely positive for synaptophysin and neuron specific enolase and weakly positive for chromogranin A. Also negative for CD 56. And Ki-67 proliferative index is less than 1%, consistent with carcinoid Octreotide scan done on 10/08/2019 showed positive for uptake in mesenteric mass. Additional foci of increase uptake are probably metastatic deposit in the right axilla, right paraspinal, just above diaphragm and left lower thorax, just above spleen. There may be a metastatic lesion in the lungs are lymph nodes. Chronic diarrhea for the last 7-8 years, probably due to carcinoid started on Sandostatin LAR 30 every month on 12/06/2019 Clinically, patient is doing well with no new signs symptoms, tolerating Sandostatin LAR well, with good control over his diarrhea e.g. 1-2 loose bowel movement in a day but his follow-up CMP shows progressive abnormal LFTs, patient has history of fatty liver his LFTs improved with weight loss due to chronic diarrhea, now with no significant weight change in the last few month but now with progressive abnormal LFTs which could be due to Sandostatin LAR although a rare toxicity. At this point, we will hold his Sandostatin therapy and he will return to clinic in 1 month with CBC and CMP and if LFTs improved, then plan may consider reduced dose Sandostatin e.g. 20 mg otherwise we will consider CT scan or MRI scan of the liver. Sandostatin was restarted, patient continued to have chronic diarrhea and follow-up labs including serotonin and chromogranin A levels were checked on December 11, 2020 and both were elevated, shortening was 1147 compared to 828 previously and chromogranin A was 227 compared to 185 previously, he was decided to increase his Sandostatin LAR dose to 30 mg and then monitor him with biochemical testing as well as symptom severino, if there is no improvement, may consider adding everolimus Plan: 30Discussed with patient regarding his labs white blood count 6.9 hemoglobin 12.5 hematocrit 38.8 platelets 2000 CMP within normal limit except glucose 155 Clinically, patient doing well with no new signs symptom but persistent diarrhea due to neuroendocrine tumor, patient is on Sandostatin LAR 30 mg monthly, will proceed with next monthly dose today, patient was referred to [place] [facility], where he was evaluated and CT-guided liver biopsy was recommended to rule out transformation into aggressive neuroendocrine tumor versus second primary as per patient he was given option to get liver biopsy done in [place] versus at [place], patient was advised to get biopsy done at [place]. As per patient , 28 days from this Sandostatin injection, he will receive Lutathera infusion and as per protocol he will get every 8 weeks x 4, we will discuss with his physician at [place] regarding timing of Sandostatin injection if needed. Signed By: Brianna Amos M.D. <<Signature on File>>
[2021-09-02] MEDS: octreotide LAR depot 30 mg Kit IM (16:48)
== END 2021-09-02 14:03 | disposition home or self-care (01) ==
LOC: ONCMED 14:08
PROVIDERS: PCP Family Medicine; Visit Provider Internal Medicine Hematology & Oncology
DX: C7A.019 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, unspecified portion (principal); C7B.01 Secondary carcinoid tumors of distant lymph nodes; C7B.04 Secondary carcinoid tumors of peritoneum; C7B.09 Secondary carcinoid tumors of other sites; K52.9 Noninfective gastroenteritis and colitis, unspecified; Z79.818 Long term (current) use of other agents affecting estrogen receptors and estrogen levels
CPT/HCPCS: 36415; 80053; 85025; 96372; 99215; J2353

== ENCOUNTER 2021-10-08 08:25 | Outpatient (CLI) | payer OTHER, SELFPAY ==
[2021-10-08 09:06] LABS: Basophils % 0.5 %; Eosinophils # 0.2 10^3/uL (0.0-0.8); Eosinophils % 2.9 %; Hematocrit 43.3 % (42.0-52.0); Hemoglobin 13.6 g/dL (11.7-16.6); Lymphocytes # 1.5 10^3/uL (0.8-4.8); Lymphocytes % 24.2 %; Mean Corpuscular HGB Conc 31.4 g/dL (30.0-36.0); Mean Corpuscular Hemoglobin 27.7 pg (28.0-34.0); Mean Corpuscular Volume 88.2 fl (80-94); Mean Platelet Volume 13.7 fL (7.4-10.4); Monocytes # 0.5 10^3/uL (0.2-0.9); Monocytes % 7.6 %; Neutrophils # 4.05 10^3/uL (1.8-7.7); Neutrophils % 64.5 %; Nucleated Red Blood Cells % 0 %; Platelet Count 158 10^3/cmm (130-400); Red Blood Count 4.91 10^6/uL (4.1-5.3); Red Cell Distribution Width 14.2 % (12.1-15.1); White Blood Count 6.3 10^3/uL (4.0-10.0)
[2021-10-08 09:33] LABS: Alanine Aminotransferase 18 U/L (0-41); Albumin Level 4.8 g/dL (3.5-5.2); Alkaline Phosphatase 111 IU/L (40-130); Anion Gap 14.7 (5-19); Aspartate Amino Transferase 36 U/L (0-40); Blood Urea Nitrogen 15 mg/dL (8-23); Calcium 9.5 mg/dL (8.5-10.5); Carbon Dioxide 21 mmol/L (22-29); Chloride 106 mmol/L (98-107); Globulin 2.8 g/dL (1.3-4.6); Glucose 164 mg/dL (65-115); Osmolality Calculated 288 mOsm/kg (285-295); Potassium 4.7 mmol/L (3.5-5.1); Sodium 137 mmol/L (136-145); Total Bilirubin 0.4 mg/dL (0.15-1.2); Total Protein 7.6 g/dL (6.6-8.7)
--- NOTE | 2021-10-08 10:37 | ONC FU_ITS ---
Dr. Amos follow up note Patient: Manuel Rodriguez Unit #: [id number]: [id number] Dicatated By: Brianna Amos M.D.Date of Visit:Oct 08, 2021 Onc Med Follow-up/Prog Note History of Present Illness: Mr. Rodriguez is a 71 -year-old gentleman with history of chronic diarrhea for the last 7-8 years, as per patient about 8 years ago he underwent gallbladder surgery and subsequently developed diarrhea initially he thought he was due to gallbladder surgery but diarrhea persisted, it was watery, 5-6 times a day, no mucus or blood seen . Patient said he got used to chronic diarrhea until in June 2019 when he started having progressive abdominal pain at that time he told his primary care physician at [facility] about chronic diarrhea and now progressive abdominal pain and CT scan of abdomen was ordered which showed mesenteric mass and was referred to Dr. carter. 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 Additional foci of increase uptake are probably metastatic deposit in the right axilla, right paraspinal, just above the diaphragm and left lower thorax just above the spleen. There may be metastatic lesions in the lungs or lymph nodes. Patient underwent exploration on 11/06/2019 and Bartolo-Cut needle biopsy of mesenteric mass showed no tumor seen and small bowel excision showed benign small bowel segment with no dysplasia or malignancy but bowel resection showed well-differentiated neuroendocrine tumor (carcinoid), tumor extends through muscularis propria with extensive involvement of mesenteric fat. Focal perineural invasion identified. Single discontinuous carcinoid tumor nodule formed and mesenteric fat. Lab workup done on 11/20/2019 showed gastrin level 103 normal being less than 100, chromogranin A level 804, normal being 25-140 24-hour urine HIAA, 43, normal being less than 6. Patient denies any bronchial wheezing but one episode of facial flushing in the past. Denies smoking or alcohol use,But history of fatty liver with abnormal LFTs in the past Mr Rodriguez started on Sandostatin LAR 30 mg every month, on 12/06/2019, Dose was reduced to 20 mg every month on June 23, 2020 because of elevated transaminases And follow-up labs done on July 28, 2020 showed worsening of transaminases ALT 61 AST 44 compared to on June 20, 2020. And is scheduled dose of Sandostatin LAR 20 was due on July 28, 2020 but was held and follow-up labs done on August 28, 2020 shows normalization of AST and improvement in ALT. Sandostatin LAR 20 was restarted on August 28, 2020 because of worsening of diarrhea. Follow-up CT scan of abdomen done on June 16, 2020 showed fatty infiltration of liver but no dilated intrahepatic ducts or masses seen. No change in 4.8 cm central abdominal mass. Patient has history of anxiety disorder, as per patient he used to get mild chest pain/discomfort and Dr. Goodwin, tabulating clerk has evaluated him and as per patient it was concluded that his chest pain could be due to anxiety and since he learned how to handle anxiety his chest pain has resolved. Follow-up octreotide scan done on July 27, 2021 showed multiple new foci of uptake in the liver the largest in the right hepatic lobe laterally compatible with metastatic disease. Mesenteric mass in the right lower central mesentery is similar in appearance but with more intense uptake, suspicious for progression. Additional new adjacent metastatic deposit along the lumbar paraspinal region. 3 previously described punctate deposits above the diaphragm are unchanged Patient was referred to [place] [facility] and was recommended to start Lutathera infusion every other month x4, which was started on October 07, 2021 and was also advised to continue with Sandostatin LAR 30 mg within 4 to 24 hours after Lutathera dose and continue every 4 weeks Came for follow-up, denies any specific complaint except persistent mild diarrhea, no abdominal pain, no melena or hematochezia, no mucus in his stool, no shortness of breath or wheezing, no skin rash, no jaundice, tolerated first dose of Lutathera infusion given yesterday at [place], well, patient is here to receive his next scheduled dose of Sandostatin LAR 30 mg within 24 hours of Lutathera infusion Medications: amLODIPine Besylate 1 Tablet (of 10 mg) Oral daily, Atenolol 0.5 Tablet (of 25 mg) Oral daily, Cholecalciferol 1 Tablet (of 1000 mg) Oral daily, Clopidogrel Bisulfate 1 Tablet (of 75 mg) Oral daily, Eliquis 1 Tablet (of 5 mg) Oral b.i.d., Fish Oil 1 Capsule (of 2000 mg) Oral daily, Garlic 1 Capsule (of 1000 mg) Oral daily, Gemfibrozil (600 mg) Tablet Oral b.i.d., Lisinopril 1 Tablet (of 20 mg) Oral daily, PX Omeprazole 1 Tablet (of 20 mg) Tablet, enteric coated Oral daily, Tamsulosin HCl (0.4 mg) Capsule Oral daily Allergies: Statins Review of Systems: Review of Systems is not available for this patient. Vital Signs: Vitals are not available for this patient. Performance Status: 0 - Fully active, able to carry on all predisease activities without restrictions. (ECOG) Physical Examination: ENMT - No mouth sores, no thrush, no jaundice, Respiratory - Lungs are clear to auscultation, Cardiovascular - Regular rate and rhythm of heart, Abdomen - Soft, bowel sounds present, Extremities - No visible edema or rash. Lab/Imaging: Most recent lab results are not available for this patient. 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 Gastrin level 103 , normal being less than 100. Final pathology report showed well-differentiated neuroendocrine tumor, carcinoid, tumor extends to the muscularis propria with extensive involvement of mesenteric fat. Focal perineural invasion identified. Single discontinue his carcinoid tumor and nodule found in the mesenteric fat. Tumor cell are strongly and diffusely positive for synaptophysin and neuron specific enolase and weakly positive for chromogranin A. Also negative for CD 56. And Ki-67 proliferative index is less than 1%, consistent with carcinoid Octreotide scan done on 10/08/2019 showed positive for uptake in mesenteric mass. Additional foci of increase uptake are probably metastatic deposit in the right axilla, right paraspinal, just above diaphragm and left lower thorax, just above spleen. There may be a metastatic lesion in the lungs are lymph nodes. Chronic diarrhea for the last 7-8 years, probably due to carcinoid started on Sandostatin LAR 30 every month on 12/06/2019 Clinically, patient is doing well with no new signs symptoms, tolerating Sandostatin LAR well, with good control over his diarrhea e.g. 1-2 loose bowel movement in a day but his follow-up CMP shows progressive abnormal LFTs, patient has history of fatty liver his LFTs improved with weight loss due to chronic diarrhea, now with no significant weight change in the last few month but now with progressive abnormal LFTs which could be due to Sandostatin LAR although a rare toxicity. At this point, we will hold his Sandostatin therapy and he will return to clinic in 1 month with CBC and CMP and if LFTs improved, then plan may consider reduced dose Sandostatin e.g. 20 mg otherwise we will consider CT scan or MRI scan of the liver. Sandostatin was restarted, patient continued to have chronic diarrhea and follow-up labs including serotonin and chromogranin A levels were checked on December 11, 2020 and both were elevated, shortening was 1147 compared to 828 previously and chromogranin A was 227 compared to 185 previously, he was decided to increase his Sandostatin LAR dose to 30 mg and then monitor him with biochemical testing as well as symptom severino, if there is no improvement, may consider adding everolimus Lutathera infusion every other month x4 was added to Sandostatin therapy on October 07, 2021 Plan: Discussed with patient regarding his labs white blood count 6.3 hemoglobin 13.6 hematocrit 43.3 platelets hundred fifty-eight thousand, CMP within normal range except glucose one hundred sixty-four Clinically, patient doing well, now being treated with Lutathera infusion/Sandostatin, patient received his first dose of Lutathera infusion yesterday at [place], tolerated well, he is here to receive his next dose of Sandostatin LAR 30 mg within 24 hours of Lutathera infusion, per protocol. As per patient, his next dose is scheduled in 2 months, He is also scheduled for liver biopsy on October 19, 2021. Return to clinic in 4 weeks with CBC CMP and for next dose of Sandostatin LAR 30 mg, planning is to continue every 4 weeks up to 18 months after the last dose of Lutathera or till disease progression. Signed By: Brianna Amos M.D. <<Signature on File>>
== END 2021-10-08 08:26 | disposition home or self-care (01) ==
PROVIDERS: PCP Family Medicine; Visit Provider Internal Medicine Hematology & Oncology
DX: C78.7 Secondary malignant neoplasm of liver and intrahepatic bile duct (principal); R74.01 Elevation of levels of liver transaminase levels; K76.0 Fatty (change of) liver, not elsewhere classified; F41.8 Other specified anxiety disorders; Z79.818 Long term (current) use of other agents affecting estrogen receptors and estrogen levels
CPT/HCPCS: 36415; 80053; 85025; 96372; 99215

== ENCOUNTER 2021-11-06 07:44 | Outpatient (CLI) | payer OTHER, SELFPAY ==
[2021-11-06 08:27] LABS: Basophils # 0.1 10^3/uL (0.0-0.1); Basophils % 0.8 %; Eosinophils # 0.3 10^3/uL (0.0-0.8); Eosinophils % 3.6 %; Hematocrit 41.6 % (42.0-52.0); Hemoglobin 13.2 g/dL (11.7-16.6); Lymphocytes # 1.2 10^3/uL (0.8-4.8); Lymphocytes % 15.1 %; Mean Corpuscular HGB Conc 31.7 g/dL (30.0-36.0); Mean Corpuscular Hemoglobin 26.9 pg (28.0-34.0); Mean Corpuscular Volume 84.7 fl (80-94); Mean Platelet Volume 12.6 fL (7.4-10.4); Monocytes # 0.8 10^3/uL (0.2-0.9); Monocytes % 10.4 %; Neutrophils # 5.42 10^3/uL (1.8-7.7); Neutrophils % 69.7 %; Nucleated Red Blood Cells % 0 %; Platelet Count 117 10^3/cmm (130-400); Red Blood Count 4.91 10^6/uL (4.1-5.3); White Blood Count 7.8 10^3/uL (4.0-10.0)
[2021-11-06 08:51] LABS: Alanine Aminotransferase 29 U/L (0-41); Albumin Level 4.9 g/dL (3.5-5.2); Alkaline Phosphatase 94 IU/L (40-130); Anion Gap 19.5 (5-19); Aspartate Amino Transferase 36 U/L (0-40); Blood Urea Nitrogen 12 mg/dL (8-23); Calcium 10.6 mg/dL (8.5-10.5); Carbon Dioxide 23 mmol/L (22-29); Chloride 103 mmol/L (98-107); Globulin 2.7 g/dL (1.3-4.6); Glucose 118 mg/dL (65-115); Osmolality Calculated 293 mOsm/kg (285-295); Potassium 4.5 mmol/L (3.5-5.1); Sodium 141 mmol/L (136-145); Total Bilirubin 0.5 mg/dL (0.15-1.2); Total Protein 7.6 g/dL (6.6-8.7)
--- NOTE | 2021-11-06 09:29 | ONC FU_ITS ---
Dr. Amos follow up note Patient: Manuel Rodriguez Unit #: [id number]: 1950 Dicatated By: Brianna Amos M.D.Date of Visit:Nov 06, 2021 Onc Med Follow-up/Prog Note History of Present Illness: Mr. Rodriguez is a 71 -year-old gentleman with history of chronic diarrhea for the last 7-8 years, as per patient about 8 years ago he underwent gallbladder surgery and subsequently developed diarrhea initially he thought he was due to gallbladder surgery but diarrhea persisted, it was watery, 5-6 times a day, no mucus or blood seen . Patient said he got used to chronic diarrhea until in June 2019 when he started having progressive abdominal pain at that time he told his primary care physician at [facility] about chronic diarrhea and now progressive abdominal pain and CT scan of abdomen was ordered which showed mesenteric mass and was referred to Dr. carter. 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 Additional foci of increase uptake are probably metastatic deposit in the right axilla, right paraspinal, just above the diaphragm and left lower thorax just above the spleen. There may be metastatic lesions in the lungs or lymph nodes. Patient underwent exploration on 11/06/2019 and Bartolo-Cut needle biopsy of mesenteric mass showed no tumor seen and small bowel excision showed benign small bowel segment with no dysplasia or malignancy but bowel resection showed well-differentiated neuroendocrine tumor (carcinoid), tumor extends through muscularis propria with extensive involvement of mesenteric fat. Focal perineural invasion identified. Single discontinuous carcinoid tumor nodule formed and mesenteric fat. Lab workup done on 11/20/2019 showed gastrin level 103 normal being less than 100, chromogranin A level 804, normal being 25-140 24-hour urine HIAA, 43, normal being less than 6. Patient denies any bronchial wheezing but one episode of facial flushing in the past. Denies smoking or alcohol use,But history of fatty liver with abnormal LFTs in the past Mr Rodriguez started on Sandostatin LAR 30 mg every month, on 12/06/2019, Dose was reduced to 20 mg every month on June 23, 2020 because of elevated transaminases And follow-up labs done on July 28, 2020 showed worsening of transaminases ALT 61 AST 44 compared to on June 20, 2020. And is scheduled dose of Sandostatin LAR 20 was due on July 28, 2020 but was held and follow-up labs done on August 28, 2020 shows normalization of AST and improvement in ALT. Sandostatin LAR 20 was restarted on August 28, 2020 because of worsening of diarrhea. Follow-up CT scan of abdomen done on June 16, 2020 showed fatty infiltration of liver but no dilated intrahepatic ducts or masses seen. No change in 4.8 cm central abdominal mass. Patient has history of anxiety disorder, as per patient he used to get mild chest pain/discomfort and Dr. Goodwin, merchant tailor has evaluated him and as per patient it was concluded that his chest pain could be due to anxiety and since he learned how to handle anxiety his chest pain has resolved. Follow-up octreotide scan done on July 27, 2021 showed multiple new foci of uptake in the liver the largest in the right hepatic lobe laterally compatible with metastatic disease. Mesenteric mass in the right lower central mesentery is similar in appearance but with more intense uptake, suspicious for progression. Additional new adjacent metastatic deposit along the lumbar paraspinal region. 3 previously described punctate deposits above the diaphragm are unchanged Patient was referred to [facility] and was recommended to start Lutathera infusion every other month x4, which was started on October 07, 2021 and was also advised to continue with Sandostatin LAR 30 mg within 4 to 24 hours after Lutathera dose and continue every 4 weeks Came for follow-up, denies any specific complaint except persistent diarrhea which is about 8-10 times a day, as per patient since his first dose of Lutathera infusion, is off and on hot flashes has resolved. No facial flushing, no wheezing, no abdominal pain, no jaundice, no skin rash, tolerating Lutathera every other month along with monthly Sandostatin well Medications: amLODIPine Besylate 1 Tablet (of 10 mg) Oral daily, Atenolol 0.5 Tablet (of 25 mg) Oral daily, Cholecalciferol 1 Tablet (of 1000 mg) Oral daily, Clopidogrel Bisulfate 1 Tablet (of 75 mg) Oral daily, Eliquis 1 Tablet (of 5 mg) Oral b.i.d., Fish Oil 1 Capsule (of 2000 mg) Oral daily, Garlic 1 Capsule (of 1000 mg) Oral daily, Gemfibrozil (600 mg) Tablet Oral b.i.d., Lisinopril 1 Tablet (of 20 mg) Oral daily, PX Omeprazole 1 Tablet (of 20 mg) Tablet, enteric coated Oral daily, Tamsulosin HCl (0.4 mg) Capsule Oral daily Allergies: Statins Review of Systems: Review of Systems is not available for this patient. Vital Signs: Performed on Nov 06, 2021 09:11 Height - 72.00 in Weight - 186 lbs (HIGH) BSA - 2.07 sq.m BMI - 25.23 Temperature - 97.1 F (LOW) Pulse - 71 /min Respiration - 16 /min BP - 129/78 mm(hg) O2 Sat - 97 % Pain - 0 Fatigue - 0 Performance Status: 0 - Fully active, able to carry on all predisease activities without restrictions. (ECOG) Physical Examination: ENMT - No mouth sores, no thrush, no jaundice, Respiratory - Lungs are clear to auscultation, Cardiovascular - Regular rate and rhythm of heart, Abdomen - Soft, bowel sounds present, Extremities - No visible edema. Lab/Imaging: Most recent lab results are not available for this patient. 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 Gastrin level 103 , normal being less than 100. Final pathology report showed well-differentiated neuroendocrine tumor, carcinoid, tumor extends to the muscularis propria with extensive involvement of mesenteric fat. Focal perineural invasion identified. Single discontinue his carcinoid tumor and nodule found in the mesenteric fat. Tumor cell are strongly and diffusely positive for synaptophysin and neuron specific enolase and weakly positive for chromogranin A. Also negative for CD 56. And Ki-67 proliferative index is less than 1%, consistent with carcinoid Octreotide scan done on 10/08/2019 showed positive for uptake in mesenteric mass. Additional foci of increase uptake are probably metastatic deposit in the right axilla, right paraspinal, just above diaphragm and left lower thorax, just above spleen. There may be a metastatic lesion in the lungs are lymph nodes. Chronic diarrhea for the last 7-8 years, probably due to carcinoid started on Sandostatin LAR 30 every month on 12/06/2019 Clinically, patient is doing well with no new signs symptoms, tolerating Sandostatin LAR well, with good control over his diarrhea e.g. 1-2 loose bowel movement in a day but his follow-up CMP shows progressive abnormal LFTs, patient has history of fatty liver his LFTs improved with weight loss due to chronic diarrhea, now with no significant weight change in the last few month but now with progressive abnormal LFTs which could be due to Sandostatin LAR although a rare toxicity. At this point, we will hold his Sandostatin therapy and he will return to clinic in 1 month with CBC and CMP and if LFTs improved, then plan may consider reduced dose Sandostatin e.g. 20 mg otherwise we will consider CT scan or MRI scan of the liver. Sandostatin was restarted, patient continued to have chronic diarrhea and follow-up labs including serotonin and chromogranin A levels were checked on December 11, 2020 and both were elevated, shortening was 1147 compared to 828 previously and chromogranin A was 227 compared to 185 previously, he was decided to increase his Sandostatin LAR dose to 30 mg and then monitor him with biochemical testing as well as symptom severino, if there is no improvement, may consider adding everolimus Lutathera infusion every 8 weeks x4 was added to Sandostatin therapy on October 07, 2021, While continue with Sandostatin LAR 30 mg every month and specially within 24 hours of Lutathera infusion which will be scheduled for every 8 weeks x 4. Plan: Discussed with patient regarding his labs white blood count 7.8 hemoglobin 13.2 hematocrit 41.6 platelets 117,000 compared to 158,000 previously CMP within normal limits Clinically, patient doing well with no new signs symptom suggestive of disease progression, now being treated with Lutathera/Sandostatin. We will proceed with next monthly dose of Sandostatin LAR 30 mg today then patient will return to clinic on December 03, 2021 with CBC and CMP as patient is due for his next dose of Lutathera on December 02, 2021 at [facility].^ As far as mild thrombocytopenia is concerned, could be due to Lutathera infusion, will continue to monitor Signed By: Brianna Amos M.D. <<Signature on File>>
[2021-11-06] MEDS: octreotide LAR depot 30 mg Kit IM (10:11)
== END 2021-11-06 07:45 | disposition home or self-care (01) ==
LOC: ONCMED 07:46
PROVIDERS: PCP Family Medicine; Visit Provider Internal Medicine Hematology & Oncology
DX: C7A.019 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, unspecified portion (principal); C7B.01 Secondary carcinoid tumors of distant lymph nodes; C7B.04 Secondary carcinoid tumors of peritoneum; C7B.09 Secondary carcinoid tumors of other sites; K52.9 Noninfective gastroenteritis and colitis, unspecified; D69.6 Thrombocytopenia, unspecified; Z79.818 Long term (current) use of other agents affecting estrogen receptors and estrogen levels; Z79.899 Other long term (current) drug therapy
CPT/HCPCS: 36415; 80053; 85025; 96372; 99215; J2353

== ENCOUNTER 2021-12-03 12:13 | Outpatient (CLI) | payer OTHER, SELFPAY ==
[2021-12-03 12:39] LABS: Basophils % 0.6 %; Eosinophils # 0.1 10^3/uL (0.0-0.8); Eosinophils % 2.3 %; Hemoglobin 13.2 g/dL (11.7-16.6); Lymphocytes # 1.1 10^3/uL (0.8-4.8); Lymphocytes % 23.4 %; Mean Corpuscular HGB Conc 32.2 g/dL (30.0-36.0); Mean Corpuscular Hemoglobin 27.5 pg (28.0-34.0); Mean Corpuscular Volume 85.4 fl (80-94); Mean Platelet Volume 12.6 fL (7.4-10.4); Monocytes # 0.4 10^3/uL (0.2-0.9); Monocytes % 8.5 %; Neutrophils # 3.05 10^3/uL (1.8-7.7); Nucleated Red Blood Cells % 0 %; Platelet Count 132 10^3/cmm (130-400); Red Cell Distribution Width 14.2 % (12.1-15.1); White Blood Count 4.7 10^3/uL (4.0-10.0)
[2021-12-03 13:02] LABS: Alanine Aminotransferase 46 U/L (0-41); Albumin Level 5.2 g/dL (3.5-5.2); Alkaline Phosphatase 105 IU/L (40-130); Aspartate Amino Transferase 48 U/L (0-40); Blood Urea Nitrogen 14 mg/dL (8-23); Calcium 10.7 mg/dL (8.5-10.5); Carbon Dioxide 19 mmol/L (22-29); Chloride 107 mmol/L (98-107); Glucose 111 mg/dL (65-115); Osmolality Calculated 281 mOsm/kg (285-295); Sodium 135 mmol/L (136-145); Total Bilirubin 0.4 mg/dL (0.15-1.2); Total Protein 8.2 g/dL (6.6-8.7)
--- NOTE | 2021-12-03 14:52 | ONC FU_ITS ---
Katalina Palomares Progress Note Patient: Manuel Rodriguez Unit #: [id number]: 1950 Dicatated By: Katalina Palomares N.P.Date of Visit:Dec 03, 2021 Onc MED Follow-up/Prog Note Chief Complaint: metastatic small bowel carcinoid tumor History of Present Illness: Mr. Rodriguez is a 71 -year-old gentleman with history of chronic diarrhea for the last 7-8 years, as per patient about 8 years ago he underwent gallbladder surgery and subsequently developed diarrhea initially he thought he was due to gallbladder surgery but diarrhea persisted, it was watery, 5-6 times a day, no mucus or blood seen . Patient said he got used to chronic diarrhea until in June 2019 when he started having progressive abdominal pain at that time he told his primary care physician at [facility] about chronic diarrhea and now progressive abdominal pain and CT scan of abdomen was ordered which showed mesenteric mass and was referred to Dr. carter. 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 Additional foci of increase uptake are probably metastatic deposit in the right axilla, right paraspinal, just above the diaphragm and left lower thorax just above the spleen. There may be metastatic lesions in the lungs or lymph nodes. Patient underwent exploration on 11/06/2019 and Bartolo-Cut needle biopsy of mesenteric mass showed no tumor seen and small bowel excision showed benign small bowel segment with no dysplasia or malignancy but bowel resection showed well-differentiated neuroendocrine tumor (carcinoid), tumor extends through muscularis propria with extensive involvement of mesenteric fat. Focal perineural invasion identified. Single discontinuous carcinoid tumor nodule formed and mesenteric fat. Lab workup done on 11/20/2019 showed gastrin level 103 normal being less than 100, chromogranin A level 804, normal being 25-140 24-hour urine HIAA, 43, normal being less than 6. Patient denies any bronchial wheezing but one episode of facial flushing in the past. Denies smoking or alcohol use,But history of fatty liver with abnormal LFTs in the past Mr Rodriguez started on Sandostatin LAR 30 mg every month, on 12/06/2019, Dose was reduced to 20 mg every month on June 23, 2020 because of elevated transaminases And follow-up labs done on July 28, 2020 showed worsening of transaminases ALT 61 AST 44 compared to on June 20, 2020. And is scheduled dose of Sandostatin LAR 20 was due on July 28, 2020 but was held and follow-up labs done on August 28, 2020 shows normalization of AST and improvement in ALT. Sandostatin LAR 20 was restarted on August 28, 2020 because of worsening of diarrhea. Follow-up CT scan of abdomen done on June 16, 2020 showed fatty infiltration of liver but no dilated intrahepatic ducts or masses seen. No change in 4.8 cm central abdominal mass. Patient has history of anxiety disorder, as per patient he used to get mild chest pain/discomfort and Dr. Goodwin, flight test shop mechanic has evaluated him and as per patient it was concluded that his chest pain could be due to anxiety and since he learned how to handle anxiety his chest pain has resolved. Follow-up octreotide scan done on July 27, 2021 showed multiple new foci of uptake in the liver the largest in the right hepatic lobe laterally compatible with metastatic disease. Mesenteric mass in the right lower central mesentery is similar in appearance but with more intense uptake, suspicious for progression. Additional new adjacent metastatic deposit along the lumbar paraspinal region. 3 previously described punctate deposits above the diaphragm are unchanged Patient was referred to [facility] and was recommended to start Lutathera infusion every other month x4, which was started on October 07, 2021 and was also advised to continue with Sandostatin LAR 30 mg within 4 to 24 hours after Lutathera dose and continue every 4 weeks Patient presents today for follow-up. States he is feeling pretty good. He has had his treatment of Lutathera yesterday. He presents today for his Sandostatin injection. He states he continues to have watery stools at least 10 times a day. He is hoping it will improve after this next treatment. He states his appetite is good. He denies fever, chills, night sweats. No sinus drainage or congestion. No shortness of breath, cough, chest pain. He did experience nausea after his Lutathera treatment yesterday but that has now resolved. Review Of Symptoms: See above. Past Medical History: Ashd Gastroesophageal reflux disease History of pulmonary embolism Hyperlipidemia Hypertension Inguinal hernia Osteoarthritis Past Surgical History: Coronary [id number] stents Coronary artery bypass Allergies: Statins Medications: amLODIPine Besylate 1 Tablet (of 10 mg) Oral daily Atenolol 0.5 Tablet (of 25 mg) Oral daily Cholecalciferol 1 Tablet (of 1000 mg) Oral daily Clopidogrel Bisulfate 1 Tablet (of 75 mg) Oral daily Eliquis 1 Tablet (of 5 mg) Oral b.i.d. Fish Oil 1 Capsule (of 2000 mg) Oral daily Garlic 1 Capsule (of 1000 mg) Oral daily Gemfibrozil (600 mg) Tablet Oral b.i.d. Lisinopril 1 Tablet (of 20 mg) Oral daily PX Omeprazole 1 Tablet (of 20 mg) Tablet, enteric coated Oral daily Tamsulosin HCl (0.4 mg) Capsule Oral daily Family History: Mr. Rodriguez's mother at age 82: cerebrovascular accident. Mr. Rodriguez's father at age 45: heart disease. Mr. Rodriguez has 1 brother who is : lymphoma. Social History: Mr. Rodriguez is and he is retired. Mr. Rodriguez quit smoking 36 years ago but had smoked 0.5 packs/day for 20 years. He has no history of drinking. Physical Examination: Performed on Dec 03, 2021 14:22: Height - 72.00 in, Weight - 182.2 lbs (LOW), BSA - 2.05 sq.m, BMI - 24.71, Temperature - 97.7 F (LOW), Pulse - 72 /min, Respiration - 16 /min, BP - 114/73 mm(hg), O2 Sat - 97 %, Pain - 0, and Fatigue - 4. Performance Status: 0 - Fully active, able to carry on all predisease activities without restrictions. (ECOG) Constitutional Alert, cooperative, oriented. Mood and affect appropriate. Appears close to chronological age. Well nourished. Well developed. Head Normocephalic; no scars. Respiratory Lungs are clear to auscultation without rhonchi or wheezing. Cardiovascular Regular rate and rhythm of heart without murmurs, gallops or rubs. Abdomen Non-tender, non-distended, no masses, ascites or hepatosplenomegaly. Good bowel sounds. No guarding or rebound tenderness. Extremities No edema Musculoskeletal No tenderness or swelling, normal range of motion without obvious weakness. Psychiatric Alert and oriented times three. Coherent speech. Verbalizes understanding of our discussions today. Laboratory: Test performed on Dec 03, 2021 12:30 Sodium 135 mmol/L Potassium 5.0 mmol/L Chloride 107 mmol/L CO2 19 mmol/L Anion Gap 14.0 BUN 14 mg/dL Creatinine 0.8 mg/dL Cr Clearance (Est) 99.00 mL/min Glucose 111 mg/dL Osmolality - Calculated 281 mOsm/kg Calcium 10.7 mg/dL Protein, Total 8.2 g/dL Albumin 5.2 g/dL Globulin 3.0 g/dL Bilirubin, Total 0.4 mg/dL ALT (SGPT) 46 U/L AST (SGOT) 48 U/L Alkaline Phosphatase 105 IU/L WBC 4.7 10 3/uL RBC 4.80 10 6/uL HGB 13.2 g/dL HCT 41.0 % MCV 85.4 fl MCH 27.5 pg MCHC 32.2 g/dL RDW 14.2 % Platelet Count 132 10 3/cmm MPV 12.6 fL Neutrophils 3.05 10 3/uL Lymphocytes 1.1 10 3/uL Monocytes 0.4 10 3/uL Eosinophils 0.1 10 3/uL Basophils 0.0 10 3/uL Neutrophil % 65.0 % Lymphocyte % 23.4 % Monocyte % 8.5 % Eosinophil % 2.3 % Basophils % 0.6 % NRBC % 0 % Impression: 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 Gastrin level 103 , normal being less than 100. Final pathology report showed well-differentiated neuroendocrine tumor, carcinoid, tumor extends to the muscularis propria with extensive involvement of mesenteric fat. Focal perineural invasion identified. Single discontinue his carcinoid tumor and nodule found in the mesenteric fat. Tumor cell are strongly and diffusely positive for synaptophysin and neuron specific enolase and weakly positive for chromogranin A. Also negative for CD 56. And Ki-67 proliferative index is less than 1%, consistent with carcinoid Octreotide scan done on 10/08/2019 showed positive for uptake in mesenteric mass. Additional foci of increase uptake are probably metastatic deposit in the right axilla, right paraspinal, just above diaphragm and left lower thorax, just above spleen. There may be a metastatic lesion in the lungs are lymph nodes. Chronic diarrhea for the last 7-8 years, probably due to carcinoid started on Sandostatin LAR 30 every month on 12/06/2019 Clinically, patient is doing well with no new signs symptoms, tolerating Sandostatin LAR well, with good control over his diarrhea e.g. 1-2 loose bowel movement in a day but his follow-up CMP shows progressive abnormal LFTs, patient has history of fatty liver his LFTs improved with weight loss due to chronic diarrhea, now with no significant weight change in the last few month but now with progressive abnormal LFTs which could be due to Sandostatin LAR although a rare toxicity. At this point, we will hold his Sandostatin therapy and he will return to clinic in 1 month with CBC and CMP and if LFTs improved, then plan may consider reduced dose Sandostatin e.g. 20 mg otherwise we will consider CT scan or MRI scan of the liver. Sandostatin was restarted, patient continued to have chronic diarrhea and follow-up labs including serotonin and chromogranin A levels were checked on December 11, 2020 and both were elevated, shortening was 1147 compared to 828 previously and chromogranin A was 227 compared to 185 previously, he was decided to increase his Sandostatin LAR dose to 30 mg and then monitor him with biochemical testing as well as symptom severino, if there is no improvement, may consider adding everolimus Lutathera infusion every 8 weeks x4 was added to Sandostatin therapy on October 07, 2021, While continue with Sandostatin LAR 30 mg every month and specially within 24 hours of Lutathera infusion which will be scheduled for every 8 weeks x 4. Plan: Labs were reviewed with patient with WBC at 4.7, hemoglobin 13.2, hematocrit 41.0, and platelet count at 132,000. Sodium is slightly low at 135, and calcium is mildly elevated at 10.7 liver enzymes are mildly elevated with ALT at 46 and AST of 48. Other labs are within normal limits. Patient is tolerating treatment well Lutathera and Sandostatin. He received his Lutathera treatment yesterday in [place]. He presents today for his Sandostatin injection. He will return to the clinic in 1 month with CBC and CMP and if all is well he will receive his next dose of Sandostatin. Signed By: Katalina Palomares N.P. <<Signature on File>>
[2021-12-03] MEDS: octreotide LAR depot 30 mg Kit IM (14:53)
== END 2021-12-03 12:14 | disposition home or self-care (01) ==
PROVIDERS: PCP Family Medicine; Visit Provider Nurse Practitioner Family
DX: C7A.012 Malignant carcinoid tumor of the ileum (principal); C7B.01 Secondary carcinoid tumors of distant lymph nodes; C7B.04 Secondary carcinoid tumors of peritoneum; K52.89 Other specified noninfective gastroenteritis and colitis; Z79.818 Long term (current) use of other agents affecting estrogen receptors and estrogen levels; Z79.899 Other long term (current) drug therapy
CPT/HCPCS: 36415; 80053; 85025; 96372; 99215; J2353

== ENCOUNTER → 2021-12-30 15:09 | Outpatient (BNVA) | payer OTHER, SELFPAY | PROVIDERS: PCP Family Medicine; Visit Provider Internal Medicine Cardiovascular Disease | DX: I48.20 Chronic atrial fibrillation, unspecified (principal); Z79.01 Long term (current) use of anticoagulants; E78.5 Hyperlipidemia, unspecified; I25.118 Atherosclerotic heart disease of native coronary artery with other forms of angina pectoris; I47.2 Ventricular tachycardia; D3A.019 Benign carcinoid tumor of the small intestine, unspecified portion; I10 Essential (primary) hypertension | CPT/HCPCS: 99214 ==

== ENCOUNTER 2021-12-31 08:06 | Outpatient (CLI) | payer OTHER, SELFPAY ==
[2021-12-31 08:28] LABS: Basophils % 0.7 %; Eosinophils # 0.2 10^3/uL (0.0-0.8); Hematocrit 39.9 % (42.0-52.0); Hemoglobin 12.7 g/dL (11.7-16.6); Lymphocytes # 0.7 10^3/uL (0.8-4.8); Lymphocytes % 11.6 %; Mean Corpuscular HGB Conc 31.8 g/dL (30.0-36.0); Mean Corpuscular Hemoglobin 27.7 pg (28.0-34.0); Mean Corpuscular Volume 86.9 fl (80-94); Mean Platelet Volume 12.3 fL (7.4-10.4); Monocytes # 0.7 10^3/uL (0.2-0.9); Monocytes % 11.8 %; Neutrophils # 4.42 10^3/uL (1.8-7.7); Neutrophils % 72.4 %; Nucleated Red Blood Cells % 0 %; Platelet Count 85 10^3/cmm (130-400); Red Blood Count 4.59 10^6/uL (4.1-5.3); Red Cell Distribution Width 14.3 % (12.1-15.1); White Blood Count 6.1 10^3/uL (4.0-10.0)
[2021-12-31 08:46] LABS: Alanine Aminotransferase 58 U/L (0-41); Alkaline Phosphatase 87 IU/L (40-130); Anion Gap 14.2 (5-19); Aspartate Amino Transferase 64 U/L (0-40); Blood Urea Nitrogen 10 mg/dL (8-23); Calcium 10.2 mg/dL (8.5-10.5); Carbon Dioxide 28 mmol/L (22-29); Chloride 100 mmol/L (98-107); Globulin 2.3 g/dL (1.3-4.6); Glucose 120 mg/dL (65-115); Osmolality Calculated 286 mOsm/kg (285-295); Potassium 4.2 mmol/L (3.5-5.1); Sodium 138 mmol/L (136-145); Total Bilirubin 0.4 mg/dL (0.15-1.2); Total Protein 7.3 g/dL (6.6-8.7)
--- NOTE | 2021-12-31 10:13 | ONC FU_ITS ---
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 Rodriguez is a 71 -year-old gentleman with history of chronic diarrhea for the last 7-8 years, as per patient about 8 years ago he underwent gallbladder surgery and subsequently developed diarrhea initially he thought he was due to gallbladder surgery but diarrhea persisted, it was watery, 5-6 times a day, no mucus or blood seen . Patient said he got used to chronic diarrhea until in June 2019 when he started having progressive abdominal pain at that time he told his primary care physician at [facility] about chronic diarrhea and now progressive abdominal pain and CT scan of abdomen was ordered which showed mesenteric mass and was referred to Dr. carter. 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 Additional foci of increase uptake are probably metastatic deposit in the right axilla, right paraspinal, just above the diaphragm and left lower thorax just above the spleen. There may be metastatic lesions in the lungs or lymph nodes. Patient underwent exploration on 11/06/2019 and [facility]-Cut needle biopsy of mesenteric mass showed no tumor seen and small bowel excision showed benign small bowel segment with no dysplasia or malignancy but bowel resection showed well-differentiated neuroendocrine tumor (carcinoid), tumor extends through muscularis propria with extensive involvement of mesenteric fat. Focal perineural invasion identified. Single discontinuous carcinoid tumor nodule formed and mesenteric fat. Lab workup done on 11/20/2019 showed gastrin level 103 normal being less than 100, chromogranin A level 804, normal being 25-140 24-hour urine HIAA, 43, normal being less than 6. Patient denies any bronchial wheezing but one episode of facial flushing in the past. Denies smoking or alcohol use,But history of fatty liver with abnormal LFTs in the past Mr Rodriguez started on Sandostatin LAR 30 mg every month, on 12/06/2019, Dose was reduced to 20 mg every month on June 23, 2020 because of elevated transaminases And follow-up labs done on July 28, 2020 showed worsening of transaminases ALT 61 AST 44 compared to on June 20, 2020. And is scheduled dose of Sandostatin LAR 20 was due on July 28, 2020 but was held and follow-up labs done on August 28, 2020 shows normalization of AST and improvement in ALT. Sandostatin LAR 20 was restarted on August 28, 2020 because of worsening of diarrhea. Follow-up CT scan of abdomen done on June 16, 2020 showed fatty infiltration of liver but no dilated intrahepatic ducts or masses seen. No change in 4.8 cm central abdominal mass. Patient has history of anxiety disorder, as per patient he used to get mild chest pain/discomfort and Dr. Goodwin, branding specialist has evaluated him and as per patient it was concluded that his chest pain could be due to anxiety and since he learned how to handle anxiety his chest pain has resolved. Follow-up octreotide scan done on July 27, 2021 showed multiple new foci of uptake in the liver the largest in the right hepatic lobe laterally compatible with metastatic disease. Mesenteric mass in the right lower central mesentery is similar in appearance but with more intense uptake, suspicious for progression. Additional new adjacent metastatic deposit along the lumbar paraspinal region. 3 previously described punctate deposits above the diaphragm are unchanged Patient was referred to [facility] and was recommended to start Lutathera infusion every other month x4, which was started on October 07, 2021 and was also advised to continue with Sandostatin LAR 30 mg within 4 to 24 hours after Lutathera dose and continue every 4 weeks Patient presents today for follow-up. He states he has been doing pretty good. His appetite has been good. No fever, chills. He does have occasional hot flashes but those have improved. He denies sinus drainage or mouth sores. No cough or chest pain. He has been experiencing some nausea since starting the Lutathera. He has received 2 treatments of the Lutathera thus far. He continues to have diarrhea 10-12 times a day but states he does not experience the urgency to get to the bathroom that he once did. He denies any urinary problems. No joint or bone pain. No headaches or dizziness. Review Of Symptoms: See above. Past Medical History: Ashd Gastroesophageal reflux disease History of pulmonary embolism Hyperlipidemia Hypertension Inguinal hernia Osteoarthritis Past Surgical History: Coronary lv5nrpa stents Coronary artery bypass Allergies: Statins Medications: amLODIPine Besylate 1 Tablet (of 10 mg) Oral daily Atenolol 0.5 Tablet (of 25 mg) Oral daily Cholecalciferol 1 Tablet (of 1000 mg) Oral daily Clopidogrel Bisulfate 1 Tablet (of 75 mg) Oral daily Eliquis 1 Tablet (of 5 mg) Oral b.i.d. Fish Oil 1 Capsule (of 2000 mg) Oral daily Garlic 1 Capsule (of 1000 mg) Oral daily Gemfibrozil (600 mg) Tablet Oral b.i.d. Lisinopril 1 Tablet (of 20 mg) Oral daily PX Omeprazole 1 Tablet (of 20 mg) Tablet, enteric coated Oral daily Tamsulosin HCl (0.4 mg) Capsule Oral daily Family History: Mr. Rodriguez's mother at age 82: cerebrovascular accident. Mr. Rodriguez's father at age 45: heart disease. Mr. Rodriguez has 1 brother who is : lymphoma. Social History: Mr. Rodriguez is and he is retired. Mr. Rodriguez quit smoking 36 years ago but had smoked 0.5 packs/day for 20 years. He has no history of drinking. Physical Examination: Performed on Dec 31, 2021 09:33: Height - 72.00 in, Weight - 183.2 lbs (HIGH), BSA - 2.05 sq.m, BMI - 24.85, Temperature - 98.5 F, Pulse - 66 /min, Respiration - 16 /min, BP - 124/82 mm(hg), O2 Sat - 96 %, Pain - 0, and Fatigue - 4. Performance Status: 0 - Fully active, able to carry on all predisease activities without restrictions. (ECOG) Constitutional Alert, cooperative, oriented. Mood and affect appropriate. Appears close to chronological age. Well nourished. Well developed. Respiratory Lungs are clear to auscultation without rhonchi or wheezing. Cardiovascular Regular rate and rhythm of heart without murmurs, gallops or rubs. Abdomen Non-tender, non-distended, no masses, ascites or hepatosplenomegaly. Good bowel sounds. No guarding or rebound tenderness. Musculoskeletal No tenderness or swelling, normal range of motion without obvious weakness. Psychiatric Alert and oriented times three. Coherent speech. Verbalizes understanding of our discussions today. Laboratory: Test performed on Dec 31, 2021 08:20 Sodium 138 mmol/L Potassium 4.2 mmol/L Chloride 100 mmol/L CO2 28 mmol/L Anion Gap 14.2 BUN 10 mg/dL Creatinine 0.7 mg/dL Cr Clearance (Est) 113.77 mL/min Glucose 120 mg/dL Osmolality - Calculated 286 mOsm/kg Calcium 10.2 mg/dL Protein, Total 7.3 g/dL Albumin 5.0 g/dL Globulin 2.3 g/dL Bilirubin, Total 0.4 mg/dL ALT (SGPT) 58 U/L AST (SGOT) 64 U/L Alkaline Phosphatase 87 IU/L WBC 6.1 10 3/uL RBC 4.59 10 6/uL HGB 12.7 g/dL HCT 39.9 % MCV 86.9 fl MCH 27.7 pg MCHC 31.8 g/dL RDW 14.3 % Platelet Count 85 10 3/cmm MPV 12.3 fL Neutrophils 4.42 10 3/uL Lymphocytes 0.7 10 3/uL Monocytes 0.7 10 3/uL Eosinophils 0.2 10 3/uL Basophils 0.0 10 3/uL Neutrophil % 72.4 % Lymphocyte % 11.6 % Monocyte % 11.8 % Eosinophil % 3.0 % Basophils % 0.7 % NRBC % 0 % Impression: 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 Gastrin level 103 , normal being less than 100. Final pathology report showed well-differentiated neuroendocrine tumor, carcinoid, tumor extends to the muscularis propria with extensive involvement of mesenteric fat. Focal perineural invasion identified. Single discontinue his carcinoid tumor and nodule found in the mesenteric fat. Tumor cell are strongly and diffusely positive for synaptophysin and neuron specific enolase and weakly positive for chromogranin A. Also negative for CD 56. And Ki-67 proliferative index is less than 1%, consistent with carcinoid Octreotide scan done on 10/08/2019 showed positive for uptake in mesenteric mass. Additional foci of increase uptake are probably metastatic deposit in the right axilla, right paraspinal, just above diaphragm and left lower thorax, just above spleen. There may be a metastatic lesion in the lungs are lymph nodes. Chronic diarrhea for the last 7-8 years, probably due to carcinoid started on Sandostatin LAR 30 every month on 12/06/2019 Clinically, patient is doing well with no new signs symptoms, tolerating Sandostatin LAR well, with good control over his diarrhea e.g. 1-2 loose bowel movement in a day but his follow-up CMP shows progressive abnormal LFTs, patient has history of fatty liver his LFTs improved with weight loss due to chronic diarrhea, now with no significant weight change in the last few month but now with progressive abnormal LFTs which could be due to Sandostatin LAR although a rare toxicity. At this point, we will hold his Sandostatin therapy and he will return to clinic in 1 month with CBC and CMP and if LFTs improved, then plan may consider reduced dose Sandostatin e.g. 20 mg otherwise we will consider CT scan or MRI scan of the liver. Sandostatin was restarted, patient continued to have chronic diarrhea and follow-up labs including serotonin and chromogranin A levels were checked on December 11, 2020 and both were elevated, shortening was 1147 compared to 828 previously and chromogranin A was 227 compared to 185 previously, he was decided to increase his Sandostatin LAR dose to 30 mg and then monitor him with biochemical testing as well as symptom severino, if there is no improvement, may consider adding everolimus Lutathera infusion every 8 weeks x4 was added to Sandostatin therapy on October 07, 2021, While continue with Sandostatin LAR 30 mg every month and specially within 24 hours of Lutathera infusion which will be scheduled for every 8 weeks x 4. Plan: Labs were reviewed with the patient today. [place] [address]. This is most likely related to the Lutathera treatments. His ALT is mildly elevated at 58 and his AST is mildly elevated at 64 we will continue to monitor those. Patient is doing well. He is having some mild nausea and we will send in Zofran. He feels the nausea is related to the Lutathera treatment which he receives every 8 weeks. He will receive his next treatment of Sandostatin today. He will receive treatment #3 of Lutathera on 02/03/2022 in [place]. He will return to the clinic for his next Sandostatin injection on 02/04/2022. We will obtain a CBC and CMP at that time. Signed By: Katalina Palomares N.P. <<Signature on File>>
[2021-12-31] MEDS: octreotide LAR depot 30 mg Kit IM (10:58)
== END 2021-12-31 08:07 | disposition home or self-care (01) ==
PROVIDERS: PCP Family Medicine; Visit Provider Nurse Practitioner Family
DX: C7A.8 Other malignant neuroendocrine tumors (principal); C7B.8 Other secondary neuroendocrine tumors; R11.0 Nausea
CPT/HCPCS: 80053; 85025; 96372; 99215; J2353

== ENCOUNTER 2022-01-08 08:26 | Outpatient (CLI) | payer OTHER, SELFPAY ==
--- NOTE | 2022-01-08 08:36 | CT_ITS ---
WS: [id number] CT CHEST, ABDOMEN AND PELVIS WITH CONTRAST HISTORY: NEUROENDOCRINE CANCER TECHNIQUE: Contiguous 5 mm axial imaging performed through the chest, abdomen and pelvis with IV cont rast, oral contrast has been provided. Coronal and sagittal reformats chest. Coronal and sagittal ref ormats through the abdomen and pelvis. All CT scans at [facility] use at least one of these d ose optimization techniques: automated exposure control; mA and/or kV adjustment per patient size (in cludes targeted exams where dose is matched to clinical indication); or iterative reconstruction. CONTRAST: Omnipaque 350; 95 mL IV. DLP: 1893.87 mGy.cm COMPARISON: Octreotide scan 11/24/[address] 06/16/[address]: Noncalcified nodule measuring 8 mm in the LEFT upper lobe, image 20 series 5. This nodule w as probably present measuring about 6 mm on the study of 10/31/2019 but better visualized today. 2 mm nodule at the RIGHT lung base along with areas of scarring. There is a benign granuloma at the LEFT l chaz base. Mild atherosclerotic changes within the thoracic aorta. No aneurysm. Mild enlargement of th e heart. Prior CABG. Pulmonary artery is mildly dilated measuring up to 3.5 cm. There is a soft tissue nodule measuring 2.0 x 1.7 cm causing mild mass effect upon the distal SVC. No axillary lymph nodes. No enlarging otherwise mediastinal or hilar lymph nodes. No retrocrural lymph nodes. Abdomen CT: Diffuse moderate hepatic steatosis. Low-attenuation throughout the liver. There are sever al scattered enhancing lesions within the liver consistent with metastatic disease. Numerous hypervas cular metastatic lesions with the largest in the RIGHT lobe measuring 2.6 x 2.5 cm. There are numerou s lesions in both lobes. Portal vein is patent. Prior cholecystectomy. Normal size spleen. Atrophied pancreas. Bilateral adrenal nodules stable since 08/20/2019. Mild atherosclerosis abdominal aorta. No aneurysm. No ascites. Extensive calcification proximal SMA with a component of stenosis. Lobulated soft tissue mass with scattered calcifications in the central mesentery abuts the third por tion of the duodenum as it crosses the midline. Mass measures 5.0 x 3.6 cm and extends over a length of 5.3 cm. Inseparable from portions of the adjacent small bowel and distal SMA. No obstruction. Ther e are a few adjacent mesenteric small lymph nodes which are unchanged. There is a small amount of free fluid along the RIGHT paracolic gutter extending into the pelvis. Normally distended stomach. No small bowel obstruction. Mild distention of the colon. There are a few scattered areas of mild colonic wall thickening which may be due to underdistention with contrast. T here are a few scattered diverticula. No obstruction. Pelvic CT: Well-distended urinary bladder. Within the urinary bladder there are small calcifications. Prostate gland is encroaching into the base of the bladder. CT/CT chest abd pel w con* IMPRESSION: 1. Progression of metastatic hypervascular lesions within the liver. The large st lesion measures 2.6 x 2.5 cm in the RIGHT lobe. 2. No significant change of the central mesenteric mass with calcification con sistent with neuroendocrine tumor. This mass measures 5.0 x 3.6 cm and extends over length of 5.3 cm. Inseparable from the third portion of the duodenum but n o obstruction. The adjacent small lymph nodes are also stable. 3. LEFT upper lobe 8 mm pulmonary nodule better seen today due to slight incre ase in size. Minimal increase in size by 2 to 3 mm. 4. No change in the lymph node adjacent to the distal SVC. 5. Small amount of ascites is now present along the paracolic gutter extending into the pelvis which is new. 6. Small calcifications in the urinary bladder. 7. Tortuous dilated colon. There are a few areas of wall thickening throughout the colon which may be due to underdistention. Patient may benefit from colono scopy to confirm no metastatic tumors. 8. Unchanged bilateral adrenal nodules.
[2022-01-08] MEDS: iohexol 300 mg/mL 50 mL Btl PO (09:30)
[2022-01-08] MEDS: iohexol 350 mg/mL 100 mL Btl IV (09:31)
== END 2022-01-08 08:27 | disposition home or self-care (01) ==
LOC: RAD 08:26
PROVIDERS: PCP Family Medicine; Visit Provider Radiology Radiation Oncology
DX: C7A.8 Other malignant neuroendocrine tumors (principal)
CPT/HCPCS: 71260; 74177

== ENCOUNTER 2022-01-28 11:46 | Oncology outpatient (recurring) (ONCR) | payer OTHER, SELFPAY ==
[2022-01-28 12:16] LABS: Basophils % 0.7 %; Eosinophils # 0.1 10^3/uL (0.0-0.8); Eosinophils % 1.5 %; Hematocrit 40.7 % (42.0-52.0); Hemoglobin 13.2 g/dL (11.7-16.6); Lymphocytes # 0.8 10^3/uL (0.8-4.8); Lymphocytes % 20.6 %; Mean Corpuscular HGB Conc 32.4 g/dL (30.0-36.0); Mean Corpuscular Hemoglobin 28.1 pg (28.0-34.0); Mean Corpuscular Volume 86.6 fl (80-94); Monocytes # 0.4 10^3/uL (0.2-0.9); Monocytes % 10.7 %; Neutrophils # 2.66 10^3/uL (1.8-7.7); Neutrophils % 66.3 %; Nucleated Red Blood Cells % 0 %; Platelet Count 108 10^3/cmm (130-400); Red Cell Distribution Width 14.6 % (12.1-15.1)
[2022-01-28 12:31] LABS: Alanine Aminotransferase 59 U/L (0-41); Alkaline Phosphatase 109 IU/L (40-130); Anion Gap 15.7 (5-19); Aspartate Amino Transferase 64 U/L (0-40); Blood Urea Nitrogen 15 mg/dL (8-23); Calcium 9.9 mg/dL (8.5-10.5); Carbon Dioxide 24 mmol/L (22-29); Chloride 101 mmol/L (98-107); Globulin 2.8 g/dL (1.3-4.6); Glucose 187 mg/dL (65-115); Osmolality Calculated 288 mOsm/kg (285-295); Potassium 4.7 mmol/L (3.5-5.1); Sodium 136 mmol/L (136-145); Total Bilirubin 0.4 mg/dL (0.15-1.2); Total Protein 7.8 g/dL (6.6-8.7)
[2022-01-28] MEDS: octreotide LAR depot 30 mg Kit IM (14:39)
== END 2022-02-09 23:59 | disposition home or self-care (01) ==
PROVIDERS: PCP Family Medicine; Visit Provider Nurse Practitioner Family
DX: C7A.8 Other malignant neuroendocrine tumors (principal)
CPT/HCPCS: 80053; 85025; 96372; 96402; 99214; 99999; J2353

== ENCOUNTER 2022-02-18 07:38 | Oncology outpatient (recurring) (ONCR) | payer OTHER, SELFPAY ==
[2022-02-18 08:27] LABS: Basophils % 0.9 %; Eosinophils # 0.1 10^3/uL (0.0-0.8); Eosinophils % 2.3 %; Hematocrit 39.5 % (42.0-52.0); Hemoglobin 13.2 g/dL (11.7-16.6); Lymphocytes # 0.9 10^3/uL (0.8-4.8); Lymphocytes % 27.3 %; Mean Corpuscular HGB Conc 33.4 g/dL (30.0-36.0); Mean Corpuscular Hemoglobin 27.5 pg (28.0-34.0); Mean Corpuscular Volume 82.3 fl (80-94); Mean Platelet Volume 13.4 fL (7.4-10.4); Monocytes # 0.4 10^3/uL (0.2-0.9); Monocytes % 12.3 %; Neutrophils # 1.94 10^3/uL (1.8-7.7); Neutrophils % 56.9 %; Nucleated Red Blood Cells % 0 %; Platelet Count 95 10^3/cmm (130-400); White Blood Count 3.4 10^3/uL (4.0-10.0)
[2022-02-18 08:59] LABS: Alanine Aminotransferase 63 U/L (0-41); Albumin Level 4.8 g/dL (3.5-5.2); Alkaline Phosphatase 100 IU/L (40-130); Anion Gap 17.4 (5-19); Aspartate Amino Transferase 59 U/L (0-40); Blood Urea Nitrogen 21 mg/dL (8-23); Calcium 10.2 mg/dL (8.5-10.5); Carbon Dioxide 20 mmol/L (22-29); Chloride 105 mmol/L (98-107); Globulin 2.9 g/dL (1.3-4.6); Glucose 110 mg/dL (65-115); Osmolality Calculated 290 mOsm/kg (285-295); Potassium 4.4 mmol/L (3.5-5.1); Sodium 138 mmol/L (136-145); Total Bilirubin 0.7 mg/dL (0.15-1.2); Total Protein 7.7 g/dL (6.6-8.7)
[2022-02-18 09:09] LABS: Slide Review Slide Review Perform
[2022-02-18] MEDS: octreotide LAR depot 30 mg Kit IM (10:48)
== END 2022-03-11 23:59 | disposition home or self-care (01) ==
PROVIDERS: PCP Family Medicine; Visit Provider Nurse Practitioner Family
DX: C7A.8 Other malignant neuroendocrine tumors (principal); D72.819 Decreased white blood cell count, unspecified; D69.6 Thrombocytopenia, unspecified
CPT/HCPCS: 36415; 80053; 85025; 96372; 96401; 96402; 99214; J2353

== ENCOUNTER 2022-03-25 09:25 | Oncology outpatient (recurring) (ONCR) | payer OTHER, SELFPAY ==
[2022-03-25 09:57] LABS: Basophils % 0.3 %; Eosinophils # 0.1 10^3/uL (0.0-0.8); Eosinophils % 1.4 %; Hematocrit 40.1 % (42.0-52.0); Hemoglobin 12.9 g/dL (11.7-16.6); Lymphocytes # 1.3 10^3/uL (0.8-4.8); Lymphocytes % 20.8 %; Mean Corpuscular HGB Conc 32.2 g/dL (30.0-36.0); Mean Corpuscular Hemoglobin 27.4 pg (28.0-34.0); Mean Corpuscular Volume 85.3 fl (80-94); Mean Platelet Volume 13.3 fL (7.4-10.4); Monocytes # 0.6 10^3/uL (0.2-0.9); Monocytes % 8.8 %; Neutrophils # 4.35 10^3/uL (1.8-7.7); Neutrophils % 68.5 %; Nucleated Red Blood Cells % 0 %; Platelet Count 113 10^3/cmm (130-400); White Blood Count 6.4 10^3/uL (4.0-10.0)
[2022-03-25 10:17] LABS: Alanine Aminotransferase 25 U/L (0-41); Albumin Level 4.6 g/dL (3.5-5.2); Alkaline Phosphatase 102 IU/L (40-130); Anion Gap 14.8 (5-19); Aspartate Amino Transferase 20 U/L (0-40); Blood Urea Nitrogen 23 mg/dL (8-23); Carbon Dioxide 17 mmol/L (22-29); Chloride 107 mmol/L (98-107); Globulin 2.8 g/dL (1.3-4.6); Glucose 81 mg/dL (65-115); Osmolality Calculated 281 mOsm/kg (285-295); Potassium 4.8 mmol/L (3.5-5.1); Sodium 134 mmol/L (136-145); Total Bilirubin 0.5 mg/dL (0.15-1.2); Total Protein 7.4 g/dL (6.6-8.7)
[2022-03-25] MEDS: octreotide LAR depot 30 mg Kit IM (11:37)
== END 2022-04-11 23:59 | disposition home or self-care (01) ==
PROVIDERS: Internal Medicine Hematology & Oncology; PCP Family Medicine; Visit Provider Nurse Practitioner Family
DX: C7A.8 Other malignant neuroendocrine tumors (principal); D72.819 Decreased white blood cell count, unspecified; D69.6 Thrombocytopenia, unspecified; K52.9 Noninfective gastroenteritis and colitis, unspecified; I95.9 Hypotension, unspecified; Z79.818 Long term (current) use of other agents affecting estrogen receptors and estrogen levels; Z87.891 Personal history of nicotine dependence
CPT/HCPCS: 36415; 80053; 85025; 96372; 99215; J2353

== ENCOUNTER 2022-04-22 09:36 | Oncology outpatient (recurring) (ONCR) | payer OTHER, SELFPAY ==
[2022-04-22 10:06] LABS: Basophils % 0.4 %; Eosinophils # 0.1 10^3/uL (0.0-0.8); Hematocrit 37.7 % (42.0-52.0); Hemoglobin 12.1 g/dL (11.7-16.6); Lymphocytes # 0.6 10^3/uL (0.8-4.8); Lymphocytes % 7.9 %; Mean Corpuscular HGB Conc 32.1 g/dL (30.0-36.0); Mean Corpuscular Hemoglobin 27.3 pg (28.0-34.0); Mean Corpuscular Volume 85.1 fl (80-94); Mean Platelet Volume 12.4 fL (7.4-10.4); Monocytes # 0.5 10^3/uL (0.2-0.9); Monocytes % 6.5 %; Neutrophils # 6.06 10^3/uL (1.8-7.7); Neutrophils % 83.6 %; Nucleated Red Blood Cells % 0 %; Platelet Count 100 10^3/cmm (130-400); Red Blood Count 4.43 10^6/uL (4.1-5.3); Red Cell Distribution Width 14.1 % (12.1-15.1); White Blood Count 7.2 10^3/uL (4.0-10.0)
[2022-04-22 10:40] LABS: Alanine Aminotransferase 29 U/L (0-41); Albumin Level 4.7 g/dL (3.5-5.2); Alkaline Phosphatase 83 IU/L (40-130); Anion Gap 17.2 (5-19); Aspartate Amino Transferase 34 U/L (0-40); Blood Urea Nitrogen 14 mg/dL (8-23); Calcium 10.1 mg/dL (8.5-10.5); Carbon Dioxide 25 mmol/L (22-29); Chloride 104 mmol/L (98-107); Globulin 2.6 g/dL (1.3-4.6); Glucose 138 mg/dL (65-115); Osmolality Calculated 297 mOsm/kg (285-295); Potassium 4.2 mmol/L (3.5-5.1); Sodium 142 mmol/L (136-145); Total Bilirubin 0.3 mg/dL (0.15-1.2); Total Protein 7.3 g/dL (6.6-8.7)
[2022-04-22] MEDS: octreotide LAR depot 30 mg Kit IM (12:17)
== END 2022-05-12 23:59 | disposition home or self-care (01) ==
PROVIDERS: PCP Family Medicine; Visit Provider Nurse Practitioner Family
DX: C7A.8 Other malignant neuroendocrine tumors (principal); D69.6 Thrombocytopenia, unspecified; K52.9 Noninfective gastroenteritis and colitis, unspecified; Z79.818 Long term (current) use of other agents affecting estrogen receptors and estrogen levels; Z87.891 Personal history of nicotine dependence
CPT/HCPCS: 80053; 85025; 96372; 99214; 99215; J2353

== ENCOUNTER 2022-05-20 09:03 | Oncology outpatient (recurring) (ONCR) | payer OTHER, SELFPAY ==
[2022-05-20 09:37] LABS: Basophils % 0.6 %; Eosinophils # 0.1 10^3/uL (0.0-0.8); Eosinophils % 2.6 %; Hematocrit 37.8 % (42.0-52.0); Lymphocytes # 0.9 10^3/uL (0.8-4.8); Lymphocytes % 18.8 %; Mean Corpuscular HGB Conc 31.7 g/dL (30.0-36.0); Mean Corpuscular Hemoglobin 27.8 pg (28.0-34.0); Mean Corpuscular Volume 87.7 fl (80-94); Mean Platelet Volume 11.6 fL (7.4-10.4); Monocytes # 0.5 10^3/uL (0.2-0.9); Monocytes % 9.6 %; Neutrophils # 3.18 10^3/uL (1.8-7.7); Nucleated Red Blood Cells % 0 %; Platelet Count 98 10^3/cmm (130-400); Red Blood Count 4.31 10^6/uL (4.1-5.3); Red Cell Distribution Width 14.7 % (12.1-15.1); White Blood Count 4.7 10^3/uL (4.0-10.0)
[2022-05-20 09:58] LABS: Alanine Aminotransferase 30 U/L (0-41); Albumin Level 4.9 g/dL (3.5-5.2); Alkaline Phosphatase 106 U/L (40-130); Anion Gap 12.6 (5-19); Aspartate Amino Transferase 36 U/L (0-40); Blood Urea Nitrogen 14 mg/dL (8-23); Calcium 9.7 mg/dL (8.5-10.5); Carbon Dioxide 24 mmol/L (22-29); Chloride 101 mmol/L (98-107); Globulin 2.7 g/dL (1.3-4.6); Glucose 112 mg/dL (65-115); Osmolality Calculated 277 mOsm/kg (285-295); Potassium 4.6 mmol/L (3.5-5.1); Sodium 133 mmol/L (136-145); Total Bilirubin 0.4 mg/dL (0.15-1.2); Total Protein 7.6 g/dL (6.6-8.7)
[2022-05-20] MEDS: octreotide LAR depot 30 mg Kit IM (12:27)
== END 2022-06-11 23:59 | disposition home or self-care (01) ==
PROVIDERS: PCP Family Medicine; Visit Provider Internal Medicine Hematology & Oncology
DX: D69.6 Thrombocytopenia, unspecified; K52.89 Other specified noninfective gastroenteritis and colitis; Z79.818 Long term (current) use of other agents affecting estrogen receptors and estrogen levels; Z87.891 Personal history of nicotine dependence; C7A.019 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, unspecified portion; C7B.04 Secondary carcinoid tumors of peritoneum; C7B.01 Secondary carcinoid tumors of distant lymph nodes
CPT/HCPCS: 36415; 80053; 85025; 96372; 96401; 99214; J2353

== ENCOUNTER 2022-06-21 12:33 | Oncology outpatient (recurring) (ONCR) | payer OTHER, SELFPAY ==
[2022-06-21 12:56] LABS: Basophils % 0.8 %; Eosinophils # 0.2 10^3/uL (0.0-0.8); Eosinophils % 3.8 %; Hematocrit 35.2 % (42.0-52.0); Hemoglobin 11.6 g/dL (11.7-16.6); Lymphocytes # 0.7 10^3/uL (0.8-4.8); Lymphocytes % 15.5 %; Mean Corpuscular Hemoglobin 28.6 pg (28.0-34.0); Mean Corpuscular Volume 86.7 fl (80-94); Mean Platelet Volume 11.7 fL (7.4-10.4); Monocytes # 0.7 10^3/uL (0.2-0.9); Monocytes % 13.8 %; Neutrophils # 3.13 10^3/uL (1.8-7.7); Neutrophils % 65.7 %; Nucleated Red Blood Cells % 0 %; Platelet Count 88 10^3/cmm (130-400); Red Blood Count 4.06 10^6/uL (4.1-5.3); Red Cell Distribution Width 14.6 % (12.1-15.1); White Blood Count 4.8 10^3/uL (4.0-10.0)
[2022-06-21 13:15] LABS: Alanine Aminotransferase 54 U/L (0-41); Albumin Level 4.5 g/dL (3.5-5.2); Alkaline Phosphatase 108 U/L (40-130); Anion Gap 12.5 (5-19); Aspartate Amino Transferase 55 U/L (0-40); Blood Urea Nitrogen 11 mg/dL (8-23); Calcium 9.7 mg/dL (8.5-10.5); Carbon Dioxide 27 mmol/L (22-29); Chloride 102 mmol/L (98-107); Glucose 93 mg/dL (65-115); Osmolality Calculated 283 mOsm/kg (285-295); Potassium 4.5 mmol/L (3.5-5.1); Sodium 137 mmol/L (136-145); Total Bilirubin 0.3 mg/dL (0.15-1.2); Total Protein 7.5 g/dL (6.6-8.7)
[2022-06-21] MEDS: octreotide LAR depot 30 mg Kit IM (14:56)
== END 2022-07-12 23:59 | disposition home or self-care (01) ==
PROVIDERS: PCP Family Medicine; Visit Provider Internal Medicine Hematology & Oncology
DX: C7A.019 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, unspecified portion (principal); C7B.04 Secondary carcinoid tumors of peritoneum; C7B.01 Secondary carcinoid tumors of distant lymph nodes; C7B.09 Secondary carcinoid tumors of other sites; R19.7 Diarrhea, unspecified; Z79.818 Long term (current) use of other agents affecting estrogen receptors and estrogen levels; Z79.899 Other long term (current) drug therapy
CPT/HCPCS: 36415; 80053; 85025; 96372; 99214; J2353

== ENCOUNTER → 2022-06-23 14:02 | Outpatient (BNVA) | payer OTHER, SELFPAY | PROVIDERS: PCP Family Medicine; Visit Provider Internal Medicine Cardiovascular Disease | DX: I48.91 Unspecified atrial fibrillation (principal); Z79.01 Long term (current) use of anticoagulants; I25.118 Atherosclerotic heart disease of native coronary artery with other forms of angina pectoris; I10 Essential (primary) hypertension; Z87.891 Personal history of nicotine dependence; Z95.1 Presence of aortocoronary bypass graft; E78.5 Hyperlipidemia, unspecified; D3A.019 Benign carcinoid tumor of the small intestine, unspecified portion; I48.92 Unspecified atrial flutter; R00.0 Tachycardia, unspecified; I49.3 Ventricular premature depolarization | CPT/HCPCS: 99214 ==

== ENCOUNTER 2022-07-23 07:42 | Oncology outpatient (recurring) (ONCR) | payer OTHER, SELFPAY ==
[2022-07-23 08:09] LABS: Basophils % 0.2 %; Eosinophils # 0.1 10^3/uL (0.0-0.8); Eosinophils % 2.1 %; Hematocrit 35.9 % (42.0-52.0); Hemoglobin 11.4 g/dL (11.7-16.6); Lymphocytes # 0.8 10^3/uL (0.8-4.8); Lymphocytes % 18.5 %; Mean Corpuscular HGB Conc 31.8 g/dL (30.0-36.0); Mean Corpuscular Hemoglobin 28.2 pg (28.0-34.0); Mean Corpuscular Volume 88.9 fl (80-94); Mean Platelet Volume 12.6 fL (7.4-10.4); Monocytes # 0.5 10^3/uL (0.2-0.9); Monocytes % 12.6 %; Neutrophils # 2.84 10^3/uL (1.8-7.7); Neutrophils % 66.4 %; Nucleated Red Blood Cells % 0 %; Platelet Count 85 10^3/cmm (130-400); Red Blood Count 4.04 10^6/uL (4.1-5.3); White Blood Count 4.3 10^3/uL (4.0-10.0)
[2022-07-23 08:22] LABS: Alanine Aminotransferase 31 U/L (0-41); Albumin Level 4.5 g/dL (3.5-5.2); Alkaline Phosphatase 121 U/L (40-130); Anion Gap 15.1 (5-19); Aspartate Amino Transferase 39 U/L (0-40); Blood Urea Nitrogen 9 mg/dL (8-23); Calcium 9.7 mg/dL (8.5-10.5); Carbon Dioxide 28 mmol/L (22-29); Chloride 102 mmol/L (98-107); Globulin 2.9 g/dL (1.3-4.6); Glucose 116 mg/dL (65-115); Osmolality Calculated 292 mOsm/kg (285-295); Potassium 4.1 mmol/L (3.5-5.1); Sodium 141 mmol/L (136-145); Total Bilirubin 0.3 mg/dL (0.15-1.2); Total Protein 7.4 g/dL (6.6-8.7)
[2022-07-23] MEDS: octreotide LAR depot 30 mg Kit IM (11:02)
== END 2022-08-11 23:59 | disposition home or self-care (01) ==
PROVIDERS: PCP Family Medicine; Visit Provider Internal Medicine Hematology & Oncology
DX: C7A.019 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, unspecified portion (principal); C7B.01 Secondary carcinoid tumors of distant lymph nodes; C7B.04 Secondary carcinoid tumors of peritoneum; C7B.09 Secondary carcinoid tumors of other sites; R19.7 Diarrhea, unspecified; Z79.818 Long term (current) use of other agents affecting estrogen receptors and estrogen levels; Z79.899 Other long term (current) drug therapy; D69.6 Thrombocytopenia, unspecified; D64.9 Anemia, unspecified
CPT/HCPCS: 80053; 85025; 96372; 99214; J2353

== ENCOUNTER 2022-08-25 08:07 | Oncology outpatient (recurring) (ONCR) | payer OTHER, SELFPAY ==
[2022-08-25 08:28] LABS: Basophils % 0.6 %; Eosinophils # 0.1 10^3/uL (0.0-0.8); Eosinophils % 3.3 %; Hemoglobin 11.9 g/dL (11.7-16.6); Lymphocytes # 0.8 10^3/uL (0.8-4.8); Lymphocytes % 22.8 %; Mean Corpuscular HGB Conc 30.5 g/dL (30.0-36.0); Mean Corpuscular Hemoglobin 27.9 pg (28.0-34.0); Mean Corpuscular Volume 91.5 fl (80-94); Mean Platelet Volume 12.3 fL (7.4-10.4); Monocytes # 0.4 10^3/uL (0.2-0.9); Monocytes % 12.4 %; Neutrophils # 2.06 10^3/uL (1.8-7.7); Neutrophils % 60.9 %; Nucleated Red Blood Cells % 0 %; Platelet Count 83 10^3/cmm (130-400); Red Blood Count 4.26 10^6/uL (4.1-5.3); Red Cell Distribution Width 13.9 % (12.1-15.1); White Blood Count 3.4 10^3/uL (4.0-10.0)
[2022-08-25 08:40] LABS: Alanine Aminotransferase 50 U/L (0-41); Albumin Level 4.4 g/dL (3.5-5.2); Alkaline Phosphatase 131 U/L (40-130); Anion Gap 14.4 (5-19); Aspartate Amino Transferase 54 U/L (0-40); Blood Urea Nitrogen 15 mg/dL (8-23); Carbon Dioxide 24 mmol/L (22-29); Chloride 105 mmol/L (98-107); Globulin 3.3 g/dL (1.3-4.6); Glucose 99 mg/dL (65-115); Osmolality Calculated 289 mOsm/kg (285-295); Potassium 4.4 mmol/L (3.5-5.1); Sodium 139 mmol/L (136-145); Total Bilirubin 0.3 mg/dL (0.15-1.2); Total Protein 7.7 g/dL (6.6-8.7)
[2022-08-25] MEDS: octreotide LAR depot 30 mg Kit IM (11:41)
== END 2022-09-11 23:59 | disposition home or self-care (01) ==
PROVIDERS: PCP Family Medicine; Visit Provider Internal Medicine Hematology & Oncology
DX: C7A.019 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, unspecified portion (principal); C7B.01 Secondary carcinoid tumors of distant lymph nodes; C7B.04 Secondary carcinoid tumors of peritoneum; C7B.09 Secondary carcinoid tumors of other sites; D69.6 Thrombocytopenia, unspecified; D72.819 Decreased white blood cell count, unspecified; Z79.818 Long term (current) use of other agents affecting estrogen receptors and estrogen levels; Z79.899 Other long term (current) drug therapy
CPT/HCPCS: 36415; 80053; 85025; 96372; 99214; J2353

== ENCOUNTER 2022-09-22 09:03 | Oncology outpatient (recurring) (ONCR) | payer OTHER, SELFPAY ==
[2022-09-22 09:29] LABS: Basophils % 0.7 %; Eosinophils # 0.1 10^3/uL (0.0-0.8); Eosinophils % 2.2 %; Hematocrit 38.8 % (42.0-52.0); Hemoglobin 12.4 g/dL (11.7-16.6); Lymphocytes # 0.9 10^3/uL (0.8-4.8); Lymphocytes % 20.1 %; Mean Corpuscular Hemoglobin 27.9 pg (28.0-34.0); Mean Corpuscular Volume 87.2 fl (80-94); Mean Platelet Volume 12.6 fL (7.4-10.4); Monocytes # 0.5 10^3/uL (0.2-0.9); Monocytes % 11.4 %; Neutrophils # 2.92 10^3/uL (1.8-7.7); Neutrophils % 65.4 %; Nucleated Red Blood Cells % 0 %; Platelet Count 115 10^3/cmm (130-400); Red Blood Count 4.45 10^6/uL (4.1-5.3); Red Cell Distribution Width 14.4 % (12.1-15.1); White Blood Count 4.5 10^3/uL (4.0-10.0)
[2022-09-22 09:52] LABS: Alanine Aminotransferase 47 U/L (0-41); Alkaline Phosphatase 129 U/L (40-130); Anion Gap 14.8 (5-19); Aspartate Amino Transferase 50 U/L (0-40); Blood Urea Nitrogen 16 mg/dL (8-23); Calcium 9.9 mg/dL (8.5-10.5); Carbon Dioxide 26 mmol/L (22-29); Chloride 102 mmol/L (98-107); Globulin 2.8 g/dL (1.3-4.6); Glucose 114 mg/dL (65-115); Osmolality Calculated 288 mOsm/kg (285-295); Potassium 4.8 mmol/L (3.5-5.1); Sodium 138 mmol/L (136-145); Total Bilirubin 0.3 mg/dL (0.15-1.2); Total Protein 7.8 g/dL (6.6-8.7)
[2022-09-22] MEDS: octreotide LAR depot 30 mg Kit IM (11:52)
== END 2022-10-12 23:59 | disposition home or self-care (01) ==
PROVIDERS: PCP Family Medicine; Visit Provider Internal Medicine Hematology & Oncology
DX: C7A.019 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, unspecified portion (principal); C7B.01 Secondary carcinoid tumors of distant lymph nodes; C7B.04 Secondary carcinoid tumors of peritoneum; C7B.09 Secondary carcinoid tumors of other sites; D72.819 Decreased white blood cell count, unspecified; D69.6 Thrombocytopenia, unspecified; Z79.818 Long term (current) use of other agents affecting estrogen receptors and estrogen levels; Z79.899 Other long term (current) drug therapy; R19.7 Diarrhea, unspecified; R74.01 Elevation of levels of liver transaminase levels
CPT/HCPCS: 36415; 80053; 85025; 96372; 96401; 99214; J2353

== ENCOUNTER 2022-10-20 12:42 | Oncology outpatient (recurring) (ONCR) | payer OTHER, SELFPAY ==
[2022-10-20 13:08] LABS: Basophils % 0.9 %; Eosinophils # 0.1 10^3/uL (0.0-0.8); Eosinophils % 2.7 %; Hematocrit 37.6 % (42.0-52.0); Hemoglobin 11.8 g/dL (11.7-16.6); Lymphocytes % 23.3 %; Mean Corpuscular HGB Conc 31.4 g/dL (30.0-36.0); Mean Platelet Volume 12.4 fL (7.4-10.4); Monocytes # 0.6 10^3/uL (0.2-0.9); Monocytes % 12.9 %; Neutrophils # 2.66 10^3/uL (1.8-7.7); Nucleated Red Blood Cells % 0 %; Platelet Count 96 10^3/cmm (130-400); Red Blood Count 4.37 10^6/uL (4.1-5.3); Red Cell Distribution Width 14.5 % (12.1-15.1); White Blood Count 4.4 10^3/uL (4.0-10.0)
[2022-10-20 13:31] LABS: Alanine Aminotransferase 43 U/L (0-41); Alkaline Phosphatase 116 U/L (40-130); Anion Gap 16.7 (5-19); Aspartate Amino Transferase 47 U/L (0-40); Blood Urea Nitrogen 17 mg/dL (8-23); Calcium 9.6 mg/dL (8.5-10.5); Carbon Dioxide 25 mmol/L (22-29); Chloride 103 mmol/L (98-107); Globulin 2.9 g/dL (1.3-4.6); Glucose 101 mg/dL (65-115); Osmolality Calculated 292 mOsm/kg (285-295); Potassium 4.7 mmol/L (3.5-5.1); Sodium 140 mmol/L (136-145); Total Bilirubin 0.3 mg/dL (0.15-1.2); Total Protein 7.9 g/dL (6.6-8.7)
[2022-10-20] MEDS: octreotide LAR depot 30 mg Kit IM (15:16)
== END 2022-11-09 23:59 | disposition home or self-care (01) ==
PROVIDERS: PCP Family Medicine; Visit Provider Internal Medicine Hematology & Oncology
DX: C7A.019 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, unspecified portion (principal); C7B.04 Secondary carcinoid tumors of peritoneum; R19.7 Diarrhea, unspecified; D69.6 Thrombocytopenia, unspecified; Z79.818 Long term (current) use of other agents affecting estrogen receptors and estrogen levels; Z79.899 Other long term (current) drug therapy
CPT/HCPCS: 36415; 80053; 85025; 99214; J2353

== ENCOUNTER 2022-12-02 07:17 | Oncology outpatient (recurring) (ONCR) | payer OTHER, SELFPAY ==
[2022-12-02 07:41] LABS: Basophils # 0.1 10^3/uL (0.0-0.1); Basophils % 1.2 %; Eosinophils # 0.2 10^3/uL (0.0-0.8); Eosinophils % 3.1 %; Hematocrit 37.2 % (42.0-52.0); Lymphocytes % 18.4 %; Mean Corpuscular HGB Conc 32.3 g/dL (30.0-36.0); Mean Corpuscular Hemoglobin 27.4 pg (28.0-34.0); Mean Corpuscular Volume 84.9 fl (80-94); Mean Platelet Volume 12.3 fL (7.4-10.4); Monocytes # 0.6 10^3/uL (0.2-0.9); Monocytes % 10.7 %; Neutrophils # 3.46 10^3/uL (1.8-7.7); Neutrophils % 66.4 %; Nucleated Red Blood Cells % 0 %; Platelet Count 120 10^3/cmm (130-400); Red Blood Count 4.38 10^6/uL (4.1-5.3); Red Cell Distribution Width 14.6 % (12.1-15.1); White Blood Count 5.2 10^3/uL (4.0-10.0)
[2022-12-02 08:03] LABS: Alanine Aminotransferase 43 U/L (0-41); Albumin Level 4.6 g/dL (3.5-5.2); Alkaline Phosphatase 99 U/L (40-130); Anion Gap 15.4 (5-19); Aspartate Amino Transferase 46 U/L (0-40); Blood Urea Nitrogen 16 mg/dL (8-23); Calcium 9.4 mg/dL (8.5-10.5); Carbon Dioxide 26 mmol/L (22-29); Chloride 104 mmol/L (98-107); Globulin 2.8 g/dL (1.3-4.6); Glucose 110 mg/dL (65-115); Osmolality Calculated 294 mOsm/kg (285-295); Potassium 4.4 mmol/L (3.5-5.1); Sodium 141 mmol/L (136-145); Total Bilirubin 0.4 mg/dL (0.15-1.2); Total Protein 7.4 g/dL (6.6-8.7)
[2022-12-02 11:15] VITALS: BP 126/80; PULSE 100; RESP 16; TEMP 36.6; O2SAT 95
[2022-12-02 11:45] VITALS: BP 132/77; PULSE 88; RESP 16; TEMP 36.6; O2SAT 97
[2022-12-02] MEDS: octreotide LAR depot 30 mg Kit IM (11:51)
== END 2022-12-10 23:59 | disposition home or self-care (01) ==
PROVIDERS: PCP Family Medicine; Visit Provider Internal Medicine Hematology & Oncology
DX: C7A.019 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, unspecified portion (principal); C7B.04 Secondary carcinoid tumors of peritoneum; R19.7 Diarrhea, unspecified; D69.6 Thrombocytopenia, unspecified; Z79.818 Long term (current) use of other agents affecting estrogen receptors and estrogen levels; Z79.899 Other long term (current) drug therapy
CPT/HCPCS: 36415; 80053; 85025; 96401; 99214; J2353

== ENCOUNTER → 2022-12-29 13:41 | Outpatient (BNVA) | payer OTHER, SELFPAY | PROVIDERS: PCP Family Medicine; Visit Provider Internal Medicine Cardiovascular Disease | DX: R07.89 Other chest pain (principal); I48.91 Unspecified atrial fibrillation; E78.5 Hyperlipidemia, unspecified; I25.118 Atherosclerotic heart disease of native coronary artery with other forms of angina pectoris; R00.1 Bradycardia, unspecified; C7A.8 Other malignant neuroendocrine tumors; I10 Essential (primary) hypertension; Z95.1 Presence of aortocoronary bypass graft; Z79.01 Long term (current) use of anticoagulants; Z87.891 Personal history of nicotine dependence | CPT/HCPCS: 99214 ==

== ENCOUNTER 2022-12-30 09:55 | Oncology outpatient (recurring) (ONCR) | payer OTHER, SELFPAY ==
[2022-12-30 10:21] LABS: Basophils % 0.4 %; Eosinophils # 0.2 10^3/uL (0.0-0.8); Eosinophils % 2.2 %; Hematocrit 37.5 % (42.0-52.0); Lymphocytes # 1.2 10^3/uL (0.8-4.8); Lymphocytes % 16.5 %; Mean Corpuscular Hemoglobin 27.6 pg (28.0-34.0); Mean Corpuscular Volume 86.4 fl (80-94); Mean Platelet Volume 12.3 fL (7.4-10.4); Monocytes # 0.9 10^3/uL (0.2-0.9); Monocytes % 11.9 %; Neutrophils # 4.94 10^3/uL (1.8-7.7); Neutrophils % 68.9 %; Nucleated Red Blood Cells % 0 %; Platelet Count 89 10^3/cmm (130-400); Red Blood Count 4.34 10^6/uL (4.1-5.3); Red Cell Distribution Width 14.7 % (12.1-15.1); White Blood Count 7.2 10^3/uL (4.0-10.0)
[2022-12-30 10:30] LABS: Alanine Aminotransferase 40 U/L (0-41); Albumin Level 4.6 g/dL (3.5-5.2); Alkaline Phosphatase 124 U/L (40-130); Anion Gap 15.6 (5-19); Aspartate Amino Transferase 40 U/L (0-40); Blood Urea Nitrogen 9 mg/dL (8-23); Calcium 9.6 mg/dL (8.5-10.5); Carbon Dioxide 23 mmol/L (22-29); Chloride 104 mmol/L (98-107); Globulin 3.2 g/dL (1.3-4.6); Glucose 111 mg/dL (65-115); Osmolality Calculated 285 mOsm/kg (285-295); Potassium 4.6 mmol/L (3.5-5.1); Sodium 138 mmol/L (136-145); Total Bilirubin 0.5 mg/dL (0.15-1.2); Total Protein 7.8 g/dL (6.6-8.7)
[2022-12-30] MEDS: octreotide LAR depot 30 mg Kit IM (12:32)
== END 2023-01-09 23:59 | disposition home or self-care (01) ==
PROVIDERS: PCP Family Medicine; Visit Provider Internal Medicine Hematology & Oncology
DX: C7A.019 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, unspecified portion (principal); C7B.04 Secondary carcinoid tumors of peritoneum; D69.6 Thrombocytopenia, unspecified; Z79.818 Long term (current) use of other agents affecting estrogen receptors and estrogen levels; Z79.899 Other long term (current) drug therapy; C7B.01 Secondary carcinoid tumors of distant lymph nodes; K52.89 Other specified noninfective gastroenteritis and colitis; Z87.891 Personal history of nicotine dependence
CPT/HCPCS: 36415; 80053; 85025; 96402; 99214; J2353

== ENCOUNTER 2023-01-27 11:02 | Oncology outpatient (recurring) (ONCR) | payer OTHER, SELFPAY ==
[2023-01-27 11:40] LABS: Basophils % 0.6 %; Eosinophils # 0.2 10^3/uL (0.0-0.8); Eosinophils % 4.1 %; Hemoglobin 11.3 g/dL (11.7-16.6); Lymphocytes # 0.8 10^3/uL (0.8-4.8); Lymphocytes % 17.3 %; Mean Corpuscular HGB Conc 32.3 g/dL (30.0-36.0); Mean Corpuscular Hemoglobin 27.2 pg (28.0-34.0); Mean Corpuscular Volume 84.3 fl (80-94); Mean Platelet Volume 13.3 fL (7.4-10.4); Monocytes # 0.5 10^3/uL (0.2-0.9); Monocytes % 11.7 %; Neutrophils # 3.05 10^3/uL (1.8-7.7); Neutrophils % 66.1 %; Nucleated Red Blood Cells % 0 %; Platelet Count 81 10^3/cmm (130-400); Red Blood Count 4.15 10^6/uL (4.1-5.3); Red Cell Distribution Width 14.5 % (12.1-15.1); White Blood Count 4.6 10^3/uL (4.0-10.0)
[2023-01-27 12:01] LABS: Alanine Aminotransferase 30 U/L (0-41); Albumin Level 4.3 g/dL (3.5-5.2); Alkaline Phosphatase 139 U/L (40-130); Aspartate Amino Transferase 32 U/L (0-40); Blood Urea Nitrogen 11 mg/dL (8-23); Calcium 9.1 mg/dL (8.5-10.5); Carbon Dioxide 21 mmol/L (22-29); Chloride 106 mmol/L (98-107); Globulin 2.9 g/dL (1.3-4.6); Glucose 133 mg/dL (65-115); Osmolality Calculated 289 mOsm/kg (285-295); Sodium 139 mmol/L (136-145); Total Bilirubin 0.4 mg/dL (0.15-1.2); Total Protein 7.2 g/dL (6.6-8.7)
[2023-01-27 12:07] LABS: Slide Review Slide Review Perform
[2023-01-27 13:35] VITALS: BP 120/78; PULSE 74; RESP 18; TEMP 36.6; O2SAT 98
[2023-01-27] MEDS: octreotide LAR depot 30 mg Kit IM (13:35)
== END 2023-02-09 23:59 | disposition home or self-care (01) ==
LOC: ONCMED 11:02
PROVIDERS: Nurse Practitioner Family; PCP Family Medicine; Visit Provider Internal Medicine Hematology & Oncology
DX: C7A.8 Other malignant neuroendocrine tumors (principal)
CPT/HCPCS: 36415; 80053; 85025; 96402; J2353

== ENCOUNTER 2023-02-03 06:53 | Outpatient (CLI) | payer OTHER, SELFPAY ==
[2023-02-03 07:12] VITALS: BMI 23.3
--- NOTE | 2023-02-03 07:13 | ECG_ITS ---
[facility] Test Date: 2023-02-03 Pat Name: Manuel Rodriguez Department: Room: Gender: Male [employer] Agent: : 1950 Requested By: Yvonne Goodwin Order Number: [id number] Quintero MD: Jose Montalvo M.D. Interpretive Statements NAME OF STUDY: LEXISCAN SESTAMIBI STRESS TEST INDICATION: [Chest Pain, ] Procedure: At the baseline, the blood pressure was 114/77 mmHg with a heart rate of 59 bpm. The electrocardiogram showed atrial fibrillation with PVCs. The Lexiscan was infused over a period of 20 seconds. A total of 0.4 mg of Lexiscan was infused. The stress phase was continued for a total of 5 minutes. Heart rate was at the end of stress phase was 71 bpm and a blood pressure of 106/69 mmHg. The EKG at the peak infusion revealed atrial fibrillation with no significant ST-T wave changes. PVCs were seen. Sestamibi was injected 20 seconds after the Lexiscan infusion. Blood pressure at the end of recovery phase was 119/73 mmHg with a heart rate of 70 bpm. Conclusion: 1. Normal EKG response to Lexiscan infusion 2. No Lexiscan induced chest pain or cardiac arrhythmia. 3. Normal blood pressure and heart rate response. 4. Sestamibi/sestamibi perfusion scan pending; see separate report. Electronically Signed On 02-24-2023 9:39:41 CDT by Jose Montalvo M.D. [email or web address]
--- NOTE | 2023-02-03 07:14 | NMCV_ITS ---
NM brook perf SPECT r/s* [id number] Manuel Rodriguez Age: 72 Gender: M : 1950 Exam Date: 02/03/2023 08:19 Ordering Phys: Yvonne Goodwin MD ([email or web address]) Technologist: ARELY Lu Exam Location: [facility] Indications: CORONARY ANGIOPLASTY STATUS STRESS TEST Please see separate stress test report in [facility] for full findings IMAGE PROTOCOL Rest/Stress 1 Lexiscan Day Radiopharmaceutical Dose (mCi) Administration Site Administered by Rest: Tc-99m 10.8 IV ARELY Clarke Sestamibi Stress:Tc-99m 32.4 IV ARELY Clarke Sestamibi Rest: 03-Feb-2023 60 Discovery 630 Stress: 03-Feb-2023 30 Discovery 630 Images obtained in supine and prone position. 0.4mg Lexiscan. SPECT RESULTS Technical Quality: Excellent Raw Data Analysis: Normal Image Corrections: No attenuation or motion correction applied Summed Stress Score: 16 Summed Rest Score: 18 Summed Difference Score: 2 PERFUSION FINDINGS Large area of fixed perfusion defect noted in anterior, apical wall. 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 There is a mostly fixed, large area of perfusion defect seen in inferior and apical inferior acosta. This is consistent with large sized prior infarct in RCA territory with minimal chema-infarct ischemia. FUNCTIONAL RESULTS (calculated via Gated SPECT) Stress Image LV EF (%): 50 Stress EDV (mL):177 TID: 1.04 Stress ESV (mL):89 FUNCTIONAL FINDINGS: LV systolic function is borderline reduced IMPRESSIONS 1. Abnormal myocardial perfusion imaging with large area of prior infarct seen in LAD and RCA territory with minimal chema-infarct ischemia in RCA territory. 2. LV systolic function is borderline reduced. Jose Montalvo MD (Electronically Signed) Final Date: 04 Feb 2023 15:27 S
[2023-02-03] MEDS: regadenoson 0.4 Mg/5 ml Syringe IVP (08:48)
[2023-02-03 09:13] VITALS: BP 119/73; PULSE 68
== END 2023-02-03 06:54 | disposition home or self-care (01) ==
LOC: CDL 06:54
PROVIDERS: PCP Family Medicine; Visit Provider Internal Medicine Cardiovascular Disease
DX: R07.9 Chest pain, unspecified (principal)
CPT/HCPCS: 36415; 78452; 93017; 96374; A9500; J2785

== ENCOUNTER 2023-03-03 11:00 | Oncology outpatient (recurring) (ONCR) | payer OTHER, SELFPAY ==
[2023-02-24 13:07] VITALS: BP 165/82; PULSE 93; RESP 16; TEMP 37.1; O2SAT 98
[2023-02-24 13:22] LABS: Basophils % 0.4 %; Eosinophils # 0.2 10^3/uL (0.0-0.8); Eosinophils % 3.6 %; Hemoglobin 8.3 g/dL (11.7-16.6); Lymphocytes # 0.9 10^3/uL (0.8-4.8); Lymphocytes % 16.5 %; Mean Corpuscular HGB Conc 30.7 g/dL (30.0-36.0); Mean Corpuscular Hemoglobin 26.8 pg (28.0-34.0); Mean Corpuscular Volume 87.1 fl (80-94); Monocytes # 0.5 10^3/uL (0.2-0.9); Monocytes % 10.2 %; Neutrophils # 3.59 10^3/uL (1.8-7.7); Neutrophils % 68.9 %; Nucleated Red Blood Cells % 0 %; Platelet Count 121 10^3/cmm (130-400); White Blood Count 5.2 10^3/uL (4.0-10.0)
[2023-02-24 13:43] LABS: Alanine Aminotransferase 26 U/L (0-41); Albumin Level 4.5 g/dL (3.5-5.2); Alkaline Phosphatase 131 U/L (40-130); Anion Gap 14.3 (5-19); Aspartate Amino Transferase 47 U/L (0-40); Blood Urea Nitrogen 9 mg/dL (8-23); Calcium 9.6 mg/dL (8.5-10.5); Carbon Dioxide 24 mmol/L (22-29); Chloride 104 mmol/L (98-107); Globulin 2.9 g/dL (1.3-4.6); Glucose 96 mg/dL (65-115); Osmolality Calculated 285 mOsm/kg (285-295); Potassium 4.3 mmol/L (3.5-5.1); Sodium 138 mmol/L (136-145); Total Bilirubin 0.4 mg/dL (0.15-1.2); Total Protein 7.4 g/dL (6.6-8.7)
[2023-02-24] MEDS: octreotide LAR depot 30 mg Kit IM (14:42)
[2023-02-24 14:45] VITALS: BP 108/78; PULSE 78; RESP 18; TEMP 36.1; O2SAT 96
[2023-02-24 23:53] LABS: Ferritin 87 ng/mL (30-400); Iron 32 ug/dL (59-158); Percent Saturation 6.6 % (20-50); Total Iron Binding Capacity 480 mcg/dl; Unsaturated Iron Binding 448 ug/dL (112-347)
[2023-03-03 10:57] VITALS: BP 124/76; PULSE 67; RESP 18; TEMP 36.7; O2SAT 98
[2023-03-03 11:15] LABS: Basophils % 0.7 %; Eosinophils # 0.1 10^3/uL (0.0-0.8); Eosinophils % 3.5 %; Hemoglobin 8.9 g/dL (11.7-16.6); Lymphocytes # 0.9 10^3/uL (0.8-4.8); Lymphocytes % 22.1 %; Mean Corpuscular HGB Conc 29.7 g/dL (30.0-36.0); Mean Corpuscular Hemoglobin 26.3 pg (28.0-34.0); Mean Corpuscular Volume 88.5 fl (80-94); Mean Platelet Volume 12.1 fL (7.4-10.4); Monocytes # 0.4 10^3/uL (0.2-0.9); Monocytes % 10.7 %; Neutrophils # 2.52 10^3/uL (1.8-7.7); Neutrophils % 62.8 %; Nucleated Red Blood Cells % 0 %; Platelet Count 127 10^3/cmm (130-400); Red Blood Count 3.39 10^6/uL (4.1-5.3); Red Cell Distribution Width 15.1 % (12.1-15.1)
[2023-03-03 11:25] LABS: Alanine Aminotransferase 28 U/L (0-41); Albumin Level 4.5 g/dL (3.5-5.2); Alkaline Phosphatase 129 U/L (40-130); Anion Gap 15.9 (5-19); Aspartate Amino Transferase 48 U/L (0-40); Blood Urea Nitrogen 6 mg/dL (8-23); Calcium 9.7 mg/dL (8.5-10.5); Carbon Dioxide 23 mmol/L (22-29); Chloride 105 mmol/L (98-107); Globulin 2.8 g/dL (1.3-4.6); Glucose 106 mg/dL (65-115); Osmolality Calculated 286 mOsm/kg (285-295); Potassium 4.9 mmol/L (3.5-5.1); Sodium 139 mmol/L (136-145); Total Bilirubin 0.3 mg/dL (0.15-1.2); Total Protein 7.3 g/dL (6.6-8.7)
== END 2023-03-11 23:59 | disposition home or self-care (01) ==
PROVIDERS: Internal Medicine Medical Oncology; PCP Family Medicine; Visit Provider Internal Medicine Hematology & Oncology
DX: C7A.019 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, unspecified portion (principal); C7B.01 Secondary carcinoid tumors of distant lymph nodes; C7B.09 Secondary carcinoid tumors of other sites; D50.9 Iron deficiency anemia, unspecified; Z79.899 Other long term (current) drug therapy
CPT/HCPCS: 96372; 36415; 80053; 82728; 83540; 83550; 85025; 96402; 99213; 99214; J2353

== ENCOUNTER 2023-03-24 08:35 | Oncology outpatient (recurring) (ONCR) | payer OTHER, SELFPAY ==
[2023-03-24 09:00] VITALS: BP 159/83; PULSE 83; RESP 18; TEMP 36.8; O2SAT 97
[2023-03-24 09:13] LABS: Basophils % 0.5 %; Eosinophils # 0.1 10^3/uL (0.0-0.8); Eosinophils % 3.4 %; Hematocrit 33.1 % (42.0-52.0); Lymphocytes # 0.7 10^3/uL (0.8-4.8); Lymphocytes % 17.6 %; Mean Corpuscular HGB Conc 30.2 g/dL (30.0-36.0); Mean Platelet Volume 12.5 fL (7.4-10.4); Monocytes # 0.5 10^3/uL (0.2-0.9); Monocytes % 11.6 %; Neutrophils # 2.57 10^3/uL (1.8-7.7); Neutrophils % 66.4 %; Nucleated Red Blood Cells % 0 %; Platelet Count 106 10^3/cmm (130-400); Red Blood Count 3.85 10^6/uL (4.1-5.3); Red Cell Distribution Width 14.9 % (12.1-15.1); White Blood Count 3.9 10^3/uL (4.0-10.0)
[2023-03-24 09:35] LABS: Alanine Aminotransferase 29 U/L (0-41); Albumin Level 4.5 g/dL (3.5-5.2); Alkaline Phosphatase 113 U/L (40-130); Anion Gap 13.6 (5-19); Aspartate Amino Transferase 36 U/L (0-40); Blood Urea Nitrogen 6 mg/dL (8-23); Calcium 9.8 mg/dL (8.5-10.5); Carbon Dioxide 25 mmol/L (22-29); Chloride 103 mmol/L (98-107); Globulin 2.8 g/dL (1.3-4.6); Glucose 112 mg/dL (65-115); Osmolality Calculated 282 mOsm/kg (285-295); Potassium 4.6 mmol/L (3.5-5.1); Sodium 137 mmol/L (136-145); Total Bilirubin 0.3 mg/dL (0.15-1.2); Total Protein 7.3 g/dL (6.6-8.7)
[2023-03-24] MEDS: octreotide LAR depot 30 mg Kit IM (11:33)
== END 2023-04-11 23:59 | disposition home or self-care (01) ==
PROVIDERS: PCP Family Medicine; Visit Provider Internal Medicine Hematology & Oncology
DX: C7A.019 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, unspecified portion (principal); C7B.04 Secondary carcinoid tumors of peritoneum; R19.7 Diarrhea, unspecified; D61.818 Other pancytopenia; Z79.818 Long term (current) use of other agents affecting estrogen receptors and estrogen levels; Z79.899 Other long term (current) drug therapy; C7B.01 Secondary carcinoid tumors of distant lymph nodes; Z87.891 Personal history of nicotine dependence
CPT/HCPCS: 36415; 80053; 85025; 96401; 99214; J2353

== ENCOUNTER 2023-04-21 10:22 | Oncology outpatient (recurring) (ONCR) | payer OTHER, SELFPAY ==
[2023-04-21 10:40] VITALS: BP 132/89; PULSE 70; RESP 18; TEMP 36.9; O2SAT 97
[2023-04-21 10:50] LABS: Basophils % 0.4 %; Eosinophils # 0.1 10^3/uL (0.0-0.8); Eosinophils % 1.5 %; Hematocrit 37.1 % (42.0-52.0); Hemoglobin 11.6 g/dL (11.7-16.6); Lymphocytes # 0.8 10^3/uL (0.8-4.8); Lymphocytes % 12.5 %; Mean Corpuscular HGB Conc 31.3 g/dL (30.0-36.0); Mean Platelet Volume 12.3 fL (7.4-10.4); Monocytes # 0.6 10^3/uL (0.2-0.9); Monocytes % 8.7 %; Neutrophils # 5.12 10^3/uL (1.8-7.7); Neutrophils % 76.5 %; Nucleated Red Blood Cells % 0 %; Platelet Count 112 10^3/cmm (130-400); Red Blood Count 4.47 10^6/uL (4.1-5.3); White Blood Count 6.7 10^3/uL (4.0-10.0)
[2023-04-21 11:19] LABS: Alanine Aminotransferase 44 U/L (0-41); Albumin Level 4.6 g/dL (3.5-5.2); Alkaline Phosphatase 118 U/L (40-130); Anion Gap 15.9 (5-19); Aspartate Amino Transferase 67 U/L (0-40); Blood Urea Nitrogen 12 mg/dL (8-23); Calcium 9.5 mg/dL (8.5-10.5); Carbon Dioxide 24 mmol/L (22-29); Chloride 107 mmol/L (98-107); Globulin 3.2 g/dL (1.3-4.6); Glucose 136 mg/dL (65-115); Osmolality Calculated 296 mOsm/kg (285-295); Potassium 4.9 mmol/L (3.5-5.1); Sodium 142 mmol/L (136-145); Total Bilirubin 0.3 mg/dL (0.15-1.2); Total Protein 7.8 g/dL (6.6-8.7)
[2023-04-21] MEDS: octreotide LAR depot 30 mg Kit IM (12:28)
[2023-04-25 14:39] LABS: Gastrin 164 pg/mL (< OR = 100)
== END 2023-05-12 23:59 | disposition home or self-care (01) ==
PROVIDERS: Nurse Practitioner Family; PCP Family Medicine; Visit Provider Internal Medicine Hematology & Oncology
DX: C7A.019 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, unspecified portion (principal); C7B.04 Secondary carcinoid tumors of peritoneum; D61.818 Other pancytopenia; Z79.818 Long term (current) use of other agents affecting estrogen receptors and estrogen levels; Z79.899 Other long term (current) drug therapy; C7B.01 Secondary carcinoid tumors of distant lymph nodes; K52.89 Other specified noninfective gastroenteritis and colitis; Z87.891 Personal history of nicotine dependence; R53.82 Chronic fatigue, unspecified
CPT/HCPCS: 36415; 80053; 82941; 85025; 96401; 99214; J2353

== ENCOUNTER → 2023-04-25 08:32 | Outpatient (BNVA) | payer OTHER, SELFPAY | PROVIDERS: PCP Family Medicine; Visit Provider Nurse Practitioner Family | DX: D3A.019 Benign carcinoid tumor of the small intestine, unspecified portion (principal); R19.7 Diarrhea, unspecified | CPT/HCPCS: 83497; 87493; 87506 ==

== ENCOUNTER → 2023-04-28 09:21 | Outpatient (BNVA) | payer OTHER, SELFPAY | PROVIDERS: PCP Family Medicine; Visit Provider Nurse Practitioner Family | DX: D3A.019 Benign carcinoid tumor of the small intestine, unspecified portion (principal); R19.7 Diarrhea, unspecified; D50.9 Iron deficiency anemia, unspecified | CPT/HCPCS: 80053; 84443; 84586; 85025; 86140 ==

== ENCOUNTER → 2023-04-29 09:10 | Outpatient (BNVA) | payer OTHER, SELFPAY | PROVIDERS: PCP Family Medicine; Visit Provider Nurse Practitioner Family | DX: D3A.019 Benign carcinoid tumor of the small intestine, unspecified portion (principal); R19.7 Diarrhea, unspecified | CPT/HCPCS: 83993; 87506 ==

== ENCOUNTER 2023-05-19 09:15 | Oncology outpatient (recurring) (ONCR) | payer OTHER, SELFPAY ==
[2023-05-19 09:41] VITALS: BP 151/81; PULSE 85; RESP 18; TEMP 36.6; O2SAT 96
[2023-05-19 09:57] LABS: Basophils % 0.4 %; Eosinophils # 0.1 10^3/uL (0.0-0.8); Eosinophils % 1.6 %; Hematocrit 35.7 % (37-53); Lymphocytes # 0.8 10^3/uL (0.8-4.8); Lymphocytes % 14.5 %; Mean Corpuscular HGB Conc 31.7 g/dL (30-55); Mean Corpuscular Hemoglobin 25.8 pg (27-33); Mean Corpuscular Volume 81.5 fl (82-101); Mean Platelet Volume 11.7 fL (7.4-10.4); Monocytes # 0.7 10^3/uL (0.2-0.9); Neutrophils # 3.88 10^3/uL (1.8-7.7); Neutrophils % 70.3 %; Nucleated Red Blood Cells % 0 %; Platelet Count 84 10^3/cmm (157-399); Red Blood Count 4.38 10^6/uL (3.85-5.65); Red Cell Distribution Width 15.7 % (12.1-15.1); White Blood Count 5.52 10^3/uL (3.29-11.43)
[2023-05-19 10:10] LABS: Alanine Aminotransferase 26 U/L (0-41); Albumin Level 4.6 g/dL (3.5-5.2); Alkaline Phosphatase 128 U/L (40-130); Anion Gap 13.1 (5-19); Aspartate Amino Transferase 26 U/L (0-40); Blood Urea Nitrogen 6 mg/dL (8-23); Calcium 9.5 mg/dL (8.5-10.5); Carbon Dioxide 26 mmol/L (22-29); Chloride 104 mmol/L (98-107); Globulin 2.9 g/dL (1.3-4.6); Glucose 133 mg/dL (65-115); Osmolality Calculated 288 mOsm/kg (285-295); Potassium 4.1 mmol/L (3.5-5.1); Sodium 139 mmol/L (136-145); Total Bilirubin 0.3 mg/dL (0.15-1.2); Total Protein 7.5 g/dL (6.6-8.7)
[2023-05-19] MEDS: octreotide LAR depot 30 mg Kit IM (12:24)
[2023-05-19 12:29] VITALS: BP 121/65; PULSE 74; RESP 18; TEMP 36.6; O2SAT 98
== END 2023-06-11 23:59 | disposition home or self-care (01) ==
PROVIDERS: Nurse Practitioner Family; PCP Family Medicine; Visit Provider Internal Medicine Medical Oncology
DX: C7A.019 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, unspecified portion (principal); C7B.04 Secondary carcinoid tumors of peritoneum; R19.7 Diarrhea, unspecified; D69.6 Thrombocytopenia, unspecified; Z79.818 Long term (current) use of other agents affecting estrogen receptors and estrogen levels; Z79.899 Other long term (current) drug therapy; C7B.01 Secondary carcinoid tumors of distant lymph nodes; K52.89 Other specified noninfective gastroenteritis and colitis; Z87.891 Personal history of nicotine dependence; C7A.8 Other malignant neuroendocrine tumors; Z51.11 Encounter for antineoplastic chemotherapy
CPT/HCPCS: 36415; 80053; 85025; 96402; 99214; J2353

== ENCOUNTER 2023-06-16 09:14 | Oncology outpatient (recurring) (ONCR) | payer OTHER, SELFPAY ==
[2023-06-16 09:55] VITALS: BP 158/82; PULSE 73; RESP 17; TEMP 36.4; O2SAT 96
[2023-06-16 10:02] LABS: Basophils % 0.7 %; Eosinophils # 0.1 10^3/uL (0.0-0.8); Eosinophils % 2.2 %; Hematocrit 36.9 % (37-53); Lymphocytes # 0.8 10^3/uL (0.8-4.8); Mean Corpuscular HGB Conc 31.4 g/dL (30-55); Mean Corpuscular Hemoglobin 25.3 pg (27-33); Mean Corpuscular Volume 80.4 fl (82-101); Mean Platelet Volume 12.6 fL (7.4-10.4); Monocytes # 0.5 10^3/uL (0.2-0.9); Monocytes % 11.5 %; Neutrophils # 3.11 10^3/uL (1.8-7.7); Neutrophils % 68.4 %; Nucleated Red Blood Cells % 0 %; Platelet Count 92 10^3/cmm (157-399); Red Blood Count 4.59 10^6/uL (3.85-5.65); Red Cell Distribution Width 16.6 % (12.1-15.1); White Blood Count 4.54 10^3/uL (3.29-11.43)
[2023-06-16 10:23] LABS: Alanine Aminotransferase 40 U/L (0-41); Albumin Level 4.6 g/dL (3.5-5.2); Alkaline Phosphatase 130 U/L (40-130); Anion Gap 16.4 (5-19); Aspartate Amino Transferase 48 U/L (0-40); Blood Urea Nitrogen 8 mg/dL (8-23); Calcium 9.6 mg/dL (8.5-10.5); Carbon Dioxide 20 mmol/L (22-29); Chloride 106 mmol/L (98-107); Globulin 2.9 g/dL (1.3-4.6); Glucose 120 mg/dL (65-115); Osmolality Calculated 286 mOsm/kg (285-295); Potassium 4.4 mmol/L (3.5-5.1); Sodium 138 mmol/L (136-145); Total Bilirubin 0.3 mg/dL (0.15-1.2); Total Protein 7.5 g/dL (6.6-8.7)
[2023-06-16 10:26] LABS: Slide Review Slide Review Perform
[2023-06-16] MEDS: octreotide LAR depot 30 mg Kit IM (12:33)
[2023-06-27 13:31] LABS: Chromogranin A LC/MS/MS 792 ng/mL (ADULTS: <311)
== END 2023-07-12 23:59 | disposition home or self-care (01) ==
PROVIDERS: PCP Family Medicine; Visit Provider Internal Medicine Medical Oncology
DX: C7A.019 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, unspecified portion (principal); C7B.04 Secondary carcinoid tumors of peritoneum; R19.7 Diarrhea, unspecified; D69.6 Thrombocytopenia, unspecified; Z79.818 Long term (current) use of other agents affecting estrogen receptors and estrogen levels; Z79.899 Other long term (current) drug therapy; C7B.01 Secondary carcinoid tumors of distant lymph nodes; K52.89 Other specified noninfective gastroenteritis and colitis; Z87.891 Personal history of nicotine dependence; C7A.8 Other malignant neuroendocrine tumors; Z51.11 Encounter for antineoplastic chemotherapy
CPT/HCPCS: 36415; 80053; 85025; 86316; 96402; 99215; J2353

== ENCOUNTER 2023-07-14 09:05 | Oncology outpatient (recurring) (ONCR) | payer OTHER, SELFPAY ==
[2023-07-14 10:52] VITALS: BP 129/86; PULSE 75; RESP 17; TEMP 36.7; O2SAT 97
[2023-07-14 11:09] LABS: Basophils % 0.7 %; Eosinophils # 0.1 10^3/uL (0.0-0.8); Hematocrit 38.1 % (37-53); Lymphocytes # 0.8 10^3/uL (0.8-4.8); Lymphocytes % 17.9 %; Mean Corpuscular HGB Conc 31.8 g/dL (30-55); Mean Corpuscular Hemoglobin 26.1 pg (27-33); Mean Corpuscular Volume 82.1 fl (82-101); Monocytes # 0.4 10^3/uL (0.2-0.9); Monocytes % 8.5 %; Neutrophils # 3.24 10^3/uL (1.8-7.7); Neutrophils % 70.5 %; Nucleated Red Blood Cells % 0 %; Platelet Count 99 10^3/cmm (157-399); Red Blood Count 4.64 10^6/uL (3.85-5.65); Red Cell Distribution Width 17.1 % (12.1-15.1); White Blood Count 4.59 10^3/uL (3.29-11.43)
[2023-07-14 11:30] LABS: Alanine Aminotransferase 45 U/L (0-41); Albumin Level 4.6 g/dL (3.5-5.2); Alkaline Phosphatase 127 U/L (40-130); Anion Gap 13.3 (5-19); Aspartate Amino Transferase 67 U/L (0-40); Blood Urea Nitrogen 9 mg/dL (8-23); Calcium 9.8 mg/dL (8.5-10.5); Carbon Dioxide 24 mmol/L (22-29); Chloride 106 mmol/L (98-107); Globulin 3.2 g/dL (1.3-4.6); Glucose 100 mg/dL (65-115); Osmolality Calculated 287 mOsm/kg (285-295); Potassium 4.3 mmol/L (3.5-5.1); Sodium 139 mmol/L (136-145); Total Bilirubin 0.5 mg/dL (0.15-1.2); Total Protein 7.8 g/dL (6.6-8.7)
[2023-07-14 11:40] LABS: Slide Review Slide Review Perform
[2023-07-14] MEDS: octreotide LAR depot 30 mg Kit IM (12:27)
[2023-07-22 17:14] LABS: Chromogranin A LC/MS/MS 1238 ng/mL (ADULTS: <311)
== END 2023-08-11 23:59 | disposition home or self-care (01) ==
PROVIDERS: Nurse Practitioner Family; PCP Family Medicine; Visit Provider Internal Medicine Medical Oncology
DX: Z51.11 Encounter for antineoplastic chemotherapy (principal); C7A.019 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, unspecified portion; C7B.04 Secondary carcinoid tumors of peritoneum; R19.7 Diarrhea, unspecified; D69.6 Thrombocytopenia, unspecified; Z79.818 Long term (current) use of other agents affecting estrogen receptors and estrogen levels; Z79.899 Other long term (current) drug therapy; C7B.01 Secondary carcinoid tumors of distant lymph nodes; K52.89 Other specified noninfective gastroenteritis and colitis; Z87.891 Personal history of nicotine dependence; C7A.8 Other malignant neuroendocrine tumors
CPT/HCPCS: 36415; 80053; 85025; 86316; 96402; 99214; J2353

== ENCOUNTER → 2023-07-20 13:30 | Outpatient (BNVA) | payer OTHER, SELFPAY | PROVIDERS: PCP Family Medicine; Visit Provider Internal Medicine Cardiovascular Disease | DX: R07.89 Other chest pain (principal); I25.118 Atherosclerotic heart disease of native coronary artery with other forms of angina pectoris; I48.91 Unspecified atrial fibrillation; Z79.01 Long term (current) use of anticoagulants; E78.5 Hyperlipidemia, unspecified; R00.1 Bradycardia, unspecified; C7A.8 Other malignant neuroendocrine tumors; I10 Essential (primary) hypertension; Z87.891 Personal history of nicotine dependence | CPT/HCPCS: 99214 ==

== ENCOUNTER 2023-08-18 11:09 | Oncology outpatient (recurring) (ONCR) | payer OTHER, SELFPAY ==
[2023-08-18 11:45] VITALS: BP 103/69; PULSE 71; RESP 16; TEMP 36.6; O2SAT 96
[2023-08-18 12:12] LABS: Basophils % 0.6 %; Eosinophils # 0.1 10^3/uL (0.0-0.8); Eosinophils % 2.3 %; Hematocrit 38.1 % (37-53); Lymphocytes # 0.8 10^3/uL (0.8-4.8); Lymphocytes % 22.9 %; Mean Corpuscular Hemoglobin 26.5 pg (27-33); Mean Corpuscular Volume 85.4 fl (82-101); Mean Platelet Volume 13.3 fL (7.4-10.4); Monocytes # 0.3 10^3/uL (0.2-0.9); Monocytes % 9.1 %; Neutrophils # 2.27 10^3/uL (1.8-7.7); Neutrophils % 64.8 %; Nucleated Red Blood Cells % 0 %; Platelet Count 96 10^3/cmm (157-399); Red Blood Count 4.46 10^6/uL (3.85-5.65); Red Cell Distribution Width 15.5 % (12.1-15.1)
[2023-08-18 12:30] LABS: Alanine Aminotransferase 52 U/L (0-41); Albumin Level 4.7 g/dL (3.5-5.2); Alkaline Phosphatase 123 U/L (40-130); Anion Gap 15.8 (5-19); Aspartate Amino Transferase 64 U/L (0-40); Blood Urea Nitrogen 21 mg/dL (8-23); Calcium 10.2 mg/dL (8.5-10.5); Carbon Dioxide 23 mmol/L (22-29); Chloride 105 mmol/L (98-107); Globulin 2.7 g/dL (1.3-4.6); Glucose 100 mg/dL (65-115); Osmolality Calculated 291 mOsm/kg (285-295); Potassium 4.8 mmol/L (3.5-5.1); Sodium 139 mmol/L (136-145); Total Bilirubin 0.5 mg/dL (0.15-1.2); Total Protein 7.4 g/dL (6.6-8.7)
[2023-08-18] MEDS: sodium chloride 0.9% 500 ML 999 ML IV (14:35)
[2023-08-18] MEDS: octreotide LAR depot 30 mg Kit IM (14:50)
[2023-08-18 15:20] VITALS: BP 129/78; PULSE 78; RESP 17; TEMP 36.6; O2SAT 97
[2023-08-30 20:50] LABS: Chromogranin A LC/MS/MS 1552 ng/mL (ADULTS: <311)
== END 2023-09-11 23:59 | disposition home or self-care (01) ==
PROVIDERS: Nurse Practitioner Family; PCP Family Medicine; Visit Provider Internal Medicine Medical Oncology
DX: Z51.11 Encounter for antineoplastic chemotherapy (principal); C7A.019 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, unspecified portion; C7B.04 Secondary carcinoid tumors of peritoneum; R19.7 Diarrhea, unspecified; D69.6 Thrombocytopenia, unspecified; Z79.818 Long term (current) use of other agents affecting estrogen receptors and estrogen levels; Z79.899 Other long term (current) drug therapy; C7B.01 Secondary carcinoid tumors of distant lymph nodes; K52.89 Other specified noninfective gastroenteritis and colitis; Z87.891 Personal history of nicotine dependence; C7A.8 Other malignant neuroendocrine tumors
CPT/HCPCS: 36415; 80053; 85025; 86316; 96360; 96402; 99214; J2353; J7040

== ENCOUNTER 2023-08-23 22:37 | Inpatient (IN) | payer OTHER, SELFPAY ==
[2023-08-23 22:41] VITALS: BP 149/90; PULSE 71; RESP 18; TEMP 36.6; O2SAT 99; BMI 21.4
--- NOTE | 2023-08-23 22:41 | W.ED.GENADLT ---
HPI - General Adult General: Chief complaint: General Medical Stated complaint: WEAKNESS Time Seen by Provider: 08/23/23 22:40 History of Present Illness: 73-year-old male presents emergency department via EMS personnel secondary to having feeling like he is having increased weakness and fatigue. He states this been ongoing for the previous 1 day. He does have history of malignancy he states also that he felt like his heart was going very very slow and that his blood pressure was irregular and low. EMS personnel state that the his heart rate has been fluctuating between 40 and 80 bpm he does have a history of atrial fibrillation and is on Plavix 75 mg daily. He states that he recently was started on a medication for depression and anxiety but cannot recall what that is. He denies nausea, vomiting, fevers chills or night sweats. He states he has intermittently felt like he was short of breath. Associated symptoms: Reports chest pain, dyspnea, malaise, palpitations and syncope Review of Systems General: Reports: 10 or more systems reviewed and unremarkable except in HPI and below Const: Reports: fatigue and malaise Card: Reports: chest pain, palpitations, irregular heart rhythm and syncope Resp: Reports: dyspnea PFSH ED PFSH: Medical History Tinnitus Atrial fibrillation with rapid ventricular response Atypical chest pain Dyslipidemia (high LDL; low HDL) Atherosclerotic heart disease of [place] coronary artery with other forms of angina pectoris Arrhythmia Hypertension Status post closed fracture of right femur History of coronary angiogram Hyperlipidemia Hiatal hernia GERD (gastroesophageal reflux disease) Surgical History H/O exploratory laparotomy Status post tonsillectomy History of laparoscopic cholecystectomy S/P colonoscopy with polypectomy (~2019) S/P CABG x 4 Family History Father CAD (coronary artery disease) Brother Cancer Denies family history of Diabetes Clotting disorder Dementia Chronic kidney disease (CKD) Suicide Anesthesia complication Bleeding disorder Lung disease Stroke Social History Smoking and tobacco/nicotine status: former use of tobacco/nicotine Quit status (tobacco/nicotine): has quit using Year quit tobacco: Quit 37 years ago Former quit date comment: smoked x 10 yrs Second hand smoke exposure: Yes Alcohol intake: never Substance/Drug Use: never Adopted: No Caregiver/support person: Yes Lives independently: No Household members: spouse Housing: House Marital status: service: Yes status details: 2 years branch: [employer] Current occupational status: retired Current occupational exposures/hazards: No Pets and animals: No Sexually active: No Do you think of yourself as: Straight/Heterosexual Current gender identity: Male Jackelyn/Jehovah'S Witness: Holiness Special jackelyn needs: No Agree to transfusion: No Physical Exam Narrative: EXAM NARRATIVE: Constitutional: the patient appears well nourished and with normal development. Vital signs reviewed as documented. He does not appear to be in acute distress at present. HENMT: Normocephalic, atraumatic. Extermal ears with normal appearance without drainage. Nose without drainage, normal appearance. Mucus membranes moist. Neck is supple, No jugular venous distension, trachea is midline, no appreciable carotid bruits. No lymphadenopathy. No meningeal signs. Flexion, extension and lateral rotation is without pain. Eyes: Pupils are equal, round, reactive to light and accommodation. No scleral icterus. Extra-ocular movement are intact. Thorax is symmetrical and with equal rise and fall with respirations. Resp: Lungs are clear to auscultation. No wheezes, rales, crackles or ronchi at present. Cardio: Irregularly irregular, atrial fibrillation noted. Rate controlled. He does have occasional unifocal PVCs noted. Positive S1, S2. No appreciable murmurs, rubs or gallops. GI: Abdominal exam reveals normal bowel sounds to all quadrants. No organomegaly. No obvious palpable masses noted. No hepatomegally appreciated. Soft, nontender to palpation. Extremity: Extremities are non-edematous and both femoral and pedal pulses are 2+ and equal bilaterally. Moves all extremities well, sensation in all extremities. Neuro: Alert and oriented x4, person, place, time and situation. Cranial nerves II through XII are grossly intact, there is no focal neurological deficits that I can appreciate at present. Motor strength in the upper and lower extremities are equal and bilateral 5/5. Psych: Cooperative, calm, normal thought process, appropriate judgment. Skin: No lesions, rashes. No gross abnormalities noted. Back: Symmetrical, no obvious deformity, No CVA tenderness Course Vital Signs: Vital signs: Vital Signs Temperature 97.8 F 08/23/23 22:41 Pulse Rate 71 08/23/23 22:41 Respiratory Rate 18 08/23/23 22:41 Blood Pressure 149/90 08/23/23 22:41 Pulse Oximetry 99 08/23/23 22:41 Oxygen Delivery Me thod Room Air 08/23/23 22:41 MDM - General Adult Medical Decision Making Physical exam completed and documented, I will obtain serial cardiac enzymes, serial twelve-lead EKGs, chest x-ray, CBC, CMP, urinalysis, B-type natriuretic peptide, PT/PTT/INR, and a chest x-ray. I will review any pervious and pertinent medical records for assist in obtaining beneficial medical information to improved the care and treatment of the patient. I will reevaluate in consider hospitalist consultation and cardiology consultation. Medical Records I reviewed the patient's medical records. Lab Data I reviewed the patient's lab results. 08/23/23 23:23 08/23/23 23:23 Radiology Impressions Chest X-Ray 08/23/23 23:14 IMPRESSION: Negative for acute chest pathology. Laboratory Results WBC 8.91 10^3/uL (3.29-11.43) 08/23/23 23:23 RBC 4.60 10^6/uL (3.85-5.65) 08/23/23 23:23 Hgb 12.40 g/dL (11.27-16.99) 08/23/23 23:23 Hct 38.8 % (37-53) 08/23/23 23:23 MCV 84.3 fl (82-101) 08/23/23 23:23 MCH 27.0 pg (27-33) 08/23/23 23: MCHC 32.0 g/dL (30-55) 08/23/23 23:23 RDW 15.7 % (12.1-15.1) H 08/23/23 23:23 Plt Count 96 10^3/cmm (157-399) L 08/23/23 23:23 MPV 12.7 fL (7.4-10.4) H 08/23/23 23:23 Neut % (Auto) 84.8 % 08/23/23 23:23 Lymph % (Auto) 7.4 % 08/23/23 23:23 [place] % (Auto) 6.6 % 08/23/23 23:23 Eos % (Auto) 0.7 % 08/23/23 23:23 Baso % (Auto) 0.2 % 08/23/23 23:23 Neut # (Auto) 7.55 10^3/uL (1.8-7.7) 08/23/23 23:23 Lymph # (Auto) 0.7 10^3/uL (0.8-4.8) L 08/23/23 23:23 [place] # (Auto) 0.6 10^3/uL (0.2-0.9) 08/23/23 23:23 Eos # (Auto) 0.1 10^3/uL (0.0-0.8) 08/23/23 23: Baso # (Auto) 0.0 10^3/uL (0.0-0.1) 08/23/23 23:23 Nucleated RBC % (auto) 0 % 08/23/23 23: Nucleated RBCs # 0.0 /100WBC 08/23/23 23:23 PT 19.00 SECONDS (12.1-14.9) H 08/23/23 23:23 INR 1.54 (0.8-1.2) H 08/23/23 23:23 APTT 31.6 SECONDS (23.9-36.7) 08/23/23 23:23 Sodium 140 mmol/L (136-145) 08/23/23 23:23 Potassium 4.5 mmol/L (3.5-5.1) 08/23/23 23:23 Chloride 108 mmol/L (98-107) H 08/23/23 23:23 Carbon Dioxide 18 mmol/L (22-29) L 08/23/23 23:23 Anion Gap 18.5 (5-19) 08/23/23 23:23 BUN 17 mg/dL (8-23) 08/23/23 23:23 Creatinine 1.0 mg/dL (0.7-1.2) 08/23/23 23:23 GFR Calculation Not Reportable 08/23/23 23:23 Glucose 177 mg/dL (65-115) H 08/23/23 23:23 Calculated Osmolality 296 mOsm/kg (285-295) H 08/23/23 23:23 Calcium 10.2 mg/dL (8.5-10.5) 08/23/23 23:23 Magnesium 1.8 mg/dL (1.7-2.3) 08/23/23 23:23 Total Bilirubin 0.6 mg/dL (0.15-1.2) 08/23/23 23:23 AST 37 U/L (0-40) 08/23/23 23:23 ALT 31 U/L (0-41) 08/23/23 23:23 Alkaline Phosphatase 130 U/L (40-130) 08/23/23 23:23 NT-Pro-B Natriuret Pep 679 pg/mL (0-125) H 08/23/23 23:23 Total Protein 7.3 g/dL (6.6-8.7) 08/23/23 23:23 Albumin 4.4 g/dL (3.5-5.2) 08/23/23 23:23 Globulin 2.9 g/dL (1.3-4.6) 08/23/23 23:23 All radiology interpretation(s) finalized by discharge Critical Care Time Critical Care Time: Critical Care Time: Yes Total Critical Care Time: 60 Attestation: This case had a high probability of a clinically significant, sudden, or life threatening deterioration of this patient's condition which required my full and direct attention, intervention and personal management. Discharge Plan Discharge Patient Disposition: Admitted As Inpatient Clinical Impression: Gerry-tachy syndrome, Syncope and collapse Coding Level of Care Code ED Manager Environmental Health And Safety for Brionna Cueva
--- NOTE | 2023-08-23 23:14 | XRR_ITS ---
PROCEDURE INFORMATION: Exam: XR Chest Exam date and time: 08/23/2023 11:30 PM Age: 73 years old Clinical indication: Other: Near syncope; Prior surgery; Surgery date: 6+ months; Surgery type: Oh; Additional info: Near-syncope TECHNIQUE: Imaging protocol: Radiologic exam of the chest. Views: 1 view. COMPARISON: CT chest abdpel w/*[id number] 01/08/2022 10:14 AM FINDINGS: Lungs: Unremarkable. No consolidation. Pleural spaces: Unremarkable. No pleural effusion. No pneumothorax. Heart/Mediastinum: CABG. Mildly enlarged cardiac silhouette. Bones/joints: Unremarkable. XR/XR chest 1V portable [id number] IMPRESSION: Negative for acute chest pathology.
[2023-08-23 23:29] LABS: Basophils % 0.2 %; Eosinophils # 0.1 10^3/uL (0.0-0.8); Eosinophils % 0.7 %; Hematocrit 38.8 % (37-53); Lymphocytes # 0.7 10^3/uL (0.8-4.8); Lymphocytes % 7.4 %; Mean Corpuscular Volume 84.3 fl (82-101); Mean Platelet Volume 12.7 fL (7.4-10.4); Monocytes # 0.6 10^3/uL (0.2-0.9); Monocytes % 6.6 %; Neutrophils # 7.55 10^3/uL (1.8-7.7); Neutrophils % 84.8 %; Nucleated Red Blood Cells % 0 %; Platelet Count 96 10^3/cmm (157-399); Red Cell Distribution Width 15.7 % (12.1-15.1); White Blood Count 8.91 10^3/uL (3.29-11.43)
[2023-08-23 23:56] LABS: Alanine Aminotransferase 31 U/L (0-41); Albumin Level 4.4 g/dL (3.5-5.2); Alkaline Phosphatase 130 U/L (40-130); Anion Gap 18.5 (5-19); Aspartate Amino Transferase 37 U/L (0-40); Blood Urea Nitrogen 17 mg/dL (8-23); Calcium 10.2 mg/dL (8.5-10.5); Carbon Dioxide 18 mmol/L (22-29); Chloride 108 mmol/L (98-107); Globulin 2.9 g/dL (1.3-4.6); Glucose 177 mg/dL (65-115); Magnesium 1.8 mg/dL (1.7-2.3); NT Pro B Type Natriuretic Pept 679 pg/mL (0-125); Osmolality Calculated 296 mOsm/kg (285-295); Potassium 4.5 mmol/L (3.5-5.1); Sodium 140 mmol/L (136-145); Total Bilirubin 0.6 mg/dL (0.15-1.2); Total Protein 7.3 g/dL (6.6-8.7)
[2023-08-24] VITALS (170 sets, daily range): BP systolic 98–170; BP diastolic 55–110; PULSE 40–132; RESP 12–32; TEMP 36.7–36.9; O2SAT 94–100; BMI 21.1
[2023-08-24 00:23] LABS: INR 1.54 (0.8-1.2)
[2023-08-24 00:25] LABS: Partial Thromboplastin Time 31.6 SECONDS (23.9-36.7)
--- NOTE | 2023-08-24 00:53 | P.HP_ITS ---
Providers/Chief Complaint 2 Admitting Physician: Pricilla Warner MD Primary Care Provider: Angy Valenzuela MD Chief Complaint: WEAKNESS History of Present Illness Manuel Rodriguez is a 73 year old male who presented to hospital with chief complaint of dehydration generalized weakness and fatigue. Patient has history of carcinoid syndrome, getting chemotherapy, patient is stating that today he is became extremely weak and lethargic and he could tell that his pulse was extremely low, in the ER he has been diagnosed with atrial flutter with slow ventricular response heart rate in low 40s. He is hemodynamically stable with no active chest pain shortness of breath or confusion. Patient is on atenolol lowered his dose. Blood pressure 116/66 mmHg, will admit him to ICU we will consult general cardiology in the morning. Discontinue atenolol. Hold antiplatelet and anticoagulating agent Goals of care discussed patient does not want any intervention but okay with electronic pacemaker transcutaneous pacing in ICU admission Patient is stating that he feels extremely fatigued and lethargic with minimal exertion, his heart rate does not increase with exertion Review of Systems 2 Const: Reports: body aches, fatigue and malaise; Denies: fever(s) Eyes: Denies: change in vision ENMT: Denies: throat pain Card: Denies: chest pain Resp: Denies: dyspnea GI: Denies: abdominal pain Medications/Allergies Home Medications Medication Instructions Recorded Confirmed Last Taken Type amlodipine 10 mg tablet 10 mg PO DAILY 10/17/19 08/18/23 11/06/19 07:00 History clopidogrel 75 mg tablet (Plavix) 75 mg PO DAILY 10/17/19 08/18/23 10/22/19 History garlic 1 mg capsule 1 mg PO DAILY 10/17/19 08/18/23 11/05/19 History tamsulosin 0.4 mg capsule 0.4 mg PO DAILY 12/30/21 08/18/23 Unknown History apixaban 5 mg tablet (Eliquis) 10 mg PO BID 01/28/22 08/18/23 Unknown History cholecalciferol (vitamin D3) 50 50 mcg PO DAILY 07/23/22 08/18/23 Unknown History mcg (2,000 unit) capsule gemfibrozil 600 mg tablet 1,200 mg PO DAILY 07/23/22 08/18/23 Unknown History bisacodyl 5 mg tablet,delayed 5 mg PO DAILY 02/24/23 07/14/23 Unknown History release metoclopramide HCl 10 mg tablet 10 mg PO Q6H PRN 02/24/23 07/14/23 Unknown History polyethylene glycol 3350 17 4 g PO ONCE 02/24/23 07/14/23 Unknown History gram/dose oral powder (Laxative PEG 3350) omega-3-dha 120 mg-epa 180 mg-fish cap PO BID 04/21/23 07/14/23 Unknown History oil-vitamin D3 1,000 unit capsule atenolol 25 mg tablet 12.5 mg (1/2 x 25 mg) PO QAM 60 06/28/23 08/18/23 Unknown Rx days #30 tabs lisinopril 20 mg tablet 20 mg PO DAILY #90 tabs 07/20/23 08/18/23 Unknown Rx multivitamin 1 tab PO DAILY #1 tab 08/18/23 08/18/23 Unknown Rx prazosin 1 mg capsule 1 mg PO BID #1 cap 08/18/23 08/18/23 Unknown Rx colestipol 1 gram tablet 2 g (2 x 1 gram) PO BID #360 tabs 08/19/23 08/19/23 Unknown Rx dicyclomine 10 mg capsule 10 mg PO QID PRN abdominal pain 08/19/23 08/19/23 Unknown Rx #360 caps empagliflozin 25 mg tablet 12.5 mg (1/2 x 25 mg) PO DAILY #45 08/19/23 08/19/23 Unknown Rx tabs pantoprazole 40 mg tablet,delayed 40 mg PO DAILY #90 tabs 08/19/23 08/19/23 Unknown Rx release Allergies Allergy/AdvReac Type Severity Reaction Status Date / Time Kafpdrg-BHF-QiG Reductase Allergy Unknown Verified 08/23/23 22:48 Inhibitor [Tvdlhak-Kwi-Geb Reductase Inhibitor] PFSH Acute 2 PFSH: Medical History Tinnitus Atrial fibrillation with rapid ventricular response Atypical chest pain Dyslipidemia (high LDL; low HDL) Atherosclerotic heart disease of [place] coronary artery with other forms of angina pectoris Arrhythmia Hypertension Status post closed fracture of right femur History of coronary angiogram Hyperlipidemia Hiatal hernia GERD (gastroesophageal reflux disease) Surgical History H/O exploratory laparotomy Status post tonsillectomy History of laparoscopic cholecystectomy S/P colonoscopy with polypectomy (~2019) S/P CABG x 4 Family History Father CAD (coronary artery disease) Brother Cancer Denies family history of Diabetes Clotting disorder Dementia Chronic kidney disease (CKD) Suicide Anesthesia complication Bleeding disorder Lung disease Stroke Social History Smoking and tobacco/nicotine status: former use of tobacco/nicotine Quit status (tobacco/nicotine): has quit using Year quit tobacco: Quit 37 years ago Former quit date comment: smoked x 10 yrs Second hand smoke exposure: Yes Alcohol intake: never Substance/Drug Use: never Adopted: No Caregiver/support person: Yes Lives independently: No Household members: spouse Housing: House Marital status: service: Yes status details: 2 years branch: [employer] Current occupational status: retired Current occupational exposures/hazards: No Pets and animals: No Sexually active: No Do you think of yourself as: Straight/Heterosexual Current gender identity: Male Jackelyn/Sabianism: Orthodox Special jackelyn needs: No Agree to transfusion: No Vitals/I&O/Wt Last Vital Signs Temp 97.8 F 08/23/23 22:41 Pulse 68 08/24/23 00:39 Resp 18 08/23/23 22:41 BP 116/66 08/24/23 00:39 Pulse Ox 98 08/24/23 00:39 O2 Del Method Room Air 08/24/23 00:39 Weight last 48 hrs Weight 71.668 kg Physical Exam 2 Narrative: Awake and alert Dehydrated Abdomen soft GCS 15 Currently and atrial flutter heart rate in 50s, variable S1-S2 Patient is awake and alert pleasant cooperative is at the bedside Currently on room air Data 08/23/23 23:23 08/23/23 23:23 Other data: Normal LV size with diminished ejection fraction of around 50%. ?Diffuse hypokinesia of the septum and anteroseptal ?segments.Grade I/IV diastolic dysfunction (abnormal relaxation ?filling pattern), normal to mildly elevated filling pressures. ?Mildly increased left atrial size. ?Thickened mitral valve. Trace mitral valve regurgitation. ?Thickened aortic valve with moderate calcification. ?Features of aortic valve sclerosis ?Mild tricuspid valve regurgitation. ?Severe pulmonary artery peak systolic pressure of 28 mmHg ?Mild tricuspid valve regurgitation. ?There is no pericardial effusion. ?There are no intracardiac masses. ?Compared to the study from 11/09/2019, there is a drop in the LV ?ejection fraction A&P Assessment and plan (1) Gerry-tachy syndrome: (2) Thrombocytopenia: (3) Hypertension: (4) Mesenteric mass: (5) Carcinoid tumor determined by biopsy of small intestine: (6) Arrhythmia: Qualifiers: Arrhythmia type: ventricular tachycardia Qualified Code(s): I47.2 - Ventricular tachycardia Plan Chronotropic incompetence Tachybradycardia syndrome Discontinue atenolol Hold off on anticoagulating agent and Plavix Please consult general surgery in the morning Patient has seen Dr. 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
--- NOTE | 2023-08-24 01:14 | PC.NURSE ---
transfer of care this nurse took over pt care at 0100. pt report has already been called to icu. will transport at 120.
[2023-08-24] MEDS: sodium chloride 0.9% 1,000 ML 75 ML IV (02:36)
[2023-08-24 03:40] LABS: Basophils % 0.3 %; Eosinophils % 0.3 %; Hematocrit 37.4 % (37-53); Lymphocytes # 0.9 10^3/uL (0.8-4.8); Lymphocytes % 11.2 %; Mean Corpuscular HGB Conc 31.8 g/dL (30-55); Mean Corpuscular Hemoglobin 26.8 pg (27-33); Mean Corpuscular Volume 84.2 fl (82-101); Mean Platelet Volume 13.7 fL (7.4-10.4); Monocytes # 0.4 10^3/uL (0.2-0.9); Monocytes % 4.8 %; Neutrophils # 6.46 10^3/uL (1.8-7.7); Neutrophils % 83.3 %; Nucleated Red Blood Cells % 0 %; Platelet Count 100 10^3/cmm (157-399); Red Blood Count 4.44 10^6/uL (3.85-5.65); Red Cell Distribution Width 15.5 % (12.1-15.1); White Blood Count 7.75 10^3/uL (3.29-11.43)
[2023-08-24 03:59] LABS: Anion Gap 17.1 (5-19); Blood Urea Nitrogen 17 mg/dL (8-23); Calcium 9.8 mg/dL (8.5-10.5); Carbon Dioxide 20 mmol/L (22-29); Chloride 106 mmol/L (98-107); Glucose 132 mg/dL (65-115); Magnesium 1.7 mg/dL (1.7-2.3); Osmolality Calculated 291 mOsm/kg (285-295); Phosphorus 2.8 mg/dL (2.5-4.5); Potassium 4.1 mmol/L (3.5-5.1); Sodium 139 mmol/L (136-145)
[2023-08-24 04:10] LABS: Thyroid Stimulating Hormone 0.71 uIU/mL (0.27-4.20)
[2023-08-24 04:13] LABS: Slide Review Slide Review Perform
[2023-08-24 06:48] LABS: Add Urine Microscopic? YES; Bacteria Urine TRACE /hpf; Bilirubin Urine 1+ (Negative); Blood Urine Neg (Negative); Glucose Urine UA 1+ (Normal); Ketones Urine Negative (Negative); Leukocyte Esterase Urine Negative (Negative); Nitrate Urine Negative (Negative); Protein Urine Neg (Negative); RBC Urine 0-4 /hpf (0-2); Squamous Epithelial Cell Urine 0-4 /hpf (0-5); Urine Appearance Hazy (CLEAR); Urine Color Yellow (Yellow); Urobilinogen Urine Neg (Negative); WBC Urine 0-4 /hpf (0-5); pH Urine 5 (5-7)
[2023-08-24 06:49] LABS: Add Urine Culture? No; Calcium Oxalate Crystals Urine >100 /hpf; Mucus Urine 1+ /hpf
[2023-08-24 07:27] LABS: Glucose Point of Care 107 mg/dL (70-110)
--- NOTE | 2023-08-24 09:11 | PC.PHAR ---
PT STS TAKES CARE OF HIS MEDS- PTS IN ROOM WITH MED LIST FROM [facility]- PTS STS PT STILL TAKES COLESTIPOL 2G BID, CURRENT [facility] MED LIST THAT WAS FAXED TODAY SAYS IT WAS DISC.
--- NOTE | 2023-08-24 09:26 | ECG_ITS ---
[facility] Test Date: 2023-08-24 Pat Name: Manuel Rodriguez Department: Room: ICU04 Gender: Male Claim Review Medical Director: : 1950 Requested By: Oliver Nolen Order Number: [id number] Leon MD: Yvonne Goodwin M.D. Measurements Intervals [place] Rate: 46 P: 248 ME: 106 QRS: 40 QRSD: 109 T: 36 QT: 404 QTc: 357 Interpretive Statements Atrial flutter/fibrillation with slow ventricular response rate ABNORMAL RHYTHM ECG Compared to ECG 11/09/2019 15:35:42 Sinus rhythm no longer present First degree AV block no longer present T-wave abnormality no longer present Myocardial infarct finding no longer present Electronically Signed On 08-24-2023 21:51:17 CIRCULAR HEAD SAW OPERATOR by Yvonne Goodwin M.D. [email or web address] [email or web address]/store/[id number]
[2023-08-24] MEDS: pantoprazole DR 40 mg Tablet PO (10:01)
[2023-08-24] MEDS: lisinopril 20 mg Tablet PO (10:01)
[2023-08-24] MEDS: amlodipine 10 mg Tablet PO (10:01)
--- NOTE | 2023-08-24 10:40 | W.PM.EVENTAC ---
Event Note Event Note: History physical reviewed. Patient interviewed. At this point plan will be to hold atenolol, monitor heart rate. Possible discharge tomorrow if heart rate stabilizes off atenolol, with cardiology follow-up and event monitor. Patient informed of plan, and agrees. Discussed briefly with his primary body make up artist. Holding Plavix in case intervention is needed. Go ahead and start Lovenox to substitute for Eliquis currently.
[2023-08-24 11:08] LABS: Glucose Point of Care 103 mg/dL (70-110)
[2023-08-24] MEDS: enoxaparin 80 mg/0.8 mL Syringe 70 MG SUBCUT (11:29)
[2023-08-24] MEDS: sodium chloride 0.9% 1,000 ML 50 ML IV (16:51)
[2023-08-24 16:53] LABS: Glucose Point of Care 95 mg/dL (70-110)
[2023-08-24] MEDS: tamsulosin 0.4 mg Capsule PO (17:43)
[2023-08-24] MEDS: gemfibrozil 600 mg Tablet PO (17:43)
[2023-08-24] MEDS: prazosin 1 mg Capsule PO (20:41)
[2023-08-24 20:46] LABS: Glucose Point of Care 98 mg/dL (70-110)
[2023-08-25] VITALS (60 sets, daily range): BP systolic 90–139; BP diastolic 41–91; PULSE 34–95; RESP 14–26; TEMP 36.4–36.8; O2SAT 94–99
--- NOTE | 2023-08-25 00:03 | ECG_ITS ---
[facility] Test Date: 2023-08-25 Pat Name: Manuel Rodriguez Department: Room: ICU04 Gender: Male Neurology Nurse: : 1950 Requested By: Pricilla Warner Order Number: [id number] Leon MD: Fabby Mancera M.D. Measurements Intervals [place] Rate: 38 P: 0 CO: 0 QRS: 26 QRSD: 112 T: 18 QT: 482 QTc: 385 Interpretive Statements ATRIAL FLUTTER WITH SLOW VENTRICULAR RESPONSE MODERATE INTRAVENTRICULAR CONDUCTION DELAY Compared to ECG 08/24/2023 09:32:24 Intraventricular conduction delay now present Atrial fibrillation no longer present Electronically Signed On 08-25-2023 7:17:33 MARINE RIGGER by Fabby Mancera M.D. [id number]
--- NOTE | 2023-08-25 00:29 | PC.NURSE ---
HR 35: HR 35 A.Flutter noted on monitor. Pt reports no chest pain and all other vitals are stable. EKG obtained @0003. Dr. Warenr notified shortly after. Picture sent via Identiv messaging. No new orders at this time. ZOLL Pads placed on pts chest.
[2023-08-25 05:20] LABS: Basophils % 1.1 %; Eosinophils # 0.1 10^3/uL (0.0-0.8); Eosinophils % 2.9 %; Hematocrit 34.6 % (37-53); Lymphocytes # 0.9 10^3/uL (0.8-4.8); Lymphocytes % 31.4 %; Mean Corpuscular HGB Conc 31.5 g/dL (30-55); Mean Corpuscular Hemoglobin 26.9 pg (27-33); Mean Corpuscular Volume 85.4 fl (82-101); Mean Platelet Volume 13.6 fL (7.4-10.4); Monocytes # 0.3 10^3/uL (0.2-0.9); Monocytes % 9.6 %; Neutrophils # 1.53 10^3/uL (1.8-7.7); Neutrophils % 54.6 %; Nucleated Red Blood Cells % 0 %; Platelet Count 85 10^3/cmm (157-399); Red Blood Count 4.05 10^6/uL (3.85-5.65); Red Cell Distribution Width 15.7 % (12.1-15.1)
[2023-08-25 05:59] LABS: Alanine Aminotransferase 28 U/L (0-41); Albumin Level 4.1 g/dL (3.5-5.2); Alkaline Phosphatase 108 U/L (40-130); Anion Gap 15.1 (5-19); Aspartate Amino Transferase 32 U/L (0-40); Blood Urea Nitrogen 14 mg/dL (8-23); Calcium 9.3 mg/dL (8.5-10.5); Carbon Dioxide 21 mmol/L (22-29); Chloride 109 mmol/L (98-107); Globulin 2.3 g/dL (1.3-4.6); Glucose 97 mg/dL (65-115); Magnesium 1.6 mg/dL (1.7-2.3); Osmolality Calculated 292 mOsm/kg (285-295); Potassium 4.1 mmol/L (3.5-5.1); Sodium 141 mmol/L (136-145); Total Bilirubin 0.4 mg/dL (0.15-1.2); Total Protein 6.4 g/dL (6.6-8.7)
--- NOTE | 2023-08-25 07:47 | ECG_ITS ---
[facility] Test Date: 2023-08-25 Pat Name: Manuel Rodriguez Department: Room: ICU04 Gender: Male Water Quality Control Engineer: : 1950 Requested By: Pricilla Warner Order Number: [id number] Leon MD: Fabby Mancera M.D. Measurements Intervals [place] Rate: 39 P: -64 AK: 132 QRS: 24 QRSD: 116 T: 41 QT: 463 QTc: 373 Interpretive Statements ATRIAL FLUTTER WITH SLOW RESPONSE MODERATE INTRAVENTRICULAR CONDUCTION DELAY Compared to ECG 08/25/2023 00:03:18 Atrial flutter no longer present Electronically Signed On 08-25-2023 12:17:32 ICE CREAM TRUCK DRIVER by Fabby Mancera M.D. [email or web address]/[id number]
[2023-08-25 07:48] LABS: Glucose Point of Care 88 mg/dL (70-110)
[2023-08-25] MEDS: amlodipine 10 mg Tablet PO (08:54)
[2023-08-25] MEDS: gemfibrozil 600 mg Tablet PO ×2 (08:54→17:53)
[2023-08-25] MEDS: pantoprazole DR 40 mg Tablet PO (08:54)
[2023-08-25] MEDS: magnesium sulfate premix 2 GM/50 ML PIGGYBACK IV (08:54)
[2023-08-25] MEDS: lisinopril 20 mg Tablet PO (08:54)
--- NOTE | 2023-08-25 09:06 | PM.CONSULT ---
Providers/Reason For Consult Consulting Physician/Specialty*: Cardiovascular medicine Reason for Consult*: Bradycardia Requesting Physician: Jett Attending Physician: Oliver Frausto MD Primary Care Provider: Angy Valenzuela MD History of Present Illness History of Present Illness Manuel Rodriguez is a 73 year old male with widespread metastatic carcinoid syndrome. He is still undergoing chemotherapy. He has a history of atrial fibrillation and flutter, coronary disease with prior bypass surgery, dyslipidemia, hypertension. He is anticoagulated with a factor Xa inhibitor. His last sestamibi exam was in January showing fixed defects in the distribution of the LAD and right. He was admitted about 36 hours ago with fatigue and dehydration and just not feeling well. This is a new set of symptoms for him. He is in atrial flutter and occasionally his heart rate is down in the 30s. At other times it may go up into the 70s and even roll over 100 bpm. He is not symptomatic with it. Both the apixaban and the Lovenox are being held. His atenolol has also been held since he has been admitted. He has some kind of scrotal surgery scheduled for the end of this month. He is concerned that if he goes over there with a heart rate of 35 they will not do the surgery. He wants to get the surgery done. He is conflicted as to whether or not he wants pacemaker. Apparently he did speak informally with Dr. Goodwin yesterday since Dr. Goodwin is his primary ground surveillance systems operator. As I see him this morning he has a heart rate of 70 and feels fine. He did tell me in passing that someone told him that the carcinoid has infiltrated his right ventricle. Review of Systems Narrative: His review of systems is positive in many systems due to the carcinoid infiltration Medications/Allergies Home Medications Medication Instructions Recorded Confirmed Last Taken Type amlodipine 10 mg tablet 10 mg PO DAILY 10/17/19 08/24/23 11/06/19 07:00 History clopidogrel 75 mg tablet (Plavix) 75 mg PO DAILY 10/17/19 08/24/23 10/22/19 History tamsulosin 0.4 mg capsule 0.4 mg PO QPM 12/30/21 08/24/23 Unknown History apixaban 5 mg tablet (Eliquis) 5 mg PO BID 01/28/22 08/24/23 Unknown History cholecalciferol (vitamin D3) 50 50 mcg PO DAILY 07/23/22 08/24/23 Unknown History mcg (2,000 unit) capsule gemfibrozil 600 mg tablet 600 mg PO BID 07/23/22 08/24/23 Unknown History atenolol 25 mg tablet 12.5 mg (1/2 x 25 mg) PO QAM 60 06/28/23 08/24/23 Unknown Rx days #30 tabs lisinopril 20 mg tablet 20 mg PO DAILY #90 tabs 07/20/23 08/24/23 Unknown Rx multivitamin 1 tab PO DAILY #1 tab 08/18/23 08/24/23 Unknown Rx colestipol 1 gram tablet 2 g (2 x 1 gram) PO BID #360 tabs 08/19/23 08/24/23 Unknown Rx dicyclomine 10 mg capsule 10 mg PO QID PRN abdominal pain 08/19/23 08/24/23 Unknown Rx #360 caps empagliflozin 25 mg tablet 12.5 mg (1/2 x 25 mg) PO DAILY #45 08/19/23 08/24/23 Unknown Rx tabs pantoprazole 40 mg tablet,delayed 40 mg PO DAILY #90 tabs 08/19/23 08/24/23 Unknown Rx release garlic 100 mg tablet 100 mg PO DAILY 08/24/23 08/24/23 Unknown History iron 18 mg tablet 18 mg PO DAILY 08/24/23 08/24/23 Unknown History omega 5-twm-fjt-fish oil 120 1 cap PO BID 08/24/23 08/24/23 Unknown History mg-180 mg-500 mg capsule (Fish Oil) prazosin 1 mg capsule 1 mg PO BEDTIME 08/24/23 08/24/23 Unknown History Allergies Allergy/AdvReac Type Severity Reaction Status Date / Time Tnzuwoq-MMP-YgQ Reductase Allergy Unknown Verified 08/24/23 08:19 Inhibitor [Jlnvvsi-Hhc-Icy Reductase Inhibitor] Current Medications Generic Name Dose Route Start Last Admin Trade Name Freq PRN Reason Stop Dose Admin Amlodipine Besylate 10 mg 08/24/23 09:25 08/24/23 10:01 Amlodipine 10 Mg Tablet PO 10 mg DAILY [facility] Administration Enoxaparin Sodium 70 mg 08/24/23 11:00 08/24/23 18:54 Enoxaparin 80 Mg/0.8 Ml Syringe SUBCUT Not Given Q12H [facility] Gemfibrozil 600 mg 08/24/23 18:00 08/24/23 17:43 Gemfibrozil 600 Mg Tablet PO 600 mg BID [facility] Administration Sodium Chloride 1,000 mls @ 75 mls/hr 08/24/23 01:54 08/25/23 07:27 Sodium Chloride 0.9% IV 75 mls/hr .[id number] [facility] Infusion Insulin Human Lispro 0 unit 08/24/23 08:00 08/25/23 07:57 Insulin Lispro 100 Unit/1 Ml SUBCUT Not Given TIDWM [facility] Protocol Lisinopril 20 mg 08/24/23 09:25 08/24/23 10:01 Lisinopril 20 Mg Tablet PO 20 mg DAILY [facility] Administration Pantoprazole Sodium 40 mg 08/24/23 09:25 08/24/23 10:[address] 40 Mg Tablet PO 40 mg DAILY [facility] Administration Prazosin HCl 1 mg 08/24/23 21:00 08/24/23 20:41 Prazosin 1 Mg Capsule PO 1 mg BEDTIME [facility] Administration Tamsulosin HCl 0.4 mg 08/24/23 18:00 08/24/23 17:43 Tamsulosin 0.4 Mg Capsule PO 0.4 mg QPM [facility] Administration PFSH Acute PFSH: Medical History (Updated 08/25/23 @ 09:11 by Noe Temple MD) Anticoagulation adequate with anticoagulant therapy Tinnitus Atrial fibrillation with rapid ventricular response Atypical chest pain Dyslipidemia (high LDL; low HDL) Atherosclerotic heart disease of [place] coronary artery with other forms of angina pectoris Arrhythmia Hypertension Status post closed fracture of right femur History of coronary angiogram Hyperlipidemia Hiatal hernia GERD (gastroesophageal reflux disease) Surgical History (Updated 08/25/23 @ 09:11 by Noe Temple MD) H/O exploratory laparotomy Status post tonsillectomy History of laparoscopic cholecystectomy S/P colonoscopy with polypectomy (~2018) S/P CABG x 4 Family History Father CAD (coronary artery disease) Brother Cancer Denies family history of Diabetes Clotting disorder Dementia Chronic kidney disease (CKD) Suicide Anesthesia complication Bleeding disorder Lung disease Stroke Social History Smoking and tobacco/nicotine status: former use of tobacco/nicotine Quit status (tobacco/nicotine): has quit using Year quit tobacco: Quit 37 years ago Former quit date comment: smoked x 10 yrs Second hand smoke exposure: Yes Alcohol intake: never Substance/Drug Use: never Adopted: No Caregiver/support person: Yes Lives independently: No Household members: spouse Housing: House Marital status: service: Yes status details: 2 years branch: [employer] Current occupational status: retired Current occupational exposures/hazards: No Pets and animals: No Sexually active: No Do you think of yourself as: Straight/Heterosexual Current gender identity: Male Jackelyn/Church: [employer] Special jackelyn needs: No Agree to transfusion: No Vitals/I&O/Wt Last Vital Signs Temp 97.7 F 08/25/23 08:26 Pulse 46 L 08/25/23 06:00 Resp 18 08/25/23 06:00 BP 119/61 08/25/23 06:00 Pulse Ox 97 08/25/23 06:00 O2 Del Method Room Air 08/25/23 06:00 08/24/23 08/25/23 08/25/23 22:59 06:59 14:59 Intake Total 545.0 / 1302.5 400 / 1702.5 72.5 / 72.5 Output Total 150 / 150 275 / 425 Balance 395.0 / 1152.5 125 / 1277.5 72.5 / 72.5 Weight last 48 hrs Weight 156 lb Weight 156 lb Weight 158 lb Physical Exam Narrative: GENERAL: In general he looks comfortable at rest HEENT: Exam within normal limits. NECK: Supple without jugular vein distention. The carotid upstroke is normal without bruits. BACK: Exam normal. LUNGS: Clear. HEART: Regular rate and rhythm. ABDOMEN: Benign without organomegaly or tenderness. EXTREMITIES: No edema. NEUROLOGIC: Exam normal. SKIN: Unremarkable. Data 08/25/23 03:11 08/25/23 03:11 A&P Assessment and plan (1) Hypertension: (2) CAD (coronary artery disease): (3) Atherosclerotic heart disease of [place] coronary artery with other forms of angina pectoris: (4) Dyslipidemia (high LDL; low HDL): (5) Atrial fibrillation with rapid ventricular response: (6) Bradycardia: (7) Thrombocytopenia: (8) Gerry-tachy syndrome: (9) Mesenteric mass: (10) Iron deficiency anemia: (11) Carcinoid tumor determined by biopsy of small intestine: (12) Other malignant neuroendocrine tumors: (13) Anticoagulation adequate with anticoagulant therapy: Plan 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 Currently his heart rate is 70. His blood pressure has been fine. My recommendation to him is to just have the pacemaker put in now so that he avoids any type of bradycardia especially in light of the fact that he has to have a surgery coming up toward the end of this month. He can safely get that done with the pacemaker in place and we can then go back with treating him with beta-blockers or what ever other medications are necessary to control any fast heart rates he may have. This is conduction system disease secondary to age and perhaps infiltration by the carcinoid tumor. He also has underlying coronary artery disease so it may be vascular as well. I have contacted Dr. Goodwin his primary ground surveillance systems operator. I will keep him off the Eliquis and the Lovenox until we can get a pacemaker in place hopefully by tomorrow. Consult Attestations Medical Necessity Statement: Hospital management for bradycardia and carcinoid and High Time for a total of 60 minutes, includes reviewing past or interval history, examining/interviewing patient, placing orders, counseling patient/family/other support, updating patient/family/other support, discussing plan of care with staff, communicating with other healthcare providers, documenting encounter and coordinating care Diagnoses Hypertension I10 CAD (coronary artery disease) I25.10 Atherosclerotic heart disease of [place] coronary artery with other forms of angina pectoris I25.118 Dyslipidemia (high LDL; low HDL) E78.5 Atrial fibrillation with rapid ventricular response I48.91 Bradycardia R00.1 Thrombocytopenia D69.6 Gerry-tachy syndrome I49.5 Mesenteric mass K63.89 Iron deficiency anemia D50.9 Carcinoid tumor determined by biopsy of small intestine D3A.019 Other malignant neuroendocrine tumors C7A.8 Anticoagulation adequate with anticoagulant therapy Z79.01
[2023-08-25 11:04] LABS: Glucose Point of Care 89 mg/dL (70-110)
[2023-08-25] MEDS: sodium chloride 0.9% 1,000 ML 75 ML IV (12:04)
--- NOTE | 2023-08-25 12:40 | P.PN_ITS ---
Subjective 2 Subjective: Manuel reports he is doing okay. Overnight, it appears he had significant bradycardia into the upper 30s. He was asymptomatic. With minimal stimulation his heart rate is 70. I discussed with him that he is still significantly bradycardic, and this will likely continue to be an issue as it has been over 48 hours since his last atenolol dose. He is amenable to meeting with cardiology regarding the possibility of a pacemaker. Medications: Reviewed: Yes Vitals/I&O/Wt Last Vital Signs Temp 97.6 F 08/25/23 10:02 Pulse 70 08/25/23 09:34 Resp 16 08/25/23 09:34 BP 119/61 08/25/23 06:00 Pulse Ox 98 08/25/23 09:34 O2 Del Method Room Air 08/25/23 09:34 08/24/23 08/25/23 08/25/23 22:59 06:59 14:59 Intake Total 545.0 / 1302.5 400 / 1702.5 342.5 / 342.5 Output Total 150 / 150 275 / 425 Balance 395.0 / 1152.5 125 / 1277.5 342.5 / 342.5 Weight last 48 hrs Weight 70.76 kg Weight 70.76 kg Weight 71.668 kg Physical Exam 2 Narrative: General exam no distress Neck is supple Cardiovascular irregular, irregular with bradycardia. No murmur Lungs clear Abdomen is soft Extremities no sinus clubbing or edema Data 08/25/23 03:11 08/25/23 03:11 A&P Assessment and plan (1) Gerry-tachy syndrome: Significantly bradycardic on admission. Beta-blockers been held. Occasionally will get tachycardic with stimulation. Cardiology will be consulted for possible pacemaker Continue to hold any rate limiting medication Electrolytes normal. TSH normal. Magnesium slightly low today so we will supplement. Continue to hydrate (2) CAD (coronary artery disease): Restart Plavix, beta-leydi following pacemaker (3) Carcinoid tumor determined by biopsy of small intestine: Metastatic. Sees oncology for continuing treatments Plan Multiple other medical problems as outlined by past medical history Lovenox currently on hold for DVT prophylaxis as pacemaker planned tomorrow SCDs will be used in the interim. Attestations 2 Medical Necessity Statement*: Needs continued hospitalization, pending pacemaker placement for definitive treatment of tachycardic bradycardic syndrome Diagnoses Gerry-tachy syndrome I49.5 CAD (coronary artery disease) I25.10 Carcinoid tumor determined by biopsy of small intestine D3A.019 Time Spent (min) 24
--- NOTE | 2023-08-25 17:26 | USCV_ITS ---
Manuel Rodriguez Age: 73 Gender: M : 1950 Exam Date: 08/25/2023 18:46 Ordering Phys: Yvonne Goodwin MD ([facility]) Technologist: JACOB Exam Location: [facility] [place] Indication: tachy / myla syndrome, hx afib, CAD, s/p CABG 1998, palpitations, fatigue, syncope. BP: 108 / 64 HR: 68 Rhythm: Atrial fibrillation Technical Quality: Adequate MEASUREMENTS (Male / Female) Normal Values 2D ECHO LV Diastolic Diameter PLAX 4.7 cm 4.2 - 5.9 / 3.9 - 5.3 cm LV Systolic Diameter PLAX 3.6 cm IVS Diastolic Thickness 1.1 cm 0.6 - 1.0 / 0.6 - 0.9 cm IVS Systolic Thickness 1.3 cm LVPW Diastolic Thickness 1.5 cm 0.6 - 1.0 / 0.6 - 0.9 cm LVPW Systolic Thickness 1.5 cm LVOT Diameter 2.1 cm LV Ejection Fraction 2D Teich 47.4 % LV Ejection Fraction MOD 2C 40.9 % LV Ejection Fraction 2C AL 39.7 % LA Diameter 5.3 cm LA Width 5.1 cm LA Height 6.2 cm RA Width 4.5 cm RA Height 5.1 cm Aorta at Sinotubular Diameter 3.3 cm IVC Diameter 1.4 cm M-MODE Aortic Annulus Diameter 3.5 cm LA Ao Ratio MM 1.7 MV E Point Septal Separation 0.5 cm DOPPLER AV Peak Velocity 171.0 cm/s LVOT Peak Velocity 87.0 cm/s AV Area Cont Eq vti 1.9 cm squared AV Area Cont Eq pk 1.7 cm squared MV Area PHT 2.4 cm squared MV E' Velocity 58.5 cm/s Mitral E to MV E' Ratio 8.8 Mitral E to LV E' Lateral Ratio 7.5 Mitral E to LV E' Septal Ratio 10.7 TR Peak Velocity 247.0 cm/s TR Peak Gradient 24.4 mmHg TV Peak E Velocity 45.0 cm/s Right Atrial Pressure 10.0 mmHg Pulmonary Artery Systolic Pressu 34.4 mmHg PV Peak Velocity 130.0 cm/s RV Acceleration Time 0.0 s RV Ejection Time 0.4 s RV AcT/ET 0.1 FINDINGS Left Ventricle Moderate hypokinesia of the mid and apical septum and anteroseptal segments. Slightly dyskinetic basal inferior segment. Overall LV ejection fraction of 49% Right Ventricle Normal RV size and ejection fraction Right Atrium Right atrium is of normal size. The coronary sinus appears to be dilated. Some thickening in the right atrial free wall. No obvious masses noted Left Atrium Mildly increased left atrial size. Mitral Valve Thickened mitral valve. Moderate mitral valve regurgitation. Aortic Valve Aortic valve sclerosis.trace to mild aortic valve regurgitation. Tricuspid Valve Mild tricuspid valve regurgitation. Estimated pulmonary artery peak systolic pressure 34 mm of Hg. Pulmonic Valve Mild pulmonary valve regurgitation. No gross morphologic abnormalities noted. Peak velocity across the pulmonic valve is 1.3 m per Pericardium No pericardial effusion. Aorta Normal aortic annulus size. IVC Normal inferior vena cava. CONCLUSIONS Normal LV size with diminished ejection fraction of 49% Wall motion abnormalities as mentioned above. Mildly increased left atrial size. The coronary sinus appears to be mildly dilated No gross morphologic abnormalitiesin the tricuspid or pulmonic valves. Aortic valve sclerosis Trace to mild aortic valve regurgitation. Mild tricuspid valve regurgitation. Estimated pulmonary artery peak systolic pressure 34 mm of Hg. Normal right atrium with a prominent coronary sinus Some thickening in the right atrial free wall. No obvious masses noted Mild pulmonary valve regurgitation. Compared to the study from 03/26/2020, there is some worsening of the mitral regurgitation. Otherwise no significant change Dr Yvonne Goodwin MD [facility] (Electronically Signed) Final Date: 26 August 2023 08:28 S
[2023-08-25 17:32] LABS: Glucose Point of Care 73 mg/dL (70-110)
--- NOTE | 2023-08-25 17:50 | PM.MISC ---
Miscellaneous Note Purpose of Documentation: This patient admitted to hospital with atrial fibrillation bradycardia. I was asked to consider permanent pacer implantation on this patient Note: This patient is known to have atherosclerotic heart disease, high blood pressure, dyslipidemia, type 2 diabetes, chronic atrial fibrillation, metastatic carcinoid. He has episodes of bradycardia with a heart rate in the 30s. He requires a permanent pacemaker for further management of his condition. Patient had a recent CT of the chest on 07/04/2023. 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 Also has involvement of the right atrium. In view of the involvement of the SVC with a tumor this patient may better be served with a leadless pacemaker. I will go ahead and do an echocardiogram to evaluate the right ventricular function, right-sided valves and LV function. After reviewing the echocardiogram, final decision will be made
[2023-08-25] MEDS: tamsulosin 0.4 mg Capsule PO (17:53)
--- NOTE | 2023-08-25 21:01 | PC.NURSE ---
Prazosin 1mg: Notified Dr. Warner of low HR, potential plan for pacemaker in the morning, and order for Prazosin 1mg PO. BP is 129/78. Order to non-admin this Prazosin.
[2023-08-26] VITALS (52 sets, daily range): BP systolic 101–149; BP diastolic 55–87; PULSE 47–117; RESP 5–37; TEMP 36.6; O2SAT 95–100
[2023-08-26] MEDS: sodium chloride 0.9% 1,000 ML 75 ML IV (01:07)
[2023-08-26 04:20] LABS: Basophils % 0.7 %; Eosinophils # 0.1 10^3/uL (0.0-0.8); Eosinophils % 3.3 %; Hematocrit 34.6 % (37-53); Lymphocytes # 0.7 10^3/uL (0.8-4.8); Lymphocytes % 21.8 %; Mean Corpuscular HGB Conc 31.5 g/dL (30-55); Mean Corpuscular Hemoglobin 26.8 pg (27-33); Mean Platelet Volume 13.1 fL (7.4-10.4); Monocytes # 0.3 10^3/uL (0.2-0.9); Monocytes % 10.4 %; Neutrophils # 1.95 10^3/uL (1.8-7.7); Neutrophils % 63.5 %; Nucleated Red Blood Cells % 0 %; Platelet Count 75 10^3/cmm (157-399); Red Blood Count 4.07 10^6/uL (3.85-5.65); Red Cell Distribution Width 15.4 % (12.1-15.1); White Blood Count 3.07 10^3/uL (3.29-11.43)
[2023-08-26 04:42] LABS: Anion Gap 16.1 (5-19); Blood Urea Nitrogen 11 mg/dL (8-23); Calcium 9.3 mg/dL (8.5-10.5); Carbon Dioxide 20 mmol/L (22-29); Chloride 109 mmol/L (98-107); Glucose 81 mg/dL (65-115); Osmolality Calculated 290 mOsm/kg (285-295); Potassium 4.1 mmol/L (3.5-5.1); Sodium 141 mmol/L (136-145)
--- NOTE | 2023-08-26 06:49 | SC_ITS ---
WS: [id number] C-ARM RADIOGRAPHS CHEST; 5 IMAGES HISTORY: leadless possible single lead pacemaker implantation COMPARISON: None available. Intraoperative imaging during pacer placement. IMPRESSION: Intraoperative imaging during cardiac pacer placement.
--- NOTE | 2023-08-26 07:11 | P.CONIM_ITS ---
Providers/Reason For Consult 2 Consulting Physician/Specialty*: Dr. Ramirez/cardiothoracic surgery Reason for Consult*: Request for pacemaker implantation Requesting Physician: Dr. Goodwin Attending Physician: Oliver Frausto MD Primary Care Provider: Angy Valenzuela MD History of Present Illness History of Present Illness Manuel Rodriguez is a 73 year old male with a history of metastatic carcinoid under treatment through our [facility] oncology service as well as [facility] in [place]. He has a history of atrial flutter/fibrillation with intermittent RVR. He was admitted after presenting on August 24 with fatigue, weakness and dehydration. EKG revealed atrial flutter with a slow ventricular response recorded down into the low 40s. He has been followed by Dr. Goodwin from our cardiology service. After further evaluation it is recommended he be considered for pacemaker implantation. I was consulted due to documented involvement of the SVC and right atrium by imaging studies at [facility]. We have reports but no actual films for review. There are no echocardiogram studies available for my review. Most recent study from [facility] was a PET scan on July 06. That study reveals what appears to be stable involvement including osseous, pulmonary, cardiac, and left orbit metastasis as well as liver metastasis. Review of Systems 2 Const: Reports: change in appetite, fatigue and malaise Card: Reports: palpitations and dyspnea on exertion Resp: Reports: dyspnea GI: Reports: diarrhea Musc: Reports: back pain Medications/Allergies Home Medications Medication Instructions Recorded Confirmed Last Taken Type amlodipine 10 mg tablet 10 mg PO DAILY 10/17/19 08/24/23 11/06/19 07:00 History clopidogrel 75 mg tablet (Plavix) 75 mg PO DAILY 10/17/19 08/24/23 10/22/19 History tamsulosin 0.4 mg capsule 0.4 mg PO QPM 12/30/21 08/24/23 Unknown History apixaban 5 mg tablet (Eliquis) 5 mg PO BID 01/28/22 08/24/23 Unknown History cholecalciferol (vitamin D3) 50 50 mcg PO DAILY 07/23/22 08/24/23 Unknown History mcg (2,000 unit) capsule gemfibrozil 600 mg tablet 600 mg PO BID 07/23/22 08/24/23 Unknown History atenolol 25 mg tablet 12.5 mg (1/2 x 25 mg) PO QAM 60 10/17/23 12/13/23 Unknown Rx days #30 tabs lisinopril 20 mg tablet 20 mg PO DAILY #90 tabs 07/20/23 08/24/23 Unknown Rx multivitamin 1 tab PO DAILY #1 tab 08/18/23 08/24/23 Unknown Rx colestipol 1 gram tablet 2 g (2 x 1 gram) PO BID #360 tabs 08/19/23 08/24/23 Unknown Rx dicyclomine 10 mg capsule 10 mg PO QID PRN abdominal pain 08/19/23 08/24/23 Unknown Rx #360 caps empagliflozin 25 mg tablet 12.5 mg (1/2 x 25 mg) PO DAILY #45 08/19/23 08/24/23 Unknown Rx tabs pantoprazole 40 mg tablet,delayed 40 mg PO DAILY #90 tabs 08/19/23 08/24/23 Unknown Rx release garlic 100 mg tablet 100 mg PO DAILY 08/24/23 08/24/23 Unknown History iron 18 mg tablet 18 mg PO DAILY 08/24/23 08/24/23 Unknown History omega 7-npz-cjc-fish oil 120 1 cap PO BID 08/24/23 08/24/23 Unknown History mg-180 mg-500 mg capsule (Fish Oil) prazosin 1 mg capsule 1 mg PO BEDTIME 08/24/23 08/24/23 Unknown History Allergies Allergy/AdvReac Type Severity Reaction Status Date / Time Idmpuvd-TOV-YdW Reductase Allergy Unknown Verified 08/24/23 08:19 Inhibitor [Otxujzk-Vtt-Sbr Reductase Inhibitor] Current Medications Generic Name Dose Route Start Last Admin Trade Name Freq PRN Reason Stop Dose Admin Amlodipine Besylate 10 mg 08/24/23 09:25 08/25/23 08:54 Amlodipine 10 Mg Tablet PO 10 mg DAILY POLLY Administration Enoxaparin Sodium 70 mg 08/24/23 11:00 08/24/23 18:54 Enoxaparin 80 Mg/0.8 Ml Syringe SUBCUT Not Given Q12H POLLY Gemfibrozil 600 mg 08/24/23 18:00 08/25/23 17:53 Gemfibrozil 600 Mg Tablet PO 600 mg BID POLLY Administration Insulin Human Lispro 0 unit 08/24/23 08:00 08/25/23 17:50 Insulin Lispro 100 Unit/1 Ml SUBCUT Not Given TIDWM [facility] Protocol Lisinopril 20 mg 08/24/23 09:25 08/25/23 08:54 Lisinopril 20 Mg Tablet PO 20 mg DAILY POLLY Administration Pantoprazole Sodium 40 mg 08/24/23 09:25 08/25/23 08:[address] 40 Mg Tablet PO 40 mg DAILY POLLY Administration Prazosin HCl 1 mg 08/24/23 21:00 08/25/23 21:00 Prazosin 1 Mg Capsule PO Not Given BEDTIME POLLY Tamsulosin HCl 0.4 mg 08/24/23 18:00 08/25/23 17:53 Tamsulosin 0.4 Mg Capsule PO 0.4 mg QPM POLLY Administration PFSH Acute 2 PFSH: Medical History Anticoagulation adequate with anticoagulant therapy Tinnitus Atrial fibrillation with rapid ventricular response Atypical chest pain Dyslipidemia (high LDL; low HDL) Atherosclerotic heart disease of [place] coronary artery with other forms of angina pectoris Arrhythmia Hypertension Status post closed fracture of right femur History of coronary angiogram Hyperlipidemia Hiatal hernia GERD (gastroesophageal reflux disease) Surgical History H/O exploratory laparotomy Status post tonsillectomy History of laparoscopic cholecystectomy S/P colonoscopy with polypectomy (~2018) S/P CABG x 4 Family History Father CAD (coronary artery disease) Brother Cancer Denies family history of Diabetes Clotting disorder Dementia Chronic kidney disease (CKD) Suicide Anesthesia complication Bleeding disorder Lung disease Stroke Social History Smoking and tobacco/nicotine status: former use of tobacco/nicotine Quit status (tobacco/nicotine): has quit using Year quit tobacco: Quit 37 years ago Former quit date comment: smoked x 10 yrs Second hand smoke exposure: Yes Alcohol intake: never Substance/Drug Use: never Adopted: No Caregiver/support person: Yes Lives independently: No Household members: spouse Housing: House Marital status: service: Yes status details: 2 years branch: [employer] Current occupational status: retired Current occupational exposures/hazards: No Pets and animals: No Sexually active: No Do you think of yourself as: Straight/Heterosexual Current gender identity: Male Jackelyn/Confucianist: Buddhist Special jackelyn needs: No Agree to transfusion: No Vitals/I&O/Wt Last Vital Signs Temp 97.7 F 08/25/23 23:00 Pulse 58 L 08/26/23 06:00 Resp 15 08/26/23 06:00 BP 130/69 08/26/23 05:00 Pulse Ox 96 08/26/23 06:00 O2 Del Method Room Air 08/26/23 06:00 08/25/23 08/26/23 08/26/23 22:59 06:59 14:59 Intake Total 885 / 1347.5 750.00 / 2097.50 Output Total 775 / 1050 Balance 110 / 297.5 750.00 / 1047.50 Weight last 48 hrs Weight 156 lb 11.2 oz Physical Exam 2 Const: COMMON NORMALS: no acute distress, average body habitus and patient oriented x3; negative for healthy appearing HENMT: COMMON NORMALS: atraumatic, hearing grossly normal bilaterally, external ears normal and Normal external nose present HEAD & SCALP: a traumatic NOSE: Normal external nose present EXTERNAL EAR: Yes external ears normal Eye: COMMON NORMALS: EOMs intact bilaterally Neck/C-Spine: COMMON NORMALS: full ROM and no lymphadenopathy Chest: COMMONS NORMALS: normal inspection of the chest and normal palpation of entire chest wall Resp: COMMON NORMALS: normal respiratory effort and clear to auscultation bilaterally AUSCULTATION: clear to auscultation bilaterally Cardio: COMMON NORMALS: regular rate RATE: regular rate RHYTHM: abnormal rhythm irregularly irregular GI: COMMON NORMALS: Normal to inspection, nondistended, normoactive bowel sounds present Extremity: COMMON NORMALS: no clubbing, cyanosis or edema Neuro: COMMON NORMALS: patient oriented x3, moves all extremities and no sensory deficits noted Data 08/26/23 03:58 08/26/23 03:58 A&P Assessment and plan (1) Bradycardia: 73-year-old gentleman with 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 Atrial flutter/fibrillation with medically refractory bradycardia with pacemaker recommendation. I discussed options for leadless versus single-lead pacemaker and the advantages and disadvantages of each. Mr. Rodriguez is in agreement for pacemaker implantation which we will tentatively schedule for 3 PM today with initial attempts at a Micra implantation. Particular risk of major bleeding, catastrophic cardiac injury, infection, inability to place the pacemaker, need to convert to attempt at single lead pacemaker implantation, pneumothorax, pain, migration of the lead requiring revision, need for long-term follow-up were carefully discussed. All questions been answered. Mr. Rodriguez wishes to proceed. Consent was presented to him for review. Given the CT and PET scan reports from [facility] noting SVC and cardiac involvement, I do recommend transthoracic echocardiogram for assessment to determine as to whether there may be any technical complexities with attempted pacemaker implantation due to tumor size and location. Consult Attestations 2 Medical Necessity Statement: Atrial fibrillation with medical refractory bradycardia Coding Level of Care Code Acute Code for Chg Fwd Diagnoses Bradycardia R00.1
--- NOTE | 2023-08-26 08:27 | P.PN_ITS ---
Documented by User: [email or web address] Laguerre 08/26/23 08:33 Subjective 2 Subjective: Patient was evaluated this morning while lying in bed on room air. Patient denies any complaints at this time. Some bradycardia noted on telemetry last night. Maintaining 68 A-flutter on telemetry. Medications: Reviewed: Yes Vitals/I&O/Wt Last Vital Signs Temp 97.7 F 08/25/23 23:00 Pulse 58 L 08/26/23 06:00 Resp 15 08/26/23 06:00 BP 130/69 08/26/23 05:00 Pulse Ox 96 08/26/23 06:00 O2 Del Method Room Air 08/26/23 06:00 08/25/23 08/26/23 08/26/23 22:59 06:59 14:59 Intake Total 885 / 1347.5 750.00 / 2097.50 Output Total 775 / 1050 Balance 110 / 297.5 750.00 / 1047.50 Weight last 48 hrs Weight 71.078 kg Physical Exam 2 Narrative: General exam no distress Neck is supple Cardiovascular irregular, irregular with bradycardia. No murmur Lungs clear Abdomen is soft Extremities no sinus clubbing or edema Data 08/26/23 03:58 08/26/23 03:58 Other Labs: Platelets 75, White blood cell 3.07 A&P Assessment and plan (1) Gerry-tachy syndrome: Continue to hold beta-blockers On telemetry, events overnight patient's heart rate anywhere from low 50s to high 60s a flutter. Currently 68 A-flutter. Some tachycardia and low 100s during stimulation or ambulation. Continue to hydrate Cardiology consultation. Recommendations appreciated Patient will undergo pacemaker implantation around 3 PM this afternoon with cardiology. (2) CAD (coronary artery disease): Plavix Restart beta-leydi once pacemaker placed. 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 Continues to see oncology for treatment. Plan Plan as stated above. Patient will undergo pacemaker implantation with cardiology this afternoon. We will continue to hold beta-blockers until pacemaker has been placed. Patient will remain on telemetry. DVT prophylaxis: SCDs Coding Level of Care Code 83303 Diagnoses Gerry-tachy syndrome I49.5 CAD (coronary artery disease) I25.10 Carcinoid tumor determined by biopsy of small intestine D3A.019 Time Spent (min) 24 Documented by User: Oliver Frausto MD 08/26/23 09:42 Data 08/26/23 03:58 08/26/23 03:58 A&P Assessment and plan (1) Gerry-tachy syndrome: Continue to hold beta-blockers On telemetry, events overnight patient's heart rate anywhere from low 50s to high 60s a flutter. Currently 68 A-flutter. Some tachycardia and low 100s during stimulation or ambulation. Continue to hydrate Cardiology consultation. Recommendations appreciated Patient will undergo pacemaker implantation around 3 PM this afternoon with cardiology. Secondary to carcinoid, echocardiogram will be obtained prior to pacemaker insertion. It is thought that a leadless pacemaker would be better as carcinoid has some activity in the SVC Holding Lovenox for pacemaker (2) CAD (coronary artery disease): Restart Plavix and beta-leydi after pacemaker insertion (3) Carcinoid tumor determined by biopsy of small intestine: Attestations 2 Medical Necessity Statement*: Needs continued hospitalization for definitive treatment of tachycardia- bradycardia syndrome with pacemaker Diagnoses Gerry-tachy syndrome I49.5 CAD (coronary artery disease) I25.10 Carcinoid tumor determined by biopsy of small intestine D3A.019 Time Spent (min) 24
--- NOTE | 2023-08-26 09:22 | PC.SOCIAL ---
IMM Update: pg 2 of IMM updated and reviewed w/ patient. Copy provided and copy dated, initialed and placed in chart.
[2023-08-26] MEDS: pantoprazole DR 40 mg Tablet PO (09:50)
[2023-08-26] MEDS: gemfibrozil 600 mg Tablet PO (09:50)
[2023-08-26] MEDS: amlodipine 10 mg Tablet PO (09:50)
[2023-08-26] MEDS: chlorhexidine gluconate 4% Btl 118 mL 1 APPLIC TOPICAL (09:51)
[2023-08-26] MEDS: lisinopril 20 mg Tablet PO (09:51)
--- NOTE | 2023-08-26 10:18 | P.PN_ITS ---
Subjective 2 Subjective: Patient seems to be doing okay. He had a few brief episodes of bradycardia with a heart rate in the 40s. No dizziness or syncopal episodes. The patient practically has been staying in the bed most of the times. No chest pain or shortness of breath. He had echocardiogram yesterday. The LV ejection fraction was found to be around 49%. Right atrial size is normal. He has mild to moderate tricuspid regurgitation. Tricuspid and pulmonic valves appear to have no gross morphologic abnormalities. Medications: Medication Review Details: Current Medications Acetaminophen (Acetaminophen 500 Mg Tablet) 500 mg PO Q4H PRN PRN Reason: fever Albuterol/Ipratropium (Ipratropium-Albuterol 3 Ml Neb) 3 ml INHALATION Q6H PRN PRN Reason: SHORTNESS OF BREATH Amlodipine Besylate (Amlodipine 10 Mg Tablet) 10 mg PO DAILY [facility] Last Admin: 08/26/23 09:50 Dose: 10 mg Chlorhexidine Gluconate (Chlorhexidine Gluconate 4% Btl 118 Ml) 1 applic TOPICAL BID [facility] Last Admin: 08/26/23 09:51 Dose: 1 applic Dextrose (Dextrose 50% Syringe 50 Ml) 25 ml IVP ONCE PRN; Protocol PRN Reason: hypoglycemia protocol Dextrose (Dextrose 50% Syringe 50 Ml) 50 ml IVP PRN PRN; Protocol PRN Reason: hypoglycemia protocol Enoxaparin Sodium (Enoxaparin 80 Mg/0.8 Ml Syringe) 70 mg SUBCUT Q12H [facility] Last Admin: 08/24/23 18:54 Dose: Not Given Gemfibrozil (Gemfibrozil 600 Mg Tablet) 600 mg PO BID [facility] Last Admin: 08/26/23 09:50 Dose: 600 mg Dextrose (D5w) 500 mls @ 0 mls/hr IV ONCE PRN; Protocol PRN Reason: Adult Acute Hypoglycemia Prot Lactated Ringer's (Lactated Ringers) 1,000 mls @ 150 mls/hr IV .Q6H40M [facility] Last Admin: 08/26/23 09:45 Dose: Not Given Insulin Human Lispro (Insulin Lispro 100 Unit/1 Ml) 0 unit SUBCUT TIDWM [facility]; Protocol Last Admin: 08/26/23 09:42 Dose: Not Given Lisinopril (Lisinopril 20 Mg Tablet) 20 mg PO DAILY [facility] Last Admin: 08/26/23 09:51 Dose: 20 mg Ondansetron HCl (Ondansetron 2 Mg/Ml Sdv 2 Ml) 4 mg IVP Q6H PRN PRN Reason: NAUSEA AND VOMITING Pantoprazole Sodium (Pantoprazole Dr 40 Mg Tablet) 40 mg PO DAILY [facility] Last Admin: 08/26/23 09:50 Dose: 40 mg Prazosin HCl (Prazosin 1 Mg Capsule) 1 mg PO BEDTIME [facility] Last Admin: 08/25/23 21:00 Dose: Not Given Sodium Chloride (Sodium Chloride 0.9% 100 Ml Bag) 50 ml IV PRN PRN PRN Reason: Blood transfusion prime and flush Stop: 08/27/23 06:47 Tamsulosin HCl (Tamsulosin 0.4 Mg Capsule) 0.4 mg PO QPM [facility] Last Admin: 08/25/23 17:53 Dose: 0.4 mg Vitals/I&O/Wt Last Vital Signs Temp 97.7 F 08/25/23 23:00 Pulse 58 L 08/26/23 09:10 Resp 17 08/26/23 09:10 BP 125/72 08/26/23 09:00 Pulse Ox 95 08/26/23 09:10 O2 Del Method Room Air 08/26/23 09:10 08/25/23 08/26/23 08/26/23 22:59 06:59 14:59 Intake Total 885 / 1347.5 750.00 / 2097.50 Output Total 775 / 1050 Balance 110 / 297.5 750.00 / 1047.50 Weight last 48 hrs Weight 156 lb 11.2 oz Physical Exam 2 Narrative: GENERAL: The patient is alert and oriented times three. Not in any acute distress. HEENT: No significant pallor, icterus or lymphadenopathy.Oral cavity: There are no mucous membrane lesions. NECK: Trachea appears to be central. No masses noted. No JVD or thyromegaly appreciated. RESPIRATORY: Chest is symmetrical. No intercostals muscle retraction or any accessory muscle activation. There is no chest wall tenderness. Breath sounds are heard bilaterally. No rales or rhonchi heard. No evidence of any consolidation. BREASTS: Deferred. HEART: The heart sounds are normal. No S3 or S4. Short systolic murmur in the left sternal border. No diastolic murmurs. No pericardial rub ABDOMEN: No vessel pulsations or distention. No tenderness. No organomegaly appreciated. Bowel sounds are normally heard. : Deferred. RECTAL: Deferred. LYMPHATIC: No lymphadenopathy noted in the neck. EXTREMITIES: No edema or cyanosis. No clubbing. MUSCULOSKELETAL: No acute joint deformities or swelling SKIN: There are no significant rashes or ecchymosis NEUROPSYCHIATRIC: The patient is alert and oriented x3. Appears to be in a good mood. No tremors or rigidity noted. Data 08/26/23 03:58 08/26/23 03:58 Other Labs: Laboratory Last Values WBC 3.07 10^3/uL (3.29-11.43) L 08/26/23 03:58 RBC 4.07 10^6/uL (3.85-5.65) 08/26/23 03:58 Hgb 10.90 g/dL (11.27-16.99) L 08/26/23 03:58 Hct 34.6 % (37-53) L 08/26/23 03:58 MCV 85.0 fl (82-101) 08/26/23 03:58 MCH 26.8 pg (27-33) L 08/26/23 03:58 MCHC 31.5 g/dL (30-55) 08/26/23 03:58 RDW 15.4 % (12.1-15.1) H 08/26/23 03:58 Plt Count 75 10^3/cmm (157-399) L 08/26/23 03:58 MPV 13.1 fL (7.4-10.4) H 08/26/23 03:58 Neut % (Auto) 63.5 % 08/26/23 03:58 Lymph % (Auto) 21.8 % 08/26/23 03:58 [place] % (Auto) 10.4 % 08/26/23 03:58 Eos % (Auto) 3.3 % 08/26/23 03:58 Baso % (Auto) 0.7 % 08/26/23 03:58 Neut # (Auto) 1.95 10^3/uL (1.8-7.7) 08/26/23 03:58 Lymph # (Auto) 0.7 10^3/uL (0.8-4.8) L 08/26/23 03:58 [place] # (Auto) 0.3 10^3/uL (0.2-0.9) 08/26/23 03:58 Eos # (Auto) 0.1 10^3/uL (0.0-0.8) 08/26/23 03:58 Baso # (Auto) 0.0 10^3/uL (0.0-0.1) 08/26/23 03:58 Nucleated RBC % (auto) 0 % 08/26/23 03:58 Nucleated RBCs # 0.0 /100WBC 08/26/23 03:58 PT 19.00 SECONDS (12.1-14.9) H 08/23/23 23:23 INR 1.54 (0.8-1.2) H 08/23/23 23:23 APTT 31.6 SECONDS (23.9-36.7) 08/23/23 23:23 Sodium 141 mmol/L (136-145) 08/26/23 03:58 Potassium 4.1 mmol/L (3.5-5.1) 08/26/23 03:58 Chloride 109 mmol/L (98-107) H 08/26/23 03:58 Carbon Dioxide 20 mmol/L (22-29) L 08/26/23 03:58 Anion Gap 16.1 (5-19) 08/26/23 03:58 BUN 11 mg/dL (8-23) 08/26/23 03:58 Creatinine 0.8 mg/dL (0.7-1.2) 08/26/23 03:58 GFR Calculation Not Reportable 08/26/23 03:58 Glucose 81 mg/dL (65-115) 08/26/23 03:58 POC Glucose 73 mg/dL (70-110) 08/25/23 17:13 Calculated Osmolality 290 mOsm/kg (285-295) 08/26/23 03:58 Calcium 9.3 mg/dL (8.5-10.5) 08/26/23 03:58 Phosphorus 2.8 mg/dL (2.5-4.5) 08/24/23 03:17 Magnesium 1.6 mg/dL (1.7-2.3) L 08/25/23 03:11 Total Bilirubin 0.4 mg/dL (0.15-1.2) 08/25/23 03:11 AST 32 U/L (0-40) 08/25/23 03:11 ALT 28 U/L (0-41) 08/25/23 03:11 Alkaline Phosphatase 108 U/L (40-130) 08/25/23 03:11 NT-Pro-B Natriuret Pep 679 pg/mL (0-125) H 08/23/23 23:23 Total Protein 6.4 g/dL (6.6-8.7) L 08/25/23 03:11 Albumin 4.1 g/dL (3.5-5.2) 08/25/23 03:11 Globulin 2.3 g/dL (1.3-4.6) 08/25/23 03:11 TSH 0.71 uIU/mL (0.27-4.20) 08/24/23 03:17 Urine Color Yellow (Yellow) 08/24/23 Unknown Urine Appearance Hazy (CLEAR) A 08/24/23 Unknown Urine pH 5 (5-7) 08/24/23 Unknown Ur Specific [place] 1.020 (1.005-1.030) 08/24/23 Unknown Urine Protein Neg (Negative) 08/24/23 Unknown Urine Glucose (UA) 1+ (Normal) H 08/24/23 Unknown Urine Ketones Negative (Negative) 08/24/23 Unknown Urine Blood Neg (Negative) 08/24/23 Unknown Urine Nitrate Negative (Negative) 08/24/23 Unknown Urine Bilirubin 1+ (Negative) H 08/24/23 Unknown Urine Urobilinogen Neg mg/dL (Negative) 08/24/23 Unknown Ur Leukocyte Esterase Negative (Negative) 08/24/23 Unknown Urine RBC 0-4 /hpf (0-2) H 08/24/23 Unknown Urine WBC 0-4 /hpf (0-5) H 08/24/23 Unknown Ur Squamous Epith Cells 0-4 /hpf (0-5) H 08/24/23 Unknown Calcium Oxalate Crystal >100 /hpf H 08/24/23 Unknown Amorphous Sediment Not Reportable 08/24/23 Unknown Urine Bacteria Trace /hpf (NONE) 08/24/23 Unknown Urine Mucus 1+ /hpf 08/24/23 Unknown Blood Type B Positive 08/26/23 07:10 Rho(D) Type Rh positive 08/26/23 07:10 Antibody Screen Negative 08/26/23 07:10 Crossmatch See Detail 08/26/23 07:10 A&P Assessment and plan (1) Bradycardia: Patient has intermittent bradycardia with a heart rate going noted to the 30s. Currently he is off the beta-blockers. For further management of the patient's condition, a permanent pacemaker implantation would be appropriate. In view of the SVC involvement of the carcinoid tumor, a leadless pacemaker would be more appropriate for this patient. This was discussed the patient detail which she understood well. I consulted Dr. Ramirez to consider this procedure. Patient is scheduled to have this procedure this afternoon. Greatly appreciate Dr. Ramirez's help (2) Chronic atrial fibrillation: Patient is off the oral anticoagulation. The Lovenox was stopped yesterday. May continue on the current measures. (3) Atherosclerosis of coronary artery of [place] heart without angina pectoris: Patient had a Myocardial perfusion imaging few months ago. Was found to have mostly areas of fixed defect with a very small areas of reversible defect. Since the patient has no chest pain or any other specific cardiac symptoms, we will continue with the medical treatment Qualifiers: Coronary Disease-Associated Artery/Lesion type: [place] artery Qualified Code(s): I25.10 - Atherosclerotic heart disease of [place] coronary artery without angina pectoris (4) Multiple metastatic carcinoid tumors: Patient apparently has extensive metastatic lesions both infradiaphragmatic and supradiaphragmatic. Patient is currently on monthly injections of Sandostatin LAR. (5) Benign hypertension: The blood pressure is under control at this time. May continue on the current measures. (6) Dyslipidemia: Will continue on the current medications. (7) Ischemic cardiomyopathy: The patient's LV ejection fraction by echocardiogram is 49%. He has no evidence of any decompensated heart failure at this time. He may continue on the current medications for the time being. Plan Other problems Chronic diarrhea Anemia GERD BPH Possible leadless pacemaker implantation -MICRA, this afternoon May continue current medications Keep n.p.o. Attestations 2 Medical Necessity Statement*: Patient requires continued hospital stay for close monitoring and further management Coding Level of Care Code 67910 Diagnoses Bradycardia R00.1 Chronic atrial fibrillation I48.20 Atherosclerosis of [place] coronary artery of [place] heart without angina pectoris I25.10 Coronary Disease-Associated Artery/Lesion type: [place] artery Multiple metastatic carcinoid tumors C7B.00 Benign hypertension I10 Dyslipidemia E78.5 Ischemic cardiomyopathy I25.5
[2023-08-26 11:33] LABS: Glucose Point of Care 78 mg/dL (70-110)
[2023-08-26 11:49] LABS: Glucose Point of Care 80 mg/dL (70-110)
[2023-08-26 12:21] LABS: Glucose Point of Care 67 mg/dL (70-110)
--- NOTE | 2023-08-26 14:22 | P.ANESASSM_ITS ---
Pre-Anesthetic Assessment Height/Weight: Height 1.83 m Weight 71.078 kg Temp Pulse Resp BP Pulse Ox O2 Del Method 97.7 F 79 16 119/76 97 Room Air 08/25/23 23:00 08/26/23 12:30 08/26/23 12:30 08/26/23 12:30 08/26/23 12:30 08/26/23 09:10 Operation Date: 08/26/23 15:00 Proposed Procedures p Pacemaker Wireless(Not Applicable) - Abdulaziz Ramirez MD Familial anesthetic complications: none Was Beta Gautam taken within 24 hours: N/A Was Clonidine taken within 24 hours: N/A Last intake: > 8hrs Social No alcohol and No tobacco Exam alert, oriented x 3, clear to auscultation bilaterally and regular rate & rhythm Airway Mallampati: Class II Dentition: chipped CV/HEM Arrythmia and Coronary Artery Disease (cabg, stent) Metabolic Hyperlipidemia 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, but involvement of SVC and R heart is present, thus requiring leadless pacemaker Anesthetic Plan ASA status: 4 Anesthesia: MAC Risk of > 500 ml blood loss (7ml/kg in children): No Medications/Allergies Home Medications Medication Instructions Recorded Confirmed Last Taken Type amlodipine 10 mg tablet 10 mg PO DAILY 10/17/19 08/24/23 11/06/19 07:00 History clopidogrel 75 mg tablet (Plavix) 75 mg PO DAILY 10/17/19 08/24/23 10/22/19 History tamsulosin 0.4 mg capsule 0.4 mg PO QPM 12/30/21 08/24/23 Unknown History apixaban 5 mg tablet (Eliquis) 5 mg PO BID 01/28/22 08/24/23 Unknown History cholecalciferol (vitamin D3) 50 50 mcg PO DAILY 07/23/22 08/24/23 Unknown History mcg (2,000 unit) capsule gemfibrozil 600 mg tablet 600 mg PO BID 07/23/22 08/24/23 Unknown History atenolol 25 mg tablet 12.5 mg (1/2 x 25 mg) PO QAM 60 06/28/23 08/24/23 Unknown Rx days #30 tabs lisinopril 20 mg tablet 20 mg PO DAILY #90 tabs 07/20/23 08/24/23 Unknown Rx multivitamin 1 tab PO DAILY #1 tab 08/18/23 08/24/23 Unknown Rx colestipol 1 gram tablet 2 g (2 x 1 gram) PO BID #360 tabs 08/19/23 08/24/23 Unknown Rx dicyclomine 10 mg capsule 10 mg PO QID PRN abdominal pain 08/19/23 08/24/23 Unknown Rx #360 caps empagliflozin 25 mg tablet 12.5 mg (1/2 x 25 mg) PO DAILY #45 08/19/23 08/24/23 Unknown Rx tabs pantoprazole 40 mg tablet,delayed 40 mg PO DAILY #90 tabs 08/19/23 08/24/23 Unknown Rx release garlic 100 mg tablet 100 mg PO DAILY 08/24/23 08/24/23 Unknown History iron 18 mg tablet 18 mg PO DAILY 08/24/23 08/24/23 Unknown History omega 5-abo-cev-fish oil 120 1 cap PO BID 08/24/23 08/24/23 Unknown History mg-180 mg-500 mg capsule (Fish Oil) prazosin 1 mg capsule 1 mg PO BEDTIME 08/24/23 08/24/23 Unknown History Allergies Allergy/AdvReac Type Severity Reaction Status Date / Time Ddkjqxo-KLO-QfL Reductase Allergy Unknown Verified 08/24/23 08:19 Inhibitor [Hurdihu-Mie-Qse Reductase Inhibitor] Current Medications Generic Name Dose Route Start Last Admin Trade Name Freq PRN Reason Stop Dose Admin Amlodipine Besylate 10 mg 08/24/23 09:25 08/26/23 09:50 Amlodipine 10 Mg Tablet PO 10 mg DAILY POLLY Administration Chlorhexidine Gluconate 1 applic 08/26/23 09:00 08/26/23 09:51 Chlorhexidine Gluconate 4% Btl 118 Ml TOPICAL 1 applic BID POLLY Administration Enoxaparin Sodium 70 mg 08/24/23 11:00 08/24/23 18:54 Enoxaparin 80 Mg/0.8 Ml Syringe SUBCUT Not Given Q12H [facility] Gemfibrozil 600 mg 08/24/23 18:00 08/26/23 09:50 Gemfibrozil 600 Mg Tablet PO 600 mg BID POLLY Administration Insulin Human Lispro 0 unit 08/24/23 08:00 08/26/23 12:31 Insulin Lispro 100 Unit/1 Ml SUBCUT Not Given TIDWM [facility] [place] Protocol Lisinopril 20 mg 08/24/23 09:25 08/26/23 09:51 Lisinopril 20 Mg Tablet PO 20 mg DAILY POLLY Administration Pantoprazole Sodium 40 mg 08/24/23 09:25 08/26/23 09:[address] 40 Mg Tablet PO 40 mg DAILY POLLY Administration Prazosin HCl 1 mg 08/24/23 21:00 08/25/23 21:00 Prazosin 1 Mg Capsule PO Not Given BEDTIME [facility] [place] Tamsulosin HCl 0.4 mg 08/24/23 18:00 08/25/23 17:53 Tamsulosin 0.4 Mg Capsule PO 0.4 mg QPM POLLY Administration Additional Medication Information Current Medications Acetaminophen (Acetaminophen 500 Mg Tablet) 500 mg PO Q4H PRN PRN Reason: fever Albuterol/Ipratropium (Ipratropium-Albuterol 3 Ml Neb) 3 ml INHALATION Q6H PRN PRN Reason: SHORTNESS OF BREATH Amlodipine Besylate (Amlodipine 10 Mg Tablet) 10 mg PO DAILY [facility] [place] Last Admin: 08/26/23 09:50 Dose: 10 mg Chlorhexidine Gluconate (Chlorhexidine Gluconate 4% Btl 118 Ml) 1 applic TOPICAL BID [facility] [place] Last Admin: 08/26/23 09:51 Dose: 1 applic Dextrose (Dextrose 50% Syringe 50 Ml) 25 ml IVP ONCE PRN; Protocol PRN Reason: hypoglycemia protocol Dextrose (Dextrose 50% Syringe 50 Ml) 50 ml IVP PRN PRN; Protocol PRN Reason: hypoglycemia protocol Enoxaparin Sodium (Enoxaparin 80 Mg/0.8 Ml Syringe) 70 mg SUBCUT Q12H [facility] [place] Last Admin: 08/24/23 18:54 Dose: Not Given Gemfibrozil (Gemfibrozil 600 Mg Tablet) 600 mg PO BID [facility] [place] Last Admin: 08/26/23 09:50 Dose: 600 mg Dextrose (D5w) 500 mls @ 0 mls/hr IV ONCE PRN; Protocol PRN Reason: Adult Acute Hypoglycemia Prot Lactated Ringer's (Lactated Ringers) 1,000 mls @ 150 mls/hr IV .Q6H40M [facility] [place] Last Admin: 08/26/23 09:45 Dose: Not Given Insulin Human Lispro (Insulin Lispro 100 Unit/1 Ml) 0 unit SUBCUT TIDWM [facility] [place]; Protocol Last Admin: 08/26/23 09:42 Dose: Not Given Lisinopril (Lisinopril 20 Mg Tablet) 20 mg PO DAILY [facility] [place] Last Admin: 08/26/23 09:51 Dose: 20 mg Ondansetron HCl (Ondansetron 2 Mg/Ml Sdv 2 Ml) 4 mg IVP Q6H PRN PRN Reason: NAUSEA AND VOMITING Pantoprazole Sodium (Pantoprazole Dr 40 Mg Tablet) 40 mg PO DAILY [facility] [place] Last Admin: 08/26/23 09:50 Dose: 40 mg Prazosin HCl (Prazosin 1 Mg Capsule) 1 mg PO BEDTIME POLLY Last Admin: 08/25/23 21:00 Dose: Not Given Sodium Chloride (Sodium Chloride 0.9% 100 Ml Bag) 50 ml IV PRN PRN PRN Reason: Blood transfusion prime and flush Stop: 08/27/23 06:47 Tamsulosin HCl (Tamsulosin 0.4 Mg Capsule) 0.4 mg PO QPM [facility] [place] Last Admin: 08/25/23 17:53 Dose: 0.4 mg PFSH Anesthesia Medical History Anticoagulation adequate with anticoagulant therapy Tinnitus Atrial fibrillation with rapid ventricular response Atypical chest pain Dyslipidemia (high LDL; low HDL) Atherosclerotic heart disease of [place] coronary artery with other forms of angina pectoris Arrhythmia Hypertension Status post closed fracture of right femur History of coronary angiogram Hyperlipidemia Hiatal hernia GERD (gastroesophageal reflux disease) Surgical History H/O exploratory laparotomy Status post tonsillectomy History of laparoscopic cholecystectomy S/P colonoscopy with polypectomy (~2018) S/P CABG x 4 Family History Father CAD (coronary artery disease) Brother Cancer Denies family history of Diabetes Clotting disorder Dementia Chronic kidney disease (CKD) Suicide Anesthesia complication Bleeding disorder Lung disease Stroke Social History Smoking and tobacco/nicotine status: former use of tobacco/nicotine Quit status (tobacco/nicotine): has quit using Year quit tobacco: Quit 37 years ago Former quit date comment: smoked x 10 yrs Second hand smoke exposure: Yes Alcohol intake: never Substance/Drug Use: never Adopted: No Caregiver/support person: Yes Lives independently: No Household members: spouse Housing: House Marital status: service: Yes status details: 2 years branch: [employer] Current occupational status: retired Current occupational exposures/hazards: No Pets and animals: No Sexually active: No Do you think of yourself as: Straight/Heterosexual Current gender identity: Male Jackelyn/Muslim: Mormon Special jackelyn needs: No Agree to transfusion: No Data Anesthesia 08/26/23 03:58 08/26/23 03:58 Short CBC 08/25/23 08/26/23 Range/Units 03:11 03:58 WBC 2.80 L 3.07 L (3.29-11.43) 10^3/uL Hgb 10.90 L 10.90 L (11.27-16.99) g/dL Hct 34.6 L 34.6 L (37-53) % MCV 85.4 85.0 (82-101) fl Plt Count 85 L 75 L (157-399) 10^3/cmm Neut % (Auto) 54.6 63.5 % Neut # (Auto) 1.53 L 1.95 (1.8-7.7) 10^3/uL BMP 08/25/23 08/26/23 03:11 03:58 Sodium 141 141 Potassium 4.1 4.1 Chloride 109 H 109 H Carbon Dioxide 21 L 20 L BUN 14 11 Creatinine 0.9 0.8 Glucose 97 81 Calcium 9.3 9.3 Liver Function 08/25/23 Range/Units 03:11 Total Bilirubin 0.4 (0.15-1.2) mg/dL AST 32 (0-40) U/L ALT 28 (0-41) U/L Alkaline Phosphatase 108 (40-130) U/L Albumin 4.1 (3.5-5.2) g/dL Blood Bank 08/26/23 07:10 Blood Type B Positive Rho(D) Type Rh positive Antibody Screen Negative Cardiac Studies: 2 Echocardiogram Limited Views 08/25/23 Echocardiogram Ultrasound 03/26/20 Sestamibi Stress Test (Cardiology) 02/03 Holter Monitor 02/15/20
[2023-08-26] MEDS: lactated ringers 1,000 ML 150 ML IV (14:34)
[2023-08-26] MEDS: octreotide 500 MCG in sodium chloride 0.9% (100 ml) 100 ML 10.1 MCG IV (15:09)
[2023-08-26] MEDS: lidocaine 2% INJ 20 mL INJECTION (17:26)
[2023-08-26] MEDS: iohexol 300 mg/mL 50 mL Btl XX (17:27)
[2023-08-26] MEDS: heparin,porcine 1,000 unit/mL INJ 1 mL 2000 UNIT IRRIGATION (17:51)
--- NOTE | 2023-08-26 18:12 | P.OP_ITS ---
Operative Report Date of procedure: August 26, 2023 Pre-op diagnosis: Atrial fibrillation with medically refractory bradycardia Post-op diagnosis: same Procedure done: Medtronic Micra pacemaker implantation Implants: Medtronic Micra pacemaker Pathology: none sent Surgeon: Abdulaziz Ramirez MD Estimated blood loss (mL): 20 Complications: None Condition: stable Disposition: ICU Brief History: Mr. Rodriguez is a pleasant 73-year-old gentleman with metastatic carcinoid and chronic atrial fibrillation who presented with fatigue, shortness of breath, general weakness. He was found to be in atrial fibrillation with a heart rate in the low 40s. He has been medically refractory to corrections and Dr. Goodwin is recommended leadless pacemaker implantation related to known carcinoid metastasis and the superior vena cava as well as increased activity by PET scan and his right atrium. Rationale for this was carefully and frankly discussed with Mr. Rodriguez and family. Details and risk of the procedure were reviewed. He wished to proceed with the procedure though he does not want CPR should he suffer cardiac arrest. He did agree however to defibrillation should this develop as a result of pacemaker implantation. Procedure: Micra AV model number: [id number] Serial number: [id number] RV sensin.0 Impedance: 610 Threshold: 0.24 Pacing mode is VVI with lower rate at 50 Mr. Rodriguez was taken to the operating room theater carefully position where he underwent IV conscious sedation with anesthesia monitoring. His entire lower abdomen and groin region down to the knees was sterilely prepped and draped. Appropriate timeout was completed and confirmed by all operative team members present. 1% lidocaine was infiltrated in the right groin after and ultrasound visualization of the right femoral vein. The right femoral vein was entered under ultrasound guidance and a guidewire was placed. After confirmation of guidewire placement, an 8 [place] sheath was then positioned under fluoroscopic guidance. Guidewire was then replaced with an Amplatz superstiff 0.035 x 180 cm wire. An 11 scalpel blade was utilized to incise the skin. A [id number] silk suture was then placed. 8 [place] sheath was then removed and replaced with a 23 [place] delivery sheath. This was positioned at mid right atrial level. Following this, after careful flushing of all components with heparinized saline, and at the time of the delivery of the 23 [place] sheath, the patient received 2500 units of heparin intravenously. Next, Micra AV pacemaker and its delivery catheter, was passed under fluoroscopic guidance to the end of the 23 [place] sheath. The sheath was then withdrawn back inferior to the right atrium. The Micra AV pacemaker and delivery catheter then positioned under fluoroscopic guidance across the tricuspid valve and then directed to mid septal level. Proximity with the septum was then confirmed utilizing dilute Omnipaque contrast and a series of CASE and INDONESIAN views. Pacemaker was delivered and then tension testing was performed with cine fluoroscopy performed to assess for kaylene fixation. Following confirmation of fixation, electrical interrogation was then performed. Next, after fixation, retaining string was transected and removed followed by removal of the delivery catheter. Re-interrogation again revealed appropriate parameters. Next, the 23 [place] sheath was removed with the [id number] suture being tied followed by direct pressure being held over the right groin for over 15 minutes and then pressure dressing being applied followed by a sandbag. The patient tolerated procedure well, was awakened from conscious sedation and then transferred to the PACU. Family was counseled at the completion of the procedure.
--- NOTE | 2023-08-26 19:00 | ANE.PACU2 ---
Inpatient post-anesthesia follow up: Airway intact: Yes Vital signs: Temperature 98.2 F Pulse Rate 54 Respiratory Rate 14 Blood Pressure 97/59 Pulse Oximetry 98 Oxygen Delivery Me thod Room Air Oxygen Flow Rate Fraction of Inspir ed Oxygen Hydration adequate: Yes Nausea and vomiting: No Pain level: 1 Mental status: Baseline
[2023-08-26] MEDS: tamsulosin 0.4 mg Capsule PO (21:02)
[2023-08-26] MEDS: prazosin 1 mg Capsule PO (21:02)
[2023-08-27] VITALS (15 sets, daily range): BP systolic 87–118; BP diastolic 55–81; PULSE 51–103; RESP 4–23; TEMP 36.5–37.1; O2SAT 95–99
[2023-08-27 05:13] LABS: Basophils % 0.3 %; Eosinophils # 0.1 10^3/uL (0.0-0.8); Eosinophils % 1.9 %; Hematocrit 33.5 % (37-53); Lymphocytes # 0.6 10^3/uL (0.8-4.8); Lymphocytes % 18.4 %; Mean Corpuscular HGB Conc 31.9 g/dL (30-55); Mean Corpuscular Hemoglobin 26.9 pg (27-33); Mean Corpuscular Volume 84.2 fl (82-101); Mean Platelet Volume 13.4 fL (7.4-10.4); Monocytes # 0.3 10^3/uL (0.2-0.9); Monocytes % 10.7 %; Neutrophils # 2.11 10^3/uL (1.8-7.7); Neutrophils % 68.4 %; Nucleated Red Blood Cells % 0 %; Platelet Count 78 10^3/cmm (157-399); Red Blood Count 3.98 10^6/uL (3.85-5.65); Red Cell Distribution Width 15.2 % (12.1-15.1); White Blood Count 3.09 10^3/uL (3.29-11.43)
[2023-08-27 05:31] LABS: Blood Urea Nitrogen 9 mg/dL (8-23); Calcium 9.2 mg/dL (8.5-10.5); Carbon Dioxide 19 mmol/L (22-29); Chloride 105 mmol/L (98-107); Creatinine Clr Calc Pharmacy 93.2021; Glucose 63 mg/dL (65-115); Osmolality Calculated 287 mOsm/kg (285-295); Sodium 140 mmol/L (136-145)
--- NOTE | 2023-08-27 06:08 | PC.NURSE ---
Resting in bed. Dressing to right groin pacemaker insertion site remains c/d/i with no bleeding, hematoma, or bruising noted. Assisted to left side lying position with right leg remaining straight.
[2023-08-27 07:44] LABS: Glucose Point of Care 59 mg/dL (70-110)
[2023-08-27 08:33] LABS: Glucose Point of Care 76 mg/dL (70-110)
[2023-08-27] MEDS: gemfibrozil 600 mg Tablet PO (09:12)
[2023-08-27] MEDS: pantoprazole DR 40 mg Tablet PO (09:12)
--- NOTE | 2023-08-27 11:47 | PM.DCS ---
Discharge Providers Date of Admission: 08/24/23 00:31 Date of Discharge: August 27, 2023 Attending Provider at Admission: Pricilla Warner MD Attending Provider at Discharge: Rozina Siegel MD Primary Care Provider: Angy Valenzuela MD Diagnoses at Discharge Discharge Diagnosis (1) Bradycardia: Status: Acute (2) Chronic atrial fibrillation: Status: Acute (3) Atherosclerosis of coronary artery of [place] heart without angina pectoris: Status: Acute Qualifiers: Coronary Disease-Associated Artery/Lesion type: [place] artery Qualified Code(s): I25.10 - Atherosclerotic heart disease of [place] coronary artery without angina pectoris (4) Multiple metastatic carcinoid tumors: Status: Acute (5) Benign hypertension: Status: Acute (6) Dyslipidemia: Status: Acute (7) Ischemic cardiomyopathy: Status: Acute Reason for Visit Reason for Visit: WEAKNESS Hospital Course Hospital Course Mr. Rodriguez is a 73yo man w/ CAD, HTN, HLD, GERD, a 4vCABG, A-fib, and Metastatic Carcinoid Syndrome on chemotherapy, who presented to the ED on 08/24/2023 with complaints of dehydration, Generalized weakness and fatigue, and was admitted for atrial flutter with heart rates that vacillated between the 30s and 100. Cardiology was consulted, and he was deemed to have symptomatic Gerry-tachy syndrome. CT surgery was consulted, and the patient is s/p a Medtronic Micra pacemaker implantation. On the day of discharge, he was tachycardic and was started on metoprolol 25 mg twice daily with the approval of heavy duty press operator on-call, Dr. Goodwin. He was walked around the unit, to make sure that he could tolerate metoprolol dosing as well as his other blood pressure dosing. His amlodipine was decreased to 5 mg daily, and his lisinopril was continued without any changes. He was discharged per the instructions of the CT surgeon, Dr. Ramirez, to follow-up with him in clinic in the next week and to follow-up with wound care, also in the next week. Other medical problems #Metastatic Carcinoid Syndrome #Afib #HTN #HLD #GERD Physical Exam Const: GENERAL APPEARANCE: cooperative and comfortable ORIENTATION/CONSCIOUSNESS: Yes awake, Yes oriented to person, Yes oriented to place and Yes oriented to time HENMT: COMMON NORMALS: normocephalic, atraumatic and external ears normal HEAD & SCALP: normocephalic and atraumatic EXTERNAL EAR: Yes external ears normal MOUTH: Normal oral and palatal mucosa present THROAT: posterior oropharynx normal Eye: OTHER: PEERL, normal conjunctiva, EOMI. Neck/C-Spine: OTHER: Trachea midline, no thyromegaly, no carotid bruit appreciated. Lymph: OTHER: No cervical supraclavicular lymphadenopathy appreciated. Resp: OTHER: CTAB with no wheezes rales, or rhonchi. Cardio: OTHER: Tachycardia, with regular rhythm. No murmur, rubs, gallops, or clicks. 2+ radial and dorsalis pedis pulses appreciated. No carotid bruits appreciated bilaterally. GI: OTHER: Bowel sounds positive. Abdomen was nontender, nondistended, with no rebound, guarding, rigidity, on palpation. Extremity: NARRATIVE EXTREMITY EXAM: No cyanosis, no clubbing, or pedal edema bilaterally. Neuro: SENSORIUM/ORIENTATION: Yes oriented to person, Yes oriented to place and Yes oriented to time OTHER: ANO x 3, cranial nerves intact, speech normal, sensation intact, 5/s motor strength bilaterally, with normal muscle tone. Psych: COMMON NORMALS: Normal thought process present and speech normal APPEARANCE: Yes grossly normal ATTITUDE: Yes calm and Yes engaged ACTIVITY/MOTOR BEHAVIOR: Yes appropriate eye contact SPEECH: Yes normal speech MOOD & AFFECT: Yes euthymic mood THOUGHT PROCESS: Normal thought process present THOUGHT CONTENT: Yes Normal thought content present ATTENTION/CONCENTRATION: Yes attention grossly intact Skin: NARRATIVE SKIN EXAM: No rashes or lesions noted. Discharge Data Studies Completed and Pending Completed Studies During Hospitalization Category Date Time Status XR chest 1V portable [id number] Stat Exams 08/23/23 23:14 Completed CV. echo limited [id number] Stat Ultrasound 08/25/23 17:26 Completed Pending at discharge Category Date Time Status C-arm FL for Pacemaker Routine Exams 08/26/23 06:49 Taken CXRP [XR chest 1V portable [id number]] Stat Exams 08/27/23 11:16 Stop Req PRBC [Leukocyte Reduced RBC] Routine Lab 08/26/23 07:10 Results Type and Screen Routine Lab 08/26/23 07:10 Results Radiology Impressions Chest X-Ray 08/23/23 23:14 IMPRESSION: Negative for acute chest pathology. Laboratory Results WBC 3.09 10^3/uL (3.29-11.43) L 08/27/23 03:42 RBC 3.98 10^6/uL (3.85-5.65) 08/27/23 03:42 Hgb 10.70 g/dL (11.27-16.99) L 08/27/23 03:42 Hct 33.5 % (37-53) L 08/27/23 03:42 MCV 84.2 fl (82-101) 08/27/23 03:42 MCH 26.9 pg (27-33) L 08/27/23 03:42 MCHC 31.9 g/dL (30-55) 08/27/23 03:42 RDW 15.2 % (12.1-15.1) H 08/27/23 03:42 Plt Count 78 10^3/cmm (157-399) L 08/27/23 03:42 MPV 13.4 fL (7.4-10.4) H 08/27/23 03:42 Neut % (Auto) 68.4 % 08/27/23 03:42 Lymph % (Auto) 18.4 % 08/27/23 03:42 [place] % (Auto) 10.7 % 08/27/23 03:42 Eos % (Auto) 1.9 % 08/27/23 03:42 Baso % (Auto) 0.3 % 08/27/23 03:42 Neut # (Auto) 2.11 10^3/uL (1.8-7.7) 08/27/23 03:42 Lymph # (Auto) 0.6 10^3/uL (0.8-4.8) L 08/27/23 03:42 [place] # (Auto) 0.3 10^3/uL (0.2-0.9) 08/27/23 03:42 Eos # (Auto) 0.1 10^3/uL (0.0-0.8) 08/27/23 03:42 Baso # (Auto) 0.0 10^3/uL (0.0-0.1) 08/27/23 03:42 Nucleated RBC % (auto) 0 % 08/27/23 03:42 Nucleated RBCs # 0.0 /100WBC 08/27/23 03:42 PT 19.00 SECONDS (12.1-14.9) H 08/23/23 23:23 INR 1.54 (0.8-1.2) H 08/23/23 23:23 APTT 31.6 SECONDS (23.9-36.7) 08/23/23 23:23 Sodium 140 mmol/L (136-145) 08/27/23 03:42 Potassium 4.0 mmol/L (3.5-5.1) 08/27/23 03:42 Chloride 105 mmol/L (98-107) 08/27/23 03:42 Carbon Dioxide 19 mmol/L (22-29) L 08/27/23 03:42 Anion Gap 20.0 (5-19) H 08/27/23 03:42 BUN 9 mg/dL (8-23) 08/27/23 03:42 Creatinine 0.8 mg/dL (0.7-1.2) 08/27/23 03:42 GFR Calculation Not Reportable 08/27/23 03:42 Glucose 63 mg/dL (65-115) L 08/27/23 03:42 POC Glucose 59 mg/dL (70-110) L 08/27/23 07:40 Calculated Osmolality 287 mOsm/kg (285-295) 08/27/23 03:42 Calcium 9.2 mg/dL (8.5-10.5) 08/27/23 03:42 Phosphorus 2.8 mg/dL (2.5-4.5) 08/24/23 03:17 Magnesium 1.6 mg/dL (1.7-2.3) L 08/25/23 03:11 Total Bilirubin 0.4 mg/dL (0.15-1.2) 08/25/23 03:11 AST 32 U/L (0-40) 08/25/23 03:11 ALT 28 U/L (0-41) 08/25/23 03:11 Alkaline Phosphatase 108 U/L (40-130) 08/25/23 03:11 NT-Pro-B Natriuret Pep 679 pg/mL (0-125) H 08/23/23 23:23 Total Protein 6.4 g/dL (6.6-8.7) L 08/25/23 03:11 Albumin 4.1 g/dL (3.5-5.2) 08/25/23 03:11 Globulin 2.3 g/dL (1.3-4.6) 08/25/23 03:11 TSH 0.71 uIU/mL (0.27-4.20) 08/24/23 03:17 Urine Color Yellow (Yellow) 08/24/23 Unknown Urine Appearance Hazy (CLEAR) A 08/24/23 Unknown Urine pH 5 (5-7) 08/24/23 Unknown Ur Specific [place] 1.020 (1.005-1.030) 08/24/23 Unknown Urine Protein Neg (Negative) 08/24/23 Unknown Urine Glucose (UA) 1+ (Normal) H 08/24/23 Unknown Urine Ketones Negative (Negative) 08/24/23 Unknown Urine Blood Neg (Negative) 08/24/23 Unknown Urine Nitrate Negative (Negative) 08/24/23 Unknown Urine Bilirubin 1+ (Negative) H 08/24/23 Unknown Urine Urobilinogen Neg mg/dL (Negative) 08/24/23 Unknown Ur Leukocyte Esterase Negative (Negative) 08/24/23 Unknown Urine RBC 0-4 /hpf (0-2) H 08/24/23 Unknown Urine WBC 0-4 /hpf (0-5) H 08/24/23 Unknown Ur Squamous Epith Cells 0-4 /hpf (0-5) H 08/24/23 Unknown Calcium Oxalate Crystal >100 /hpf H 08/24/23 Unknown Amorphous Sediment Not Reportable 08/24/23 Unknown Urine Bacteria Trace /hpf (NONE) 08/24/23 Unknown Urine Mucus 1+ /hpf 08/24/23 Unknown Blood Type B Positive 08/26/23 07:10 Rho(D) Type Rh positive 08/26/23 07:10 Antibody Screen Negative 08/26/23 07:10 Crossmatch See Detail 08/26/23 07:10 Vitals Last Vital Signs Temp 97.7 F 08/27/23 08:00 Pulse 84 08/27/23 10:00 Resp 13 08/27/23 10:00 BP 106/65 08/27/23 10:00 Pulse Ox 96 08/27/23 10:00 O2 Del Method Room Air 08/27/23 08:00 O2 Flow Rate 2 08/27/23 08:00 Discharge Plan Discharge Patient Disposition: Home Condition: Stable Prescriptions: New hydrocodone-acetaminophen 5-325 mg Tablet 1 tab PO QID PRN (Reason: Moderate Pain) Qty: 20 0RF amlodipine 5 mg tablet 5 mg PO DAILY Qty: 30 0RF metoprolol tartrate 25 mg tablet 25 mg PO BID Qty: 60 0RF Continued clopidogrel [Plavix] 75 mg tablet 75 mg PO DAILY tamsulosin 0.4 mg capsule 0.4 mg PO QPM gemfibrozil 600 mg tablet 600 mg PO BID Eliquis 5 mg tablet 5 mg PO BID lisinopril 20 mg tablet 20 mg PO DAILY Qty: 90 3RF multivitamin Tablet 1 tab PO DAILY Qty: 1 0RF colestipol 1 gram tablet 2 g PO BID Qty: 360 1RF Rx Instructions: Take two tablets by mouth twice a day. take with a full cup of water dicyclomine 10 mg capsule 10 mg PO QID PRN (Reason: abdominal pain) Qty: 360 1RF pantoprazole 40 mg tablet,delayed release (DR/EC) 40 mg PO DAILY Qty: 90 1RF empagliflozin 25 mg tablet 12.5 mg PO DAILY Qty: 45 0RF cholecalciferol (vitamin D3) 50 mcg (2,000 unit) capsule 50 mcg PO DAILY prazosin 1 mg Capsule 1 mg PO BEDTIME Fish Oil 120-180-500 mg Capsule 1 cap PO BID iron 18 mg Tablet 18 mg PO DAILY garlic 100 mg Tablet 100 mg PO DAILY Discontinued amlodipine 10 mg tablet 10 mg PO DAILY atenolol 25 mg tablet 12.5 mg PO QAM 60 Days Qty: 30 6RF Discharge Orders: Discharge Order (Routine); Ordered 08/27/23 [facility]errals: Angy Valenzuela MD [Primary Care Provider] - Yvonne Goodwin MD [Physician] - 1 month () Abdulaziz Ramirez MD [Physician] - 4-7 days Patient Instructions: Hydrocodone/Acetaminophen (By mouth) (Vicodin, [place], Lortab), Amlodipine (By mouth) (Hypertenipine-2.5, Norvasc, Norliqva), Opioid Safety Activity Restrictions/Additional Instructions: As requested by the Cardiothoracic Surgeon, Dr. Ramirez, please call the Wound Clinic [phone] on Tuesday08/29/2023 for a time (not an appointment) to unofficially come in and have Dr. Ramirez remove sutures. You are also to see Dr. Ramirez in Clinic next week for follow up of your pacemaker. Discharge Attestations Time Spent in Discharge Care*: greater than 30 min Quality Metrics Clinical Quality Measures [ No reported AMI, CVA or VTE this stay] Coding Level of Care Code 62497 Diagnoses Bradycardia R00.1 Chronic atrial fibrillation I48.20 Atherosclerosis of [place] coronary artery of [place] heart without angina pectoris I25.10 Coronary Disease-Associated Artery/Lesion type: [place] artery Multiple metastatic carcinoid tumors C7B.00 Benign hypertension I10 Dyslipidemia E78.5 Ischemic cardiomyopathy I25.5
[2023-08-27] MEDS: amlodipine 10 mg Tablet 5 MG PO (11:48)
[2023-08-27] MEDS: metoprolol tartrate 25 mg Tablet PO (11:49)
[2023-08-27 12:28] LABS: Glucose Point of Care 81 mg/dL (70-110)
--- NOTE | 2023-08-27 12:33 | P.PN_ITS ---
Subjective 2 Subjective: Patient had the leadless pacemaker evaluation yesterday. He had uneventful postprocedure course. Currently seems to be doing okay. His heart rate seems to be going up. The resting heart rate seems to be in the 90s His blood pressure was running in the 90s this morning. So the blood pressure medications were held. Currently the blood pressure is in the 140s. Medications: Medication Review Details: Current Medications Acetaminophen (Acetaminophen 500 Mg Tablet) 500 mg PO Q4H PRN PRN Reason: fever Hydrocodone Bitart/Acetaminophen (Hydrocodone-Acetaminophen 5-325 Mg Tablet) 1 tab PO Q4H PRN PRN Reason: MODERATE PAIN Albuterol/Ipratropium (Ipratropium-Albuterol 3 Ml Neb) 3 ml INHALATION Q6H PRN PRN Reason: SHORTNESS OF BREATH Amlodipine Besylate (Amlodipine 10 Mg Tablet) 5 mg PO DAILY [facility] Last Admin: 08/27/23 11:48 Dose: 5 mg Chlorhexidine Gluconate (Chlorhexidine Gluconate 4% Btl 118 Ml) 1 applic TOPICAL BID [facility] Last Admin: 08/27/23 09:12 Dose: Not Given Dextrose (Dextrose 50% Syringe 50 Ml) 25 ml IVP ONCE PRN; Protocol PRN Reason: hypoglycemia protocol Dextrose (Dextrose 50% Syringe 50 Ml) 50 ml IVP PRN PRN; Protocol PRN Reason: hypoglycemia protocol Gemfibrozil (Gemfibrozil 600 Mg Tablet) 600 mg PO BID [facility] Last Admin: 08/27/23 09:12 Dose: 600 mg Dextrose (D5w) 500 mls @ 0 mls/hr IV ONCE PRN; Protocol PRN Reason: Adult Acute Hypoglycemia Prot Insulin Human Lispro (Insulin Lispro 100 Unit/1 Ml) 0 unit SUBCUT TIDWM [facility]; Protocol Last Admin: 08/27/23 09:08 Dose: Not Given Lisinopril (Lisinopril 20 Mg Tablet) 20 mg PO DAILY [facility] Last Admin: 08/27/23 09:17 Dose: Not Given Metoprolol Tartrate (Metoprolol Tartrate 25 Mg Tablet) 25 mg PO BID@0900,2100 [facility] Last Admin: 08/27/23 11:49 Dose: 25 mg Morphine Sulfate (Morphine 4 Mg/Ml Sdv 1 Ml) 2 mg IVP Q1H PRN PRN Reason: SEVERE PAIN Ondansetron HCl (Ondansetron 2 Mg/Ml Sdv 2 Ml) 4 mg IVP Q6H PRN PRN Reason: NAUSEA AND VOMITING Pantoprazole Sodium (Pantoprazole Dr 40 Mg Tablet) 40 mg PO DAILY [facility] Last Admin: 08/27/23 09:12 Dose: 40 mg Prazosin HCl (Prazosin 1 Mg Capsule) 1 mg PO BEDTIME [facility] Last Admin: 08/26/23 21:02 Dose: 1 mg Tamsulosin HCl (Tamsulosin 0.4 Mg Capsule) 0.4 mg PO QPM [facility] Last Admin: 08/26/23 21:02 Dose: 0.4 mg Tramadol HCl (Tramadol 50 Mg Tablet) 50 mg PO Q6H PRN PRN Reason: MODERATE PAIN Vitals/I&O/Wt Last Vital Signs Temp 97.7 F 08/27/23 08:00 Pulse 84 08/27/23 10:00 Resp 13 08/27/23 10:00 BP 106/65 08/27/23 10:00 Pulse Ox 96 08/27/23 10:00 O2 Del Method Room Air 08/27/23 08:00 O2 Flow Rate 2 08/27/23 08:00 08/26/23 08/27/23 08/27/23 22:59 06:59 14:59 Intake Total 201 / 321 150 / 471 Output Total 775 / 1675 650 / 2325 Balance -574 / -1354 -500 / -1854 Weight last 48 hrs Weight 185 lb Weight 156 lb 11.2 oz Physical Exam 2 Narrative: GENERAL: The patient is alert and oriented times three. Not in any acute distress. HEENT: No significant pallor, icterus or lymphadenopathy.Oral cavity: There are no mucous membrane lesions. NECK: Trachea appears to be central. No masses noted. No JVD or thyromegaly appreciated. RESPIRATORY: Chest is symmetrical. No intercostals muscle retraction or any accessory muscle activation. There is no chest wall tenderness. Breath sounds are heard bilaterally. No rales or rhonchi heard. No evidence of any consolidation. BREASTS: Deferred. HEART: The heart sounds are normal. No S3 or S4. Short systolic murmur in the left sternal border. No diastolic murmurs. No pericardial rub ABDOMEN: No vessel pulsations or distention. No tenderness. No organomegaly appreciated. Bowel sounds are normally heard. : Deferred. RECTAL: Deferred. LYMPHATIC: No lymphadenopathy noted in the neck. EXTREMITIES: No edema or cyanosis. No clubbing. MUSCULOSKELETAL: No acute joint deformities or swelling SKIN: There are no significant rashes or ecchymosis NEUROPSYCHIATRIC: The patient is alert and oriented x3. Appears to be in a good mood. No tremors or rigidity noted. Data 08/27/23 03:42 08/27/23 03:42 Other Labs: Laboratory Last Values WBC 3.09 10^3/uL (3.29-11.43) L 08/27/23 03:42 RBC 3.98 10^6/uL (3.85-5.65) 08/27/23 03:42 Hgb 10.70 g/dL (11.27-16.99) L 08/27/23 03:42 Hct 33.5 % (37-53) L 08/27/23 03:42 MCV 84.2 fl (82-101) 08/27/23 03:42 MCH 26.9 pg (27-33) L 08/27/23 03:42 MCHC 31.9 g/dL (30-55) 08/27/23 03:42 RDW 15.2 % (12.1-15.1) H 08/27/23 03:42 Plt Count 78 10^3/cmm (157-399) L 08/27/23 03:42 MPV 13.4 fL (7.4-10.4) H 08/27/23 03:42 Neut % (Auto) 68.4 % 08/27/23 03:42 Lymph % (Auto) 18.4 % 08/27/23 03:42 [place] % (Auto) 10.7 % 08/27/23 03:42 Eos % (Auto) 1.9 % 08/27/23 03:42 Baso % (Auto) 0.3 % 08/27/23 03:42 Neut # (Auto) 2.11 10^3/uL (1.8-7.7) 08/27/23 03:42 Lymph # (Auto) 0.6 10^3/uL (0.8-4.8) L 08/27/23 03:42 [place] # (Auto) 0.3 10^3/uL (0.2-0.9) 08/27/23 03:42 Eos # (Auto) 0.1 10^3/uL (0.0-0.8) 08/27/23 03:42 Baso # (Auto) 0.0 10^3/uL (0.0-0.1) 08/27/23 03:42 Nucleated RBC % (auto) 0 % 08/27/23 03:42 Nucleated RBCs # 0.0 /100WBC 08/27/23 03:42 PT 19.00 SECONDS (12.1-14.9) H 08/23/23 23:23 INR 1.54 (0.8-1.2) H 08/23/23 23:23 APTT 31.6 SECONDS (23.9-36.7) 08/23/23 23:23 Sodium 140 mmol/L (136-145) 08/27/23 03:42 Potassium 4.0 mmol/L (3.5-5.1) 08/27/23 03:42 Chloride 105 mmol/L (98-107) 08/27/23 03:42 Carbon Dioxide 19 mmol/L (22-29) L 08/27/23 03:42 Anion Gap 20.0 (5-19) H 08/27/23 03:42 BUN 9 mg/dL (8-23) 08/27/23 03:42 Creatinine 0.8 mg/dL (0.7-1.2) 08/27/23 03:42 GFR Calculation Not Reportable 08/27/23 03:42 Glucose 63 mg/dL (65-115) L 08/27/23 03:42 POC Glucose 81 mg/dL (70-110) 08/27/23 12:21 Calculated Osmolality 287 mOsm/kg (285-295) 08/27/23 03:42 Calcium 9.2 mg/dL (8.5-10.5) 08/27/23 03:42 Phosphorus 2.8 mg/dL (2.5-4.5) 08/24/23 03:17 Magnesium 1.6 mg/dL (1.7-2.3) L 08/25/23 03:11 Total Bilirubin 0.4 mg/dL (0.15-1.2) 08/25/23 03:11 AST 32 U/L (0-40) 08/25/23 03:11 ALT 28 U/L (0-41) 08/25/23 03:11 Alkaline Phosphatase 108 U/L (40-130) 08/25/23 03:11 NT-Pro-B Natriuret Pep 679 pg/mL (0-125) H 08/23/23 23:23 Total Protein 6.4 g/dL (6.6-8.7) L 08/25/23 03:11 Albumin 4.1 g/dL (3.5-5.2) 08/25/23 03:11 Globulin 2.3 g/dL (1.3-4.6) 08/25/23 03:11 TSH 0.71 uIU/mL (0.27-4.20) 08/24/23 03:17 Urine Color Yellow (Yellow) 08/24/23 Unknown Urine Appearance Hazy (CLEAR) A 08/24/23 Unknown Urine pH 5 (5-7) 08/24/23 Unknown Ur Specific [place] 1.020 (1.005-1.030) 08/24/23 Unknown Urine Protein Neg (Negative) 08/24/23 Unknown Urine Glucose (UA) 1+ (Normal) H 08/24/23 Unknown Urine Ketones Negative (Negative) 08/24/23 Unknown Urine Blood Neg (Negative) 08/24/23 Unknown Urine Nitrate Negative (Negative) 08/24/23 Unknown Urine Bilirubin 1+ (Negative) H 08/24/23 Unknown Urine Urobilinogen Neg mg/dL (Negative) 08/24/23 Unknown Ur Leukocyte Esterase Negative (Negative) 08/24/23 Unknown Urine RBC 0-4 /hpf (0-2) H 08/24/23 Unknown Urine WBC 0-4 /hpf (0-5) H 08/24/23 Unknown Ur Squamous Epith Cells 0-4 /hpf (0-5) H 08/24/23 Unknown Calcium Oxalate Crystal >100 /hpf H 08/24/23 Unknown Amorphous Sediment Not Reportable 08/24/23 Unknown Urine Bacteria Trace /hpf (NONE) 08/24/23 Unknown Urine Mucus 1+ /hpf 08/24/23 Unknown Blood Type B Positive 08/26/23 07:10 Rho(D) Type Rh positive 08/26/23 07:10 Antibody Screen Negative 08/26/23 07:10 Crossmatch See Detail 08/26/23 07:10 A&P Assessment and plan (1) Bradycardia: Status post permanent leadless pacemaker. Patient seems to be stable. Heart rate seems to be going up (2) Chronic atrial fibrillation: Patient may be placed on metoprolol 25 mg p.o. twice daily for proper heart rate control. (3) Atherosclerosis of coronary artery of [place] heart without angina pectoris: Patient had a Myocardial perfusion imaging few months ago. Was found to have mostly areas of fixed defect with a very small areas of reversible defect. Since the patient has no chest pain or any other specific cardiac symptoms, we will continue with the medical treatment Qualifiers: Coronary Disease-Associated Artery/Lesion type: [place] artery Qualified Code(s): I25.10 - Atherosclerotic heart disease of [place] coronary artery without angina pectoris (4) Multiple metastatic carcinoid tumors: Patient apparently has extensive metastatic lesions both infradiaphragmatic and supradiaphragmatic. Patient is currently on monthly injections of Sandostatin LAR. (5) Benign hypertension: I may cut back on the dose of the amlodipine to 5 mg p.o. daily because of the metoprolol. The dose of the lisinopril may be continue the same. (6) Dyslipidemia: Will continue on the current medications. (7) Ischemic cardiomyopathy: The patient's LV ejection fraction by echocardiogram is 49%. He has no evidence of any decompensated heart failure at this time. He may continue on the current medications for the time being. Plan Other problems Chronic diarrhea Anemia GERD BPH If the patient continues to remain stable, may be discharged home today. Appointment with Dr. Ramirez next week. Appointment with me in the office in 1 month Discussed the plan with Dr Sabas Robles 2 Medical Necessity Statement*: Possible discharge home today. Coding Level of Care Code 25053 Diagnoses Bradycardia R00.1 Chronic atrial fibrillation I48.20 Atherosclerosis of [place] coronary artery of [place] heart without angina pectoris I25.10 Coronary Disease-Associated Artery/Lesion type: [place] artery Multiple metastatic carcinoid tumors C7B.00 Benign hypertension I10 Dyslipidemia E78.5 Ischemic cardiomyopathy I25.5
--- NOTE | 2023-08-27 14:53 | PC.NURSE ---
Late note: nurse attempted to ambulate patient, but heart rate would increase to 140BPM, nurse assisted patient back to chair. Patient takes atenolol at home. Dr Goodwin ordered metoprolol and 1 hour after administration nurse assisted patient with ambulation and heart rate remained within normal limits during ambulation. Patient states that he feels ready to go home and the distance of ambulation (100 feet), is more than the distance he normally walks at a time at home.
--- NOTE | 2023-08-27 14:55 | PC.NURSE ---
Patient has been discharged. IV removed. Groin puncture site assessed before discharge and no internal or external bleeding was evident, site unremarkable, redressed with transparent dressing and small piece of gauze. Medications sent to preferred pharmacy. Education provided on new medication, upcoming appointment, and activity restrictions related to puncture site on groin wound. Education provided to patient and family who was present. Patient's will call to make upcoming appointments as we are unable to do so on Tuesday.
== END 2023-08-27 13:30 | disposition home or self-care (01) | DRG 229 ==
LOC: ER 08-24 00:37 → ICU 08-24 00:43
PROVIDERS: Internal Medicine; Thoracic Surgery (Cardiothoracic Vascular Surgery); Admitting Provider Internal Medicine; Emergency Provider Internal Medicine; PCP Family Medicine; Visit Provider Internal Medicine
PROC: 02HK3NZ Insertion of Intracardiac Pacemaker into Right Ventricle, Percutaneous Approach (ICD-10-PCS; principal; 2023-08-26 15:00)
DX: I49.5 Sick sinus syndrome (principal); C7A.019 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, unspecified portion; I48.20 Chronic atrial fibrillation, unspecified; I47.20 Ventricular tachycardia, unspecified; I48.92 Unspecified atrial flutter; E86.0 Dehydration; E78.5 Hyperlipidemia, unspecified; I25.10 Atherosclerotic heart disease of native coronary artery without angina pectoris; I10 Essential (primary) hypertension; K44.9 Diaphragmatic hernia without obstruction or gangrene; K21.9 Gastro-esophageal reflux disease without esophagitis; D69.6 Thrombocytopenia, unspecified; R19.00 Intra-abdominal and pelvic swelling, mass and lump, unspecified site; D50.9 Iron deficiency anemia, unspecified; I25.5 Ischemic cardiomyopathy; N40.0 Benign prostatic hyperplasia without lower urinary tract symptoms; K52.9 Noninfective gastroenteritis and colitis, unspecified; I07.1 Rheumatic tricuspid insufficiency; E11.9 Type 2 diabetes mellitus without complications; Z79.899 Other long term (current) drug therapy; Z95.1 Presence of aortocoronary bypass graft; Z87.891 Personal history of nicotine dependence; Z79.02 Long term (current) use of antithrombotics/antiplatelets; Z79.01 Long term (current) use of anticoagulants
CPT/HCPCS: 36415; 36416; 71045; 76000; 80048; 80053; 81001; 82962; 83735; 83880; 84100; 84443; 85025; 85610; 85730; 86850; 86900; 86920; 93005; 93308; 96372; 96376; 99285; C1786; J1644; J1650; J2250; J2354; J2704; J3010; J3475; J3490; J7030; J7120; Q9967

== ENCOUNTER 2023-09-12 19:14 | Emergency (ER) | payer OTHER, SELFPAY ==
[2023-09-12 19:15] VITALS: BP 102/59; PULSE 60; RESP 18; TEMP 35.4; O2SAT 97; BMI 22.5
--- NOTE | 2023-09-12 19:21 | ECG_ITS ---
[facility] Test Date: 2023-09-12 Pat Name: Manuel Rodriguez Department: Room: Gender: Male Product Expert: : [id number] Requested By: Joselyn Gary Order Number: [id number] Leon MD: Jose Montalvo M.D. Measurements Intervals [place] Rate: 61 P: 0 NE: 0 QRS: 112 QRSD: 181 T: -59 QT: 466 QTc: 470 Interpretive Statements ELECTRONIC VENTRICULAR PACEMAKER Compared to ECG 08/25/2023 07:23:45 Atrial flutter no longer present Intraventricular conduction delay no longer present Electronically Signed On 09-13-2023 11:27:02 FERMENTATION ENGINEER by Jose Montalvo M.D. [id number]
--- NOTE | 2023-09-12 19:21 | XRR_ITS ---
PROCEDURE INFORMATION: Exam: XR Chest Exam date and time: 09/12/2023 7:37 PM Age: 73 years old Clinical indication: Other: Bradycardia; Prior surgery; Surgery date: <1 month; Surgery type: Open heart pacer; Additional info: SOB TECHNIQUE: Imaging protocol: Radiologic exam of the chest. Views: 1 view. COMPARISON: 1. CR (CHEST, ) 08/23/2023 11:30 PM 2. OT C-arm FL for Pacemaker 08/26/2023 5:19 PM FINDINGS: Tubes, catheters and devices: An implanted cardiac device in the left chest is stable in position. Lungs: Lungs are clear bilaterally. Pleural spaces: No pleural effusion. No pneumothorax. Heart/Mediastinum: Stable mild enlargement of the cardiac silhouette. Mediastinal contours are unremarkable. Vasculature: Stable vascular calcifications in the aorta. Stable tortuosity of the aorta. Bones/joints: Multiple old right rib fractures. Poststernotomy changes in the chest. Bones are diffusely osteopenic. Degenerative changes in the spine and shoulders. XR/XR chest 1V portable [id number] IMPRESSION: 1. No acute cardiopulmonary process. 2. Incidental/nonacute findings are listed in the report.
[2023-09-12] MEDS: sodium chloride 0.9% 500 ML 999 ML IV (19:29)
--- NOTE | 2023-09-12 19:36 | ED_ITS ---
HPI - Chest Pain 2 General: Chief Complaint: Chest Pain Stated Complaint: bradycardia Time Seen by Provider: 09/12/23 19:17 Source: patient and EMS Mode of arrival: EMS Limitations: no limitations History of Present Illness: 73-year-old male admitted here recently for sinus bradycardia syndrome had a pacemaker placed is discharged roughly 2 weeks ago states that tonight he had felt lightheaded does not really member what happened had a near syncopal event called EMS with EMS his initial blood pressure was in the 80s and he was bradycardic his blood pressure here is improved he states he just felt very weak denies any chest pain denies headache denies any worsening proving factors. Associated symptoms: Deny abdominal pain, dyspnea, fever(s), nausea or vomiting Review of Systems 2 Const: Reports: fatigue; Denies: fever(s) or chills ENMT: Denies: throat pain or dental pain Card: Reports: pre-syncope; Denies: chest pain Resp: Denies: dyspnea GI: Denies: abdominal pain, nausea, vomiting or diarrhea : Denies: dysuria Musc: Denies: neck pain or back pain Skin/Breast: Denies: rash Neuro: Denies: headache(s) PFSH ED 2 PFSH: Medical History Anticoagulation adequate with anticoagulant therapy Tinnitus Atrial fibrillation with rapid ventricular response Atypical chest pain Dyslipidemia (high LDL; low HDL) Atherosclerotic heart disease of [place] coronary artery with other forms of angina pectoris Arrhythmia Hypertension Status post closed fracture of right femur History of coronary angiogram Hyperlipidemia Hiatal hernia GERD (gastroesophageal reflux disease) Surgical History H/O exploratory laparotomy Status post tonsillectomy History of laparoscopic cholecystectomy S/P colonoscopy with polypectomy (~2019) S/P CABG x 4 Family History Father CAD (coronary artery disease) Brother Cancer Denies family history of Diabetes Clotting disorder Dementia Chronic kidney disease (CKD) Suicide Anesthesia complication Bleeding disorder Lung disease Stroke Social History Smoking and tobacco/nicotine status: former use of tobacco/nicotine Quit status (tobacco/nicotine): has quit using Year quit tobacco: Quit 37 years ago Former quit date comment: smoked x 10 yrs Second hand smoke exposure: Yes Alcohol intake: never Substance/Drug Use: never Adopted: No Caregiver/support person: Yes Lives independently: No Household members: spouse Housing: House Marital status: service: Yes status details: 2 years branch: [employer] Current occupational status: retired Current occupational exposures/hazards: No Pets and animals: No Sexually active: No Do you think of yourself as: Straight/Heterosexual Current gender identity: Male Jackelyn/Sabianism: Advent Special jackelyn needs: No Agree to transfusion: No Physical Exam 2 Const: COMMON NORMALS: patient oriented x3 HENMT: COMMON NORMALS: normocephalic and atraumatic HEAD & SCALP: n ormocephalic and atraumatic Eye: COMMON NORMALS: Equal, round and reactive pupils present and EOMs intact bilaterally PUPIL: Yes Equal, round and reactive pupils present Neck/C-Spine: COMMON NORMALS: full ROM and supple Chest: COMMONS NORMALS: normal inspection of the chest and normal palpation of entire chest wall Resp: COMMON NORMALS: normal respiratory effort, No retractions, No use of accessory muscles and clear to auscultation bilaterally AUSCULTATION: clear to auscultation bilaterally Cardio: COMMON NORMALS: regular rhythm and No murmurs present (Cardio) R ATE: bradycardic RHYTHM: regular rhythm GI: COMMON NORMALS: Normal to inspection, nondistended, normoactive bowel sounds present, Soft to palpation, non-tender and no masses PALPATION: Yes Soft to palpation Extremity: COMMON NORMALS: normal to inspection and full ROM Neuro: COMMON NORMALS: patient oriented x3, moves all extremities and no focal motor deficits Psych: COMMON NORMALS: mental status grossly normal, Normal thought process present and cooperative THOUGHT PROCESS: Normal thought process present Skin: COMMON NORMALS: no rashes or lesions noted and no wounds GENERAL SKIN EXAM: no rashes or lesions noted Course 2 Vital Signs: Vital signs: Vital Signs Temperature 95.8 F L 09/12/23 21:59 Pulse Rate 97 09/12/23 21:59 Respiratory Rate 16 09/12/23 21:59 Blood Pressure 122/67 09/12/23 21:59 Pulse Oximetry 98 09/12/23 21:59 Oxygen Delivery Me thod Room Air 09/12/23 19:15 MDM - Chest Pain Medical Decision Making Patient presents here with a near syncopal event his blood pressure and heart rate here has been stable he did have some hypomagnesia replace here. I did offer him admission he states he feels much improved like to go home his vitals here been normal his orthostatics were normal he is to follow-up with Dr. Ramirez return if worsening he understands agrees to plan Medical Records I reviewed the patient's medical records. Lab Data I reviewed the patient's lab results. 09/12/23 20:03 09/12/23 20:03 Radiology Impressions Chest X-Ray 09/12/23 19:21 IMPRESSION: 1. No acute cardiopulmonary process. 2. Incidental/nonacute findings are listed in the report. Laboratory Results WBC 9.24 10^3/uL (3.29-11.43) 09/12/23 20:03 RBC 4.42 10^6/uL (3.85-5.65) 09/12/23 20:03 Hgb 11.90 g/dL (11.27-16.99) 09/12/23 20:03 Hct 38.5 % (37-53) 09/12/23 20:03 MCV 87.1 fl (82-101) 09/12/23 20:03 MCH 26.9 pg (27-33) L 09/12/23 20:03 MCHC 30.9 g/dL (30-55) 09/12/23 20:03 RDW 15.3 % (12.1-15.1) H 09/12/23 20:03 Plt Count 146 10^3/cmm (157-399) L 09/12/23 20:03 MPV 12.9 fL (7.4-10.4) H 09/12/23 20:03 Neut % (Auto) 82.3 % 09/12/23 20:03 Lymph % (Auto) 8.2 % 09/12/23 20:03 [place] % (Auto) 7.5 % 09/12/23 20:03 Eos % (Auto) 1.3 % 09/12/23 20:03 Baso % (Auto) 0.3 % 09/12/23 20:03 Neut # (Auto) 7.60 10^3/uL (1.8-7.7) 09/12/23 20:03 Lymph # (Auto) 0.8 10^3/uL (0.8-4.8) 09/12/23 20:03 [place] # (Auto) 0.7 10^3/uL (0.2-0.9) 09/12/23 20:03 Eos # (Auto) 0.1 10^3/uL (0.0-0.8) 09/12/23 20:03 Baso # (Auto) 0.0 10^3/uL (0.0-0.1) 09/12/23 20:03 Nucleated RBC % (auto) 0 % 09/12/23 20:03 Nucleated RBCs # 0.0 /100WBC 09/12/23 20:03 PT 18.80 SECONDS (12.1-14.9) H 09/12/23 20:03 INR 1.52 (0.8-1.2) H 09/12/23 20:03 Sodium 141 mmol/L (136-145) 09/12/23 20:03 Potassium 4.5 mmol/L (3.5-5.1) 09/12/23 20:03 Chloride 110 mmol/L (98-107) H 09/12/23 20:03 Carbon Dioxide 19 mmol/L (22-29) L 09/12/23 20:03 Anion Gap 16.5 (5-19) 09/12/23 20:03 BUN 10 mg/dL (8-23) 09/12/23 20:03 Creatinine 0.9 mg/dL (0.7-1.2) 09/12/23 20:03 GFR Calculation Not Reportable 09/12/23 20:03 Glucose 139 mg/dL (65-115) H 09/12/23 20:03 Calculated Osmolality 293 mOsm/kg (285-295) 09/12/23 20:03 Calcium 9.0 mg/dL (8.5-10.5) 09/12/23 20:03 Magnesium 1.3 mg/dL (1.7-2.3) L 09/12/23 20:03 Total Bilirubin 0.4 mg/dL (0.15-1.2) 09/12/23 20:03 AST 15 U/L (0-40) 09/12/23 20:03 ALT 10 U/L (0-41) 09/12/23 20:03 Alkaline Phosphatase 93 U/L (40-130) 09/12/23 20:03 Troponin T Baseline 15 ng/L (0-15) 09/12/23 20:03 NT-Pro-B Natriuret Pep 908 pg/mL (0-125) H 09/12/23 20:03 Total Protein 6.5 g/dL (6.6-8.7) L 09/12/23 20:03 Albumin 3.5 g/dL (3.5-5.2) 09/12/23 20:03 Globulin 3.0 g/dL (1.3-4.6) 09/12/23 20:03 All radiology interpretation(s) finalized by discharge EKG Data EKG 1: I personally reviewed and interpreted this EKG as follows: EKG interpretation date: 09/12/23 EKG interpretation time: 19:19 Interpretation: paced rhythm hr [address] elevation qrs 181 qtc 468 Discharge Plan Discharge Patient Disposition: Home Clinical Impression: Near syncope, Hypomagnesemia Condition: Stable Prescriptions: No Action clopidogrel [Plavix] 75 mg tablet 75 mg PO DAILY tamsulosin 0.4 mg capsule 0.4 mg PO QPM gemfibrozil 600 mg tablet 600 mg PO BID Eliquis 5 mg tablet 5 mg PO BID lisinopril 20 mg tablet 20 mg PO DAILY Qty: 90 3RF multivitamin Tablet 1 tab PO DAILY Qty: 1 0RF colestipol 1 gram tablet 2 g PO BID Qty: 360 1RF Rx Instructions: Take two tablets by mouth twice a day. take with a full cup of water dicyclomine 10 mg capsule 10 mg PO QID PRN (Reason: abdominal pain) Qty: 360 1RF pantoprazole 40 mg tablet,delayed release (DR/EC) 40 mg PO DAILY Qty: 90 1RF empagliflozin 25 mg tablet 12.5 mg PO DAILY Qty: 45 0RF cholecalciferol (vitamin D3) 50 mcg (2,000 unit) capsule 50 mcg PO DAILY prazosin 1 mg Capsule 1 mg PO BEDTIME Fish Oil 120-180-500 mg Capsule 1 cap PO BID iron 18 mg Tablet 18 mg PO DAILY garlic 100 mg Tablet 100 mg PO DAILY hydrocodone-acetaminophen 5-325 mg Tablet 1 tab PO QID PRN (Reason: Moderate Pain) Qty: 20 0RF amlodipine 5 mg tablet 5 mg PO DAILY Qty: 30 0RF metoprolol tartrate 25 mg tablet 25 mg PO BID Qty: 60 0RF Discharge Orders: Discharge ED (Routine); Ordered 09/12/23 Ordered By: Joselyn Gary Referrals: Angy Valenzuela MD [Primary Care Provider] - Abdulaziz Ramirez MD [Physician] - 1-3 days Discharge Diet: Advance as tolerated Discharge Activity: Resume usual activity Patient Instructions: Hypomagnesemia (ED), Near Syncope (ED) Coding Level of Care Code ED [employer] Education Director for Brionna Cueva
[2023-09-12 20:11] VITALS: BP 119/69; PULSE 67; RESP 16; O2SAT 92
[2023-09-12 20:12] LABS: Basophils % 0.3 %; Eosinophils # 0.1 10^3/uL (0.0-0.8); Eosinophils % 1.3 %; Hematocrit 38.5 % (37-53); Lymphocytes # 0.8 10^3/uL (0.8-4.8); Lymphocytes % 8.2 %; Mean Corpuscular HGB Conc 30.9 g/dL (30-55); Mean Corpuscular Hemoglobin 26.9 pg (27-33); Mean Corpuscular Volume 87.1 fl (82-101); Mean Platelet Volume 12.9 fL (7.4-10.4); Monocytes # 0.7 10^3/uL (0.2-0.9); Monocytes % 7.5 %; Neutrophils % 82.3 %; Nucleated Red Blood Cells % 0 %; Platelet Count 146 10^3/cmm (157-399); Red Blood Count 4.42 10^6/uL (3.85-5.65); Red Cell Distribution Width 15.3 % (12.1-15.1); White Blood Count 9.24 10^3/uL (3.29-11.43)
[2023-09-12 20:22] LABS: INR 1.52 (0.8-1.2)
[2023-09-12 20:31] LABS: Troponin(5th) Baseline 15 ng/L (0-15)
[2023-09-12 20:39] LABS: Alanine Aminotransferase 10 U/L (0-41); Albumin Level 3.5 g/dL (3.5-5.2); Alkaline Phosphatase 93 U/L (40-130); Anion Gap 16.5 (5-19); Aspartate Amino Transferase 15 U/L (0-40); Blood Urea Nitrogen 10 mg/dL (8-23); Carbon Dioxide 19 mmol/L (22-29); Chloride 110 mmol/L (98-107); Glucose 139 mg/dL (65-115); Magnesium 1.3 mg/dL (1.7-2.3); NT Pro B Type Natriuretic Pept 908 pg/mL (0-125); Osmolality Calculated 293 mOsm/kg (285-295); Potassium 4.5 mmol/L (3.5-5.1); Sodium 141 mmol/L (136-145); Total Bilirubin 0.4 mg/dL (0.15-1.2); Total Protein 6.5 g/dL (6.6-8.7)
[2023-09-12] MEDS: magnesium sulfate premix 2 GM/50 ML PIGGYBACK IV (20:50)
[2023-09-12 21:08] VITALS: BP 122/67; PULSE 97; RESP 16; O2SAT 98
--- NOTE | 2023-09-12 21:09 | PC.NURSE ---
orthostatic vitals are as follows: laying down: 62 HR; 116/40 sittin HR; 117/64 standin HR; 107/74
[2023-09-12 21:59] VITALS: BP 122/67; PULSE 97; RESP 16; TEMP 35.4; O2SAT 98
== END 2023-09-12 21:59 | disposition home or self-care (01) ==
PROVIDERS: Emergency Provider Emergency Medicine; PCP Family Medicine
DX: R55 Syncope and collapse (principal); E83.42 Hypomagnesemia; Z79.01 Long term (current) use of anticoagulants; Z79.02 Long term (current) use of antithrombotics/antiplatelets; Z87.891 Personal history of nicotine dependence; E78.5 Hyperlipidemia, unspecified; I25.10 Atherosclerotic heart disease of native coronary artery without angina pectoris; I10 Essential (primary) hypertension; Z95.1 Presence of aortocoronary bypass graft
CPT/HCPCS: 36415; 71045; 80053; 83735; 83880; 84484; 85025; 85610; 93005; 96361; 96374; 99285; J3475; J7040

== ENCOUNTER 2023-09-19 07:54 | Oncology outpatient (recurring) (ONCR) | payer OTHER, SELFPAY ==
[2023-09-19 08:24] VITALS: BP 121/70; PULSE 56; RESP 16; TEMP 36.8; O2SAT 97
[2023-09-19 08:38] LABS: Basophils % 0.7 %; Eosinophils # 0.1 10^3/uL (0.0-0.8); Eosinophils % 2.4 %; Hematocrit 36.3 % (37-53); Lymphocytes % 24.4 %; Mean Corpuscular HGB Conc 31.7 g/dL (30-55); Mean Corpuscular Hemoglobin 27.1 pg (27-33); Mean Corpuscular Volume 85.4 fl (82-101); Mean Platelet Volume 12.4 fL (7.4-10.4); Monocytes # 0.4 10^3/uL (0.2-0.9); Monocytes % 8.8 %; Neutrophils # 2.67 10^3/uL (1.8-7.7); Neutrophils % 63.2 %; Nucleated Red Blood Cells % 0 %; Platelet Count 137 10^3/cmm (157-399); Red Blood Count 4.25 10^6/uL (3.85-5.65); Red Cell Distribution Width 14.9 % (12.1-15.1); White Blood Count 4.22 10^3/uL (3.29-11.43)
[2023-09-19 09:05] LABS: Alanine Aminotransferase 12 U/L (0-41); Albumin Level 4.2 g/dL (3.5-5.2); Alkaline Phosphatase 137 U/L (40-130); Aspartate Amino Transferase 29 U/L (0-40); Blood Urea Nitrogen 10 mg/dL (8-23); Calcium 10.4 mg/dL (8.5-10.5); Carbon Dioxide 23 mmol/L (22-29); Chloride 104 mmol/L (98-107); Globulin 3.4 g/dL (1.3-4.6); Glucose 115 mg/dL (65-115); Osmolality Calculated 286 mOsm/kg (285-295); Sodium 138 mmol/L (136-145); Total Bilirubin 0.5 mg/dL (0.15-1.2); Total Protein 7.6 g/dL (6.6-8.7)
[2023-09-19] MEDS: octreotide LAR depot 30 mg Kit IM (11:00)
== END 2023-10-12 23:59 | disposition home or self-care (01) ==
PROVIDERS: Nurse Practitioner Family; PCP Family Medicine; Visit Provider Internal Medicine Medical Oncology
DX: Z51.11 Encounter for antineoplastic chemotherapy (principal); C7A.019 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, unspecified portion; C7B.04 Secondary carcinoid tumors of peritoneum; R19.7 Diarrhea, unspecified; D69.6 Thrombocytopenia, unspecified; Z79.818 Long term (current) use of other agents affecting estrogen receptors and estrogen levels; Z79.899 Other long term (current) drug therapy; C7B.01 Secondary carcinoid tumors of distant lymph nodes; K52.89 Other specified noninfective gastroenteritis and colitis; Z87.891 Personal history of nicotine dependence; C7A.8 Other malignant neuroendocrine tumors
CPT/HCPCS: 36415; 80053; 85025; 96402; J2353

== ENCOUNTER → 2023-09-30 08:48 | Outpatient (BNVA) | payer OTHER, SELFPAY | PROVIDERS: PCP Family Medicine; Visit Provider Nurse Practitioner Family | DX: Z95.0 Presence of cardiac pacemaker (principal); I48.20 Chronic atrial fibrillation, unspecified; I10 Essential (primary) hypertension; I25.118 Atherosclerotic heart disease of native coronary artery with other forms of angina pectoris; Z87.891 Personal history of nicotine dependence; Z79.01 Long term (current) use of anticoagulants | CPT/HCPCS: 99214 ==

== ENCOUNTER 2023-10-24 09:02 | Oncology outpatient (recurring) (ONCR) | payer OTHER, SELFPAY ==
[2023-10-24 09:19] LABS: Basophils % 0.5 %; Eosinophils # 0.1 10^3/uL (0.0-0.8); Eosinophils % 1.8 %; Hematocrit 41.1 % (37-53); Lymphocytes # 1.2 10^3/uL (0.8-4.8); Lymphocytes % 30.1 %; Mean Corpuscular HGB Conc 31.9 g/dL (30-55); Mean Corpuscular Hemoglobin 27.3 pg (27-33); Mean Corpuscular Volume 85.8 fl (82-101); Mean Platelet Volume 13.6 fL (7.4-10.4); Monocytes # 0.3 10^3/uL (0.2-0.9); Monocytes % 6.4 %; Neutrophils # 2.39 10^3/uL (1.8-7.7); Neutrophils % 60.9 %; Nucleated Red Blood Cells % 0 %; Platelet Count 86 10^3/cmm (157-399); Red Blood Count 4.79 10^6/uL (3.85-5.65); Red Cell Distribution Width 15.3 % (12.1-15.1); White Blood Count 3.92 10^3/uL (3.29-11.43)
[2023-10-24 09:35] LABS: Alanine Aminotransferase 17 U/L (0-41); Albumin Level 4.5 g/dL (3.5-5.2); Alkaline Phosphatase 169 U/L (40-130); Anion Gap 18.2 (5-19); Aspartate Amino Transferase 31 U/L (0-40); Blood Urea Nitrogen 16 mg/dL (8-23); Calcium 10.1 mg/dL (8.5-10.5); Carbon Dioxide 21 mmol/L (22-29); Chloride 104 mmol/L (98-107); Globulin 3.1 g/dL (1.3-4.6); Glucose 115 mg/dL (65-115); Osmolality Calculated 288 mOsm/kg (285-295); Potassium 5.2 mmol/L (3.5-5.1); Sodium 138 mmol/L (136-145); Total Bilirubin 0.5 mg/dL (0.15-1.2); Total Protein 7.6 g/dL (6.6-8.7)
[2023-10-24 11:17] VITALS: BP 100/59; PULSE 52; RESP 16; TEMP 36.2; O2SAT 96
[2023-10-24 11:46] LABS: Magnesium 1.7 mg/dL (1.7-2.3)
[2023-10-24] MEDS: octreotide LAR depot 30 mg Kit IM (11:59)
[2023-10-24] MEDS: cosyntropin 0.25 mg SDV IVP (12:11)
[2023-10-24 12:31] LABS: Cosyntropin Baseline 16.73 mcg/dL
[2023-10-24 13:25] LABS: Cosyntropin 30 Minute 27.24 mcg/dL
[2023-10-24 13:59] LABS: Cosyntropin 1 Hour 34.61 mcg/dL
[2023-10-30 12:05] LABS: Chromogranin A LC/MS/MS 2417 ng/mL (ADULTS: <311)
== END 2023-11-10 23:59 | disposition home or self-care (01) ==
PROVIDERS: Internal Medicine Medical Oncology; Nurse Practitioner Family; PCP Family Medicine; Visit Provider Internal Medicine Medical Oncology
DX: C7A.019 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, unspecified portion; C7B.04 Secondary carcinoid tumors of peritoneum; R19.7 Diarrhea, unspecified; Z79.818 Long term (current) use of other agents affecting estrogen receptors and estrogen levels; Z79.899 Other long term (current) drug therapy; C7B.01 Secondary carcinoid tumors of distant lymph nodes; Z87.891 Personal history of nicotine dependence; C7A.8 Other malignant neuroendocrine tumors; I95.9 Hypotension, unspecified
CPT/HCPCS: 36415; 80053; 82533; 83735; 85025; 86316; 96401; 99214; J0834; J2353

== ENCOUNTER 2023-11-21 12:08 | Oncology outpatient (recurring) (ONCR) | payer OTHER, SELFPAY ==
[2023-11-21 13:11] VITALS: BP 135/78; PULSE 52; RESP 17; O2SAT 96
[2023-11-21] MEDS: octreotide LAR depot 30 mg Kit IM (13:12)
== END 2023-12-11 23:59 | disposition home or self-care (01) ==
PROVIDERS: PCP Family Medicine; Visit Provider Internal Medicine Medical Oncology
DX: C7A.019 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, unspecified portion (principal)
CPT/HCPCS: 96372; 96402; J2353

== ENCOUNTER → 2023-11-30 23:23 | Outpatient (BNVA) | payer OTHER, SELFPAY | PROVIDERS: PCP Family Medicine; Visit Provider Internal Medicine Cardiovascular Disease | DX: Z45.010 Encounter for checking and testing of cardiac pacemaker pulse generator [battery] (principal) | CPT/HCPCS: 93296 ==

== ENCOUNTER 2023-12-19 07:08 | Oncology outpatient (recurring) (ONCR) | payer OTHER, SELFPAY ==
[2023-12-19 10:29] LABS: Basophils % 0.4 %; Eosinophils # 0.1 10^3/uL (0.0-0.8); Hematocrit 39.2 % (37-53); Lymphocytes # 1.2 10^3/uL (0.8-4.8); Lymphocytes % 23.3 %; Mean Corpuscular HGB Conc 31.9 g/dL (30-55); Mean Corpuscular Hemoglobin 27.3 pg (27-33); Mean Corpuscular Volume 85.6 fl (82-101); Mean Platelet Volume 12.7 fL (7.4-10.4); Monocytes # 0.4 10^3/uL (0.2-0.9); Monocytes % 8.7 %; Neutrophils # 3.25 10^3/uL (1.8-7.7); Neutrophils % 65.4 %; Nucleated Red Blood Cells % 0 %; Platelet Count 93 10^3/cmm (157-399); Red Blood Count 4.58 10^6/uL (3.85-5.65); Red Cell Distribution Width 14.9 % (12.1-15.1); White Blood Count 4.97 10^3/uL (3.29-11.43)
[2023-12-19 10:49] LABS: Alanine Aminotransferase 17 U/L (0-41); Albumin Level 4.5 g/dL (3.5-5.2); Alkaline Phosphatase 156 U/L (40-130); Anion Gap 12.3 (5-19); Aspartate Amino Transferase 19 U/L (0-40); Blood Urea Nitrogen 7 mg/dL (8-23); Carbon Dioxide 25 mmol/L (22-29); Chloride 109 mmol/L (98-107); Creatinine Clr Calc Pharmacy 87.7146; Globulin 2.7 g/dL (1.3-4.6); Glucose 133 mg/dL (65-115); Osmolality Calculated 294 mOsm/kg (285-295); Potassium 4.3 mmol/L (3.5-5.1); Sodium 142 mmol/L (136-145); Total Bilirubin 0.4 mg/dL (0.15-1.2); Total Protein 7.2 g/dL (6.6-8.7)
[2023-12-19] MEDS: octreotide LAR depot 20 mg Kit 40 MG IM (12:03)
[2023-12-19 15:16] LABS: Hepatitis A Antibody IgM Non-Reactive (Nonreactive); Hepatitis B Core AB, Total Non-Reactive (Nonreactive); Hepatitis B Surface AB < 3.5 (11.5-1000); Hepatitis B Surface Antigen Non-Reactive (Nonreactive); Hepatitis C Virus Antibody Non-Reactive (Nonreactive)
[2023-12-19 15:33] LABS: Thyroid Stimulating Hormone 1.29 uIU/mL (0.27-4.20)
[2023-12-28 22:13] LABS: Chromogranin A LC/MS/MS 1976 ng/mL (ADULTS: <311)
== END 2024-01-10 23:59 | disposition home or self-care (01) ==
PROVIDERS: Internal Medicine; Internal Medicine Medical Oncology; PCP Family Medicine; Visit Provider Internal Medicine Medical Oncology
DX: C7A.019 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, unspecified portion (principal); C7B.04 Secondary carcinoid tumors of peritoneum; Z11.59 Encounter for screening for other viral diseases; Z87.891 Personal history of nicotine dependence; R19.7 Diarrhea, unspecified; I95.9 Hypotension, unspecified; Z90.49 Acquired absence of other specified parts of digestive tract; Z90.79 Acquired absence of other genital organ(s); D69.6 Thrombocytopenia, unspecified; Z79.818 Long term (current) use of other agents affecting estrogen receptors and estrogen levels; Z79.899 Other long term (current) drug therapy
CPT/HCPCS: 36415; 80053; 84443; 85025; 86316; 86705; 86706; 86709; 86803; 87340; 96372; 99214; J2353

== ENCOUNTER 2023-12-20 11:39 | Outpatient (CLI) | payer OTHER, SELFPAY ==
--- NOTE | 2023-12-20 12:00 | PETR_ITS ---
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 Then, PET images were obtained. Attenuation corrected images were constructed using the CT scan. Fused images of PET and CT were reviewed. The standardized uptake values (SUV) reported below are maximum values within a region of interest, expressed in gm/ml. Exam includes orbital meatal line to mid-thigh. Radiopharmaceutical: 13.53 mCi F-18 FDG (Fluorodeoxyglucose), IV. Time of imaging post radiopharmaceutical administration: 1 hour Injection site: Right wrist COMPARISON: CT chest abdpel w01/08/2022, CT abdomen 06/16/2020, CT chest 10/31/2019, CT abdomen pelvis 08/20/2019 FINDINGS: Brain: Visualized brain has normal physiologic uptake. Pharynx: No abnormal uptake. Larynx: No abnormal uptake. Lungs, pleura and trachea: No abnormal uptake. Diffuse irregular nodularity along the bilateral interlobar fissures is a new finding since 2019 concerning for small volume metastatic disease. No pleural effusion. Heart: Normal physiologic uptake. Mediastinal space: No abnormal uptake. Liver: No abnormal uptake. Bilobar hyperenhancing liver metastasis documented on 01/08/2022 are not well appreciated on the noncontrast CT portion of the exam with the exception of possible 2.7 cm focus in the segment 6 on axial image 139 corresponding to 2.8 cm hyperenhancing metastasis noted on series 6, image [address] of 01/08/2022. Gallbladder and bile ducts: No abnormal uptake. Status post cholecystectomy Pancreas: No abnormal uptake. Spleen: No abnormal uptake. Adrenal glands: No abnormal uptake. Kidneys and ureters: Normal physiologic uptake. Stomach and bowel: No abnormal uptake. Stable changes after partial right colectomy with no abnormality in the ileocolic anastomosis. Intraperitoneal and retroperitoneal spaces: No abnormal uptake. Small amount of free intraperitoneal fluid increased of of since prior exam. Bladder: Normal physiologic uptake. Reproductive: No abnormal uptake. Vasculature: No abnormal uptake. Lymph nodes: No abnormal uptake. Partially calcified metastatic lymphadenopathy within the root of mesentery on axial image 165 measures about 5.2 x 4.2 cm stable since 01/08/2022 with low-grade uptake of 2.3 SUV. No FDG avid lymphadenopathy in the head, neck, chest, pelvis, and extremities. Bones/joints: 2.5 cm sclerotic focus in the right humeral neck with low-grade uptake of 1.8 SUV increased in size from 1.5 cm in 2022, and about 2 cm slightly sclerotic focus in the midline in the manubrium sternum with borderline uptake of 2.5 SUV previously measuring 1.6 cm in 202 are suggestive of bone metastases. 0.7 cm focus in the left acetabulum on axial image 216 is stable since 2021 new since 2019. There is questionable 1 cm focus in the left ischial tuberosity on axial image 235 stable since 2021 new since 2019. Stable changes after sternotomy and internal fixation in the right proximal femur. Soft tissues: Linear focus of increased uptake in the left gluteal muscles is likely benign. Stable scar in the right groin. PET/PET skulltothi SUBSEQ [id number] IMPRESSION: No abnormal radiotracer uptake. Known metastatic disease is not FDG avid with liver metastases isointense to normal liver parenchyma, metastatic lymphadenopathy measuring 2.3 SUV, sclerotic bone metastases measuring up to 2.5 SUV. The largest measurable metastatic site (mesenteric lymphadenopathy) is stable in size since 2019. A couple of sclerotic bone metastasis (in the right humerus and in the sternal) are slightly larger in comparison with 2022. A couple of small bone metastasis in the pelvis are stable since 2021 but new since 2019. Minimal pleural nodularity new since 2020 is concerning for small volume metastatic disease with no pleural effusion. Small amount of ascites mildly increased since 202.
== END 2023-12-20 11:40 | disposition home or self-care (01) ==
LOC: RAD 11:43
PROVIDERS: PCP Family Medicine; Visit Provider Internal Medicine Medical Oncology
DX: C7A.019 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, unspecified portion (principal); C7A.8 Other malignant neuroendocrine tumors; R18.8 Other ascites
CPT/HCPCS: 78815; A9552

== ENCOUNTER 2024-01-16 11:04 | Oncology outpatient (recurring) (ONCR) | payer OTHER, SELFPAY ==
[2024-01-16 11:22] LABS: Basophils % 0.6 %; Eosinophils # 0.1 10^3/uL (0.0-0.8); Eosinophils % 2.9 %; Hematocrit 37.1 % (37-53); Lymphocytes # 1.1 10^3/uL (0.8-4.8); Lymphocytes % 22.4 %; Mean Corpuscular HGB Conc 31.5 g/dL (30-55); Mean Corpuscular Hemoglobin 26.8 pg (27-33); Mean Corpuscular Volume 85.1 fl (82-101); Mean Platelet Volume 11.9 fL (7.4-10.4); Monocytes # 0.5 10^3/uL (0.2-0.9); Monocytes % 9.4 %; Neutrophils # 3.14 10^3/uL (1.8-7.7); Neutrophils % 64.5 %; Nucleated Red Blood Cells % 0 %; Platelet Count 74 10^3/cmm (157-399); Red Blood Count 4.36 10^6/uL (3.85-5.65); Red Cell Distribution Width 14.6 % (12.1-15.1); White Blood Count 4.87 10^3/uL (3.29-11.43)
[2024-01-16 11:43] LABS: Alanine Aminotransferase 13 U/L (0-41); Albumin Level 4.2 g/dL (3.5-5.2); Alkaline Phosphatase 133 U/L (40-130); Anion Gap 13.5 (5-19); Aspartate Amino Transferase 18 U/L (0-40); Blood Urea Nitrogen 7 mg/dL (8-23); Calcium 9.5 mg/dL (8.5-10.5); Carbon Dioxide 24 mmol/L (22-29); Chloride 106 mmol/L (98-107); Globulin 2.7 g/dL (1.3-4.6); Glucose 107 mg/dL (65-115); Osmolality Calculated 286 mOsm/kg (285-295); Potassium 4.5 mmol/L (3.5-5.1); Sodium 139 mmol/L (136-145); Total Bilirubin 0.6 mg/dL (0.15-1.2); Total Protein 6.9 g/dL (6.6-8.7)
[2024-01-16 14:09] VITALS: BP 131/74; PULSE 98; RESP 16; TEMP 36.3; O2SAT 94
[2024-01-16] MEDS: octreotide LAR depot 20 mg Kit 40 MG IM (14:10)
[2024-02-01 21:29] LABS: Chromogranin A LC/MS/MS 3719 ng/mL (ADULTS: <311)
== END 2024-02-10 23:59 | disposition home or self-care (01) ==
PROVIDERS: Internal Medicine; PCP Family Medicine; Visit Provider Internal Medicine Medical Oncology
DX: C7A.019 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, unspecified portion (principal); C7B.04 Secondary carcinoid tumors of peritoneum; Z87.891 Personal history of nicotine dependence; I95.9 Hypotension, unspecified; Z90.49 Acquired absence of other specified parts of digestive tract; Z79.818 Long term (current) use of other agents affecting estrogen receptors and estrogen levels; Z79.899 Other long term (current) drug therapy
CPT/HCPCS: 36415; 80053; 85025; 86316; 96402; 99214; J2353

== ENCOUNTER → 2024-01-23 08:59 | Outpatient (BNVA) | payer OTHER, SELFPAY | PROVIDERS: PCP Family Medicine; Visit Provider Podiatrist Foot & Ankle Surgery | DX: L60.3 Nail dystrophy (principal); M21.6X9 Other acquired deformities of unspecified foot; I73.9 Peripheral vascular disease, unspecified; E11.69 Type 2 diabetes mellitus with other specified complication | CPT/HCPCS: 11721; 99203 ==

== ENCOUNTER → 2024-01-25 09:58 | Outpatient (BNVA) | payer OTHER, SELFPAY | PROVIDERS: PCP Family Medicine; Visit Provider Internal Medicine Cardiovascular Disease | DX: I25.118 Atherosclerotic heart disease of native coronary artery with other forms of angina pectoris (principal); I10 Essential (primary) hypertension; I48.91 Unspecified atrial fibrillation; E78.5 Hyperlipidemia, unspecified; Z95.0 Presence of cardiac pacemaker; I25.5 Ischemic cardiomyopathy; C7A.8 Other malignant neuroendocrine tumors; Z87.891 Personal history of nicotine dependence; Z79.01 Long term (current) use of anticoagulants | CPT/HCPCS: 99214 ==

== ENCOUNTER 2024-02-15 08:00 | Oncology outpatient (recurring) (ONCR) | payer OTHER, SELFPAY ==
[2024-02-13 08:14] LABS: Basophils % 0.1 %; Hematocrit 38.2 % (37-53); Lymphocytes # 0.3 10^3/uL (0.8-4.8); Lymphocytes % 3.6 %; Mean Corpuscular HGB Conc 31.4 g/dL (30-55); Mean Corpuscular Hemoglobin 26.9 pg (27-33); Mean Corpuscular Volume 85.7 fl (82-101); Mean Platelet Volume 13.6 fL (7.4-10.4); Monocytes # 0.2 10^3/uL (0.2-0.9); Monocytes % 2.7 %; Neutrophils # 8.23 10^3/uL (1.8-7.7); Neutrophils % 92.6 %; Nucleated Red Blood Cells % 0 %; Platelet Count 55 10^3/cmm (157-399); Red Blood Count 4.46 10^6/uL (3.85-5.65); Red Cell Distribution Width 14.4 % (12.1-15.1); White Blood Count 8.89 10^3/uL (3.29-11.43)
[2024-02-13 08:34] LABS: Alanine Aminotransferase 54 U/L (0-41); Albumin Level 3.8 g/dL (3.5-5.2); Alkaline Phosphatase 64 U/L (40-130); Aspartate Amino Transferase 31 U/L (0-40); Blood Urea Nitrogen 12 mg/dL (8-23); Calcium 8.5 mg/dL (8.5-10.5); Chloride 87 mmol/L (98-107); Globulin 1.9 g/dL (1.3-4.6); Glucose 190 mg/dL (65-115); Osmolality Calculated 297 mOsm/kg (285-295); Sodium 141 mmol/L (136-145); Total Bilirubin 2.1 mg/dL (0.15-1.2); Total Protein 5.7 g/dL (6.6-8.7)
[2024-02-13 08:49] LABS: Carbon Dioxide 45 mmol/L (22-29)
[2024-02-13 09:30] LABS: Magnesium 1.8 mg/dL (1.7-2.3)
--- NOTE | 2024-02-13 10:42 | ECG_ITS ---
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 Measurements Intervals [place] Rate: 85 P: 0 RI: 0 QRS: 46 QRSD: 112 T: -6 QT: 421 QTc: 503 Interpretive Statements ATRIAL FIBRILLATION WITH ABERRANT CONDUCTION OR VENTRICULAR PREMATURE COMPLEXES MODERATE INTRAVENTRICULAR CONDUCTION DELAY [110+ ms QRS DURATION] NONSPECIFIC ST & T-WAVE ABNORMALITY PROLONGED QT INTERVAL Compared to ECG 09/12/2023 19:19:16 Ventricular premature complex(es) now present Aberrant conduction of supraventricular beat(s) now present Intraventricular conduction delay now present T-wave abnormality now present Prolonged QT interval now present Ventricular-paced complex(es) or rhythm no longer present Electronically Signed On 02-13-2024 14:35:07 CDT by Noe Temple M.D. [id number] f
[2024-02-13 11:43] LABS: LAB Peripheral Smear Sent for Review
[2024-02-13] MEDS: sodium chlor 0.9% + KCl 40 mEq 40 MEQ/1,000 ML BAG 250 MEQ IV (11:59)
[2024-02-13] MEDS: octreotide LAR depot 20 mg Kit 40 MG IM (16:32)
[2024-02-13 16:38] VITALS: BP 147/73; PULSE 64; RESP 17; TEMP 36.4; O2SAT 95
[2024-02-14 08:18] LABS: Anion Gap 9.9 (5-19); Blood Urea Nitrogen 13 mg/dL (8-23); Chloride 91 mmol/L (98-107); Glucose 170 mg/dL (65-115); Osmolality Calculated 300 mOsm/kg (285-295); Sodium 143 mmol/L (136-145)
[2024-02-14 08:26] LABS: Potassium 1.9 mmol/L (3.5-5.1)
[2024-02-14 08:27] LABS: Carbon Dioxide 44 mmol/L (22-29)
[2024-02-14] MEDS: sodium chlor 0.9% + KCl 40 mEq 40 MEQ/1,000 ML BAG 250 MEQ IV (08:49)
[2024-02-14 12:54] VITALS: BP 143/76; PULSE 102; RESP 16; TEMP 35.8; O2SAT 95
[2024-02-15 08:20] LABS: Alanine Aminotransferase 45 U/L (0-41); Albumin Level 3.6 g/dL (3.5-5.2); Alkaline Phosphatase 62 U/L (40-130); Anion Gap 12.1 (5-19); Aspartate Amino Transferase 26 U/L (0-40); Blood Urea Nitrogen 13 mg/dL (8-23); Calcium 8.8 mg/dL (8.5-10.5); Carbon Dioxide 40 mmol/L (22-29); Chloride 92 mmol/L (98-107); Globulin 2.2 g/dL (1.3-4.6); Glucose 259 mg/dL (65-115); Osmolality Calculated 303 mOsm/kg (285-295); Sodium 142 mmol/L (136-145); Total Bilirubin 1.6 mg/dL (0.15-1.2); Total Protein 5.8 g/dL (6.6-8.7)
[2024-02-15 08:23] LABS: Potassium 2.1 mmol/L (3.5-5.1)
[2024-02-15] MEDS: sodium chlor 0.9% + KCl 40 mEq 40 MEQ/1,000 ML BAG 250 MEQ IV (09:33)
[2024-02-15 14:14] VITALS: BP 146/79; PULSE 73; RESP 17; TEMP 36; O2SAT 93
[2024-02-20 00:45] LABS: Chromogranin A LC/MS/MS 3834 ng/mL (ADULTS: <311)
== END 2024-02-15 16:13 | disposition home or self-care (01) ==
PROVIDERS: Nurse Practitioner Family; PCP Family Medicine; Visit Provider Internal Medicine Medical Oncology
DX: E87.6 Hypokalemia; Z53.9 Procedure and treatment not carried out, unspecified reason
CPT/HCPCS: 36415; 80048; 80053; 83735; 85025; 86316; 93005; 96365; 96366; 99214; J2353

== ENCOUNTER 2024-02-19 00:32 | Observation (INO) | payer OTHER, MEDICARE, SELFPAY ==
[2024-02-19] VITALS (10 sets, daily range): BP systolic 119–153; BP diastolic 71–98; PULSE 83–112; RESP 12–31; TEMP 35.9–36.9; O2SAT 92–97; BMI 19.6; BMI 21.9
--- NOTE | 2024-02-19 00:46 | XRR_ITS ---
PROCEDURE INFORMATION: Exam: XR Chest Exam date and time: 02/19/2024 12:54 AM Age: 73 years old Clinical indication: Cough and shortness of breath; Prior surgery; Surgery date: 6+ months; Surgery type: Cabg. Wireless pacer. Gb; Patient HX: Cough with general weakness. History of carcinoid small bowel cancer. ; Additional info: SOB TECHNIQUE: Imaging protocol: Radiologic exam of the chest. Views: 1 view. COMPARISON: CR (CHEST, ) 09/12/2023 7:37 PM FINDINGS: Lungs: Increased interstitial markings with peribronchial cuffing in the left lung base are nonspecific but can be seen the setting of bronchitis, pulmonary vascular congestion, viral infection and small-vessel airways disease. Pleural spaces: Unremarkable. No pleural effusion. No pneumothorax. Heart/Mediastinum: Unremarkable. No cardiomegaly. Bones/joints: Unremarkable. XR/XR chest 1V portable [id number] IMPRESSION: Increased interstitial markings with peribronchial cuffing in the left lung base are nonspecific but can be seen the setting of bronchitis, pulmonary vascular congestion, viral infection and small-vessel airways disease.
--- NOTE | 2024-02-19 00:46 | CTR_ITS ---
PROCEDURE INFORMATION: Exam: CT Head Without Contrast Exam date and time: 02/19/2024 1:02 AM Age: 73 years old Clinical indication: Altered mental status/memory loss; Confusion or disorientation; Patient HX: Confusion with general weakness. TECHNIQUE: Imaging protocol: Computed tomography of the head without contrast. Radiation optimization: All CT scans at this facility use at least one of these dose optimization techniques: automated exposure control; mA and/or kV adjustment per patient size (includes targeted exams where dose is matched to clinical indication); or iterative reconstruction. COMPARISON: MR head wo con* [id number] 12/27/2017 10:05 AM RADIATION DOSE METRICS: Total DLP (mGy-cm): 1077.25 FINDINGS: Brain: No acute intracranial abnormality. Subcortical and periventricular white matter changes consistent with small-vessel ischemic disease in the appropriate clinical setting. Small-vessel ischemic disease. Cerebral ventricles: No ventriculomegaly. Paranasal sinuses: Visualized sinuses are unremarkable. No fluid levels. Mastoid air cells: Visualized mastoid air cells are well aerated. Bones: See Soft tissues finding. Soft tissues: Soft tissue hematoma overlying the left frontal skull with no underlying skull fracture. CT/CT head wo con* [id number] IMPRESSION: 1. No acute intracranial abnormality. 2. Soft tissue hematoma overlying the left frontal skull with no underlying skull fracture. 3. Small-vessel ischemic disease.
--- NOTE | 2024-02-19 00:50 | ECG_ITS ---
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 Measurements Intervals [place] Rate: 104 P: 0 PA: 0 QRS: 27 QRSD: 94 T: 29 QT: 351 QTc: 462 Interpretive Statements ATRIAL FIBRILLATION WITH RAPID VENTRICULAR RESPONSE WITH ABERRANT CONDUCTION OR VENTRICULAR PREMATURE COMPLEXES NONSPECIFIC T-WAVE ABNORMALITY ABNORMAL RHYTHM ECG Compared to ECG 02/13/2024 10:42:15 Intraventricular conduction delay no longer present Prolonged QT interval no longer present T-wave abnormality still present Electronically Signed On 02-19-2024 20:28:18 CDT by Yvonne Goodwin M.D. [id number]
--- NOTE | 2024-02-19 00:53 | ED_ITS ---
HPI - Weakness 2 General: Chief complaint: Weakness Stated complaint: confused weak Time Seen by Provider: 02/19/24 00:34 Source: patient Mode of arrival: ambulatory Limitations: no limitations History of Present Illness: 73-year-old male with history of stage I V carcinoid tumor he gets monthly treatments for that he states that he has been having increased fatigue for quite some time roughly 5 to 6 months patient this week has been extremely hypokalemic potassium of 1.9 he has been receiving potassium infusions at the oncology center last was his states that over the weekend that he became much more weak he has had some confusion as well. She states that he is so weak he is not really able to ambulate no vomiting no diarrhea has had some swelling in bilateral legs. He denies any pain anywhere here he is answering my questions appropriately he knows the year his name and where he is from Associated symptoms: Reports confusion; Denies chest pain, chills, fever(s), headache(s), nausea or vomiting Review of Systems 2 Const: Reports: fatigue and malaise; Denies: fever(s), chills, body aches or change in appetite Eyes: Denies: blurry vision or eye discomfort ENMT: Denies: throat pain or dental pain Card: Denies: chest pain Resp: Reports: dyspnea GI: Denies: abdominal pain, nausea, vomiting or diarrhea Musc: Reports: extremity swelling; Denies: neck pain or back pain Skin/Breast: Denies: rash Neuro: Reports: confusion; Denies: headache(s) PFSH ED 2 PFSH: Medical History Pacemaker Micra- 08/26/23 Anticoagulation adequate with anticoagulant therapy Tinnitus Atrial fibrillation with rapid ventricular response Atypical chest pain Dyslipidemia (high LDL; low HDL) Atherosclerotic heart disease of [place] coronary artery with other forms of angina pectoris Arrhythmia Hypertension Status post closed fracture of right femur History of coronary angiogram Hyperlipidemia Hiatal hernia GERD (gastroesophageal reflux disease) Surgical History H/O exploratory laparotomy Status post tonsillectomy History of laparoscopic cholecystectomy S/P colonoscopy with polypectomy (~2018) S/P CABG x 4 Family History Father CAD (coronary artery disease) Brother Cancer Denies family history of Diabetes Clotting disorder Dementia Chronic kidney disease (CKD) Suicide Anesthesia complication Bleeding disorder Lung disease Stroke Social History Smoking and tobacco/nicotine status: former use of tobacco/nicotine Quit status (tobacco/nicotine): has quit using Year quit tobacco: Quit 37 years ago Former quit date comment: smoked x 10 yrs Second hand smoke exposure: Yes Alcohol intake: never Substance/Drug Use: never Adopted: No Caregiver/support person: Yes Lives independently: No Household members: spouse Housing: House Marital status: service: Yes status details: 2 years branch: [employer] Current occupational status: retired Current occupational exposures/hazards: No Pets and animals: No Sexually active: No Do you think of yourself as: Straight/Heterosexual Current gender identity: Male Jackelyn/Anglican: Jainism Special jackelyn needs: No Agree to transfusion: No Physical Exam 2 Const: COMMON NORMALS: patient oriented x3 GENERAL APPEARANCE: ill appearing and frail appearing HENMT: COMMON NORMALS: normocephalic and atraumatic HEAD & SCALP: n ormocephalic and atraumatic Neck/C-Spine: COMMON NORMALS: full ROM and supple Chest: COMMONS NORMALS: normal inspection of the chest and normal palpation of entire chest wall Resp: COMMON NORMALS: No retractions EFFORT & INSPECTION: Yes labored A USCULTATION: rales Cardio: COMMON NORMALS: regular rate, regular rhythm and No murmurs present (Cardio) RATE: regular rate RHYTHM: regular rhythm GI: COMMON NORMALS: Normal to inspection, nondistended, normoactive bowel sounds present, Soft to palpation, non-tender and no masses PALPATION: Yes Soft to palpation Extremity: COMMON NORMALS: full ROM NARRATIVE EXTREMITY EXAM: 2+ lower ext edema Neuro: COMMON NORMALS: patient oriented x3, moves all extremities and no focal motor deficits Psych: COMMON NORMALS: mental status grossly normal, Normal thought process present and cooperative THOUGHT PROCESS: Normal thought process present Skin: COMMON NORMALS: no rashes or lesions noted and no wounds GENERAL SKIN EXAM: no rashes or lesions noted Course 2 Vital Signs: Vital signs: Vital Signs Temperature 97.6 F 02/19/24 00:42 Pulse Rate 103 H 02/19/24 00:42 Respiratory Rate 22 H 02/19/24 00:42 Blood Pressure 140/79 02/19/24 00:42 Pulse Oximetry 97 02/19/24 00:42 Oxygen Delivery Me thod Room Air 02/19/24 00:42 MDM - Weakness Medical Decision Making Patient presents here the weakness he is also had some increased shortness of breath he is found to have elevated BNP along with pulmonary edema spoke to the hospitalist will admit at this time. Medical Records I reviewed the patient's medical records. Lab Data I reviewed the patient's lab results. 02/19/24 00:51 02/19/24 00:51 Radiology Impressions Chest X-Ray 02/19/24 00:46 IMPRESSION: Increased interstitial markings with peribronchial cuffing in the left lung base are nonspecific but can be seen the setting of bronchitis, pulmonary vascular congestion, viral infection and small-vessel airways disease. Head CT 02/19/24 00:46 IMPRESSION: 1. No acute intracranial abnormality. 2. Soft tissue hematoma overlying the left frontal skull with no underlying skull fracture. 3. Small-vessel ischemic disease. Laboratory Results WBC 8.63 10^3/uL (3.29-11.43) 02/19/24 00:51 RBC 4.08 10^6/uL (3.85-5.65) 02/19/24 00:51 Hgb 11.10 g/dL (11.27-16.99) L 02/19/24 00:51 Hct 34.6 % (37-53) L 02/19/24 00:51 MCV 84.8 fl (82-101) 02/19/24 00:51 MCH 27.2 pg (27-33) 02/19/24 00:51 MCHC 32.1 g/dL (30-55) 02/19/24 00:51 RDW 16.1 % (12.1-15.1) H 02/19/24 00:51 Plt Count 71 10^3/cmm (157-399) L 02/19/24 00:51 MPV 12.8 fL (7.4-10.4) H 02/19/24 00:51 Neut % (Auto) 92.7 % 02/19/24 00:51 Lymph % (Auto) 3.6 % 02/19/24 00:51 Benson % (Auto) 2.8 % 02/19/24 00:51 Eos % (Auto) 0.0 % 02/19/24 00:51 Baso % (Auto) 0.3 % 02/19/24 00:51 Neut # (Auto) 8.00 10^3/uL (1.8-7.7) H 02/19/24 00:51 Lymph # (Auto) 0.3 10^3/uL (0.8-4.8) L 02/19/24 00:51 Benson # (Auto) 0.2 10^3/uL (0.2-0.9) 02/19/24 00:51 Eos # (Auto) 0.0 10^3/uL (0.0-0.8) 02/19/24 00:51 Baso # (Auto) 0.0 10^3/uL (0.0-0.1) 02/19/24 00:51 Nucleated RBC % (auto) 0 % 02/19/24 00:51 Nucleated RBCs # 0.0 /100WBC 02/19/24 00:51 Sodium 143 mmol/L (136-145) 02/19/24 00:51 Potassium 3.4 mmol/L (3.5-5.1) L 02/19/24 00:51 Chloride 97 mmol/L (98-107) L 02/19/24 00:51 Carbon Dioxide 30 mmol/L (22-29) H 02/19/24 00:51 Anion Gap 19.4 (5-19) H 02/19/24 00:51 BUN 28 mg/dL (8-23) H 02/19/24 00:51 Creatinine 0.8 mg/dL (0.7-1.2) 02/19/24 00:51 GFR Calculation Not Reportable 02/19/24 00:51 Glucose 265 mg/dL (65-115) H 02/19/24 00:51 Calculated Osmolality 311 mOsm/kg (285-295) H 02/19/24 00:51 Calcium 8.9 mg/dL (8.5-10.5) 02/19/24 00:51 Phosphorus 2.9 mg/dL (2.5-4.5) 02/19/24 00:51 Magnesium 1.9 mg/dL (1.7-2.3) 02/19/24 00:51 Total Bilirubin 1.3 mg/dL (0.15-1.2) H 02/19/24 00:51 AST 29 U/L (0-40) 02/19/24 00:51 ALT 31 U/L (0-41) 02/19/24 00:51 Alkaline Phosphatase 59 U/L (40-130) 02/19/24 00:51 NT-Pro-B Natriuret Pep 77472 pg/mL (0-125) H 02/19/24 00:51 Total Protein 5.8 g/dL (6.6-8.7) L 02/19/24 00:51 Albumin 3.4 g/dL (3.5-5.2) L 02/19/24 00:51 Globulin 2.4 g/dL (1.3-4.6) 02/19/24 00:51 All radiology interpretation(s) finalized by discharge EKG Data EKG 1: I personally reviewed and interpreted this EKG as follows: EKG interpretation date: 02/19/24 EKG interpretation time: 00:50 Interpretation: afib hr [address] or t wave abnormalities qrs 94 qtc 411 Discharge Plan Discharge Patient Disposition: Admitted As Inpatient Clinical Impression: Pulmonary edema, 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
[2024-02-19 01:00] LABS: Basophils % 0.3 %; Hematocrit 34.6 % (37-53); Lymphocytes # 0.3 10^3/uL (0.8-4.8); Lymphocytes % 3.6 %; Mean Corpuscular HGB Conc 32.1 g/dL (30-55); Mean Corpuscular Hemoglobin 27.2 pg (27-33); Mean Corpuscular Volume 84.8 fl (82-101); Mean Platelet Volume 12.8 fL (7.4-10.4); Monocytes # 0.2 10^3/uL (0.2-0.9); Monocytes % 2.8 %; Neutrophils % 92.7 %; Nucleated Red Blood Cells % 0 %; Platelet Count 71 10^3/cmm (157-399); Red Blood Count 4.08 10^6/uL (3.85-5.65); Red Cell Distribution Width 16.1 % (12.1-15.1); White Blood Count 8.63 10^3/uL (3.29-11.43)
[2024-02-19 01:29] LABS: Alanine Aminotransferase 31 U/L (0-41); Albumin Level 3.4 g/dL (3.5-5.2); Alkaline Phosphatase 59 U/L (40-130); Anion Gap 19.4 (5-19); Aspartate Amino Transferase 29 U/L (0-40); Blood Urea Nitrogen 28 mg/dL (8-23); Calcium 8.9 mg/dL (8.5-10.5); Carbon Dioxide 30 mmol/L (22-29); Chloride 97 mmol/L (98-107); Creatinine Clr Calc Pharmacy 84.7601; Globulin 2.4 g/dL (1.3-4.6); Glucose 265 mg/dL (65-115); Magnesium 1.9 mg/dL (1.7-2.3); NT Pro B Type Natriuretic Pept 18214 pg/mL (0-125); Osmolality Calculated 311 mOsm/kg (285-295); Phosphorus 2.9 mg/dL (2.5-4.5); Potassium 3.4 mmol/L (3.5-5.1); Sodium 143 mmol/L (136-145); Total Bilirubin 1.3 mg/dL (0.15-1.2); Total Protein 5.8 g/dL (6.6-8.7)
--- NOTE | 2024-02-19 01:42 | P.HP_ITS ---
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 Patient reports symptoms of progressively worsened over the past several weeks. Spouse is bedside and very supportive. She reports on he was so weak he can even get off the floor. She is unable to get up on her own. The weakness seems to be progressively worsening. Patient does endorse symptoms of productive cough. He describes it as a yellowish sputum production. Spouse also notes bilateral lower extremity edema which is new over the past couple weeks. Exertion worsens symptoms. Rest improves. Endorses associated chills. Denies fevers. Of note, patient was recently found to have severe hypokalemia. This was treated outpatient with potassium infusions last week. Review of Systems 2 Narrative: A complete review of systems was obtained and is negative except as stated in HPI. Medications/Allergies Home Medications Medication Instructions Recorded Confirmed Last Taken Type clopidogrel 75 mg tablet (Plavix) 75 mg PO DAILY 10/17/19 02/13/24 10/22/19 History apixaban 5 mg tablet (Eliquis) 5 mg PO BID 01/28/22 02/13/24 Unknown History cholecalciferol (vitamin D3) 50 50 mcg PO DAILY 07/23/22 02/13/24 Unknown History mcg (2,000 unit) capsule amlodipine 5 mg tablet 5 mg PO DAILY #30 tabs 08/27/23 02/13/24 Unknown Rx diphenoxylate-atropine 2.5 1 tab PO TID #90 tabs 12/20/23 02/13/24 Unknown Rx mg-0.025 mg tablet (Lomotil) opium tincture 10 mg/mL (morphine) 0.6 ml PO QID PRN diarrhea 30 days 02/14/24 Unknown Rx oral #72 mL potassium chloride 20 mEq 20 meq PO BID #60 tabs 02/14/24 02/14/24 Unknown Rx tablet,extended release Allergies Allergy/AdvReac Type Severity Reaction Status Date / Time Gquzavp-OVX-HpN Reductase Allergy Unknown Verified 02/13/24 09:41 Inhibitor [Lvfakwo-Pnk-Qgy Reductase Inhibitor] PFSH Acute 2 PFSH: Medical History (Updated 02/19/24 @ 02:34 by Rusty Mireles MD) Dyslipidemia Atherosclerosis of coronary artery of [place] heart without angina pectoris Syncope and collapse Gerry-tachy syndrome Other malignant neuroendocrine tumors Carcinoid tumor determined by biopsy of small intestine Mesenteric mass Pacemaker Micra- 08/26/23 Anticoagulation adequate with anticoagulant therapy Tinnitus Atrial fibrillation with rapid ventricular response Atypical chest pain Dyslipidemia (high LDL; low HDL) Atherosclerotic heart disease of [place] coronary artery with other forms of angina pectoris Arrhythmia Hypertension Status post closed fracture of right femur History of coronary angiogram Hyperlipidemia Hiatal hernia GERD (gastroesophageal reflux disease) Surgical History (Updated 02/19/24 @ 02:34 by Rusty Mireles MD) Status post laparotomy H/O exploratory laparotomy Status post tonsillectomy History of laparoscopic cholecystectomy S/P colonoscopy with polypectomy (~2018) S/P CABG x 4 Family History Father CAD (coronary artery disease) Brother Cancer Denies family history of Diabetes Clotting disorder Dementia Chronic kidney disease (CKD) Suicide Anesthesia complication Bleeding disorder Lung disease Stroke Social History Smoking and tobacco/nicotine status: former use of tobacco/nicotine Quit status (tobacco/nicotine): has quit using Year quit tobacco: Quit 37 years ago Former quit date comment: smoked x 10 yrs Second hand smoke exposure: Yes Alcohol intake: never Substance/Drug Use: never Adopted: No Caregiver/support person: Yes Lives independently: No Household members: spouse Housing: House Marital status: service: Yes status details: 2 years branch: [employer] Current occupational status: retired Current occupational exposures/hazards: No Pets and animals: No Sexually active: No Do you think of yourself as: Straight/Heterosexual Current gender identity: Male Jackelyn/Tenriism: Yarsanism Special jackelyn needs: No Agree to transfusion: No Vitals/I&O/Wt Last Vital Signs Temp 97.6 F 02/19/24 00:42 Pulse 103 H 02/19/24 00:42 Resp 22 H 02/19/24 00:42 BP 140/79 02/19/24 00:42 Pulse Ox 97 02/19/24 00:42 O2 Del Method Room Air 02/19/24 00:42 Weight last 48 hrs Weight 65.771 kg Physical Exam 2 Narrative: General: Patient is awake. Appears fatigued but very pleasant. Head: Temporal wasting present. There is a rubbery lesion on his superior left temporal area which spouse reports is fairly new. He has a similar longstanding lesion on his frontal scalp. Neck: Slightly elevated JVD. Cardiovascular: Tachycardic. Irregular rhythm. No gallops. No murmurs. 2+ pitting edema bilateral lower extremities at least knees. Lungs: Breath sounds diminished bilateral bases. There is dependent crackles present. Conversational dyspnea. Mildly tachypneic. SpO2 drops into the mid 80s with talking. Skin: No jaundice. No rashes. Abdomen: Normal bowel sounds, abdomen soft and nontender. Extremities: No cyanosis or clubbing. Musculoskeletal: No swollen or erythematous joints. Neurological: Moves all 4 extremities. No myoclonus. Data 02/19/24 00:51 02/19/24 00:51 A&P Assessment and plan (1) Weakness: Patient presents progressively worsening weakness, debility, and mental fog Suspect multifactorial with congestive heart failure significantly contributing Start diuresis and further workup fluid overload state Will need therapy evaluation TSH in December was normal Evaluate for underlying infection with procalcitonin, CRP, and urinalysis Check sputum culture, bronchitis within differential Supportive care (2) Pulmonary edema: Chest x-ray reviewed, concerning for pulmonary edema New onset peripheral edema noted Hold amlodipine Start Lasix IV Monitor electrolytes closely while on Lasix Strict I's and O's Daily weights Repeat limited echo to evaluate cardiac function Patient does follow with cardiology clinic, Dr. Goodwin (3) Hypokalemia: Patient with recent severe hypokalemia He was treated with outpatient infusions which may have added to his volume status Additional placement ordered Trend labs daily Telemetry monitoring (4) Chronic atrial fibrillation: Status post pacemaker placement August for tachybradycardia/sick sinus syndrome Continue apixaban Monitor heart rate with telemetry (5) Hypertension: Hold amlodipine due to peripheral edema Lasix as above Qualifiers: Hypertension type: primary hypertension Qualified Code(s): I10 - Essential (primary) hypertension (6) Thrombocytopenia: Monitor for signs and symptoms of bleeding Patient is also on DOAC, not on antiplatelet agent (7) 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, unspecified portion: Patient follows with medical oncology Plan DVT prophylaxis: Apixaban Attestations 2 Medical Necessity Statement*: Patient presents with worsening mental fog, productive cough, peripheral edema, weakness, and debility with expected hospitalization not to cross 2 midnights Coding Level of Care Code Acute Code for Chg Fwd Diagnoses Weakness R53.1 Pulmonary edema J81.1 Hypokalemia E87.6 Chronic atrial fibrillation I48.20 Primary hypertension I10 Hypertension type: primary hypertension Thrombocytopenia D69.6 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
[2024-02-19 02:03] LABS: Add Urine Microscopic? YES; Amorphous Sediment Urine TRACE /hpf; Bacteria Urine 1+ /hpf; Bilirubin Urine 2+ (Negative); Blood Urine 3+ (Negative); Glucose Urine UA 4+ (Normal); Ketones Urine 1+ (Negative); Leukocyte Esterase Urine Negative (Negative); Mucus Urine TRACE /hpf; Nitrate Urine Negative (Negative); Protein Urine 1+ (Negative); RBC Urine 0-4 /hpf (0-2); Squamous Epithelial Cell Urine 0-4 /hpf (0-5); Urine Appearance Clear (CLEAR); Urine Color Yellow (Yellow); Urobilinogen Urine Neg (Negative); WBC Urine 0-4 /hpf (0-5); pH Urine 5 (5-7)
[2024-02-19 02:05] LABS: C Reactive Protein 22.9 mg/L (0.0-4.9)
[2024-02-19] MEDS: FUROsemide 10 mg/mL SDV 4mL 40 MG IVP ×2 (02:10→06:01)
[2024-02-19 02:11] LABS: Procalcitonin 0.11 ng/mL (0-0.5)
--- NOTE | 2024-02-19 02:48 | USCV_ITS ---
Manuel Rodriguez Age: 73 Gender: M : 1950 Exam Date: 02/19/2024 13:52 Ordering Phys: Rusty Mireles MD Technologist: Norris Peng Exam Location: [facility] – [place] Indication: edema BP: 132 / 81 HR: Rhythm: Sinus Technical Quality: Adequate MEASUREMENTS (Male / Female) Normal Values 2D ECHO LV Diastolic Diameter PLAX 5.3 cm 4.2 - 5.9 / 3.9 - 5.3 cm IVS Diastolic Thickness 0.7 cm 0.6 - 1.0 / 0.6 - 0.9 cm IVS Systolic Thickness 1.1 cm LVPW Diastolic Thickness 1.4 cm 0.6 - 1.0 / 0.6 - 0.9 cm LVPW Systolic Thickness 1.5 cm LVOT Diameter 2.2 cm LV Ejection Fraction 2D Teich 47.1 % LV Ejection Fraction MOD 2C 45.7 % LV Ejection Fraction 2C AL 44.4 % LA Diameter 4.5 cm RA Systolic Volume 4C AL 67.3 ml RA Systolic Volume 4C MOD 69.4 ml LA Sys Volume AL 114.1 cm cubed LA Sys Volume Index AL 59.3 cm cubed/m squared Aorta at Sinotubular Diameter 2.6 cm M-MODE LA Ao Ratio MM 1.5 AV Cusp Separation MM 1.3 cm FINDINGS Left Ventricle Diffuse hypokinesis left ventricle with ejection fraction of 45%. Mildly dilated LV cavity Right Ventricle Mildly dilated right ventricle with a slightly diminished ejection fraction. Right Atrium Mildly increased right atrial size. Left Atrium Markedly dilated left atrium Mitral Valve Thickened mitral valve. Aortic Valve Thickened Tricuspid Valve No gross abnormalities noted Pulmonic Valve No gross abnormalities noted Pericardium No pericardial effusion. Aorta Calcification of the aortic annulus IVC Inferior vena cava not visualized. CONCLUSIONS Diffuse hypokinesis left ventricle with ejection fraction of 45%. Mildly dilated LV cavity. Mildly dilated right ventricle with a slightly diminished ejection fraction. Markedly dilated left atrium. Mildly increased right atrial size. Thickened aortic and mitral valves. Calcification of the aortic annulus. There is no pericardial effusion. There are no intracardiac masses. Compared to the previous study from 08/25/2023, there is slight worsening of the LV systolic function Dr Yvonne Goodwin MD [facility] (Electronically Signed) Final Date: 19 February 2024 20:04 S
[2024-02-19 03:44] LABS: Estmated Average Glucose 146; Hemoglobin A1C 6.7 % (4.0-6.0)
[2024-02-19] MEDS: potassium chloride ER 20 mEq Tablet 40 MEQ PO ×2 (09:02→17:12)
[2024-02-19] MEDS: clopidogrel 75 mg Tablet PO (09:03)
[2024-02-19] MEDS: apixaban 5 mg Tablet PO ×2 (09:03→20:53)
--- NOTE | 2024-02-19 10:15 | PM.MISC ---
Miscellaneous Note Note: seen this morning mental status better family at bedside family report pt has PTSD and wakes up in middle of night thinking he is in a war on room air feels slightly better Lungs clear to auscultation Edema b/l LE COntinue mgmt as per hnp
[2024-02-19 11:44] LABS: Glucose Point of Care 266 mg/dL (70-110)
[2024-02-19] MEDS: insulin lispro 100 unit/1 mL SUBCUT ×2 (11:53→20:53)
--- NOTE | 2024-02-19 14:31 | PC.NURSE ---
pt's spouse stated that pt is just not himself mentally and pt has had a difficult time swallowing food,pills over last week or so.dr stanton notified.she ordered a speech therapy consult and will order mri of head for early this week.
[2024-02-19 16:53] LABS: Glucose Point of Care 119 mg/dL (70-110)
[2024-02-19 20:26] LABS: Glucose Point of Care 168 mg/dL (70-110)
[2024-02-19] MEDS: loperamide 2 mg Capsule PO (23:18)
[2024-02-20 04:00] VITALS: BP 134/85; PULSE 87; RESP 24; TEMP 36.3; O2SAT 96
[2024-02-20 04:34] LABS: Basophils % 0.2 %; Hematocrit 33.8 % (37-53); Lymphocytes # 0.3 10^3/uL (0.8-4.8); Lymphocytes % 4.1 %; Mean Corpuscular HGB Conc 31.1 g/dL (30-55); Mean Corpuscular Volume 86.9 fl (82-101); Monocytes # 0.2 10^3/uL (0.2-0.9); Monocytes % 2.5 %; Neutrophils # 6.05 10^3/uL (1.8-7.7); Neutrophils % 92.9 %; Nucleated Red Blood Cells % 0 %; Platelet Count 57 10^3/cmm (157-399); Red Blood Count 3.89 10^6/uL (3.85-5.65); Red Cell Distribution Width 16.1 % (12.1-15.1); White Blood Count 6.51 10^3/uL (3.29-11.43)
[2024-02-20 04:53] LABS: Alanine Aminotransferase 28 U/L (0-41); Albumin Level 3.2 g/dL (3.5-5.2); Alkaline Phosphatase 59 U/L (40-130); Aspartate Amino Transferase 26 U/L (0-40); Blood Urea Nitrogen 26 mg/dL (8-23); Calcium 8.7 mg/dL (8.5-10.5); Carbon Dioxide 40 mmol/L (22-29); Chloride 99 mmol/L (98-107); Creatinine Clr Calc Pharmacy 88.2846; Globulin 2.1 g/dL (1.3-4.6); Glucose 134 mg/dL (65-115); Magnesium 1.8 mg/dL (1.7-2.3); Osmolality Calculated 311 mOsm/kg (285-295); Phosphorus 3.5 mg/dL (2.5-4.5); Sodium 147 mmol/L (136-145); Total Bilirubin 1.1 mg/dL (0.15-1.2); Total Protein 5.3 g/dL (6.6-8.7)
[2024-02-20] MEDS: FUROsemide 10 mg/mL SDV 4mL 40 MG IVP (06:13)
[2024-02-20] MEDS: potassium chloride ER 20 mEq Tablet 40 MEQ PO ×2 (06:22→09:20)
[2024-02-20 07:12] LABS: Glucose Point of Care 181 mg/dL (70-110)
--- NOTE | 2024-02-20 07:51 | PC.PHAR ---
PT IS [facility] FOR MED LIST 02/20/24 7:50AM
[2024-02-20 08:00] VITALS: BP 121/82; PULSE 84; RESP 16; TEMP 36.5; O2SAT 93
--- NOTE | 2024-02-20 09:15 | CT_ITS ---
WS: [id number] CTA HEAD AND NECK TECHNIQUE: Contrast enhanced CTA of the head and neck with coronal and sagittal reformatted images an d maximum intensity projection (MIP) images. NASCET criteria utilized. CLINICAL INFORMATION: possible mets vs stroke, confusion COMPARISON: CT head 02/19/2024 DLP: 1033.[address] scans at [facility] use at least one of these dose optimization techniques: automated e xposure control; mA and/or kV adjustment per patient size (includes targeted exams where dose is matc hed to clinical indication); or iterative reconstruction. FINDINGS: No evidence intracranial hemorrhage or mass effect. Mild small vessel changes with mild par enchymal volume loss. Chronic lacunar infarct in the LEFT weiss radiata. Intracranial vascular calci fication. Soft tissue hematoma LEFT frontal scalp unchanged. RIGHT: RIGHT common carotid artery is patent. Moderate calcified atheromatous plaque RIGHT carotid bu lb extending into the ICA. Less than 50% RIGHT ICA stenosis. RIGHT ICA remains patent to the skull ba se. Cavernous carotid calcification. LEFT: LEFT common carotid artery is patent. Mild calcified atheromatous plaque LEFT carotid bulb exte nding into the ICA. Less than 50% LEFT ICA stenosis. LEFT ICA remains patent to the skull base. Shruthi nous carotid calcification. LEFT dominant vertebral artery. Both vertebral arteries are patent. Calcification of the distal verte bral arteries. Basilar artery is patent. Normal vascularity to the VET TECH territory bilaterally. Both ICAs are patent at the skull base. Cavernous carotid and supraclinoid calcification. Normal vasc ularity to the [place] and MCA territories bilaterally. No evidence of high-grade proximal stenosis or an eurysm. Few patchy nodular opacities in the superior segments RIGHT lower lobe. Prominent main pulmonary remy mahi can be seen with pulm arterial hypertension. CT/CT angio headneck* [id number] IMPRESSION: 1. Moderate calcified atheromatous plaque RIGHT carotid bulb with less than 50 % RIGHT ICA stenosis. 2. No significant LEFT ICA stenosis. 3. LEFT dominant vertebral artery. Both vertebral arteries are patent. 4. No evidence of proximal flow-limiting intracranial stenosis. 5. Cavernous carotid and supraclinoid ICA calcification. 6. A few patchy nodular infiltrates in the superior segment RIGHT lower lobe. Recommend correlation for pneumonia. This may be infectious or inflammatory.
[2024-02-20] MEDS: insulin lispro 100 unit/1 mL SUBCUT (09:18)
[2024-02-20] MEDS: clopidogrel 75 mg Tablet PO (09:20)
[2024-02-20] MEDS: apixaban 5 mg Tablet PO (09:25)
[2024-02-20] MEDS: sodium chlor 0.45% +KCl 20 mEq 20 MEQ/1,000 ML BAG 50 MEQ IV (09:41)
--- NOTE | 2024-02-20 10:07 | PC.CHAP ---
Pastoral Care Encounter/Spiritual Assessment Type of Contact [] Declined teacher education instructor visit [] Patient/Family/Request visit [] Outpatient visit [] Follow-up visit [] Physician referral [] Code/Alert [x] Routine visit [] Staff referral [] Actively dying [] Patient sleeping [] Family support [] [] Out of room [] Palliative care [] [] Receiving care in room [] Pre-surgical visit [] Trauma [] Long length of stay [] ICU visit [] Other: Relational/Emotional Strength [x] Patient feels connected with others/family/visitors/staff [] Distress [] Loneliness/isolation [] Abandonment Spirituality of Patient [x] Person of Jackelyn [] Attends Mandaeism of their Jackelyn [x] Believes in Prayer [] Reads Bible or Moravian materials [] There are Spiritual issues to be addressed Medical Assembler Interventions [x] Prayer [x] Active listening [] Non-anxious presence [] Spiritual/emotional support [] Crisis/trauma care [] Spiritual counseling [] Bereavement support [] Provided bereavement packet [] Provided Bible/devotional materials [] Provided toy/stuffed animal, coloring book to patient or family member [] Provided Communion [] Anointing/[place] [] Salvation []x Completed spiritual assessment [] Other: Impact on Illness or Injury [] Angry [] Fearful [] Anxious [] Often cries [] Exhaustion [] Unable to work [] Unable to attend jewish [] Unable to walk/stand [] Unable to read [] Unable to drive [] Unable to eat/drink [] Unable to sleep [] Unable to be with family [] Patient intubated [] Other: Summary patient feeling better Time spent with patient 10 min
[2024-02-20] MEDS: iohexol 350 mg/mL 500 mL Btl (per mL) IV (10:20)
--- NOTE | 2024-02-20 10:36 | PM.DCS ---
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 Patient reports symptoms of progressively worsened over the past several weeks. Spouse is bedside and very supportive. She reports on he was so weak he can even get off the floor. She is unable to get up on her own. The weakness seems to be progressively worsening. Patient does endorse symptoms of productive cough. He describes it as a yellowish sputum production. Spouse also notes bilateral lower extremity edema which is new over the past couple weeks. Exertion worsens symptoms. Rest improves. Endorses associated chills. Denies fevers. Of note, patient was recently found to have severe hypokalemia. This was treated outpatient with potassium infusions last week. Hospital Course Hospital Course Patient was admitted to the hospital further evaluation and management of generalized weakness in setting of hypokalemia from chronic diarrhea. On admission there was also concern for generalized weakness along with on and off confusion. Infectious cause for diarrhea was ruled out. It is believed his diarrhea is most likely in setting of chronic malignant neuroendocrine tumor. He was continued on his home dose of loperamide. There was a concern for mild congestive heart failure on admission for which she received IV Lasix. During hospitalization patient developed hypokalemia and hypernatremia which are being corrected with potassium replacement. Patient was back to his baseline mentation. Patient would have benefited from further admission for IV hydration while monitoring for fluid overload and monitoring his potassium levels but patient was insistent on being discharged. Possibility of an adverse outcome with dehydration were discussed in detail with patient and his at bedside. Patient remained AOx3. Even after further discussions patient remained insistent on being discharged. He has been discharged in hemodynamically stable condition with advised to make sure he maintain his oral hydration with up to 2 to 2.5 L of fluid daily along with at least 500 cc of Gatorade with advised to repeat his BMP with his primary care provider within next 1 week. Danger signs were discussed in detail with the patient and he verbalized understanding. Prior to discharge CTA head and neck was done which ruled out brain metastasis, MRI could not be done because of history of pacemaker implantation. Physical Exam Narrative: General: Patient is awake. AOx3, pleasant, sitting up in chair on room air Head: Temporal wasting present. There is a rubbery lesion on his superior left temporal area which spouse reports is fairly new. He has a similar longstanding lesion on his frontal scalp. Neck: Slightly elevated JVD. Cardiovascular: No tachycardia. Irregular rhythm. No gallops. No murmurs. 2+ pitting edema bilateral lower extremities at least knees. Lungs: Breath sounds diminished bilateral bases. There is dependent crackles present. Conversational dyspnea. Mildly tachypneic. SpO2 drops into the mid 80s with talking. Skin: No jaundice. No rashes. Abdomen: Normal bowel sounds, abdomen soft and nontender. Extremities: No cyanosis or clubbing. Musculoskeletal: No swollen or erythematous joints. Neurological: Moves all 4 extremities. No myoclonus. Discharge Data Studies Completed and Pending Completed Studies During Hospitalization Category Date Time Status CT head wo con* [id number] Stat Cat Scan 02/19/24 00:46 Completed XR chest 1V portable [id number] Stat Exams 02/19/24 00:46 Completed CV. echo limited [id number] Routine Ultrasound 02/19/24 02:48 Completed Pending at discharge Category Date Time Status CTA head neck [CT angio headneck* [id number]] Routine Cat Scan 02/20/24 09:15 Taken B12 [Vitamin B12] Routine Lab 02/20/24 09:16 Ordered Complete Blood Count w/Auto AM LABS Lab 02/21/24 04:00 Ordered Comprehensive Metabolic Panel AM LABS Lab 02/21/24 04:00 Ordered Folate Level AM LABS Lab 02/21/24 04:00 Ordered MAG [Magnesium] AM LABS Lab 02/21/24 04:00 Ordered MAG [Magnesium] AM LABS Lab 02/22/24 04:00 Ordered MAG [Magnesium] AM LABS Lab 02/23/24 04:00 Ordered Sputum Culture and Gram Stain Routine Lab 02/19/24 02:48 Uncollected Radiology Impressions Chest X-Ray 02/19/24 00:46 IMPRESSION: Increased interstitial markings with peribronchial cuffing in the left lung base are nonspecific but can be seen the setting of bronchitis, pulmonary vascular congestion, viral infection and small-vessel airways disease. Head CT 02/19/24 00:46 IMPRESSION: 1. No acute intracranial abnormality. 2. Soft tissue hematoma overlying the left frontal skull with no underlying skull fracture. 3. Small-vessel ischemic disease. Laboratory Results WBC 6.51 10^3/uL (3.29-11.43) 02/20/24 04:00 RBC 3.89 10^6/uL (3.85-5.65) 02/20/24 04:00 Hgb 10.50 g/dL (11.27-16.99) L 02/20/24 04:00 Hct 33.8 % (37-53) L 02/20/24 04:00 MCV 86.9 fl (82-101) 02/20/24 04:00 MCH 27.0 pg (27-33) 02/20/24 04:00 MCHC 31.1 g/dL (30-55) 02/20/24 04:00 RDW 16.1 % (12.1-15.1) H 02/20/24 04:00 Plt Count 57 10^3/cmm (157-399) L 02/20/24 04:00 MPV 12.0 fL (7.4-10.4) H 02/20/24 04:00 Neut % (Auto) 92.9 % 02/20/24 04:00 Lymph % (Auto) 4.1 % 02/20/24 04:00 [place] % (Auto) 2.5 % 02/20/24 04:00 Eos % (Auto) 0.0 % 02/20/24 04:00 Baso % (Auto) 0.2 % 02/20/24 04:00 Neut # (Auto) 6.05 10^3/uL (1.8-7.7) 02/20/24 04:00 Lymph # (Auto) 0.3 10^3/uL (0.8-4.8) L 02/20/24 04:00 [place] # (Auto) 0.2 10^3/uL (0.2-0.9) 02/20/24 04:00 Eos # (Auto) 0.0 10^3/uL (0.0-0.8) 02/20/24 04:00 Baso # (Auto) 0.0 10^3/uL (0.0-0.1) 02/20/24 04:00 Nucleated RBC % (auto) 0 % 02/20/24 04:00 Nucleated RBCs # 0.0 /100WBC 02/20/24 04:00 Sodium 147 mmol/L (136-145) H 02/20/24 04:00 Potassium 3.0 mmol/L (3.5-5.1) L 02/20/24 04:00 Chloride 99 mmol/L (98-107) 02/20/24 04:00 Carbon Dioxide 40 mmol/L (22-29) H 02/20/24 04:00 Anion Gap 11.0 (5-19) 02/20/24 04:00 BUN 26 mg/dL (8-23) H 02/20/24 04:00 Creatinine 0.7 mg/dL (0.7-1.2) 02/20/24 04:00 GFR Calculation Not Reportable 02/20/24 04:00 Glucose 134 mg/dL (65-115) H 02/20/24 04:00 POC Glucose 181 mg/dL (70-110) H 02/20/24 06:30 Estimat Average Glucose 146 02/19/24 00:51 Hemoglobin A1c 6.7 % (4.0-6.0) H 02/19/24 00:51 Calculated Osmolality 311 mOsm/kg (285-295) H 02/20/24 04:00 Calcium 8.7 mg/dL (8.5-10.5) 02/20/24 04:00 Phosphorus 3.5 mg/dL (2.5-4.5) 02/20/24 04:00 Magnesium 1.8 mg/dL (1.7-2.3) 02/20/24 04:00 Total Bilirubin 1.1 mg/dL (0.15-1.2) 02/20/24 04:00 AST 26 U/L (0-40) 02/20/24 04:00 ALT 28 U/L (0-41) 02/20/24 04:00 Alkaline Phosphatase 59 U/L (40-130) 02/20/24 04:00 C-Reactive Protein 22.9 mg/L (0.0-4.9) H 02/19/24 00:51 NT-Pro-B Natriuret Pep 42728 pg/mL (0-125) H 02/19/24 00:51 Total Protein 5.3 g/dL (6.6-8.7) L 02/20/24 04:00 Albumin 3.2 g/dL (3.5-5.2) L 02/20/24 04:00 Globulin 2.1 g/dL (1.3-4.6) 02/20/24 04:00 Procalcitonin 0.11 ng/mL (0-0.5) 02/19/24 00:51 Urine Color Yellow (Yellow) 02/19/24 01:46 Urine Appearance Clear (CLEAR) 02/19/24 01:46 Urine pH 5 (5-7) 02/19/24 01:46 Ur Specific [place] 1.010 (1.005-1.030) 02/19/24 01:46 Urine Protein 1+ (Negative) H 02/19/24 01:46 Urine Glucose (UA) 4+ (Normal) H 02/19/24 01:46 Urine Ketones 1+ (Negative) H 02/19/24 01:46 Urine Blood 3+ (Negative) H 02/19/24 01:46 Urine Nitrate Negative (Negative) 02/19/24 01:46 Urine Bilirubin 2+ (Negative) H 02/19/24 01:46 Urine Urobilinogen Neg mg/dL (Negative) 02/19/24 01:46 Ur Leukocyte Esterase Negative (Negative) 02/19/24 01:46 Urine RBC 0-4 /hpf (0-2) H 02/19/24 01:46 Urine WBC 0-4 /hpf (0-5) H 02/19/24 01:46 Ur Squamous Epith Cells 0-4 /hpf (0-5) H 02/19/24 01:46 Amorphous Sediment Trace /hpf 02/19/24 01:46 Urine Bacteria 1+ /hpf (NONE) H 02/19/24 01:46 Hyaline Casts 5-10 /lpf H 02/19/24 01:46 Urine Mucus Trace /hpf 02/19/24 01:46 Vitals Last Vital Signs Temp 97.7 F 02/20/24 08:00 Pulse 84 02/20/24 08:00 Resp 16 02/20/24 08:00 BP 121/82 02/20/24 08:00 Pulse Ox 93 02/20/24 08:00 O2 Del Method Room Air 02/20/24 08:00 Discharge Plan Discharge Patient Disposition: Home Condition: Stable Prescriptions: New loperamide 2 mg Capsule 2 mg PO QID PRN (Reason: constipation) Qty: 20 0RF Klor-Con M20 20 mEq Tablet,Er Particles/Crystals 20 meq PO BID Qty: 60 0RF Continued clopidogrel [Plavix] 75 mg tablet 75 mg PO DAILY Eliquis 5 mg tablet 5 mg PO BID cholecalciferol (vitamin D3) 50 mcg (2,000 unit) capsule 50 mcg PO Q7D diphenoxylate-atropine [Lomotil] 2.5-0.025 mg tablet 1 tab PO TID Qty: 90 2RF prazosin 1 mg Capsule 1 mg PO BEDTIME atenolol 25 mg Tablet 1.25 mg PO QAM gemfibrozil 600 mg Tablet 600 mg PO BID Jardiance 25 mg Tablet 25 mg PO DAILY Discharge Orders: Discharge Order (Routine); Ordered 02/20/24 Ordered By: Grabiel Dior Referrals: Angy Valenzuela MD [Primary Care Provider] - 02/23/24 3:30 pm Discharge Diet: Usual diet Discharge Activity: Resume usual activity and Increase activity as tolerated Patient Instructions: Loperamide (By mouth) (Imodium A-D, Imotil, Anti-Diarrheal, Diamode), Potassium Chloride (By mouth) (K-Dur, K-Stephanie, K-Tab, Duglas Mur), Pulmonary Edema (DC), Hypokalemia (DC), Chronic Diarrhea (DC), Weakness (DC), Fall Prevention (DC), Opioid Safety, Thrombocytopenia Activity Restrictions/Additional Instructions: Please maintain your hydration with at least 2 to 2-1/2 L of fluid daily. Please make sure half of it is Gatorade. Please recheck a BMP in 2 to 3 days. Along with Lomotil you can also take loperamide 4 times as needed for diarrhea. If you do not have more than 2 bowel movements a day you can hold off on taking loperamide. Discharge Attestations Time Spent in Discharge Care*: greater than 30 min Specific Discharge Activities: educating patient, educating and/or supporting family/caregiver, discussing with pcp/other providers, discussing with shelter case manager/social workers/dc planners, documenting/other paperwork and evaluating patient/reviewing data Status at Discharge: Cognitive status at discharge: cognitively intact, Behavioral status at discharge: cooperative, Functional status at discharge: uses cane/walker, Overall status at discharge: patient is not back to baseline Quality Metrics Clinical Quality Measures [ No reported AMI, CVA or VTE this stay] Coding Level of Care Code 36063 Total time (in minutes) for Discharge: 50 Diagnoses Weakness R53.1 Pulmonary edema J81.1 Hypokalemia E87.6 Chronic atrial fibrillation I48.20 Primary hypertension I10 Hypertension type: primary hypertension Thrombocytopenia D69.6 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
[2024-02-20 11:30] VITALS: BP 120/81; PULSE 96; RESP 25; TEMP 36.6; O2SAT 97
[2024-02-20 12:09] LABS: Glucose Point of Care 262 mg/dL (70-110)
[2024-02-20 12:11] LABS: Vitamin B12 524 pg/mL (232-1245)
[2024-02-20] MEDS: loperamide 2 mg Capsule PO (12:30)
--- NOTE | 2024-02-20 12:48 | PC.NURSE ---
Discharge Note Patient discharged to home via privat vehicle accompanied by . Discharge instructions reviewed with patient and/or termite control service representative. Mobile pharmacy medications and/or prescriptions provided. Belongings/home medications returned such as cellphones, shoes.
== END 2024-02-20 12:45 | disposition home or self-care (01) ==
LOC: ER 01:54 → CSU 02:56
PROVIDERS: Internal Medicine; Admitting Provider Internal Medicine; Emergency Provider Emergency Medicine; PCP Family Medicine; Visit Provider Student in an Organized Health Care Education/Training Program
DX: R53.1 Weakness (principal); R06.02 Shortness of breath; J81.1 Chronic pulmonary edema; E87.6 Hypokalemia; I10 Essential (primary) hypertension; D69.6 Thrombocytopenia, unspecified; C7A.019 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, unspecified portion; Z95.0 Presence of cardiac pacemaker; I25.10 Atherosclerotic heart disease of native coronary artery without angina pectoris; E78.5 Hyperlipidemia, unspecified; K21.9 Gastro-esophageal reflux disease without esophagitis; Z87.891 Personal history of nicotine dependence
CPT/HCPCS: 36415; 36416; 70450; 70496; 70498; 71045; 80053; 81001; 82607; 82962; 83036; 83735; 83880; 84100; 84145; 85025; 86140; 92526; 92610; 93005; 93308; 96365; 96366; 96372; 96375; 96376; 99285; G0378; J1815; J1940; J3480; Q9967

== ENCOUNTER 2024-02-20 08:00 | Oncology outpatient (recurring) (ONCR) | payer OTHER, SELFPAY ==
[2024-02-16 08:09] LABS: Alanine Aminotransferase 39 U/L (0-41); Albumin Level 3.6 g/dL (3.5-5.2); Alkaline Phosphatase 60 U/L (40-130); Anion Gap 14.5 (5-19); Aspartate Amino Transferase 20 U/L (0-40); Blood Urea Nitrogen 16 mg/dL (8-23); Carbon Dioxide 39 mmol/L (22-29); Chloride 94 mmol/L (98-107); Globulin 2.4 g/dL (1.3-4.6); Glucose 224 mg/dL (65-115); Osmolality Calculated 308 mOsm/kg (285-295); Sodium 145 mmol/L (136-145); Total Bilirubin 1.6 mg/dL (0.15-1.2)
[2024-02-16 08:14] LABS: Potassium 2.5 mmol/L (3.5-5.1)
[2024-02-16] MEDS: sodium chlor 0.9% + KCl 40 mEq 40 MEQ/1,000 ML BAG 250 MEQ IV (08:33)
[2024-02-16 13:00] VITALS: BP 159/79; PULSE 82; RESP 16; TEMP 36.7; O2SAT 98
[2024-02-23] MEDS: iohexol 350 mg/mL 500 mL Btl (per mL) PO (12:24)
--- NOTE | 2024-02-23 12:30 | CT_ITS ---
WS: [id number] CT CHEST, ABDOMEN AND PELVIS WITH CONTRAST HISTORY: elevated liver enzymes, history of carcinoid. TECHNIQUE: Contiguous 5 mm axial imaging performed through the chest, abdomen and pelvis with IV cont rast, oral contrast has been provided. Coronal and sagittal reformats chest. Coronal and sagittal ref ormats through the abdomen and pelvis. All CT scans at [facility] use at least one of these d ose optimization techniques: automated exposure control; mA and/or kV adjustment per patient size (in cludes targeted exams where dose is matched to clinical indication); or iterative reconstruction. CONTRAST: Omnipaque 350; 100 mL IV. DLP: 855.12 mGy.cm COMPARISON: 01/08/2022, 06/16/[address]: Mild pulmonary hyperexpansion. New bilateral lower lobe tree-in-bud airspace disease with a dditional areas of consolidation. Slightly greater consolidation at the RIGHT lung base. There are a few air bronchograms present within the consolidations. Very small bilateral pleural effusions, RIGHT greater than LEFT. There are few very subtle pleural-based nodules. There are a few scattered pulmon reba nodules scattered within the airspace disease. Some of these nodules are new. Other nodules were present on prior exams. Mild atherosclerosis aorta. Pulmonary artery is dilated to 3.8 cm. Heart size is enlarged. No RIGHT h eart strain. Indeterminate RIGHT hilar lymph node 1.[address]: Small hiatal hernia. Abnormal liver. Patient has known metastatic disease to the liver. M etastatic hypervascular lesions were described on 01/08/2022. Only a single metastatic focus was suspe cted by PET/CT at segment 6. The segment [address] measures 2.1 x 2.0 cm. There are additional n onenhancing low-attenuation masses throughout the liver. Some of these are in a different location th an on the prior CT of 01/08/2022. None of these lesions are hypervascular as noted on the prior CT. No bile duct dilatation. Prior cholecystectomy. Normal size spleen. Mild atrophy of the pancreas. Bilat eral adrenal hyperplasia and masses. This is similar to the study of 01/08/2022. No renal obstruction. Central mesenteric soft tissue mass with calcification measures 4.0 x 3.9 x 4.2 cm. Slightly smaller in size as compared to 01/08/2022. Mass is closely associated with the inner duodenal C-loop. There is a small amount of ascites within the abdomen and pelvis and anasarca. This ascites was not present on 12/20/2023. Nondistended stomach. No small bowel obstruction. No colon obstruction. New omen nidia nodularity and soft tissue especially within the LEFT upper quadrant which may represent omental carcinomatosis. Pelvic CT: Small amount of free fluid extends into the pelvis. 6 mm calcification in the urinary blad daria. Calcifications have been present before in the bladder. This is a larger calcification. Soft tis deep anasarca. Prior ORIF RIGHT hip. Tiny sclerotic focus LEFT ilium. Sclerotic 1.3 cm lesion S1. Both of these lesions were identified in 2021. CT/CT chest abdpel w/*[id number] IMPRESSION: 1. New bilateral lower lobe pulmonary consolidation centrally and tree-in-bud airspace disease. Most likely representing pneumonia. 2. New scattered very small pulmonary nodules and small bilateral pleural effu sions with a few pleural nodules. Highly suspicious for metastatic disease. 3. Indeterminate RIGHT hilar lymph node at 1.3 cm. 4. Abnormal liver. Hypervascular masses previously described in 2021 are no lo nger present. There are multiple small low-attenuation lesions scattered throug hout the liver which do not significantly enhance. These were not evident on recent PET/CT with the exception of a single focus at segment 6. Due to the i nterval change in the CT the PET/CT is suspected. 5. There is new ascites. 6. New area of omental nodularity suspicious for omental carcinomatosis in the LEFT upper abdomen. 7. Soft tissue mass in the central mesentery with calcification slightly decre ased in size since 01/08/2022 now measuring 4.0 x 3.9 x 4.2 cm. 8. Sclerotic foci within the LEFT ilium and S1 are stable. Stable since 022. The PET/CT did identify suspicious findings concerning for bone metastasis .
[2024-02-23] MEDS: iohexol 350 mg/mL 500 mL Btl (per mL) IV (13:56)
== END 2024-03-11 23:59 | disposition home or self-care (01) ==
LOC: RAD 02-23 12:03 → ONCMED 02-23 12:04
PROVIDERS: PCP Family Medicine; Visit Provider Nurse Practitioner Family
DX: Z53.9 Procedure and treatment not carried out, unspecified reason; C7A.019 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, unspecified portion; R91.8 Other nonspecific abnormal finding of lung field; J90 Pleural effusion, not elsewhere classified; R93.2 Abnormal findings on diagnostic imaging of liver and biliary tract; K76.9 Liver disease, unspecified; R18.8 Other ascites; R93.5 Abnormal findings on diagnostic imaging of other abdominal regions, including retroperitoneum
CPT/HCPCS: 71260; 74177; 80053; 96365; 96366; Q9967